=== PATIENT | female | born 1970 | race African-American/Black ===

== ENCOUNTER 2018-09-17 13:39 | Inpatient (IN) | payer OTHER, BC ==
--- NOTE | 2018-09-17 13:45 | PDOC ---
Rapid Medical Evaluation Time Seen by Provider: 09/17/18 13:42 Medical Evaluation: 09/17/18 13:42 I have performed a brief in-person evaluation of this patient. The patient presents with a chief complaint of: anemia Pertinent physical exam findings: Conjunctiva pallor. MM pallor. I have ordered the following: labs, urine The patient will proceed to the ED for further evaluation. Discharge Disposition - Diagnosis Anemia - Referrals - Patient Instructions - Post Discharge Activity
--- NOTE | 2018-09-17 14:17 | PDOC ---
History of Present Illness - General Chief Complaint: Weakness Stated Complaint: ENEMIC Time Seen by Provider: 09/17/18 13:42 - History of Present Illness Initial Comments: 09/17/18 14:14 48 yo F with h/o epilepsy, anemia, congenital 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, s/p CARPENTER ASSISTANT shunt who p/ w weakness, and concern for anemia. Patient unable to provide history. Slightly non verbal at baseline, able to follow commands. Patient mother/guardian at bedside to assist in report. States that patient is pale appearing, fatigue, loss of appetite, and shivering for unknown duration of time. Evaluated at Dr. Brit salazar ( 09/16/18) with lab abnml WBC 21.1 H/H: 4.8 /17.6, PLT 898. Denies h/o GI bleed, or blood transfusions. Patient denies FIGUEREDO, vision change, palpitations, cough, wheezing, orthopena, PND , leg swelling/pain, N/V, F,C, CP, SOB, urinary complaints, hematuria, BPR, abdominal pain, diarrhea, constipation, lightheadedness, weakness, sensory changes. PMHx: as noted above. Does not f/w GI. Denies h/o colonoscopy, ednosocopy, chronic NSAI Duse. S/p CARPENTER ASSISTANT shunt placement. ROS: as noted SHx: Denies Allergies: NKDA PMD: Not on staff Past History - Past Medical History Allergies/Adverse Reactions: Allergies Allergy/AdvReac Type Severity Reaction Status Date / Time No Known Allergies Allergy Verified 09/17/18 13:48 - Suicide/Smoking/Psychosocial Hx Smoking History: Never smoked Have you smoked in the past 12 months: No Information on smoking cessation initiated: No Hx Alcohol Use: No Drug/Substance Use Hx: No Review of Systems - Review of Systems Comments:: 09/17/18 14:14 GENERAL/CONSTITUTIONAL: No fever or chills. No weakness. HEAD, EYES, EARS, NOSE AND THROAT: No change in vision. No ear pain or discharge. No sore throat. CARDIOVASCULAR: No chest pain or shortness of breath RESPIRATORY: No cough, wheezing, or hemoptysis. GASTROINTESTINAL: No nausea, vomiting, diarrhea or constipation. GENITOURINARY: No dysuria, frequency, or change in urination. MUSCULOSKELETAL: No joint or muscle swelling or pain. No neck or back pain. SKIN: No rash NEUROLOGIC: No headache, vertigo, loss of consciousness, or change in strength/ sensation. ENDOCRINE: No increased thirst. No abnormal weight change HEMATOLOGIC/LYMPHATIC: No anemia, easy bleeding, or history of blood clots. ALLERGIC/IMMUNOLOGIC: No hives or skin allergy. *Physical Exam - Vital Signs Last Vital Signs Temp Pulse Resp BP Pulse Ox 97.4 F L 129 H 20 135/94 97 09/17/18 13:44 09/17/18 13:44 09/17/18 13:44 09/17/18 13:44 09/17/18 13:44 - Physical Exam Comments: 09/17/18 14:14 GENERAL: + Pale appearing. Awake, alert, slightly non verbal at baseline, able to follow commands., in no acute distress HEAD: No signs of trauma, normocephalic, atraumatic EYES: PERRLA, EOMI, sclera anicteric, conjunctiva clear ENT: + Conjuctival and mucosal pallor. Auricles normal inspection, hearing grossly normal, nares patent, oropharynx clear without exudates. NECK: Normal ROM, supple, no lymphadenopathy, JVD, or masses LUNGS: No distress, speaks full sentences, clear to auscultation bilaterally HEART: Regular rate and rhythm, normal S1 and S2, no murmurs, rubs or gallops, peripheral pulses normal and equal bilaterally. ABDOMEN: + Mild diffuse ttp. Soft, NDS, normoactive bowel sounds. No guarding, no rebound. No masses. Neg CVA ttp. RECTAL: Brown stool, absent BRBPR, absent lesions, fistulas, hemorrhoids. Chaperoned by Salma Gutierrez RN. EXTREMITIES : Normal inspection, Normal range of motion, no edema. No clubbing or cyanosis. NEUROLOGICAL: Cranial nerves II through XII grossly intact. Left wrist contracted. Strength grossly intact. SKIN: Warm, Dry, normal turgor, no rashes or lesions noted Moderate Sedation - Procedure Monitoring Vital Signs: Procedure Monitoring Vital Signs Temperature 97.4 F L 09/17/18 13:44 Pulse Rate 129 H 09/17/18 13:44 Respiratory Rate 20 09/17/18 13:44 Blood Pressure 135/94 09/17/18 13:44 O2 Sat by Pulse Oximetry (%) 97 09/17/18 13:44 ED Treatment Course - LABORATORY CBC & Chemistry Diagram: 09/17/18 13:55 09/17/18 13:54 Medical Decision Making - Medical Decision Making 09/17/18 14:15 48 yo F with h/o epilepsy, anemia, congenital 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 at , hypothyroidism, slightly non verbal at baseline, able to follow commands, s/p CARPENTER ASSISTANT shunt who p/w weakness, and concern for anemia. Per mother/legal guardian, pt. pale appearing, fatigue, loss of appetite, and shivering for unknown duration of time. Temp 97.4, HR 129, vitals wnl, A&Ox3. Patient pale appearing, with conjuctival and mucsoal pallor. Abdomen mildly, diffusely ttp. Will assess for acute blood loss anemia, hypoglycemia, electrolyte abnml, metabolic and toxic derangements, acid-base disturbances, infection. ED Course: 09/17/18 15:05 Patient guardian/mother consents to PRBC transfusions 09/17/18 15:08 Laboratory Tests 09/17/18 09/17/18 09/17/18 13:54 13:55 13:55 WBC 23.5 H Hgb 4.7 L* Hct 16.8 L Plt Count 832 H INR 1.26 H BUN 12 Creatinine 0.8 09/17/18 16:07 FOBT: + Protonix, Protonix gtt Contacted GI answering service. Dr. Collins line service person awaiting callback Pt. endorsed to Therese PGY1. Admit to Dr. Max medicine 09/17/18 17:01 Patient endorsed to family member/Dr. Salazar *DC/Admit/Observation/Transfer Diagnosis at time of Disposition: Anemia requiring transfusions Anemia Qualifiers: Anemia type: unspecified type Qualified Code(s): D64.9 - Anemia, unspecified GI bleed Qualifiers: GI bleed type/associated pathology: unspecified gastrointestinal hemorrhage type Qualified Code(s): K92.2 - Gastrointestinal hemorrhage, unspecified - Discharge Dispostion Condition at time of disposition: Stable Decision to Admit order: Yes - Referrals - Patient Instructions - Post Discharge Activity - Attestations Physician Attestion: 09/17/18 14:15 I attest to the information provided in this note.
[2018-09-17 14:26] LABS: INR 1.26 (0.83-1.09); PROTHROMBIN TIME (PATIENT) 14.9 SEC (9.7-13.0)
[2018-09-17 14:35] LABS: ALBUMIN 2.6 g/dl (3.4-5.0); ALK PHOS 192 U/L (45-117); ANION GAP 11 MMOL/L (8-16); BILIRUBIN,TOTAL 0.2 mg/dL (0.2-1); BLOOD UREA NITROGEN 12 mg/dL (7-18); CALCIUM 8.4 mg/dL (8.5-10.1); CHLORIDE 101 mmol/L (98-107); CO2 22 mmol/L (21-32); CREATININE 0.8 mg/dL (0.55-1.3); GLUCOSE,RANDOM 110 mg/dL (74-106); POTASSIUM 4.6 mmol/L (3.5-5.1); SGOT/AST 49 U/L (15-37); SGPT/ALT 31 U/L (13-61); SODIUM 133 mmol/L (136-145); TOT PROT 7.8 g/dl (6.4-8.2)
[2018-09-17] MEDS ORDERED: SODIUM CHLORIDE 1,000 ML IV STA (14:35)
[2018-09-17 14:48] LABS: HEMATOCRIT 16.8 % (32.4-45.2); MEAN CELL VOLUME 56.5 fl (80-96); PLATELET COUNT 832 K/MM3 (134-434); RBC 2.97 M/mm3 (3.60-5.2); RDW 20.7 % (11.6-15.6); RETICULOCYTES 2.06 % (0.5-1.5); WHITE BLOOD COUNT 23.5 K/mm3 (4.0-10.0)
[2018-09-17 14:50] LABS: MCH 15.8 pg (25.7-33.7)
[2018-09-17 14:52] LABS: HEMOGLOBIN 4.7 GM/dL (10.7-15.3)
--- NOTE | 2018-09-17 14:54 | PDOC ---
Attending Attestation - Physicial Exam PE: 09/17/18 18:29 GENERAL: (+)Pale appearing. Awake, alert, slightly nonverbal at baseline, able to follow commands. The patient is in no acute distress. HEAD: Normal with no signs of trauma. EYES: PERRLA, EOMI, sclera anicteric, conjunctiva clear. ENT: (+)Conjunctival and mucousal pallor. Ears normal, nares patent, oropharynx clear without exudates. Moist mucous membranes. NECK: Normal range of motion, supple without lymphadenopathy, JVD, or masses. LUNGS: Breath sounds equal, clear to auscultation bilaterally. No wheezes, and no crackles. HEART:Regular rate and rhythm, normal S1 and S2 without murmur, rub or gallop. ABDOMEN: (+)Mild diffuse tenderness to palpation. Soft, normoactive bowel sounds. No guarding, no rebound. No masses palpable. EXTREMITIES: Normal range of motion, no edema. No clubbing or cyanosis. No erythema, or tenderness. NEUROLOGICAL: Cranial nerves II through XII grossly intact. Normal speech. No focal neurological deficits. MUSCULOSKELETAL: Back non-tender to palpation, no CVA tenderness SKIN: Warm, Dry, normal turgor, no rashes or lesions noted. <Ina Newton - Last Filed: 09/17/18 18:29> - Resident Resident Name: Eliezer Early - ED Attending Attestation I have performed the following: I have examined & evaluated the patient, The case was reviewed & discussed with the resident, I agree w/resident's findings & plan, Exceptions are as noted - HPI HPI: 09/17/18 14:55 Ms Ta is a 48 yo F h/o epilepsy, anemia, chronic 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, s/p CT TECHNICIAN shunt who p/w weakness and concern for anemia. Pt noted by family to be pale, and shivering. Patient denies FIGUEREDO, vision change, palpitations, cough, wheezing, orthopena, PND , leg swelling/pain, N/V, F,C, CP, SOB, urinary complaints, hematuria, BPR, abdominal pain, diarrhea, constipation, lightheadedness, weakness, sensory changes. - Physicial Exam PE: - Medical Decision Making 09/17/18 15:11 Laboratory Tests 09/17/18 09/17/18 13:54 13:55 WBC 23.5 H Hgb 4.7 L* Hct 16.8 L Plt Count 832 H Retic Count 2.06 H BUN 12 Creatinine 0.8 09/17/18 17:58 EKG - ST rate of 128 bpm, axis nml, intervals nml, no st elevation or depression Will admit to hospitalist service PRBC ordered Clinical Impression: Anemia, initial presentation <Marissa Carrillo - Last Filed: 09/20/18 01:45> Attestations - Attestations 09/17/18 18:32 Documentation prepared by Ina Newton, acting as medical registrar for Marissa Carrillo MD. <Ina Newton - Last Filed: 09/17/18 18:29>
[2018-09-17 15:34] LABS: ANISOCYTOSIS 3+; MACROCYTOSIS 0; PLATELET ESTIMATE INCREASED; TARGET CELLS 2+
[2018-09-17] MEDS ORDERED: PANTOPRAZOLE SODIUM 40 MG VIAL IVPUSH ONE (15:43)
--- NOTE | 2018-09-17 16:13 | PN ---
Teaching Attending Note Name of Resident: Therese Durán ATTENDING PHYSICIAN STATEMENT I saw and evaluated the patient. I reviewed the resident's note and discussed the case with the resident. I agree with the resident's findings and plan as documented. SUBJECTIVE: Ms Ta is a 48 yo F h/o epilepsy, anemia, chronic 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, s/p BEHAVIORAL HEALTH TECH shunt who p/w weakness and concern for anemia. Pt was noted by family to be pale, and shivering. Was brought in to ED. for further care and evaluation. OBJECTIVE: Vital Signs Temperature 97.4 F L 09/17/18 13:44 Pulse Rate 129 H 09/17/18 13:44 Respiratory Rate 20 09/17/18 13:44 Blood Pressure 135/94 09/17/18 13:44 O2 Sat by Pulse Oximetry (%) 97 09/17/18 13:44 GENERAL:positivr for pallor. Awake, alert, slightly non verbal at baseline, able to follow commands., in no acute distress HEAD: No signs of trauma, normocephalic, atraumatic EYES: PERRLA, EOMI, sclera anicteric, conjunctiva clear ENT: positive for Conjuctival and mucosal pallor. oropharynx clear without exudates. NECK: Normal ROM, supple, no lymphadenopathy, JVD, or masses LUNGS: No distress, speaks full sentences, clear to auscultation bilaterally HEART: Regular rate and rhythm, normal S1 and S2, no murmurs, rubs or gallops. ABDOMEN: mild tenderness , soft , normoactive bowel sounds. No guarding, no rebound. No masses. EXTREMITIES : Normal inspection, Normal range of motion, no edema. No clubbing or cyanosis. NEUROLOGICAL: Cranial nerves II through XII grossly intact. Left wrist contracted. Strength grossly intact. SKIN: Warm, Dry, normal turgor, no rashes or lesions noted CBCD WBC 23.5 K/mm3 (4.0-10.0) H 09/17/18 13:55 RBC 2.97 M/mm3 (3.60-5.2) L 09/17/18 13:55 Hgb 4.7 GM/dL (10.7-15.3) L* 09/17/18 13:55 Hct 16.8 % (32.4-45.2) L 09/17/18 13:55 MCV 56.5 fl (80-96) L 09/17/18 13:55 MCHC 28.0 g/dl (32.0-36.0) L 09/17/18 13:55 RDW 20.7 % (11.6-15.6) H 09/17/18 13:55 Plt Count 832 K/MM3 (134-434) H 09/17/18 13:55 MPV 8.0 fl (7.5-11.1) 09/17/18 13:55 CMP Sodium 133 mmol/L (136-145) L 09/17/18 13:54 Potassium 4.6 mmol/L (3.5-5.1) 09/17/18 13:54 Chloride 101 mmol/L (98-107) 09/17/18 13:54 Carbon Dioxide 22 mmol/L (21-32) 09/17/18 13:54 Anion Gap 11 MMOL/L (8-16) 09/17/18 13:54 BUN 12 mg/dL (7-18) 09/17/18 13:54 Creatinine 0.8 mg/dL (0.55-1.3) 09/17/18 13:54 Creat Clearance w eGFR > 60 (>60) 09/17/18 13:54 Random Glucose 110 mg/dL (74-106) H 09/17/18 13:54 Calcium 8.4 mg/dL (8.5-10.1) L 09/17/18 13:54 Total Bilirubin 0.2 mg/dL (0.2-1) 09/17/18 13:54 AST 49 U/L (15-37) H 09/17/18 13:54 ALT 31 U/L (13-61) 09/17/18 13:54 Alkaline Phosphatase 192 U/L (45-117) H 09/17/18 13:54 Total Protein 7.8 g/dl (6.4-8.2) 09/17/18 13:54 Albumin 2.6 g/dl (3.4-5.0) L 09/17/18 13:54 ASSESSMENT AND PLAN: Patient is a 48 y/o female with a PMHx of epilepsy, chronic 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 with subsequent brain damage (patient is non-verbal) requiring 3 BEHAVIORAL HEALTH TECH shunts last one being in 1990), hypothyroidism she came to the ED after was found to have a low hemoglobin level of 4.6. # Acute blood loss due to GI Bleed: positive for hemoccult, GI consult, cbc q12h , transfuse 2 units for now. admit to tele. for further monitoring # Acute leukocytosis julian culture, will get ID to see her , # Acute thrombocytosis will monitor, will get her baseline, for consult # Acute hyponatremia on IVF continue DVT Px: SCds , low hemoglobin with positive hemoccult, will hold off on AC.
[2018-09-17] MEDS ORDERED: PANTOPRAZOLE SODIUM 40 MG/100 ML BAG IVPB ONE (16:14)
[2018-09-17] MEDS ORDERED: PANTOPRAZOLE SODIUM 40 MG VIAL ONE (16:14)
[2018-09-17] MEDS: PANTOPRAZOLE SODIUM 80 MG in SODIUM CHLORIDE 100 ML IVPB SCH (16:15)
[2018-09-17] MEDS: SODIUM CHLORIDE 1,000 ML IV SCH ×2 (17:42→22:58)
--- NOTE | 2018-09-17 17:52 | HP ---
CHIEF COMPLAINT: low hemoglobin level PCP: [facility] HISTORY OF PRESENT ILLNESS: 48 y/o female with a PMH of epilepsy, chronic 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 with subsequent brain damage (patient is non-verbal) requiring 3 MAT CUTTER shunts last one being in 1990), hypothyroidism she came to the ED after was found to have a low hemoglobin level when she went to her sisters (dr. butler's) office yesterday. As per patients mother and sister, she had been been feeling weak and was noticed to be looking pale and not eating for the past week so she went to her sister's office and blood tests showed that patient had a Hgb of 4.6, Hct of 17.6, WBC 21.1. of note, patient has never had this before- no history of GI bleed, no NSAID use, never had a colonoscopy, never seen a GI in the past , her mother has not noted any dark stool no hematemesis or hematochezia noted. Patient has also been having abdominal tenderness, but no diarrhea no fevers. ER course was notable for: (1)HR 129; normal BP (2)wbc 23.5, Hgb 4.7, HCt 16.8, platelets 832, BUN 12 FOBT positive (as per rectal done by ED resident) (3)started on protonix drip, transfuse 2 units (1st unit finished already) Recent Travel: denies PAST MEDICAL HISTORY: see above PAST SURGICAL HISTORY: MAT CUTTER shunt Social History: Smoking:denies Alcohol:denies Drugs: denies Family History: father from [place] Allergies No Known Allergies Allergy (Verified 09/17/18 13:48) HOME MEDICATIONS: Home Medications Medication Instructions Recorded Calcium Carbonate [Super Calcium] 600 mg PO BID 09/17/18 Carbamazepine Xr [Tegretol Xr -] 400 mg PO AM 09/17/18 Carbamazepine Xr [Tegretol Xr -] 600 mg PO HS 09/17/18 Ferrous Sulfate 325 mg PO DAILY 09/17/18 Levothyroxine [Synthroid -] 75 mcg PO DAILY 09/17/18 REVIEW OF SYSTEMS CONSTITUTIONAL: Present: generalized weakness, malaise, loss of appetite Absent: fever, chills , diaphoresis, , weight change HEENT: Absent: rhinorrhea, nasal congestion, throat pain, throat swelling, difficulty swallowing, mouth swelling, ear pain, eye pain, visual changes CARDIOVASCULAR: Absent: chest pain, syncope, palpitations, irregular heart rate, lightheadedness , peripheral edema RESPIRATORY: Absent: cough, shortness of breath, dyspnea with exertion, orthopnea, wheezing, stridor, hemoptysis GASTROINTESTINAL: Present:hematochezia Absent: abdominal pain, abdominal distension, nausea, vomiting, diarrhea, constipation, melena, GENITOURINARY: Absent: dysuria, frequency, urgency, hesitancy, hematuria, flank pain, genital pain MUSCULOSKELETAL: Absent: myalgia, arthralgia, joint swelling, back pain, neck pain SKIN: Absent: rash, itching, pallor HEMATOLOGIC/IMMUNOLOGIC: Absent: easy bleeding, easy bruising, lymphadenopathy, frequent infections ENDOCRINE: Absent: unexplained weight gain, unexplained weight loss, heat intolerance, cold intolerance NEUROLOGIC: Absent: headache, focal weakness or paresthesias, dizziness, unsteady gait, seizure, mental status changes, bladder or bowel incontinence PSYCHIATRIC: Absent: anxiety, depression, suicidal or homicidal ideation, hallucinations. PHYSICAL EXAMINATION Vital Signs - 24 hr 09/17/18 09/17/18 13:44 15:30 Temperature 97.4 F L Pulse Rate 129 H Respiratory 20 Rate Blood Pressure 135/94 O2 Sat by Pulse 97 98 Oximetry (%) GENERAL: Awake, alert, resting comfortably, looking pale EYES: PEERLA; EOMI; no scleral icterus; pallor noted LUNGS: CTA B/L; no rales, rhonchi or wheezing. HEART: Regular rate and rhythm, normal S1 and S2 without murmur, rub or gallop. ABDOMEN: soft; wincing upon palpation diffusely; +BS in all 4 quadrants MUSCULOSKELETAL: Normal range of motion at all joints. No bony deformities or tenderness. No CVA tenderness. EXTREMITIES: warm; well-perfused; no clubbing/cyanosis or edema PSYCHIATRIC: Cooperative. Good eye contact. Appropriate mood and affect. SKIN: Warm, dry, normal turgor, no rashes or lesions noted, normal capillary refill. Laboratory Results - last 24 hr 09/17/18 09/17/18 09/17/18 13:54 13:54 13:55 WBC 23.5 H RBC 2.97 L Hgb 4.7 L* Hct 16.8 L MCV 56.5 L MCH 15.8 L MCHC 28.0 L RDW 20.7 H Plt Count 832 H MPV 8.0 Neutrophils % No Result Required. Neutrophils % (Manual) 81.8 Band Neutrophils % 1.0 Lymphocytes % No Result Required. Lymphocytes % (Manual) 5.1 L Monocytes % (Manual) 11 H Eosinophils % (Manual) 0.0 Basophils % (Manual) 1.0 Myelocytes % (Man) 0 Promyelocytes % (Man) 0 Blast Cells % (Manual) 0 Nucleated RBC % 0 Metamyelocytes 0 Hypochromia 2+ Platelet Estimate Increased Polychromasia 1+ Poikilocytosis 1+ Anisocytosis 3+ Microcytosis 3+ Macrocytosis 0 Target Cells 2+ Schistocytes 1+ Retic Count 2.06 H PT with INR INR Sodium 133 L Potassium 4.6 Chloride 101 Carbon Dioxide 22 Anion Gap 11 BUN 12 Creatinine 0.8 Creat Clearance w eGFR > 60 Random Glucose 110 H Calcium 8.4 L Total Bilirubin 0.2 AST 49 H ALT 31 Alkaline Phosphatase 192 H Total Protein 7.8 Albumin 2.6 L TSH 0.76 Stool Occult Blood Blood Type A POSITIVE Antibody Screen Negative Crossmatch See Detail 09/17/18 09/17/18 13:55 14:55 WBC RBC Hgb Hct MCV MCH MCHC RDW Plt Count MPV Neutrophils % Neutrophils % (Manual) Band Neutrophils % Lymphocytes % Lymphocytes % (Manual) Monocytes % (Manual) Eosinophils % (Manual) Basophils % (Manual) Myelocytes % (Man) Promyelocytes % (Man) Blast Cells % (Manual) Nucleated RBC % Metamyelocytes Hypochromia Platelet Estimate Polychromasia Poikilocytosis Anisocytosis Microcytosis Macrocytosis Target Cells Schistocytes Retic Count PT with INR 14.90 H INR 1.26 H Sodium Potassium Chloride Carbon Dioxide Anion Gap BUN Creatinine Creat Clearance w eGFR Random Glucose Calcium Total Bilirubin AST ALT Alkaline Phosphatase Total Protein Albumin TSH Stool Occult Blood Positive Blood Type Antibody Screen Crossmatch ASSESSMENT/PLAN: 48 y/o female with a PMH of epilepsy, chronic 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 requiring 3 MAT CUTTER shunts, hypothyroidism presents to the ED with a one week history of worsening fatigue, loss of appetite, found to have a hemoglobin of 4.6 and was FOBT positive. #GI Bleed patient found to have an H/H of 4.7/16.8 on arrival -FOBT positive -started on PPI drip -receiving 2 units -CBC [id number] -Dr. Valentine consulted -transfuse if <7 -once PPI drip; switch to protonix 40 BID -NS@100 #Leukocytosis/thrombocytosis unclear source of infection right now as patient is afebrile however has been having abdominal pain -f/u ab/pelvis CT scan -f/u head CT (given patient does have MAT CUTTER shunt) -Dr. perez consulted -may consider ID consult #Chronic Hydrocephalus w/ MAT CUTTER shunt -head CT ordered to r/o infection -Dr. Quezada consulted #Seizures -c/w home medication: tegretol 200: 2 tablets in AM; 3 tablets PM #Hypothyroidism c/w synthroid 75 mcg daily F/E/N NS @100 monitor electrolytes NPO for now DVT PPX: SCD's GI: protonix drip dispo - tele Problem List - Problem (1) Seizure Code(s): R56.9 - UNSPECIFIED CONVULSIONS (2) Hydrocephalus Code(s): G91.9 - HYDROCEPHALUS, UNSPECIFIED (3) Anemia Code(s): D64.9 - ANEMIA, UNSPECIFIED Qualifiers: Anemia type: unspecified type Qualified Code(s): D64.9 - Anemia, unspecified (4) GI bleed Code(s): K92.2 - GASTROINTESTINAL HEMORRHAGE, UNSPECIFIED Qualifiers: GI bleed type/associated pathology: unspecified gastrointestinal hemorrhage type Qualified Code(s): K92.2 - Gastrointestinal hemorrhage, unspecified Visit type - Emergency Visit Emergency Visit: Yes ED Registration Date: 09/17/18 Care time: The patient presented to the Emergency Department on the above date and was hospitalized for further evaluation of their emergent condition. - New Patient This patient is new to me today: Yes Date on this admission: 09/17/18 - Critical Care Critical Care patient: No
--- NOTE | 2018-09-17 20:48 | CONS ---
DATE OF CONSULTATION: DATE OF DICTATION: 09/17/2018 GASTROENTEROLOGY CONSULTATION HISTORY OF PRESENT ILLNESS: The patient is a 48-year-old female, past medical history of epilepsy, chronic 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 with subsequent brain damage. Patient is nonverbal. She had required 3 HEAD USHER shunts in the past, also with a history of hypothyroidism, who was sent to the hospital secondary to anemia after being seen at the outpatient doctor's office. As per the family, she has been feeling weak and pale over the past week and not eating as much as she is normally eating on a daily basis. There is no history of any abdominal pain, nausea, vomiting, hematemesis, melena, or hematochezia. She has never had an endoscopic evaluation in the past. She does not use any NSAIDs, and there is no history of GI bleed. PAST MEDICAL AND SURGICAL HISTORY: As listed in the HPI. ALLERGIES: No known drug allergies. SOCIAL HISTORY: Does not smoke, drink, or use drugs. FAMILY HISTORY: Noncontributory. PHYSICAL EXAMINATION: VITAL SIGNS: Temperature 97, pulse 120, blood pressure 130/94, pulse oximetry 98% on room air. GENERAL: In no acute distress. HEENT: Anicteric sclerae. CARDIOVASCULAR: S1, S2, regular rate and rhythm. LUNGS: Bilaterally clear to auscultation. ABDOMEN: Soft, nontender. EXTREMITIES: No edema. She is FOBT positive as per the rectal exam done in the emergency room. LABORATORY: White blood cell count 23, hemoglobin and hematocrit 4.7/16, MCV 56, platelet count 834, INR 1.26, sodium 133, potassium 4.6, BUN/creatinine 12/0.8, AST 49, ALT 31, alkaline phosphatase 192, TSH 0.76. FOBT testing is positive. She had head CT which was within normal limits. She also had a CT scan of the abdomen and pelvis which revealed markedly limited study with large hepatic masses suspicious for metastatic disease. This study was done without contrast. IMPRESSION: Severe microcytic anemia underlying hematological process cannot be excluded. Imaging findings consistent with lesions in the liver; however, this is a noncontrast study and is limited. Gastrointestinal blood loss cannot be excluded. RECOMMENDATION: Transfuse to hemoglobin over 8, avoid NSAID, repeat imaging, would recommend an MRCP to further evaluate the liver and rule out metastatic disease, would also recommend a hematology/oncology consultation. Unclear why she has a leukocytosis. Would julian culture her also. Considering there is no sign of an overt GI bleed, would hold off on any endoscopic procedures and continue to evaluate her hematological process. This patient will be followed by the GI service. DO YANG LARA/[id number]
[2018-09-17] MEDS ORDERED: PT OWN MED DRAWER 7, Y5N ONE (22:52)
[2018-09-17] MEDS: carBAMazepine XR 200 MG TAB.ER.12H PO SCH (23:15)
[2018-09-18] MEDS ORDERED: ACETAMINOPHEN 325 MG TABLET (FP) PO ONE (00:07)
[2018-09-18] MEDS ORDERED: VANCOMYCIN 1 GM in D5W (PRE-DOCKED) 1,000 MG/250 ML IVPB ONE (02:00)
--- NOTE | 2018-09-18 02:11 | PN ---
Progress Note (short form) - Note Progress Note: Paged by nurse for fever to 100.7. Pt.'s Type and Screen resulted ~10:45. Blood arrived at Pt.'s bedside ~11:45pm. Pt. was given 325mg Tylenol. Pt.s repeat Temp 101.4. Pt. at this point still had not received blood. BP was at this time 90s/40s. UA(straight cath) and BCx. drawn. CXR, CMP, and CBC ordered. Zosyn and Vancomycin ordered. Pt.'s transfusion paused as Pt. was alert, oriented to name and responsive and was febrile. The duration of time needed to Type and Screen indicated that the Pt. would be a increased risk for a Transfusion related Rxn and the thought process was to address suspected infection first. IV Ofirmev ordered. No overt bleeding noted, Pt. denied SOB, CP, dizziness or lightheadedness. Pt.'s family at bedside noted that Pt. was at her baseline for mental capacity.
[2018-09-18] MEDS ORDERED: PIPERACILLIN/TAZOBACTAM 3.375 GM VIAL IVPB ONE ×3 (03:09→18:22)
[2018-09-18] MEDS ORDERED: DEXTROSE 5%-WATER - 50 ML IVPB ONE ×3 (03:10→18:22)
[2018-09-18 03:21] LABS: BASO % 0.7 % (0-2.0); EOS % 0.1 % (0-4.5); HEMATOCRIT 13.1 % (32.4-45.2); LYMPH % 4.2 % (8-40); MCHC 28.8 g/dl (32.0-36.0); MEAN CELL VOLUME 55.3 fl (80-96); MEAN PLT VOLUME 7.6 fl (7.5-11.1); MONO % 9.6 % (3.8-10.2); NEUT % 85.4 % (42.8-82.8); PLATELET COUNT 666 K/MM3 (134-434); RBC 2.37 M/mm3 (3.60-5.2); RDW 20.3 % (11.6-15.6); WHITE BLOOD COUNT 18.5 K/mm3 (4.0-10.0)
[2018-09-18 03:22] LABS: URINE APPEARANCE SLCLOUDY; URINE BILIRUBIN NEGATIVE (<2.0 mg/dL); URINE COLOR YELLOW; URINE GLUCOSE (UA) NEGATIVE (NEGATIVE); URINE KETONE 1+ (NEGATIVE); URINE LEUK ESTERASE TRACE (NEGATIVE); URINE NITRITE NEGATIVE (NEGATIVE); URINE PROTEIN NEGATIVE (NEGATIVE); URINE UROBILINOGEN NEGATIVE mg/dL (0.2-1.0)
[2018-09-18 03:23] LABS: HCG,QUALITATIVE URINE Negative
[2018-09-18] MEDS: PANTOPRAZOLE SODIUM 80 MG in SODIUM CHLORIDE 100 ML IVPB SCH (03:37)
[2018-09-18 03:52] LABS: MCH 15.9 pg (25.7-33.7)
[2018-09-18 03:53] LABS: ALBUMIN 2.1 g/dl (3.4-5.0); ALK PHOS 157 U/L (45-117); ANION GAP 7 MMOL/L (8-16); BILIRUBIN,TOTAL 0.2 mg/dL (0.2-1); BLOOD UREA NITROGEN 11 mg/dL (7-18); CALCIUM 7.7 mg/dL (8.5-10.1); CHLORIDE 106 mmol/L (98-107); CO2 24 mmol/L (21-32); CREATININE 0.5 mg/dL (0.55-1.3); GLUCOSE,RANDOM 75 mg/dL (74-106); POTASSIUM 3.8 mmol/L (3.5-5.1); SGOT/AST 35 U/L (15-37); SGPT/ALT 24 U/L (13-61); SODIUM 136 mmol/L (136-145)
[2018-09-18 03:54] LABS: HEMOGLOBIN 3.8 GM/dL (10.7-15.3)
[2018-09-18 04:13] LABS: EPI CELLS RARE /HPF (FEW); URINE BACTERIA RARE /hpf (NONE SEEN); URINE MUCUS RARE
[2018-09-18] MEDS: PIPERACILLIN/TAZOB 3.375 GM 3.375 GM in DEXTROSE 5%-WATER - 50 ML IVPB SCH ×3 (04:42→18:25)
[2018-09-18] MEDS: LEVOTHYROXINE NA 75 MCG TABLET (FP) PO SCH (06:29)
--- NOTE | 2018-09-18 09:02 | PN ---
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 History obtained from mother. Pt feeling weak and looking pale and not eating for the past week so she went to her sister's office and blood tests showed that patient had a Hgb of 4.6, Hct of 17.6, WBC 21.1. No history of GI bleed, no NSAID or recent steroid use. No recent trauma, fall, or infection. Mother has not noted any dark stool no hematemesis, hematochezia, diarrhea. Pt more lethargic previously but back to baseline this AM per mother. Denies H/A or recent seizure. Has been taking iron supplement since last year. PE: Tmax 100.2, now 99.2, VSS HEENT- R temporo-parietal shunt valve pumps and refills, no obvious underlying scalp fluid collection or track; Neck- supple; Cor-RR; Lungs- CTA B; Abd- benign , hypoactive BS, healed midline supraumbilical incision; Ext- no sign of DVT CN- non-focal; Motor- mild L hemiparesis 4/5, increased L UE and LE tone; Sensation- difficult to fully assess; DTR- hyperreflexic L UE; toes downgoing WBC 23.5 to 18.5; Hgb 8.[address]- At least catheters; R parietal chronic encephalomalacia, R frontal catheter into encephalomalacic cavity, R temporal catheter into lateral ventricle, R parietal catheter crossing midline into L lateral ventricle, no acute bleed or fx CT Abd- hepatic lesions of unknown etiology; no reported large fluid collection HCP s/p shunts/revision most recently 1990 per mom At least one shunt appears to be working as valve pumps and refills easily, though shunt setup difficult to ascertain as there are multiple and were done elsewhere Shunt infection possible but less likely as pt would likely be much sicker clinically If ASSISTANCE REPRESENTATIVE infection or meningitis suspected could consider LP though with CP shunt , lumbar cistern fluid would likely be scant and viscous Neurosurgical intervention not recommended at this time W/u for anemia, leukocytosis and hepatic lesions per medical team ID input and followup Mother understands and concurs with recommendations
--- NOTE | 2018-09-18 09:06 | PN ---
GI Progress Note Subjective: Receiving 1st unit PRBC No overt bleeding reported Patient's mother present: noted 20 pound weight loss over last 1-2 months - Objective Vital Signs: Vital Signs Temperature 99.0 F 09/18/18 06:00 Pulse Rate 95 H 09/18/18 06:00 Respiratory Rate 18 09/18/18 06:00 Blood Pressure 98/52 L 09/18/18 06:00 O2 Sat by Pulse Oximetry (%) 100 09/18/18 05:00 Constitutional: Calm Eyes: No: Sclera Icterus Cardiovascular: Yes: Regular Rate and Rhythm Respiratory: Yes: Diminished (at bases bilaterally) Gastrointestinal Inspection: Yes: Scars (upper abdominal scar). No: Distention ...Auscultate: Yes: Normoactive Bowel Sounds ...Palpate: Yes: Tenderness (TTP RUQ) ...Percussion: No: Tympanitic ...Rectal Exam: Yes: Other (No external lesions, no masses, dark brown iron stained stool (has been on iron x 1 year), tracely guaiac positive. No melena / blood.) Edema: No Neurological: Yes: Other (Awake) Labs: CBC, BMP 09/18/18 02:15 09/18/18 02:15 INR, PTT INR 1.26 (0.83-1.09) H 09/17/18 13:55 Fibrinogen 395.0 mg/dL (238-498) 09/18/18 02:15 Hepatic Panel Total Bilirubin 0.2 mg/dL (0.2-1) 09/18/18 02:15 AST 35 U/L (15-37) 09/18/18 02:15 ALT 24 U/L (13-61) 09/18/18 02:15 Alkaline Phosphatase 157 U/L (45-117) H 09/18/18 02:15 Albumin 2.1 g/dl (3.4-5.0) L 09/18/18 02:15 Problem List - Problems (1) Anemia Assessment/Plan: Profound microcytic anemia continue supportive measures: PRBC transfusions Heme/Onc eval When able, CT scan of the C/A/P with contrast. For now, hepatic US Ordered CEA/CA19-9/AFP tumor markers Protonix 40mg daily When optimally resiscitated, EGD and colonoscopy if feasible Code(s): D64.9 - ANEMIA, UNSPECIFIED Qualifiers: Anemia type: unspecified type Qualified Code(s): D64.9 - Anemia, unspecified
[2018-09-18 09:35] LABS: HEMATOCRIT 17.8 % (32.4-45.2); MCHC 30.4 g/dl (32.0-36.0); MEAN CELL VOLUME 62.4 fl (80-96); MEAN PLT VOLUME 7.6 fl (7.5-11.1); PLATELET COUNT 590 K/MM3 (134-434); RBC 2.85 M/mm3 (3.60-5.2); RDW 30.8 % (11.6-15.6); WHITE BLOOD COUNT 17.7 K/mm3 (4.0-10.0)
[2018-09-18] MEDS: carBAMazepine XR 400 MG TAB.ER.12H PO SCH (09:35)
[2018-09-18 09:46] LABS: HEMOGLOBIN 5.4 GM/dL (10.7-15.3)
[2018-09-18] MEDS: PANTOPRAZOLE SODIUM 40 MG VIAL IVPUSH SCH (10:07)
[2018-09-18 10:14] LABS: ALBUMIN 1.9 g/dl (3.4-5.0); ALK PHOS 153 U/L (45-117); ANION GAP 5 MMOL/L (8-16); BILIRUBIN,TOTAL 0.7 mg/dL (0.2-1); BLOOD UREA NITROGEN 8 mg/dL (7-18); CALCIUM 7.3 mg/dL (8.5-10.1); CHLORIDE 111 mmol/L (98-107); CO2 24 mmol/L (21-32); CREATININE 0.5 mg/dL (0.55-1.3); GLUCOSE,RANDOM 71 mg/dL (74-106); MAGNESIUM 1.9 mg/dL (1.8-2.4); PHOSPHOROUS 3.3 mg/dL (2.5-4.9); POTASSIUM 3.7 mmol/L (3.5-5.1); SGOT/AST 33 U/L (15-37); SGPT/ALT 19 U/L (13-61); SODIUM 139 mmol/L (136-145); TOT PROT 5.5 g/dl (6.4-8.2)
--- NOTE | 2018-09-18 13:29 | CONS ---
DATE OF CONSULTATION: 09/18/2018 CHIEF COMPLAINT: Lethargy, leukocytosis, and anemia. HISTORY OF PRESENT ILLNESS: The patient is a 48-year-old female with history of 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, status post at least 3 shunt placement procedures in the past. The patient had both shunt malfunctions and infections in the past. The last shunt operation was in 1990. She also has underlying seizure disorder, has been on Tegretol with good seizure control. She was found to have a low hemoglobin and high white blood cell count 2 days ago in the medical office. The patient has been noted to be slightly weak and sleepy and was not eating as much over the past week. There was no hematochezia or melena. She has no nausea or vomiting. There is no fever or chills according to the mother. There has been no recent fall, trauma or infection. The patient generally goes to adult daycare and participates in a full-day program. The patient has not complained of chest pain or shortness of breath. There has been no diarrhea either. Her mental status had returned to baseline according to mother by this morning. The patient has baseline left hemiparesis which has not changed appreciably. PAST MEDICAL HISTORY: Significant for 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, status post shunt procedures, epilepsy, hypothyroidism, anemia. CURRENT MEDICATIONS: Include Zosyn, Tegretol, Protonix, levothyroxine and the patient had received 1 dose of vancomycin previously. ALLERGIES: There is no known drug allergy. FAMILY HISTORY: Noncontributory. SOCIAL HISTORY: She does not smoke or drink. She lives at home with her mother. REVIEW OF SYSTEMS: Otherwise negative for major constitutional, head and neck, cardiovascular, pulmonary, gastrointestinal, genitourinary, endocrinological, neurological or psychological problems except for the above. PHYSICAL EXAMINATION:Vital Signs: Temperature is 99, T-max is 100.2, blood pressure is 190/52 with pulse rate 95, O2 saturation is 100% on 2 L. HEENT: Shows multiple shunt catheters in the subcutaneous space. There is also a shunt valve in the right posterior temporal region which pumps and refills easily. Neck: Supple with no nuchal rigidity. Cor: Demonstrated a regular rhythm. Lungs: Clear to auscultation bilaterally. Abdomen: Benign, but she has hypoactive bowel sounds. Extremities: Show no signs of DVT. Neurologic: She is awake and alert and her eyes open to commands. She also follows simple commands as well. She is minimally verbal. Cranial nerve examination is nonfocal. Motor examination shows 4/5 strength in the left upper and lower extremity with increased tone. Deep tendon reflexes are 1 to 2+ and symmetric. Sensory exam is intact to light touch. Toes are downgoing bilaterally. Gait is not tested for safety reasons. Cerebellar examination is difficult to perform given her degree of cooperation. LABORATORY: Shows her white blood cell count to be 23.5 initially. It subsequently is 18.5. Hemoglobin has dropped from 4.7 to 3.8. Platelet count was 666,000. Serum sodium is 136, potassium is 3.8, BUN is 11, creatinine is 0.5, calcium is 7.7, alkaline phosphatase is 157. Urinalysis shows 2 RBC and less than 1 WBC. INR is 1.26. [address] scan of the head demonstrated at least 3 ventricular catheters and possibly 4. There is a right temporal catheter which ends near the vicinity of the right lateral ventricle. There is a right parietal catheter crossing the midline into the left lateral ventricle. There is a right frontal catheter extending to the right parietal encephalomalacic cavity. There is no significant mass effect. There is no acute bleed or fracture. CT scan of the abdomen reports the presence of large hepatic lesions. IMPRESSION: 1. Leukocytosis with anemia, rule out neoplastic disease versus gastrointestinal bleed. 2. Hepatic lesions, rule out primary disease or metastasis. 3. Hydrocephalus, status post multiple shunt procedures, most recently in 1990. 4. Seizure disorder, under control. RECOMMENDATIONS: The patient presents with a 1-week history of slightly decreased mental status, satiety, and was found to be significantly anemic. She is being transfused with packed red blood cells reportedly. Her blood pressure has remained reasonably stable. She is not significantly tachycardic. Her intracranial anatomy is abnormal which is to be expected. There is right parietal encephalomalacia, with multiple shunt catheters. It is difficult to ascertain which shunt is actually functional at this time. There is 1 shunt valve in the right posterior temporal region which pumps and refills well. There are no obvious signs of ventricular dilatation at this time. It is most likely that at least 1 of the shunts is still functioning well. Her mental status has improved significantly since admission according to the mother. It is less likely that she has an overwhelming shunt infection as such degree of shunt infection would significantly compromise her mental status. Her mental status is back at baseline according to the mother. Further medical evaluation of her leukocytosis and anemia is recommended. ID consultation and input are also recommended. GI service is already involved. The patient is found to have some hepatic lesions which could be primary or metastatic. Further evaluation is left to the professional discretion of the treating medical and GI team. No neurosurgical intervention is recommended at this time given the low likelihood of shunt malfunction at this time. The above was discussed with the patient's mother at the bedside. All questions were answered. She understands the patient's current condition and concurs with the treatment plan. BONNIE MAGUIRE M.D. [id number] MTDD
--- NOTE | 2018-09-18 13:34 | PN ---
Physical Exam: SUBJECTIVE: Patient seen and examined at bedside- patient spiked fevers last night and was started on broad spectrum abx. blood cx pending ; u/a cx were negative OBJECTIVE: Vital Signs Period Temp Pulse Resp BP Sys/Martin Pulse Ox Last 24 Hr 97.4 F-101.4 F 60-129 16-20 93-135/42-94 97-100 GENERAL: The patient is awake, alert, and fully oriented, in no acute distress. EYES: PEERLA; EOMI; no scleral icterus. . NECK: no JVd; no lymphadenopathy LUNGS: CTA B/L; no raes, rhonchi or wheezing. HEART: Regular rate and rhythm, S1, S2 without murmur, rub or gallop. ABDOMEN:tender upon palpation EXTREMITIES: 2+ pulses, warm, well-perfused, no edema. . PSYCH: Normal mood, normal affect. SKIN: Warm, dry, normal turgor, no rashes or lesions noted Laboratory Results - last 24 hr 09/17/18 09/17/18 09/17/18 13:54 13:54 13:55 WBC 23.5 H RBC 2.97 L Hgb 4.7 L* Hct 16.8 L MCV 56.5 L MCH 15.8 L MCHC 28.0 L RDW 20.7 H Plt Count 832 H MPV 8.0 Absolute Neuts (auto) Neutrophils % No Result Required. Neutrophils % (Manual) 81.8 Band Neutrophils % 1.0 Lymphocytes % No Result Required. Lymphocytes % (Manual) 5.1 L Monocytes % Monocytes % (Manual) 11 H Eosinophils % Eosinophils % (Manual) 0.0 Basophils % Basophils % (Manual) 1.0 Myelocytes % (Man) 0 Promyelocytes % (Man) 0 Blast Cells % (Manual) 0 Nucleated RBC % 0 Metamyelocytes 0 Hypochromia 2+ Platelet Estimate Increased Polychromasia 1+ Poikilocytosis 1+ Anisocytosis 3+ Microcytosis 3+ Macrocytosis 0 Target Cells 2+ Schistocytes 1+ Retic Count 2.06 H PT with INR INR Fibrinogen Sodium 133 L Potassium 4.6 Chloride 101 Carbon Dioxide 22 Anion Gap 11 BUN 12 Creatinine 0.8 Creat Clearance w eGFR > 60 Random Glucose 110 H Calcium 8.4 L Phosphorus Magnesium Total Bilirubin 0.2 AST 49 H ALT 31 Alkaline Phosphatase 192 H Total Protein 7.8 Albumin 2.6 L TSH 0.76 Urine Color Urine Appearance Urine pH Ur Specific [place] Urine Protein Urine Glucose (UA) Urine Ketones Urine Blood Urine Nitrite Urine Bilirubin Urine Urobilinogen Ur Leukocyte Esterase Urine WBC (Auto) Urine RBC (Auto) Ur Epithelial Cells Urine Bacteria Urine Mucus Urine HCG, Qual Stool Occult Blood Blood Type A POSITIVE Antibody Screen Negative Crossmatch See Detail 09/17/18 09/17/18 09/17/18 13:55 14:55 16:47 WBC RBC Hgb Hct MCV MCH MCHC RDW Plt Count MPV Absolute Neuts (auto) Neutrophils % Neutrophils % (Manual) Band Neutrophils % Lymphocytes % Lymphocytes % (Manual) Monocytes % Monocytes % (Manual) Eosinophils % Eosinophils % (Manual) Basophils % Basophils % (Manual) Myelocytes % (Man) Promyelocytes % (Man) Blast Cells % (Manual) Nucleated RBC % Metamyelocytes Hypochromia Platelet Estimate Polychromasia Poikilocytosis Anisocytosis Microcytosis Macrocytosis Target Cells Schistocytes Retic Count PT with INR 14.90 H INR 1.26 H Fibrinogen Sodium Potassium Chloride Carbon Dioxide Anion Gap BUN Creatinine Creat Clearance w eGFR Random Glucose Calcium Phosphorus Magnesium Total Bilirubin AST ALT Alkaline Phosphatase Total Protein Albumin TSH Urine Color Urine Appearance Urine pH Ur Specific [place] Urine Protein Urine Glucose (UA) Urine Ketones Urine Blood Urine Nitrite Urine Bilirubin Urine Urobilinogen Ur Leukocyte Esterase Urine WBC (Auto) Urine RBC (Auto) Ur Epithelial Cells Urine Bacteria Urine Mucus Urine HCG, Qual Stool Occult Blood Positive Blood Type A POSITIVE Antibody Screen Negative Crossmatch 09/17/18 09/18/18 09/18/18 22:40 02:15 02:15 WBC RBC Hgb Hct MCV MCH MCHC RDW Plt Count MPV Absolute Neuts (auto) Neutrophils % Neutrophils % (Manual) Band Neutrophils % Lymphocytes % Lymphocytes % (Manual) Monocytes % Monocytes % (Manual) Eosinophils % Eosinophils % (Manual) Basophils % Basophils % (Manual) Myelocytes % (Man) Promyelocytes % (Man) Blast Cells % (Manual) Nucleated RBC % Metamyelocytes Hypochromia Platelet Estimate Polychromasia Poikilocytosis Anisocytosis Microcytosis Macrocytosis Target Cells Schistocytes Retic Count PT with INR INR Fibrinogen 395.0 Sodium Potassium Chloride Carbon Dioxide Anion Gap BUN Creatinine Creat Clearance w eGFR Random Glucose Calcium Phosphorus Magnesium Total Bilirubin AST ALT Alkaline Phosphatase Total Protein Albumin TSH Urine Color Yellow Urine Appearance Slcloudy Urine pH 5.0 Ur Specific [place] 1.020 Urine Protein Negative Urine Glucose (UA) Negative Urine Ketones 1+ H Urine Blood Negative Urine Nitrite Negative Urine Bilirubin Negative Urine Urobilinogen Negative Ur Leukocyte Esterase Trace Urine WBC (Auto) 2 Urine RBC (Auto) <1 Ur Epithelial Cells Rare Urine Bacteria Rare Urine Mucus Rare Urine HCG, Qual Negative Stool Occult Blood Blood Type A POSITIVE Antibody Screen Crossmatch 09/18/18 09/18/18 09/18/18 02:15 02:15 09:05 WBC 18.5 H 17.7 H RBC 2.37 L 2.85 L Hgb 3.8 L* 5.4 L* Hct 13.1 L 17.8 L D MCV 55.3 L 62.4 L D MCH 15.9 L 19.0 L D MCHC 28.8 L 30.4 L RDW 20.3 H 30.8 H Plt Count 666 H 590 H MPV 7.6 7.6 Absolute Neuts (auto) 15.8 H Neutrophils % 85.4 H Neutrophils % (Manual) Band Neutrophils % Lymphocytes % 4.2 L Lymphocytes % (Manual) Monocytes % 9.6 Monocytes % (Manual) Eosinophils % 0.1 Eosinophils % (Manual) Basophils % 0.7 Basophils % (Manual) Myelocytes % (Man) Promyelocytes % (Man) Blast Cells % (Manual) Nucleated RBC % 0 Metamyelocytes Hypochromia Platelet Estimate Polychromasia Poikilocytosis Anisocytosis Microcytosis Macrocytosis Target Cells Schistocytes Retic Count PT with INR INR Fibrinogen Sodium 136 Potassium 3.8 Chloride 106 Carbon Dioxide 24 Anion Gap 7 L BUN 11 Creatinine 0.5 L Creat Clearance w eGFR > 60 Random Glucose 75 Calcium 7.7 L Phosphorus Magnesium Total Bilirubin 0.2 AST 35 ALT 24 Alkaline Phosphatase 157 H Total Protein 6.0 L Albumin 2.1 L TSH Urine Color Urine Appearance Urine pH Ur Specific [place] Urine Protein Urine Glucose (UA) Urine Ketones Urine Blood Urine Nitrite Urine Bilirubin Urine Urobilinogen Ur Leukocyte Esterase Urine WBC (Auto) Urine RBC (Auto) Ur Epithelial Cells Urine Bacteria Urine Mucus Urine HCG, Qual Stool Occult Blood Blood Type Antibody Screen Crossmatch 09/18/18 09:05 WBC RBC Hgb Hct MCV MCH MCHC RDW Plt Count MPV Absolute Neuts (auto) Neutrophils % Neutrophils % (Manual) Band Neutrophils % Lymphocytes % Lymphocytes % (Manual) Monocytes % Monocytes % (Manual) Eosinophils % Eosinophils % (Manual) Basophils % Basophils % (Manual) Myelocytes % (Man) Promyelocytes % (Man) Blast Cells % (Manual) Nucleated RBC % Metamyelocytes Hypochromia Platelet Estimate Polychromasia Poikilocytosis Anisocytosis Microcytosis Macrocytosis Target Cells Schistocytes Retic Count PT with INR INR Fibrinogen Sodium 139 Potassium 3.7 Chloride 111 H Carbon Dioxide 24 Anion Gap 5 L BUN 8 Creatinine 0.5 L Creat Clearance w eGFR > 60 Random Glucose 71 L Calcium 7.3 L Phosphorus 3.3 Magnesium 1.9 Total Bilirubin 0.7 AST 33 ALT 19 Alkaline Phosphatase 153 H Total Protein 5.5 L Albumin 1.9 L TSH Urine Color Urine Appearance Urine pH Ur Specific [place] Urine Protein Urine Glucose (UA) Urine Ketones Urine Blood Urine Nitrite Urine Bilirubin Urine Urobilinogen Ur Leukocyte Esterase Urine WBC (Auto) Urine RBC (Auto) Ur Epithelial Cells Urine Bacteria Urine Mucus Urine HCG, Qual Stool Occult Blood Blood Type Antibody Screen Crossmatch Active Medications Generic Name Dose Route Start Last Admin Trade Name Freq PRN Reason Stop Dose Admin Carbamazepine 400 mg 09/18/18 10:00 09/18/18 09:35 Tegretol Xr - PO 400 mg DAILY FLORIN Administration Carbamazepine 600 mg 09/17/18 22:00 09/17/18 23:15 Tegretol Xr - PO 600 mg HS FLORIN Administration Sodium Chloride 1,000 mls @ 100 mls/hr 09/17/18 17:30 09/17/18 22:58 Normal Saline - IV 100 mls/hr ASDIR FLORIN Administration Piperacillin Sod/Tazobactam 50 mls @ 100 mls/hr 09/19/18 02:00 Sod 3.375 gm/ Dextrose IVPB Q8H-IV FLORIN Protocol Piperacillin Sod/Tazobactam 50 mls @ 100 mls/hr 09/18/18 02:15 09/18/18 10:08 Sod 3.375 gm/ Dextrose IVPB 09/18/18 18:29 100 mls/hr Q8H-IV FLORIN Administration Protocol Levothyroxine Sodium 75 mcg 09/18/18 07:00 09/18/18 06:29 Synthroid - PO 75 mcg AM FLORIN Administration Pantoprazole Sodium 40 mg 09/18/18 10:00 09/18/18 10:07 Protonix Iv IVPUSH 40 mg DAILY FLORIN Administration ASSESSMENT/PLAN: 48 y/o female with a PMH of epilepsy, chronic 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 requiring 3 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 #GI Bleed -protonix 40 daily -receiving 2 units -CBC [id number] -Dr. Valentine consulted -transfuse if <7 -NS@100 -will need scope once medically stable #Leukocytosis/thrombocytosis unclear source of infection right now -f/u ab/pelvis CT scan: which shows hepatic masses -ab/us pending; -Dr. eprez consulted -ID consulted -started on vanc/zosyn since spiked fevers last night #Chronic Hydrocephalus w/ CORPORATE SECURITY OFFICER shunt -head CT ordered to r/o infection -Dr. Quezada consulted #Seizures -c/w home medication: tegretol 200: 2 tablets in AM; 3 tablets PM #Hypothyroidism c/w synthroid 75 mcg daily F/E/N NS @100 monitor electrolytes NPO for now DVT PPX: SCD's Problem List - Problems (1) Seizure Code(s): R56.9 - UNSPECIFIED CONVULSIONS (2) Hydrocephalus Code(s): G91.9 - HYDROCEPHALUS, UNSPECIFIED (3) Anemia Code(s): D64.9 - ANEMIA, UNSPECIFIED Qualifiers: Anemia type: unspecified type Qualified Code(s): D64.9 - Anemia, unspecified (4) GI bleed Code(s): K92.2 - GASTROINTESTINAL HEMORRHAGE, UNSPECIFIED Qualifiers: GI bleed type/associated pathology: unspecified gastrointestinal hemorrhage type Qualified Code(s): K92.2 - Gastrointestinal hemorrhage, unspecified Visit type - Emergency Visit Emergency Visit: Yes ED Registration Date: 09/17/18 Care time: The patient presented to the Emergency Department on the above date and was hospitalized for further evaluation of their emergent condition. - New Patient This patient is new to me today: No - Critical Care Critical Care patient: No
--- NOTE | 2018-09-18 15:36 | EKG ---
Test Reason : Blood Pressure : / mmHG Vent. Rate : 128 BPM Atrial Rate : 128 BPM P-R Int : 128 ms QRS Dur : 056 ms QT Int : 280 ms P-R-T Axes : 078 082 057 degrees QTc Int : 408 ms POOR DATA QUALITY, INTERPRETATION MAY BE ADVERSELY AFFECTED SINUS TACHYCARDIA POSSIBLE LEFT ATRIAL ENLARGEMENT BORDERLINE ECG NO PREVIOUS ECGS AVAILABLE Confirmed by NAY AUGUST MD ([id number]) on 09/18/2018 3:35:38 PM Referred By: Confirmed By:NAY AUGUST MD
[2018-09-18 15:37] LABS: HEMATOCRIT 24.9 % (32.4-45.2); MCH 21.7 pg (25.7-33.7); MCHC 32.1 g/dl (32.0-36.0); MEAN CELL VOLUME 67.7 fl (80-96); MEAN PLT VOLUME 7.6 fl (7.5-11.1); PLATELET COUNT 648 K/MM3 (134-434); RBC 3.68 M/mm3 (3.60-5.2); RDW 33.1 % (11.6-15.6); WHITE BLOOD COUNT 20.3 K/mm3 (4.0-10.0)
--- NOTE | 2018-09-18 16:31 | PN ---
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 publisher development shunt times 3, epilepsy history of anemia, postmenopausal on iron noted to have pallor weakness abd pain for last one to two weeks weight loss of 15-20 pounds over last 2 months found to have HGB of 4.7, elevated wbc and platelets stool occult blood positive ct scan abd/pelvis - non contrast study with multiple liver masses cxray normal s/p 2 units PRBC she is laying in bed, able to answer questions she is alert but uncomfortable on exam abdomen is tense and distended, she has diffuse abdominal pain to palpation on exam ?urinary retention- stat bladder scan to check-103 cc urine only liver masses- ?mets, abscesses fevers/leukocytosis- ?reactive , ?tumor fever plan for repeat ct abd/pelvis with contrast when able if needed continue zosyn for now sonogram with solid liver masses, adrenal mass blood cultures are pending Problem List - Problems (1) Fever Code(s): R50.9 - FEVER, UNSPECIFIED (2) Leukocytosis Code(s): D72.829 - ELEVATED WHITE BLOOD CELL COUNT, UNSPECIFIED (3) Liver masses Code(s): R16.0 - HEPATOMEGALY, NOT ELSEWHERE CLASSIFIED (4) Anemia Code(s): D64.9 - ANEMIA, UNSPECIFIED Qualifiers: Anemia type: unspecified type Qualified Code(s): D64.9 - Anemia, unspecified
[2018-09-18] MEDS ORDERED: GLYCERIN 1 RECTAL SUPPOSITORY, ADULT PR ONE (18:13)
[2018-09-18] MEDS ORDERED: SENNOSIDES 8.6MG TABLET (FP) PO PRN (18:13)
[2018-09-18] MEDS ORDERED: GLYCERIN 1 RECTAL SUPPOSITORY, ADULT PR PRN (18:13)
[2018-09-18] MEDS: SODIUM CHLORIDE 1,000 ML IV SCH (18:25)
--- NOTE | 2018-09-18 18:34 | PN ---
Teaching Attending Note Name of Resident: Therese Durán ATTENDING PHYSICIAN STATEMENT I saw and evaluated the patient. I reviewed the resident's note and discussed the case with the resident. I agree with the resident's findings and plan as documented. SUBJECTIVE: Patient is c/o abdominal pain RUQ area. OBJECTIVE: Vital Signs Temperature 99.8 F H 09/18/18 17:09 Pulse Rate 113 H 09/18/18 17:09 Respiratory Rate 18 09/18/18 17:09 Blood Pressure 116/64 09/18/18 17:09 O2 Sat by Pulse Oximetry (%) 100 09/18/18 09:00 GENERAL:positive for pallor. Awake, alert, slightly non verbal at baseline, in no acute distress HEAD: No signs of trauma, normocephalic, atraumatic EYES: PERRLA, EOMI, sclera anicteric, conjunctiva clear ENT: positive for Conjuctival and mucosal pallor. oropharynx clear without exudates. NECK: Normal ROM, supple, no lymphadenopathy, JVD, or masses LUNGS: No distress, speaks full sentences, clear to auscultation bilaterally HEART: Regular rate and rhythm, normal S1 and S2, no murmurs, rubs or gallops. ABDOMEN: mild tenderness , positive for BS , hard to palpation on the right side, no rebound. EXTREMITIES : Normal inspection, Normal range of motion, no edema. No clubbing or cyanosis. NEUROLOGICAL: Cranial nerves II through XII grossly intact. Left wrist contracted. Strength grossly intact. SKIN: Warm, Dry, normal turgor, no rashes or lesions noted CBCD WBC 20.3 K/mm3 (4.0-10.0) H 09/18/18 14:20 RBC 3.68 M/mm3 (3.60-5.2) 09/18/18 14:20 Hgb 8.0 GM/dL (10.7-15.3) L 09/18/18 14:20 Hct 24.9 % (32.4-45.2) L D 09/18/18 14:20 MCV 67.7 fl (80-96) L 09/18/18 14:20 MCHC 32.1 g/dl (32.0-36.0) 09/18/18 14:20 RDW 33.1 % (11.6-15.6) H 09/18/18 14:20 Plt Count 648 K/MM3 (134-434) H 09/18/18 14:20 MPV 7.6 fl (7.5-11.1) 09/18/18 14:20 CMP Sodium 139 mmol/L (136-145) 09/18/18 09:05 Potassium 3.7 mmol/L (3.5-5.1) 09/18/18 09:05 Chloride 111 mmol/L (98-107) H 09/18/18 09:05 Carbon Dioxide 24 mmol/L (21-32) 09/18/18 09:05 Anion Gap 5 MMOL/L (8-16) L 09/18/18 09:05 BUN 8 mg/dL (7-18) 09/18/18 09:05 Creatinine 0.5 mg/dL (0.55-1.3) L 09/18/18 09:05 Creat Clearance w eGFR > 60 (>60) 09/18/18 09:05 Random Glucose 71 mg/dL (74-106) L 09/18/18 09:05 Calcium 7.3 mg/dL (8.5-10.1) L 09/18/18 09:05 Total Bilirubin 0.7 mg/dL (0.2-1) 09/18/18 09:05 AST 33 U/L (15-37) 09/18/18 09:05 ALT 19 U/L (13-61) 09/18/18 09:05 Alkaline Phosphatase 153 U/L (45-117) H 09/18/18 09:05 Total Protein 5.5 g/dl (6.4-8.2) L 09/18/18 09:05 Albumin 1.9 g/dl (3.4-5.0) L 09/18/18 09:05 Current Medications Generic Name Dose Route Start Last Admin Trade Name Freq PRN Reason Stop Dose Admin Carbamazepine 400 mg 09/18/18 10:00 09/18/18 09:35 Tegretol Xr - PO 400 mg DAILY FLORIN Administration Carbamazepine 600 mg 09/17/18 22:00 09/17/18 23:15 Tegretol Xr - PO 600 mg HS FLORIN Administration Docusate Sodium 100 mg 09/18/18 22:00 Colace - PO BID FLORIN Glycerin 1 each 09/18/18 18:13 Glycerin Suppository Adult - IN DAILY PRN CONSTIPATION Sodium Chloride 1,000 mls @ 100 mls/hr 09/17/18 17:30 09/18/18 18:25 Normal Saline - IV 100 mls/hr ASDIR FLORIN Administration Piperacillin Sod/Tazobactam 50 mls @ 100 mls/hr 09/19/18 02:00 Sod 3.375 gm/ Dextrose IVPB Q8H-IV FLORIN Protocol Levothyroxine Sodium 75 mcg 09/18/18 07:00 09/18/18 06:29 Synthroid - PO 75 mcg AM FLORIN Administration Pantoprazole Sodium 40 mg 09/18/18 10:00 09/18/18 10:07 Protonix Iv IVPUSH 40 mg DAILY FLORIN Administration Senna 2 tab 09/18/18 18:13 Senna - PO HS PRN CONSTIPATION Home Medications Medication Instructions Recorded Calcium Carbonate [Super Calcium] 600 mg PO BID 09/17/18 Carbamazepine Xr [Tegretol Xr -] 400 mg PO AM 09/17/18 Carbamazepine Xr [Tegretol Xr -] 600 mg PO HS 09/17/18 Ferrous Sulfate 325 mg PO TID 09/17/18 Levothyroxine [Synthroid -] 75 mcg PO DAILY 09/17/18 Cholecalciferol (Vitamin D3) 2,000 units PO DAILY 09/18/18 [Vitamin D3] Docusate Sodium [Colace -] 100 mg PO BID 09/18/18 US of pelvis : Real time examination of the abdomen demonstrates the following: The gallbladder is normal in size and does contain multiple calculi. There is no evidence of intra or extrahepatic biliary duct dilatation. The liver is normal in size and does contain multiple large solid masses. The largest mass is within the right lobe measuring 7.2 x 5.1 x 5.8 cm. These masses are strongly suspicious for metastatic disease and had been noted on a recent CT scan. Hepatopedal flow is documented within the main portal vein. There is also a solid mass superior to the right kidney measuring 2.5 x 2.5 x 2.0 cm. This most likely is adrenal in origin and is also strongly suspicious for a metastatic lesion. The pancreas is normal in size and texture with no pancreatic masses identified. There is no evidence of hydronephrosis or acute abnormalities of the right kidney. There is no evidence of AAA. The IVC is patent. IMPRESSION: 1. Multiple hepatic masses, suspicious for metastatic disease. 2. Right adrenal mass, also suspicious for a metastatic lesion. 3. Cholelithiasis. Please see above discussion. Reported By: Erik Blair MD [id number] CT of abdomen and pelvis: The study is markedly limited without the use of any contrast material and a paucity of intra-abdominal fat. The lung bases are clear. There are multiple, large hypodense masses throughout the liver are strongly suspicious for metastases. Again, the lack of intravenous contrast does limit evaluation of metastatic disease. The spleen is not enlarged. There are gallstones within the gallbladder. No large pancreatic masses are identified. There is no evidence of pneumoperitoneum, bowel obstruction or intra-abdominal abscess. Evaluation of the colon is limited. There is a moderate amount of retained fecal material within the colon. The right colon appears somewhat thickened. Clinical correlation is advised. Examination of the pelvis demonstrates no evidence of pelvic masses, fluid collections or lymphadenopathy. There is a small amount of free fluid within the lower pelvis. There is no evidence of bony metastases or acute abnormalities. IMPRESSION: Markedly limited study with large hepatic masses strongly suspicious for metastatic disease. Reported By: Erik Blair MD , 09/17/181832 ASSESSMENT AND PLAN: Patient is a 48 y/o female with a PMHx of epilepsy, chronic 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 with subsequent brain damage (patient is non-verbal) requiring 3 SEA CAPTAIN shunts last one being in 1990), hypothyroidism she came to the ED after was found to have a low hemoglobin level of 4.6. # Acute blood loss due to GI Bleed: positive for hemoccult, GI consult, s/p tansfusion of 2 units, stable . 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 # Acute thrombocytosis trending down for consult # Acute hyponatremia improved s/p IVF ue DVT Px: SCds , low hemoglobin with positive hemoccult, will hold off on AC.
[2018-09-18 22:25] LABS: ALK PHOS 173 U/L (45-117); ANION GAP 6 MMOL/L (8-16); BILIRUBIN,TOTAL 0.8 mg/dL (0.2-1); BLOOD UREA NITROGEN 9 mg/dL (7-18); CALCIUM 7.8 mg/dL (8.5-10.1); CHLORIDE 108 mmol/L (98-107); CO2 24 mmol/L (21-32); CREATININE 0.5 mg/dL (0.55-1.3); GLUCOSE,RANDOM 95 mg/dL (74-106); PHOSPHOROUS 2.8 mg/dL (2.5-4.9); POTASSIUM 4.1 mmol/L (3.5-5.1); SGOT/AST 37 U/L (15-37); SGPT/ALT 26 U/L (13-61); SODIUM 138 mmol/L (136-145)
[2018-09-18] MEDS ORDERED: PT OWN MED DRAWER 7, Y5N ONE (22:46)
[2018-09-18] MEDS: DOCUSATE SODIUM 100 MG CAPSULE (FP) PO SCH (23:02)
[2018-09-18] MEDS: carBAMazepine XR 200 MG TAB.ER.12H PO SCH (23:03)
--- NOTE | 2018-09-18 23:29 | CONSULT ---
Consult - text type - Consultation Consultation Note: Patient seen and examined 48 yo F with h/o epilepsy, anemia, congenital 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 at , hypothyroidism, non verbal at baseline, able to follow simple commands, s/p DATABASE REPORT WRITER shunt who p/w weakness, and concern for anemia. Coes in with failue to thrive/weakness. Noted to be severely anemia. Imaging concerning for liver metastaes and clinical scenaio suspicious for metastatic colon cancer AFVSS Cor: RSR, No murmurs, No gallops Lungs: CTA anteriorly Abd: Soft, Normal bowel sounds, No organomegaly Ext:No significant edema Labs/meds reviewed A/P 48 yo F with h/o epilepsy, anemia, congenital 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, s/p DATABASE REPORT WRITER shunt who p /w weaknes severe anemia. Patient unable to provide history. Imaging studies concerning for liver metastases/adrenal met clinical scenario suspicious for metastatic colon cancer Will request Liver biopsy/ PDL1 staining/Her2 staining poor performance status and hence challenge to treat pain control/ bowel regien transfusion support iv iron
--- NOTE | 2018-09-18 23:33 | CONS ---
DATE OF CONSULTATION: DATE OF DICTATION: 09/18/2018 REQUESTED BY: Hospitalist Service This is a 48-year-old who presented to the emergency room with severe anemia. She has a history of congenital 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. She is status post LLAMA FARMER shunt x3. She has a history of epilepsy. She lives at home with her mother. She also has a history of anemia and is on iron. She was noted to have pallor, weakness, and abdominal pain for the last 1-2 weeks. She has also had a weight loss of 15-20 pounds over the last 2 months. She was found to have a hemoglobin of 4.7 with an elevated white count and platelets. In the emergency room, stool occult blood was positive. CT scan of the abdomen and pelvis, noncontrast study, showed multiple liver masses. Chest x-ray is normal. I am asked to see her for further recommendations. She is currently status post 2 units of packed red cells. She is lying in bed. She is able to answer questions, yes and no. She is alert, but uncomfortable. She has not had any bright red blood per rectum or any hematemesis. In the emergency room she was noted to have a heart rate of 129, white count of 23.5, hemoglobin 4.7, and platelets of 832. The stool occult blood was positive as well. PAST MEDICAL HISTORY: Notable for epilepsy, chronic 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 requiring 3 LLAMA FARMER shunts with the last one being in 1990. There is no history of any travel. SOCIAL HISTORY: There is no history of cigarette, alcohol, or substance use. She lives with her mother. FAMILY HISTORY: Notable for diabetes in the father. ALLERGIES: No known drug allergies. MEDICATIONS: Include calcium, Tegretol, ferrous sulfate, and levothyroxine. REVIEW OF SYSTEMS: Per mom, is notable for weakness, malaise, loss of appetite, and weight loss. There is no history of any fevers at home, any chills, any diarrhea or dysuria. There has been no recent fall at home. She goes to an adult daycare and participates in a full-day program. PHYSICAL EXAMINATION: General: She is awake. She is able to answer yes and no to questions. She is a thin woman, in no acute distress. Vital Signs: Her temperature max was 101.4, current temperature is 99.6, pulse 106, blood pressure 101/49, respiratory rate 18. HEENT: She is normocephalic. Her eyes are anicteric. Neck: Supple. Lungs: Clear to auscultation. Heart: Regular rate and rhythm. Abdomen: Mildly distended. She has right upper quadrant that is very tender to palpation. She has diffuse discomfort on abdominal palpation. Extremities: Without edema. She has no rash. LABORATORY: Her white count this afternoon, after 2 units of blood, revealed a white count of 20.3 with a hemoglobin of 8, platelets are now 648. Her INR is 1.26. BUN is 9, creatinine is 0.5. Alkaline phosphatase of 173 and albumin of 2. Urinalysis has 2 white cells. Stool occult blood is positive. She had a CAT scan of the chest and abdomen without contrast that revealed multiple liver lesions. She had a head CT that showed no evidence of intracranial bleed. On CAT scan there is possible right colon thickening as well. Chest x-ray is negative for infiltrate. She subsequently had an ultrasound of her abdomen that was notable for a normal gallbladder with multiple calculi. No evidence of ductal dilatation. The liver showed multiple solid masses, the largest being 7 x 5 x 5. She had a solid mass as well to the superior aspect of the right kidney, suspicious for an adrenal mass. IN SUMMARY: This is a 48-year-old woman with low-grade fever. Temperature max was 101.4 after admission with leukocytosis, severe anemia, positive stool occult blood, liver masses strongly suspicious for malignancy, less likely because they are solid, but this would be abscess. I suspect she has metastatic colon cancer. She is to be seen by Oncology with plans for possible liver biopsy. I would continue Zosyn for now. Fevers and leukocytosis could well be reactive to the anemia as well as possible tumor fever as she has multiple liver masses. Blood cultures are pending. For now, she has been started on Zosyn, which I would continue. Given the abdominal distention, I have ordered a stat bladder scan to check for residual and she was found to only have 100 mL of urine. Further recommendations to follow. Case was discussed with GI and the Primary Service. DAYSI SANCHEZ M.D. [id number]
[2018-09-19 01:25] LABS: MEAN PLT VOLUME 8.8 fl (7.5-11.1)
[2018-09-19 01:30] LABS: HEMATOCRIT 24.1 % (32.4-45.2); HEMOGLOBIN 7.7 GM/dL (10.7-15.3); MCH 21.5 pg (25.7-33.7); MEAN CELL VOLUME 67.2 fl (80-96); PLATELET COUNT 645 K/MM3 (134-434); RBC 3.59 M/mm3 (3.60-5.2); RDW 32.9 % (11.6-15.6); WHITE BLOOD COUNT 19.8 K/mm3 (4.0-10.0)
[2018-09-19] MEDS ORDERED: PIPERACILLIN/TAZOB 3.375 GM 3.375 GM in DEXTROSE 5%-WATER - 50 ML IVPB SCH (02:00)
[2018-09-19] MEDS ORDERED: PIPERACILLIN/TAZOBACTAM 3.375 GM VIAL IVPB ONE ×3 (02:11→17:48)
[2018-09-19] MEDS ORDERED: DEXTROSE 5%-WATER - 50 ML IVPB ONE ×3 (02:11→17:48)
[2018-09-19] MEDS: PIPERACILLIN/TAZOB 3.375 GM 3.375 GM in DEXTROSE 5%-WATER - 50 ML IVPB SCH ×3 (02:19→18:40)
[2018-09-19] MEDS: LEVOTHYROXINE NA 75 MCG TABLET (FP) PO SCH (06:24)
[2018-09-19 06:31] LABS: HEMATOCRIT 23.8 % (32.4-45.2); HEMOGLOBIN 7.7 GM/dL (10.7-15.3); MCH 21.6 pg (25.7-33.7); MCHC 32.4 g/dl (32.0-36.0); MEAN CELL VOLUME 66.6 fl (80-96); MEAN PLT VOLUME 7.3 fl (7.5-11.1); PLATELET COUNT 642 K/MM3 (134-434); RBC 3.58 M/mm3 (3.60-5.2)
[2018-09-19 06:44] LABS: INR 1.31 (0.83-1.09); PROTHROMBIN TIME (PATIENT) 15.5 SEC (9.7-13.0)
[2018-09-19 07:14] LABS: ALK PHOS 175 U/L (45-117); ANION GAP 5 MMOL/L (8-16); BILIRUBIN,TOTAL 0.6 mg/dL (0.2-1); BLOOD UREA NITROGEN 8 mg/dL (7-18); CHLORIDE 109 mmol/L (98-107); CO2 24 mmol/L (21-32); CREATININE 0.5 mg/dL (0.55-1.3); GLUCOSE,RANDOM 90 mg/dL (74-106); MAGNESIUM 2.3 mg/dL (1.8-2.4); PHOSPHOROUS 3.6 mg/dL (2.5-4.9); POTASSIUM 4.1 mmol/L (3.5-5.1); SGOT/AST 31 U/L (15-37); SGPT/ALT 26 U/L (13-61); SODIUM 139 mmol/L (136-145); TOT PROT 6.1 g/dl (6.4-8.2)
[2018-09-19 08:41] LABS: ACTIVATED PTT 26.4 SECONDS (25.2-36.5)
--- NOTE | 2018-09-19 08:55 | PN ---
Physical Exam: SUBJECTIVE: Patient seen and examined at bedside; patient still having abdominal discomfort and still spiking low grade fevers overnight; no nausea/ vomiting overnight; no bleeding OBJECTIVE: Vital Signs Period Temp Pulse Resp BP Sys/Martin Pulse Ox Last 24 Hr 97.9 F-100 F 102-113 18-20 101-121/49-67 100-100 GENERAL: The patient is awake, appears uncomfortable EYES: PEERLA; EOMI; no scleral icterus NECK:no JVD; no lymphadenopathy. LUNGS: CTA B/L; no rales, rhonchi or wheezing. HEART: Regular rate and rhythm, S1, S2 without murmur, rub or gallop. ABDOMEN: Soft, minimal guarding; tenderness upon palaption; +BS in all 4 quadrants EXTREMITIES: 2+ pulses, warm, well-perfused, no edema. PSYCH: Normal mood, normal affect. SKIN: Warm, dry, normal turgor, no rashes or lesions noted Laboratory Results - last 24 hr 09/17/18 09/18/18 09/18/18 13:54 09:05 09:05 WBC 17.7 H RBC 2.85 L Hgb 5.4 L* Hct 17.8 L D MCV 62.4 L D MCH 19.0 L D MCHC 30.4 L RDW 30.8 H Plt Count 590 H MPV 7.6 PT with INR INR PTT (Actin FS) Fibrinogen Sodium 139 Potassium 3.7 Chloride 111 H Carbon Dioxide 24 Anion Gap 5 L BUN 8 Creatinine 0.5 L Creat Clearance w eGFR > 60 Random Glucose 71 L Calcium 7.3 L Phosphorus 3.3 Magnesium 1.9 Ferritin Total Bilirubin 0.7 AST 33 ALT 19 Alkaline Phosphatase 153 H Total Protein 5.5 L Albumin 1.9 L Vitamin B12 TSH Free T4 Blood Type A POSITIVE Antibody Screen Negative Crossmatch See Detail 09/18/18 09/18/18 09/19/18 14:20 20:30 00:45 WBC 20.3 H 19.8 H RBC 3.68 3.59 L Hgb 8.0 L 7.7 L Hct 24.9 L D 24.1 L MCV 67.7 L 67.2 L MCH 21.7 L D 21.5 L MCHC 32.1 32.0 RDW 33.1 H 32.9 H Plt Count 648 H 645 H MPV 7.6 8.8 D PT with INR INR PTT (Actin FS) Fibrinogen Sodium 138 Potassium 4.1 Chloride 108 H Carbon Dioxide 24 Anion Gap 6 L BUN 9 Creatinine 0.5 L Creat Clearance w eGFR 131.69 Random Glucose 95 Calcium 7.8 L Phosphorus 2.8 Magnesium 2.0 Ferritin Total Bilirubin 0.8 AST 37 ALT 26 Alkaline Phosphatase 173 H Total Protein 6.0 L Albumin 2.0 L Vitamin B12 TSH Free T4 Blood Type Antibody Screen Crossmatch 09/19/18 09/19/18 09/19/18 05:30 05:30 05:30 WBC 20.0 H RBC 3.58 L Hgb 7.7 L Hct 23.8 L MCV 66.6 L MCH 21.6 L MCHC 32.4 RDW 33.0 H Plt Count 642 H MPV 7.3 L D PT with INR INR PTT (Actin FS) Fibrinogen Sodium 139 Potassium 4.1 Chloride 109 H Carbon Dioxide 24 Anion Gap 5 L BUN 8 Creatinine 0.5 L Creat Clearance w eGFR 131.69 Random Glucose 90 Calcium 8.0 L Phosphorus 3.6 Magnesium 2.3 Ferritin 39.9 Total Bilirubin 0.6 AST 31 ALT 26 Alkaline Phosphatase 175 H Total Protein 6.1 L Albumin 2.0 L Vitamin B12 1929 H TSH 1.11 Free T4 1.00 Blood Type Antibody Screen Crossmatch 09/19/18 09/19/18 05:30 05:30 WBC RBC Hgb Hct MCV MCH MCHC RDW Plt Count MPV PT with INR 15.50 H INR 1.31 H PTT (Actin FS) 26.4 Fibrinogen 444.0 Sodium Potassium Chloride Carbon Dioxide Anion Gap BUN Creatinine Creat Clearance w eGFR Random Glucose Calcium Phosphorus Magnesium Ferritin Total Bilirubin AST ALT Alkaline Phosphatase Total Protein Albumin Vitamin B12 TSH Free T4 Blood Type Antibody Screen Crossmatch Active Medications Generic Name Dose Route Start Last Admin Trade Name Freq PRN Reason Stop Dose Admin Carbamazepine 400 mg 09/18/18 10:00 09/18/18 09:35 Tegretol Xr - PO 400 mg DAILY FLORIN Administration Carbamazepine 600 mg 09/17/18 22:00 09/18/18 23:03 Tegretol Xr - PO 600 mg HS FLORIN Administration Docusate Sodium 100 mg 09/18/18 22:00 09/18/18 23:02 Colace - PO 100 mg BID FLORIN Administration Glycerin 1 each 09/18/18 18:13 Glycerin Suppository Adult - MS DAILY PRN CONSTIPATION Sodium Chloride 1,000 mls @ 100 mls/hr 09/17/18 17:30 09/18/18 18:25 Normal Saline - IV 100 mls/hr ASDIR FLORIN Administration Piperacillin Sod/Tazobactam 50 mls @ 100 mls/hr 09/19/18 02:00 09/19/18 02:19 Sod 3.375 gm/ Dextrose IVPB 100 mls/hr Q8H-IV FLORIN Administration Protocol Levothyroxine Sodium 75 mcg 09/18/18 07:00 09/19/18 06:24 Synthroid - PO 75 mcg AM FLORIN Administration Pantoprazole Sodium 40 mg 09/18/18 10:00 09/18/18 10:07 Protonix Iv IVPUSH 40 mg DAILY FLORIN Administration Senna 2 tab 09/18/18 18:13 Senna - PO HS PRN CONSTIPATION ASSESSMENT/PLAN: 48 y/o female with a PMH of epilepsy, chronic 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 requiring 3 DIRECTOR OF RESTAURANT shunts, hypothyroidism presents to the ED with a one week history of worsening fatigue, loss of appetite, found to have a hemoglobin of 4.6 and was FOBT positive. #GI Bleed -protonix 40 daily -CBC [id number] -Dr. Valentine consulted -transfuse if <7 -NS@100 -will need scope once medically stable -iron studies pending #Leukocytosis/thrombocytosis low garde fevers overnight; WBC still elevated unclear source of infection right now ; ? tumor fever -f/u ab/pelvis CT scan: which shows hepatic masses; ab XRAY: fecal retention; U/ S: multiple hepatic masses (mets); R adrenal mass (mets); cholethiasis -Dr. perez consulted -ID consulted -c/w zosyn -tumor markers pending #Chronic Hydrocephalus w/ DIRECTOR OF RESTAURANT shunt -head CT ordered to r/o infection -Dr. Quezada consulted #Seizures -c/w home medication: tegretol 200: 2 tablets in AM; 3 tablets PM #Hypothyroidism c/w synthroid 75 mcg daily F/E/N NS @100 monitor electrolytes NPO for now DVT PPX: SCD's Problem List - Problems (1) Seizure Code(s): R56.9 - UNSPECIFIED CONVULSIONS (2) Hydrocephalus Code(s): G91.9 - HYDROCEPHALUS, UNSPECIFIED (3) Anemia Code(s): D64.9 - ANEMIA, UNSPECIFIED Qualifiers: Anemia type: unspecified type Qualified Code(s): D64.9 - Anemia, unspecified (4) GI bleed Code(s): K92.2 - GASTROINTESTINAL HEMORRHAGE, UNSPECIFIED Qualifiers: GI bleed type/associated pathology: unspecified gastrointestinal hemorrhage type Qualified Code(s): K92.2 - Gastrointestinal hemorrhage, unspecified Visit type - Emergency Visit Emergency Visit: Yes ED Registration Date: 09/17/18 Care time: The patient presented to the Emergency Department on the above date and was hospitalized for further evaluation of their emergent condition. - New Patient This patient is new to me today: No - Critical Care Critical Care patient: No
[2018-09-19] MEDS ORDERED: PT OWN MED DRAWER 7, Y5N ONE (10:00)
[2018-09-19] MEDS: DOCUSATE SODIUM 100 MG CAPSULE (FP) PO SCH ×2 (10:17→21:17)
[2018-09-19] MEDS: carBAMazepine XR 400 MG TAB.ER.12H PO SCH (10:17)
[2018-09-19] MEDS: PANTOPRAZOLE SODIUM 40 MG VIAL IVPUSH SCH (10:18)
[2018-09-19] MEDS: SODIUM CHLORIDE 1,000 ML IV SCH ×2 (10:18→21:17)
[2018-09-19 15:13] VITALS: BMI 16.7
--- NOTE | 2018-09-19 18:57 | PN ---
Teaching Attending Note Name of Resident: Therese Durán ATTENDING PHYSICIAN STATEMENT I saw and evaluated the patient. I reviewed the resident's note and discussed the case with the resident. I agree with the resident's findings and plan as documented. SUBJECTIVE: Patient's family reports 20Lbs weight loss. OBJECTIVE: Vital Signs Temperature 99.4 F 09/19/18 18:00 Pulse Rate 105 H 09/19/18 18:00 Respiratory Rate 20 09/19/18 18:00 Blood Pressure 110/54 L 09/19/18 18:00 O2 Sat by Pulse Oximetry (%) 99 09/19/18 09:00 Initial Vital Signs Temp Pulse Resp BP Pulse Ox 97.4 F L 129 H 20 135/94 97 09/17/18 13:44 09/17/18 13:44 09/17/18 13:44 09/17/18 13:44 09/17/18 13:44 GENERAL:positivr for pallor. Awake, alert, slightly non verbal at baseline, able to follow commands., in no acute distress HEAD: No signs of trauma, normocephalic, atraumatic EYES: PERRLA, EOMI, sclera anicteric, conjunctiva clear ENT: positive for Conjuctival and mucosal pallor. oropharynx clear without exudates. NECK: Normal ROM, supple, no lymphadenopathy, JVD, or masses LUNGS: No distress, speaks full sentences, clear to auscultation bilaterally HEART: Regular rate and rhythm, normal S1 and S2, no murmurs, rubs or gallops. ABDOMEN: mild tenderness , mild distention , normoactive bowel sounds. No guarding, no rebound. No masses. EXTREMITIES : Normal inspection, Normal range of motion, no edema. No clubbing or cyanosis. NEUROLOGICAL: Cranial nerves II through XII grossly intact. Left wrist contracted. Strength grossly intact. SKIN: Warm, Dry, normal turgor, no rashes or lesions noted CBCD WBC 20.0 K/mm3 (4.0-10.0) H 09/19/18 05:30 RBC 3.58 M/mm3 (3.60-5.2) L 09/19/18 05:30 Hgb 7.7 GM/dL (10.7-15.3) L 09/19/18 05:30 Hct 23.8 % (32.4-45.2) L 09/19/18 05:30 MCV 66.6 fl (80-96) L 09/19/18 05:30 MCHC 32.4 g/dl (32.0-36.0) 09/19/18 05:30 RDW 33.0 % (11.6-15.6) H 09/19/18 05:30 Plt Count 642 K/MM3 (134-434) H 09/19/18 05:30 MPV 7.3 fl (7.5-11.1) L D 09/19/18 05:30 CMP Sodium 139 mmol/L (136-145) 09/19/18 05:30 Potassium 4.1 mmol/L (3.5-5.1) 09/19/18 05:30 Chloride 109 mmol/L (98-107) H 09/19/18 05:30 Carbon Dioxide 24 mmol/L (21-32) 09/19/18 05:30 Anion Gap 5 MMOL/L (8-16) L 09/19/18 05:30 BUN 8 mg/dL (7-18) 09/19/18 05:30 Creatinine 0.5 mg/dL (0.55-1.3) L 09/19/18 05:30 Creat Clearance w eGFR 131.69 (>60) 09/19/18 05:30 Random Glucose 90 mg/dL (74-106) 09/19/18 05:30 Calcium 8.0 mg/dL (8.5-10.1) L 09/19/18 05:30 Total Bilirubin 0.6 mg/dL (0.2-1) 09/19/18 05:30 AST 31 U/L (15-37) 09/19/18 05:30 ALT 26 U/L (13-61) 09/19/18 05:30 Alkaline Phosphatase 175 U/L (45-117) H 09/19/18 05:30 Total Protein 6.1 g/dl (6.4-8.2) L 09/19/18 05:30 Albumin 2.0 g/dl (3.4-5.0) L 09/19/18 05:30 US of pelvis : Real time examination of the abdomen demonstrates the following: The gallbladder is normal in size and does contain multiple calculi. There is no evidence of intra or extrahepatic biliary duct dilatation. The liver is normal in size and does contain multiple large solid masses. The largest mass is within the right lobe measuring 7.2 x 5.1 x 5.8 cm. These masses are strongly suspicious for metastatic disease and had been noted on a recent CT scan. Hepatopedal flow is documented within the main portal vein. There is also a solid mass superior to the right kidney measuring 2.5 x 2.5 x 2.0 cm. This most likely is adrenal in origin and is also strongly suspicious for a metastatic lesion. The pancreas is normal in size and texture with no pancreatic masses identified. There is no evidence of hydronephrosis or acute abnormalities of the right kidney. There is no evidence of AAA. The IVC is patent. IMPRESSION: 1. Multiple hepatic masses, suspicious for metastatic disease. 2. Right adrenal mass, also suspicious for a metastatic lesion. 3. Cholelithiasis. Please see above discussion. Reported By: Erik Blair MD 183 CT of abdomen and pelvis: The study is markedly limited without the use of any contrast material and a paucity of intra-abdominal fat. The lung bases are clear. There are multiple, large hypodense masses throughout the liver are strongly suspicious for metastases. Again, the lack of intravenous contrast does limit evaluation of metastatic disease. The spleen is not enlarged. There are gallstones within the gallbladder. No large pancreatic masses are identified. There is no evidence of pneumoperitoneum, bowel obstruction or intra-abdominal abscess. Evaluation of the colon is limited. There is a moderate amount of retained fecal material within the colon. The right colon appears somewhat thickened. Clinical correlation is advised. Examination of the pelvis demonstrates no evidence of pelvic masses, fluid collections or lymphadenopathy. There is a small amount of free fluid within the lower pelvis. There is no evidence of bony metastases or acute abnormalities. IMPRESSION: Markedly limited study with large hepatic masses strongly suspicious for metastatic disease. Reported By: Erik Blair MD , 09/17/18 [id number] ASSESSMENT AND PLAN: Patient is a 48 y/o female with a PMHx of epilepsy, chronic 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 with subsequent brain damage (patient is non-verbal) requiring 3 STRIPER MACHINE shunts last one being in 1990), hypothyroidism she came to the ED after was found to have a low hemoglobin level of 4.6. # Acute blood loss due to GI Bleed: s/p tansfusion of 2 units . stable at this time. 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 # Acute thrombocytosis will monitor, will get her baseline, for consult # Acute hyponatremia on IVF continue DVT Px: SCds , low hemoglobin with positive hemoccult, will hold off on AC. follow CEA/CA19-9/AFP tumor markers
[2018-09-19] MEDS: carBAMazepine XR 200 MG TAB.ER.12H PO SCH (21:17)
--- NOTE | 2018-09-19 22:41 | PN ---
Progress Note (short form) - Note Progress Note: Patient seen and examined Has RUQ tenderness Minimally verbal AFVSS Cor: RSR, No murmurs, No gallops Lungs: Clear to P&A Abd: Soft, Normal bowel sounds, No organomegaly Ext:No significant edema Labs/Meds reviewed A/P 48 yo F with h/o epilepsy, anemia, congenital 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, s/p FENDER MECHANIC APPRENTICE shunt who p/ w weaknes severe anemia. Patient unable to provide history. Imaging studies concerning for liver etastasess/adrenal met clinical scenario suspicious for metastatic colon cancer Will request Liver biopsy/ PDL1 staining/Her2 staining poor performance status and hence challenge to treat pain control/ bowel regien transfusion support iv iron
[2018-09-20] MEDS ORDERED: PIPERACILLIN/TAZOBACTAM 3.375 GM VIAL IVPB ONE (00:21)
[2018-09-20] MEDS ORDERED: DEXTROSE 5%-WATER - 50 ML IVPB ONE (00:22)
[2018-09-20] MEDS: SODIUM CHLORIDE 1,000 ML IV SCH ×2 (02:14→21:08)
[2018-09-20] MEDS: PIPERACILLIN/TAZOB 3.375 GM 3.375 GM in DEXTROSE 5%-WATER - 50 ML IVPB SCH (02:14)
[2018-09-20] MEDS: LEVOTHYROXINE NA 75 MCG TABLET (FP) PO SCH (06:28)
[2018-09-20 06:53] LABS: BASO % 1.7 % (0-2.0); EOS % 0.2 % (0-4.5); HEMATOCRIT 27.8 % (32.4-45.2); HEMOGLOBIN 9.3 GM/dL (10.7-15.3); MCHC 33.3 g/dl (32.0-36.0); MEAN PLT VOLUME 7.1 fl (7.5-11.1); MONO % 4.2 % (3.8-10.2); NEUT % 66.9 % (42.8-82.8); PLATELET COUNT 675 K/MM3 (134-434); RBC 4.04 M/mm3 (3.60-5.2); RDW 33.6 % (11.6-15.6); WHITE BLOOD COUNT 18.1 K/mm3 (4.0-10.0)
[2018-09-20 07:36] LABS: ALK PHOS 195 U/L (45-117); ANION GAP 9 MMOL/L (8-16); BILIRUBIN,TOTAL 0.4 mg/dL (0.2-1); BLOOD UREA NITROGEN 6 mg/dL (7-18); CALCIUM 7.8 mg/dL (8.5-10.1); CHLORIDE 107 mmol/L (98-107); CO2 23 mmol/L (21-32); CREATININE 0.5 mg/dL (0.55-1.3); GLUCOSE,RANDOM 92 mg/dL (74-106); MAGNESIUM 1.8 mg/dL (1.8-2.4); PHOSPHOROUS 3.2 mg/dL (2.5-4.9); POTASSIUM 3.9 mmol/L (3.5-5.1); SGOT/AST 32 U/L (15-37); SGPT/ALT 23 U/L (13-61); SODIUM 138 mmol/L (136-145); TOT PROT 6.2 g/dl (6.4-8.2)
[2018-09-20 08:07] LABS: SERUM IRON SATURATION 6 % (15-55); TOTAL IRON BINDING CAPACITY 192 ug/dL (250-450); UIBC 180 ug/dL (131-425)
--- NOTE | 2018-09-20 09:04 | PN ---
Progress Note (short form) - Note Progress Note: sitting up and eating breakfast when is my mom coming? alert stilll has some abdominal discomfort Vital Signs Period Temp Pulse Resp BP Sys/Martin Pulse Ox Last 24 Hr 97.8 F-99.4 F 18-105 18-106 105-130/54-67 97-99 cor-rrr lungs decreased bs at bases abd firm RUQ, tender to palpation ext no edema CBC, BMP 09/20/18 06:15 09/20/18 06:15 Microbiology 09/18/18 02:15 Blood - Peripheral Venous Blood Culture - Preliminary NO GROWTH OBTAINED AFTER 48 HOURS, INCUBATION TO CONTINUE FOR 3 DAYS. 09/18/18 02:45 Blood - Peripheral Venous Blood Culture - Preliminary NO GROWTH OBTAINED AFTER 48 HOURS, INCUBATION TO CONTINUE FOR 3 DAYS. 09/18/18 02:45 Urine - Urine Clean Catch Urine Culture - Final NO GROWTH OBTAINED ct scan chest/abdomen/pelvis- pulmonary nodules, multiple liver masses, right adrenal mass, right colon lesion pelvic mass, ascites Current Medications Carbamazepine (Tegretol Xr -) 400 mg PO DAILY [facility] Last Admin: 09/19/18 10:17 Dose: 400 mg Carbamazepine (Tegretol Xr -) 600 mg PO HS [facility] Last Admin: 09/19/18 21:17 Dose: 600 mg Docusate Sodium (Colace -) 100 mg PO BID [facility] Last Admin: 09/19/18 21:17 Dose: 100 mg Glycerin (Glycerin Suppository Adult -) 1 each [place] DAILY PRN PRN Reason: CONSTIPATION Sodium Chloride (Normal Saline -) 1,000 mls @ 100 mls/hr IV ASDIR [facility] Last Admin: 09/20/18 02:14 Dose: 100 mls/hr Piperacillin Sod/Tazobactam (Sod 3.375 gm/ Dextrose) 50 mls @ 100 mls/hr IVPB Q8H-IV [facility]; Protocol Last Admin: 09/20/18 02:14 Dose: 100 mls/hr Levothyroxine Sodium (Synthroid -) 75 mcg PO AM [facility] Last Admin: 09/20/18 06:28 Dose: 75 mcg Pantoprazole Sodium (Protonix Iv) 40 mg IVPUSH DAILY [facility] Last Admin: 09/19/18 10:18 Dose: 40 mg Senna (Senna -) 2 tab PO HS PRN PRN Reason: CONSTIPATION a/p metastatic cancer- most likely colon leukemoid reaction to malignancy tumor fever most likely will d/c zosyn f/w oncology please call back if needed
[2018-09-20] MEDS ORDERED: PT OWN MED DRAWER 7, Y5N ONE ×2 (09:33→19:28)
[2018-09-20] MEDS: PANTOPRAZOLE SODIUM 40 MG VIAL IVPUSH SCH (10:22)
[2018-09-20] MEDS: DOCUSATE SODIUM 100 MG CAPSULE (FP) PO SCH ×2 (10:22→21:08)
[2018-09-20] MEDS: carBAMazepine XR 400 MG TAB.ER.12H PO SCH (11:17)
--- NOTE | 2018-09-20 15:32 | PN ---
Progress Note (short form) - Note Progress Note: Patient's family at bedside. patient looks comfortable, non verbal. Vital Signs Temperature 99.7 F H 09/20/18 14:14 Pulse Rate 105 H 09/20/18 14:14 Respiratory Rate 16 09/20/18 14:14 Blood Pressure 112/62 09/20/18 14:14 O2 Sat by Pulse Oximetry (%) 97 09/20/18 09:00 GENERAL:positivr for pallor. Awake, alert, slightly non verbal at baseline, able to follow commands., in no acute distress HEAD: No signs of trauma, normocephalic, atraumatic EYES: PERRLA, EOMI, sclera anicteric, conjunctiva clear ENT: positive for Conjuctival and mucosal pallor. oropharynx clear without exudates. NECK: Normal ROM, supple, no lymphadenopathy, JVD, or masses LUNGS: No distress, clear to auscultation bilaterally HEART: Regular rate and rhythm, normal S1 and S2, no murmurs, rubs or gallops. ABDOMEN: mild tenderness , hard to palpation RUQ palpable mass, normoactive bowel sounds. No guarding, no rebound. EXTREMITIES : Normal inspection, Normal range of motion, no edema. No clubbing or cyanosis. NEUROLOGICAL: Cranial nerves II through XII grossly intact. Left wrist contracted. Strength grossly intact. SKIN: Warm, Dry, normal turgor, no rashes or lesions noted CBCD WBC 18.1 K/mm3 (4.0-10.0) H 09/20/18 06:15 RBC 4.04 M/mm3 (3.60-5.2) 09/20/18 06:15 Hgb 9.3 GM/dL (10.7-15.3) L 09/20/18 06:15 Hct 27.8 % (32.4-45.2) L D 09/20/18 06:15 MCV 69.0 fl (80-96) L 09/20/18 06:15 MCHC 33.3 g/dl (32.0-36.0) 09/20/18 06:15 RDW 33.6 % (11.6-15.6) H 09/20/18 06:15 Plt Count 675 K/MM3 (134-434) H 09/20/18 06:15 MPV 7.1 fl (7.5-11.1) L 09/20/18 06:15 CMP Sodium 138 mmol/L (136-145) 09/20/18 06:15 Potassium 3.9 mmol/L (3.5-5.1) 09/20/18 06:15 Chloride 107 mmol/L (98-107) 09/20/18 06:15 Carbon Dioxide 23 mmol/L (21-32) 09/20/18 06:15 Anion Gap 9 MMOL/L (8-16) 09/20/18 06:15 BUN 6 mg/dL (7-18) L 09/20/18 06:15 Creatinine 0.5 mg/dL (0.55-1.3) L 09/20/18 06:15 Creat Clearance w eGFR 131.69 (>60) 09/20/18 06:15 Random Glucose 92 mg/dL (74-106) 09/20/18 06:15 Calcium 7.8 mg/dL (8.5-10.1) L 09/20/18 06:15 Total Bilirubin 0.4 mg/dL (0.2-1) 09/20/18 06:15 AST 32 U/L (15-37) 09/20/18 06:15 ALT 23 U/L (13-61) 09/20/18 06:15 Alkaline Phosphatase 195 U/L (45-117) H 09/20/18 06:15 Total Protein 6.2 g/dl (6.4-8.2) L 09/20/18 06:15 Albumin 2.0 g/dl (3.4-5.0) L 09/20/18 06:15 Current Medications Generic Name Dose Route Start Last Admin Trade Name Freq PRN Reason Stop Dose Admin Carbamazepine 400 mg 09/18/18 10:00 09/20/18 11:17 Tegretol Xr - PO 400 mg DAILY [facility] Administration Carbamazepine 600 mg 09/17/18 22:00 09/19/18 21:17 Tegretol Xr - PO 600 mg HS [facility] Administration Docusate Sodium 100 mg 09/18/18 22:00 09/20/18 10:22 Colace - PO 100 mg BID [facility] Administration Glycerin 1 each 09/18/18 18:13 Glycerin Suppository Adult - [place] DAILY PRN CONSTIPATION Sodium Chloride 1,000 mls @ 100 mls/hr 09/17/18 17:30 09/20/18 02:14 Normal Saline - IV 100 mls/hr ASDIR [facility] Administration Levothyroxine Sodium 75 mcg 09/18/18 07:00 09/20/18 06:28 Synthroid - PO 75 mcg AM [facility] Administration Pantoprazole Sodium 40 mg 09/18/18 10:00 09/20/18 10:22 Protonix Iv IVPUSH 40 mg DAILY [facility] Administration Phytonadione 5 mg 09/21/18 10:00 Aqua Mephyton Injection - SQ 09/23/18 10:01 DAILY [facility] Senna 2 tab 09/18/18 18:13 Senna - PO HS PRN CONSTIPATION Home Medications Medication Instructions Recorded Calcium Carbonate [Super Calcium] 600 mg PO BID 09/17/18 Carbamazepine Xr [Tegretol Xr -] 400 mg PO AM 09/17/18 Carbamazepine Xr [Tegretol Xr -] 600 mg PO HS 09/17/18 Ferrous Sulfate 325 mg PO TID 09/17/18 Levothyroxine [Synthroid -] 75 mcg PO DAILY 09/17/18 Cholecalciferol (Vitamin D3) 2,000 units PO DAILY 09/18/18 [Vitamin D3] Docusate Sodium [Colace -] 100 mg PO BID 09/18/18 US of pelvis : Real time examination of the abdomen demonstrates the following: The gallbladder is normal in size and does contain multiple calculi. There is no evidence of intra or extrahepatic biliary duct dilatation. The liver is normal in size and does contain multiple large solid masses. The largest mass is within the right lobe measuring 7.2 x 5.1 x 5.8 cm. These masses are strongly suspicious for metastatic disease and had been noted on a recent CT scan. Hepatopedal flow is documented within the main portal vein. There is also a solid mass superior to the right kidney measuring 2.5 x 2.5 x 2.0 cm. This most likely is adrenal in origin and is also strongly suspicious for a metastatic lesion. The pancreas is normal in size and texture with no pancreatic masses identified. There is no evidence of hydronephrosis or acute abnormalities of the right kidney. There is no evidence of AAA. The IVC is patent. IMPRESSION: 1. Multiple hepatic masses, suspicious for metastatic disease. 2. Right adrenal mass, also suspicious for a metastatic lesion. 3. Cholelithiasis. Please see above discussion. Reported By: Erik Blair MD 1830 CT of abdomen and pelvis: The study is markedly limited without the use of any contrast material and a paucity of intra-abdominal fat. The lung bases are clear. There are multiple, large hypodense masses throughout the liver are strongly suspicious for metastases. Again, the lack of intravenous contrast does limit evaluation of metastatic disease. The spleen is not enlarged. There are gallstones within the gallbladder. No large pancreatic masses are identified. There is no evidence of pneumoperitoneum, bowel obstruction or intra-abdominal abscess. Evaluation of the colon is limited. There is a moderate amount of retained fecal material within the colon. The right colon appears somewhat thickened. Clinical correlation is advised. Examination of the pelvis demonstrates no evidence of pelvic masses, fluid collections or lymphadenopathy. There is a small amount of free fluid within the lower pelvis. There is no evidence of bony metastases or acute abnormalities. IMPRESSION: Markedly limited study with large hepatic masses strongly suspicious for metastatic disease. 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 #Weight loss around 20 pounds with anemia cannot r/o colon cancer # Acute blood loss due to GI Bleed: positive for hemoccult, GI consult, s/p transfusion of 2 units . 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 baird DVT Px: SCds , low hemoglobin with positive hemoccult, will hold off on AC. Visit type - Emergency Visit Emergency Visit: Yes ED Registration Date: 09/17/18 Care time: The patient presented to the Emergency Department on the above date and was hospitalized for further evaluation of their emergent condition. - New Patient This patient is new to me today: No - Critical Care Critical Care patient: No - Discharge Referral Referred to [facility] No
--- NOTE | 2018-09-20 18:47 | PN ---
Progress Note, Physician History of Present Illness: No new events. Endorses abdominal pain. - Current Medication List Current Medications: Active Medications Carbamazepine (Tegretol Xr -) 400 mg PO DAILY [facility] Last Admin: 09/20/18 11:17 Dose: 400 mg Carbamazepine (Tegretol Xr -) 600 mg PO HS [facility] Last Admin: 09/19/18 21:17 Dose: 600 mg Docusate Sodium (Colace -) 100 mg PO BID [facility] Last Admin: 09/20/18 10:22 Dose: 100 mg Glycerin (Glycerin Suppository Adult -) 1 each [place] DAILY PRN PRN Reason: CONSTIPATION Sodium Chloride (Normal Saline -) 1,000 mls @ 100 mls/hr IV ASDIR [facility] Last Admin: 09/20/18 02:14 Dose: 100 mls/hr Levothyroxine Sodium (Synthroid -) 75 mcg PO AM [facility] Last Admin: 09/20/18 06:28 Dose: 75 mcg Pantoprazole Sodium (Protonix Iv) 40 mg IVPUSH DAILY [facility] Last Admin: 09/20/18 10:22 Dose: 40 mg Phytonadione (Aqua Mephyton Injection -) 5 mg SQ DAILY [facility] Stop: 09/23/18 10:01 Senna (Senna -) 2 tab PO HS PRN PRN Reason: CONSTIPATION - Objective Vital Signs: Vital Signs Temperature 8.1 F L 09/20/18 18:32 Pulse Rate 107 H 09/20/18 18:32 Respiratory Rate 18 09/20/18 18:32 Blood Pressure 119/71 09/20/18 18:32 O2 Sat by Pulse Oximetry (%) 97 09/20/18 09:00 Constitutional: Yes: No Distress, Calm Eyes: Yes: Conjunctiva Clear Cardiovascular: Yes: Regular Rate and Rhythm Respiratory: Yes: Regular, CTA Bilaterally Gastrointestinal: Yes: Normal Bowel Sounds Edema: No Labs: CBC, BMP 09/20/18 06:15 09/20/18 06:15 INR, PTT INR 1.31 (0.83-1.09) H 09/19/18 05:30 Fibrinogen 444.0 mg/dL (238-498) 09/19/18 05:30 Assessment/Plan 48F with h/o epilepsy, anemia, congenital 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, s/p 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 Imaging studies concerning for liver etastasess/adrenal met. CEA high. Clinical scenario suspicious for metastatic colon cancer. Responded appropriately to PRBC. Plan for Liver biopsy/ PDL1 staining/Her2 staining Poor performance status and hence challenge to treat
[2018-09-20] MEDS: carBAMazepine XR 200 MG TAB.ER.12H PO SCH (21:08)
[2018-09-21] MEDS: LEVOTHYROXINE NA 75 MCG TABLET (FP) PO SCH (06:09)
--- NOTE | 2018-09-21 09:04 | PN ---
Physical Exam: SUBJECTIVE: Patient seen and examined at bedside; patient did not have any fevers overnight and she is still having some abdominal discomfort; OBJECTIVE: Vital Signs Period Temp Pulse Resp BP Sys/Martin Pulse Ox Last 24 Hr 8.1 F-99.7 F 103-108 16-20 112-132/54-77 97 GENERAL: The patient is awake, alert, EYES:PEERLA; EOMI; no scleral icterus NECK: no JVD; no lymphadenopathy LUNGS: CTA B/L; no rales, rhonchi or wheezing. HEART: Regular rate and rhythm, S1, S2 without murmur, rub or gallop. ABDOMEN: Soft, wincing upon palpation; +BS in all 4 quadrants EXTREMITIES: 2+ pulses, warm, well-perfused, no edema. PSYCH: Normal mood, normal affect. SKIN: Warm, dry, normal turgor, no rashes or lesions noted Laboratory Results - last 24 hr 09/17/18 09/19/18 13:54 05:30 Hct 27.0 L Folate 1572 Folate Hemolysate 424.5 Blood Type A POSITIVE Antibody Screen Negative Crossmatch See Detail Active Medications Generic Name Dose Route Start Last Admin Trade Name Freq PRN Reason Stop Dose Admin Carbamazepine 400 mg 09/18/18 10:00 09/20/18 11:17 Tegretol Xr - PO 400 mg DAILY [facility] Administration Carbamazepine 600 mg 09/17/18 22:00 09/20/18 21:08 Tegretol Xr - PO 600 mg HS [facility] Administration Docusate Sodium 100 mg 09/18/18 22:00 09/20/18 21:08 Colace - PO 100 mg BID [facility] Administration Glycerin 1 each 09/18/18 18:13 Glycerin Suppository Adult - [place] DAILY PRN CONSTIPATION Sodium Chloride 1,000 mls @ 100 mls/hr 09/17/18 17:30 09/20/18 21:08 Normal Saline - IV 100 mls/hr ASDIR [facility] Administration Levothyroxine Sodium 75 mcg 09/18/18 07:00 09/21/18 06:09 Synthroid - PO 75 mcg AM [facility] Administration Pantoprazole Sodium 40 mg 09/18/18 10:00 09/20/18 10:22 Protonix Iv IVPUSH 40 mg DAILY [facility] Administration Phytonadione 5 mg 09/21/18 10:00 Aqua Mephyton Injection - SQ 09/23/18 10:01 DAILY [facility] Senna 2 tab 09/18/18 18:13 Senna - PO HS PRN CONSTIPATION ASSESSMENT/PLAN: 48 y/o female with a PMH of epilepsy, chronic 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 requiring 3 INSTRUCTIONAL TECHNOLOGY INSTRUCTOR shunts, hypothyroidism presents to the ED with a one week history of worsening fatigue, loss of appetite, found to have a hemoglobin of 4.6 and was FOBT positive. #GI Bleed -protonix 40 daily -will need scope once medically stable #Leukocytosis/thrombocytosis likely tumor fevers -ab/pelvis CT scan: which shows hepatic masses; ab XRAY: fecal retention; U/S: multiple hepatic masses (mets); R adrenal mass (mets); cholethiasis -Dr. perez consulted -ID consulted -CEA elevtaed -plan for liver biopsy #Chronic Hydrocephalus w/ INSTRUCTIONAL TECHNOLOGY INSTRUCTOR shunt -head CT ordered to r/o infection -Dr. Quezada consulted #Seizures -c/w home medication: tegretol 200: 2 tablets in AM; 3 tablets PM #Hypothyroidism c/w synthroid 75 mcg daily F/E/N NS @100 monitor electrolytes NPO for now DVT PPX: SCD's Problem List - Problems (1) Seizure Code(s): R56.9 - UNSPECIFIED CONVULSIONS (2) Hydrocephalus Code(s): G91.9 - HYDROCEPHALUS, UNSPECIFIED (3) Anemia Code(s): D64.9 - ANEMIA, UNSPECIFIED Qualifiers: Anemia type: unspecified type Qualified Code(s): D64.9 - Anemia, unspecified (4) GI bleed Code(s): K92.2 - GASTROINTESTINAL HEMORRHAGE, UNSPECIFIED Qualifiers: GI bleed type/associated pathology: unspecified gastrointestinal hemorrhage type Qualified Code(s): K92.2 - Gastrointestinal hemorrhage, unspecified Visit type - Emergency Visit Emergency Visit: Yes ED Registration Date: 09/17/18 Care time: The patient presented to the Emergency Department on the above date and was hospitalized for further evaluation of their emergent condition. - New Patient This patient is new to me today: No - Critical Care Critical Care patient: No
[2018-09-21] MEDS: PANTOPRAZOLE SODIUM 40 MG VIAL IVPUSH SCH (09:43)
[2018-09-21] MEDS: carBAMazepine XR 400 MG TAB.ER.12H PO SCH (09:43)
[2018-09-21] MEDS: PHYTONADIONE 10 MG/1 ML AMP SQ SCH (09:43)
[2018-09-21] MEDS: DOCUSATE SODIUM 100 MG CAPSULE (FP) PO SCH ×2 (09:43→21:16)
--- NOTE | 2018-09-21 11:27 | PN ---
Progress Note (short form) - Note Progress Note: NEUROSURGERY Denies H/A or seizure. Mom at bedside PE: Tmax 99.3, VSS Off abx Sitting up in chair More verbal HEENT- R temporo-parietal shunt valve pumps and refills, no obvious underlying scalp fluid collection or track; Neck- supple; Cor-RR; Lungs- CTA B; Abd- benign , hypoactive BS, healed midline supraumbilical incision; Ext- no sign of DVT CN- non-focal; Motor- mild L hemiparesis 4/5, increased L UE and LE tone; Sensation- difficult to fully assess; DTR- hyperreflexic L UE; toes downgoing Head CT- At least 3 catheters; R parietal chronic encephalomalacia, R frontal catheter into encephalomalacic cavity, R temporal catheter into lateral ventricle, R parietal catheter crossing midline into L lateral ventricle, no acute bleed or fx CT Abd- hepatic lesions of unknown etiology; no reported large fluid collection HCP s/p shunts/revision most recently 1990 per mom Shunt infection possible but less likely as pt would likely be much sicker clinically Neurosurgical intervention not recommended at this time Possible Colon CA with hepatic and adrenal mets For bx of hepatic lesion(s) Oncology followup and tx as appropriate No active neurosurgical issues Will sign off, please reconsult prn
[2018-09-21] MEDS: SODIUM CHLORIDE 1,000 ML IV SCH (17:47)
--- NOTE | 2018-09-21 19:38 | PN ---
Teaching Attending Note Name of Resident: Therese Durán ATTENDING PHYSICIAN STATEMENT I saw and evaluated the patient. I reviewed the resident's note and discussed the case with the resident. I agree with the resident's findings and plan as documented. SUBJECTIVE: Patient is going for Liver Bx, comfortable with no acute distress. OBJECTIVE: Vital Signs Temperature 97.7 F 09/21/18 17:00 Pulse Rate 110 H 09/21/18 17:00 Respiratory Rate 18 09/21/18 17:00 Blood Pressure 112/72 09/21/18 17:00 O2 Sat by Pulse Oximetry (%) 97 09/21/18 09:00 GENERAL:positivr for pallor. Awake, alert, slightly non verbal at baseline, able to follow commands., in no acute distress HEAD: No signs of trauma, normocephalic, atraumatic EYES: PERRLA, EOMI, sclera anicteric, conjunctiva clear ENT: positive for Conjuctival and mucosal pallor. oropharynx clear without exudates. NECK: Normal ROM, supple, no lymphadenopathy, JVD, or masses LUNGS: No distress, clear to auscultation bilaterally HEART: Regular rate and rhythm, normal S1 and S2, no murmurs, rubs or gallops. ABDOMEN: hard to palpation RUQ palpable mass, normoactive bowel sounds. No guarding, no rebound. EXTREMITIES : Normal inspection, Normal range of motion, no edema. No clubbing or cyanosis. NEUROLOGICAL: Cranial nerves II through XII grossly intact. Left wrist contracted. Strength grossly intact. SKIN: Warm, Dry, normal turgor, no rashes or lesions noted CBCD WBC 18.1 K/mm3 (4.0-10.0) H 09/20/18 06:15 RBC 4.04 M/mm3 (3.60-5.2) 09/20/18 06:15 Hgb 9.3 GM/dL (10.7-15.3) L 09/20/18 06:15 Hct 27.8 % (32.4-45.2) L D 09/20/18 06:15 MCV 69.0 fl (80-96) L 09/20/18 06:15 MCHC 33.3 g/dl (32.0-36.0) 09/20/18 06:15 RDW 33.6 % (11.6-15.6) H 09/20/18 06:15 Plt Count 675 K/MM3 (134-434) H 09/20/18 06:15 MPV 7.1 fl (7.5-11.1) L 09/20/18 06:15 CMP Sodium 138 mmol/L (136-145) 09/20/18 06:15 Potassium 3.9 mmol/L (3.5-5.1) 09/20/18 06:15 Chloride 107 mmol/L (98-107) 09/20/18 06:15 Carbon Dioxide 23 mmol/L (21-32) 09/20/18 06:15 Anion Gap 9 MMOL/L (8-16) 09/20/18 06:15 BUN 6 mg/dL (7-18) L 09/20/18 06:15 Creatinine 0.5 mg/dL (0.55-1.3) L 09/20/18 06:15 Creat Clearance w eGFR 131.69 (>60) 09/20/18 06:15 Random Glucose 92 mg/dL (74-106) 09/20/18 06:15 Calcium 7.8 mg/dL (8.5-10.1) L 09/20/18 06:15 Total Bilirubin 0.4 mg/dL (0.2-1) 09/20/18 06:15 AST 32 U/L (15-37) 09/20/18 06:15 ALT 23 U/L (13-61) 09/20/18 06:15 Alkaline Phosphatase 195 U/L (45-117) H 09/20/18 06:15 Total Protein 6.2 g/dl (6.4-8.2) L 09/20/18 06:15 Albumin 2.0 g/dl (3.4-5.0) L 09/20/18 06:15 Current Medications Generic Name Dose Route Start Last Admin Trade Name Freq PRN Reason Stop Dose Admin Carbamazepine 400 mg 09/18/18 10:00 09/21/18 09:43 Tegretol Xr - PO 400 mg DAILY FLORIN Administration Carbamazepine 600 mg 09/17/18 22:00 09/20/18 21:08 Tegretol Xr - PO 600 mg HS FLORIN Administration Docusate Sodium 100 mg 09/18/18 22:00 09/21/18 09:43 Colace - PO 100 mg BID FLORIN Administration Glycerin 1 each 09/18/18 18:13 Glycerin Suppository Adult - [place] DAILY PRN CONSTIPATION Sodium Chloride 1,000 mls @ 100 mls/hr 09/17/18 17:30 09/21/18 17:47 Normal Saline - IV 100 mls/hr ASDIR FLORIN Administration Levothyroxine Sodium 75 mcg 09/18/18 07:00 09/21/18 06:09 Synthroid - PO 75 mcg AM FLORIN Administration Pantoprazole Sodium 40 mg 09/18/18 10:00 09/21/18 09:43 Protonix Iv IVPUSH 40 mg DAILY FLORIN Administration Phytonadione 5 mg 09/21/18 10:00 09/21/18 09:43 Aqua Mephyton Injection - SQ 09/23/18 10:01 5 mg DAILY FLORIN Administration Senna 2 tab 09/18/18 18:13 Senna - PO HS PRN CONSTIPATION Home Medications Medication Instructions Recorded Calcium Carbonate [Super Calcium] 600 mg PO BID 09/17/18 Carbamazepine Xr [Tegretol Xr -] 400 mg PO AM 09/17/18 Carbamazepine Xr [Tegretol Xr -] 600 mg PO HS 09/17/18 Ferrous Sulfate 325 mg PO TID 09/17/18 Levothyroxine [Synthroid -] 75 mcg PO DAILY 09/17/18 Cholecalciferol (Vitamin D3) 2,000 units PO DAILY 09/18/18 [Vitamin D3] Docusate Sodium [Colace -] 100 mg PO BID 09/18/18 US of pelvis : Real time examination of the abdomen demonstrates the following: The gallbladder is normal in size and does contain multiple calculi. There is no evidence of intra or extrahepatic biliary duct dilatation. The liver is normal in size and does contain multiple large solid masses. The largest mass is within the right lobe measuring 7.2 x 5.1 x 5.8 cm. These masses are strongly suspicious for metastatic disease and had been noted on a recent CT scan. Hepatopedal flow is documented within the main portal vein. There is also a solid mass superior to the right kidney measuring 2.5 x 2.5 x 2.0 cm. This most likely is adrenal in origin and is also strongly suspicious for a metastatic lesion. The pancreas is normal in size and texture with no pancreatic masses identified. There is no evidence of hydronephrosis or acute abnormalities of the right kidney. There is no evidence of AAA. The IVC is patent. IMPRESSION: 1. Multiple hepatic masses, suspicious for metastatic disease. 2. Right adrenal mass, also suspicious for a metastatic lesion. 3. Cholelithiasis. Please see above discussion. Reported By: Erik Blair MD [id number] CT of abdomen and pelvis: The study is markedly limited without the use of any contrast material and a paucity of intra-abdominal fat. The lung bases are clear. There are multiple, large hypodense masses throughout the liver are strongly suspicious for metastases. Again, the lack of intravenous contrast does limit evaluation of metastatic disease. The spleen is not enlarged. There are gallstones within the gallbladder. No large pancreatic masses are identified. There is no evidence of pneumoperitoneum, bowel obstruction or intra-abdominal abscess. Evaluation of the colon is limited. There is a moderate amount of retained fecal material within the colon. The right colon appears somewhat thickened. Clinical correlation is advised. Examination of the pelvis demonstrates no evidence of pelvic masses, fluid collections or lymphadenopathy. There is a small amount of free fluid within the lower pelvis. There is no evidence of bony metastases or acute abnormalities. IMPRESSION: Markedly limited study with large hepatic masses strongly suspicious for metastatic disease. Reported By: Erik Blair MD , 09/17/181832 CT abdomen and pelvis: Rule out metastatic disease. Sequential axial images were obtained from the thoracic inlet through the symphysis pubis following the administration of both oral and intravenous contrast material. Examination of the mediastinum demonstrates no evidence of mediastinal masses, fluid collections or lymphadenopathy. The heart is not enlarged. Evaluation of the lung conway demonstrates small bilateral pleural effusions with atelectatic changes involving both lower lobes. There are several faint nodules scattered throughout both lungs. The largest nodules are within the right lung apex measuring 5 to 6 mm. These nodules are suspicious for metastatic disease. A small amount of ascites is noted within the abdomen and pelvis. Large masses are identified within the liver. The largest of these is within the right lobe measuring approximately 6.6 x 4.7 x 5.7 cm. These masses are also consistent with metastatic disease. The spleen, pancreas, left adrenal gland and kidneys demonstrate no significant abnormalities. There is a right adrenal mass measuring 2.7 x 2.2 x 2.0 cm. This mass is also suspicious for metastatic lesion. There is a large mass involving the right colon which has an apple core configuration strongly suspicious for a colon malignancy. Colonoscopic follow- up is recommended. There is no evidence of bowel obstruction related to this lesion. A moderate amount of retained fecal material is noted throughout the distal colon and rectum. Examination of the pelvis demonstrates a pelvic mass adjacent to the fundus of the uterus. This mass measures 3.7 x 3.3 x 4.5 cm. It could represent a fibroid. The possibility of additional metastatic implant cannot be excluded. No additional pelvic masses, fluid collections or lymphadenopathy are identified. There is no evidence of bony metastases or acute abnormalities. IMPRESSION: 1. Multiple pulmonary nodules suspicious for metastatic disease. 2. Bilateral pleural effusions and lower lobe atelectasis. 3. Ascites. 4. Multiple hepatic masses consistent with metastatic disease. 5. Right adrenal mass suspicious for metastatic disease. 6. Right colon lesion suspicious for a primary malignancy. Colonoscopic follow-up recommended. 7. Pelvic mass that may represent a leiomyoma of the uterus or possibly an additional metastatic implant. Clinical correlation and follow-up recommended. Please see above discussion. 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 #Right colon neoplasm suspesious for primary malignancy , with hx of weight loss around 20 pounds with anemia , waiting for liver bx result. # Acute blood loss due to GI Bleed: positive for hemoccult, GI consult, s/p transfusion of 2 units . 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 baird DVT Px: SCds , low hemoglobin with positive hemoccult, will hold off on AC.
[2018-09-21] MEDS ORDERED: PT OWN MED DRAWER 7, Y5N ONE (19:55)
[2018-09-21] MEDS: carBAMazepine XR 200 MG TAB.ER.12H PO SCH (21:16)
[2018-09-22] MEDS: LEVOTHYROXINE NA 75 MCG TABLET (FP) PO SCH (06:25)
[2018-09-22 07:03] LABS: HEMATOCRIT 27.4 % (32.4-45.2); HEMOGLOBIN 9.1 GM/dL (10.7-15.3); MCH 23.9 pg (25.7-33.7); MCHC 33.3 g/dl (32.0-36.0); MEAN CELL VOLUME 71.8 fl (80-96); MEAN PLT VOLUME 8.7 fl (7.5-11.1); PLATELET COUNT 618 K/MM3 (134-434); RBC 3.82 M/mm3 (3.60-5.2); RDW 35.6 % (11.6-15.6); WHITE BLOOD COUNT 17.3 K/mm3 (4.0-10.0)
[2018-09-22 07:30] LABS: INR 1.18 (0.83-1.09)
[2018-09-22 08:23] LABS: ALBUMIN 1.8 g/dl (3.4-5.0); ALK PHOS 162 U/L (45-117); ANION GAP 7 MMOL/L (8-16); BILIRUBIN,TOTAL 0.3 mg/dL (0.2-1); BLOOD UREA NITROGEN 4 mg/dL (7-18); CALCIUM 7.8 mg/dL (8.5-10.1); CHLORIDE 108 mmol/L (98-107); CO2 24 mmol/L (21-32); CREATININE 0.4 mg/dL (0.55-1.3); GLUCOSE,RANDOM 87 mg/dL (74-106); MAGNESIUM 2.1 mg/dL (1.8-2.4); PHOSPHOROUS 3.1 mg/dL (2.5-4.9); POTASSIUM 3.7 mmol/L (3.5-5.1); SGOT/AST 46 U/L (15-37); SGPT/ALT 29 U/L (13-61); SODIUM 139 mmol/L (136-145); TOT PROT 5.5 g/dl (6.4-8.2)
--- NOTE | 2018-09-22 09:03 | PN ---
Physical Exam: SUBJECTIVE: Patient seen and examined at bedside no acute events overnight patient did not spike any fevers and seems more alert this AM OBJECTIVE: Vital Signs Period Temp Pulse Resp BP Sys/Martin Pulse Ox Last 24 Hr 97.7 F-98.7 F 97-110 16-18 112-127/58-72 96 GENERAL: The patient is awake, alert, EYES: PEERLA: EOMI: no scleral icterus NECK: no JVD; no lymphadneopathy LUNGS: CTA B/l; no rales, rhonchi or wheezing HEART: Regular rate and rhythm, S1, S2 without murmur, rub or gallop. ABDOMEN: Soft, nontender, nondistended, normoactive bowel sounds, no guarding, no rebound, no hepatosplenomegaly, no masses. EXTREMITIES: 2+ pulses, warm, well-perfused, no edema. PSYCH: Normal mood, normal affect. SKIN: Warm, dry, normal turgor, no rashes or lesions noted Laboratory Results - last 24 hr 09/17/18 09/22/18 09/22/18 13:54 06:00 06:00 WBC 17.3 H RBC 3.82 Hgb 9.1 L Hct 27.4 L MCV 71.8 L MCH 23.9 L MCHC 33.3 RDW 35.6 H Plt Count 618 H MPV 8.7 D PT with INR INR Sodium 139 Potassium 3.7 Chloride 108 H Carbon Dioxide 24 Anion Gap 7 L BUN 4 L Creatinine 0.4 L Creat Clearance w eGFR 170.36 Random Glucose 87 Calcium 7.8 L Phosphorus 3.1 Magnesium 2.1 Total Bilirubin 0.3 AST 46 H ALT 29 Alkaline Phosphatase 162 H Total Protein 5.5 L Albumin 1.8 L Blood Type A POSITIVE Antibody Screen Negative Crossmatch See Detail 09/22/18 06:00 WBC RBC Hgb Hct MCV MCH MCHC RDW Plt Count MPV PT with INR 14.00 H INR 1.18 H Sodium Potassium Chloride Carbon Dioxide Anion Gap BUN Creatinine Creat Clearance w eGFR Random Glucose Calcium Phosphorus Magnesium Total Bilirubin AST ALT Alkaline Phosphatase Total Protein Albumin Blood Type Antibody Screen Crossmatch Active Medications Generic Name Dose Route Start Last Admin Trade Name Freq PRN Reason Stop Dose Admin Carbamazepine 400 mg 09/18/18 10:00 09/21/18 09:43 Tegretol Xr - PO 400 mg DAILY FLORIN Administration Carbamazepine 600 mg 09/17/18 22:00 09/21/18 21:16 Tegretol Xr - PO 600 mg HS FLORIN Administration Docusate Sodium 100 mg 09/18/18 22:00 09/21/18 21:16 Colace - PO 100 mg BID FLORIN Administration Glycerin 1 each 09/18/18 18:13 Glycerin Suppository Adult - [place] DAILY PRN CONSTIPATION Sodium Chloride 1,000 mls @ 100 mls/hr 09/17/18 17:30 09/21/18 17:47 Normal Saline - IV 100 mls/hr ASDIR FLORIN Administration Levothyroxine Sodium 75 mcg 09/18/18 07:00 09/22/18 06:25 Synthroid - PO Not Given AM FLORIN Pantoprazole Sodium 40 mg 09/18/18 10:00 09/21/18 09:43 Protonix Iv IVPUSH 40 mg DAILY FLORIN Administration Phytonadione 5 mg 09/21/18 10:00 09/21/18 09:43 Aqua Mephyton Injection - SQ 09/23/18 10:01 5 mg DAILY FLORIN Administration Senna 2 tab 09/18/18 18:13 Senna - PO HS PRN CONSTIPATION ASSESSMENT/PLAN: 48 y/o female with a PMH of epilepsy, chronic 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 requiring 3 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 #GI Bleed -protonix 40 daily -will need scope once medically stable #Leukocytosis/thrombocytosis likely tumor fevers -ab/pelvis CT scan: which shows hepatic masses; ab XRAY: fecal retention; U/S: multiple hepatic masses (mets); R adrenal mass (mets); cholethiasis -Dr. perez consulted -ID consulted -CEA elevtaed -plan for liver biopsy this AM #Chronic Hydrocephalus w/ GYMNASTICS COACH shunt -head CT ordered to r/o infection -Dr. Quezada consulted #Seizures -c/w home medication: tegretol 200: 2 tablets in AM; 3 tablets PM #Hypothyroidism c/w synthroid 75 mcg daily F/E/N NS @100 monitor electrolytes NPO for now DVT PPX: SCD's Problem List - Problems (1) Seizure Code(s): R56.9 - UNSPECIFIED CONVULSIONS (2) Hydrocephalus Code(s): G91.9 - HYDROCEPHALUS, UNSPECIFIED (3) Anemia Code(s): D64.9 - ANEMIA, UNSPECIFIED Qualifiers: Anemia type: unspecified type Qualified Code(s): D64.9 - Anemia, unspecified (4) GI bleed Code(s): K92.2 - GASTROINTESTINAL HEMORRHAGE, UNSPECIFIED Qualifiers: GI bleed type/associated pathology: unspecified gastrointestinal hemorrhage type Qualified Code(s): K92.2 - Gastrointestinal hemorrhage, unspecified Visit type - Emergency Visit Emergency Visit: Yes ED Registration Date: 09/17/18 Care time: The patient presented to the Emergency Department on the above date and was hospitalized for further evaluation of their emergent condition. - New Patient This patient is new to me today: No - Critical Care Critical Care patient: No
[2018-09-22] MEDS: PHYTONADIONE 10 MG/1 ML AMP SQ SCH (10:37)
[2018-09-22] MEDS: PANTOPRAZOLE SODIUM 40 MG VIAL IVPUSH SCH (10:37)
[2018-09-22] MEDS: SODIUM CHLORIDE 1,000 ML IV SCH ×2 (10:39→18:30)
[2018-09-22] MEDS: carBAMazepine XR 400 MG TAB.ER.12H PO SCH (11:17)
[2018-09-22] MEDS: DOCUSATE SODIUM 100 MG CAPSULE (FP) PO SCH ×2 (11:17→22:19)
--- NOTE | 2018-09-22 19:51 | PN ---
Progress Note (short form) - Note Progress Note: Patient seen and examined Has RUQ tenderness Minimally verbal but at baseline s/p liver bx Last Vital Signs Temp Pulse Resp BP Pulse Ox 98.5 F 107 H 17 132/60 100 09/22/18 18:00 09/22/18 18:00 09/22/18 18:00 09/22/18 18:00 09/22/18 13:27 Cor: RSR, No murmurs, No gallops Lungs: Clear to P&A Abd: Soft, Normal bowel sounds, No organomegaly Ext:No significant edema Labs/Meds reviewed A/P 48 yo F with h/o epilepsy, anemia, congenital 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, s/p SHEAR TENDER shunt who p/ w weaknes severe anemia. Patient unable to provide history. Imaging studies concerning for liver metastasess/adrenal met clinical scenario suspicious for metastatic colon cancer s/p Liver biopsy/ PDL1 staining/Her2 staining poor performance status and hence challenge to treat pain control/ bowel regimen transfusion support iv iron
--- NOTE | 2018-09-22 20:27 | PN ---
Teaching Attending Note Name of Resident: Therese Durán ATTENDING PHYSICIAN STATEMENT I saw and evaluated the patient. I reviewed the resident's note and discussed the case with the resident. I agree with the resident's findings and plan as documented. SUBJECTIVE: Patient is comfortable, lying in bed with no acute distress, OBJECTIVE: Vital Signs Temperature 98.5 F 09/22/18 18:00 Pulse Rate 107 H 09/22/18 18:00 Respiratory Rate 17 09/22/18 18:00 Blood Pressure 132/60 09/22/18 18:00 O2 Sat by Pulse Oximetry (%) 100 09/22/18 13:27 GENERAL:positivr for pallor. Awake, alert, slightly non verbal at baseline, able to follow commands., in no acute distress HEAD: No signs of trauma, normocephalic, atraumatic EYES: PERRLA, EOMI, sclera anicteric, conjunctiva clear ENT: no pallor now post transfusion. oropharynx clear without exudates. NECK: Normal ROM, supple, no lymphadenopathy, JVD, or masses LUNGS: No distress, clear to auscultation bilaterally HEART: Regular rate and rhythm, normal S1 and S2, no murmurs, rubs or gallops. ABDOMEN: hard to palpation RUQ palpable mass, normoactive bowel sounds. No guarding, no rebound. EXTREMITIES : Normal inspection, Normal range of motion, no edema. No clubbing or cyanosis. NEUROLOGICAL: Cranial nerves II through XII grossly intact. Left wrist contracted. Strength grossly intact. SKIN: Warm, Dry, normal turgor, no rashes or lesions noted CBCD WBC 17.3 K/mm3 (4.0-10.0) H 09/22/18 06:00 RBC 3.82 M/mm3 (3.60-5.2) 09/22/18 06:00 Hgb 9.1 GM/dL (10.7-15.3) L 09/22/18 06:00 Hct 27.4 % (32.4-45.2) L 09/22/18 06:00 MCV 71.8 fl (80-96) L 09/22/18 06:00 MCHC 33.3 g/dl (32.0-36.0) 09/22/18 06:00 RDW 35.6 % (11.6-15.6) H 09/22/18 06:00 Plt Count 618 K/MM3 (134-434) H 09/22/18 06:00 MPV 8.7 fl (7.5-11.1) D 09/22/18 06:00 CMP Sodium 139 mmol/L (136-145) 09/22/18 06:00 Potassium 3.7 mmol/L (3.5-5.1) 09/22/18 06:00 Chloride 108 mmol/L (98-107) H 09/22/18 06:00 Carbon Dioxide 24 mmol/L (21-32) 09/22/18 06:00 Anion Gap 7 MMOL/L (8-16) L 09/22/18 06:00 BUN 4 mg/dL (7-18) L 09/22/18 06:00 Creatinine 0.4 mg/dL (0.55-1.3) L 09/22/18 06:00 Creat Clearance w eGFR 170.36 (>60) 09/22/18 06:00 Random Glucose 87 mg/dL (74-106) 09/22/18 06:00 Calcium 7.8 mg/dL (8.5-10.1) L 09/22/18 06:00 Total Bilirubin 0.3 mg/dL (0.2-1) 09/22/18 06:00 AST 46 U/L (15-37) H 09/22/18 06:00 ALT 29 U/L (13-61) 09/22/18 06:00 Alkaline Phosphatase 162 U/L (45-117) H 09/22/18 06:00 Total Protein 5.5 g/dl (6.4-8.2) L 09/22/18 06:00 Albumin 1.8 g/dl (3.4-5.0) L 09/22/18 06:00 Current Medications Generic Name Dose Route Start Last Admin Trade Name Freq PRN Reason Stop Dose Admin Carbamazepine 400 mg 09/18/18 10:00 09/22/18 11:17 Tegretol Xr - PO Not Given DAILY FLORIN Carbamazepine 600 mg 09/17/18 22:00 09/21/18 21:16 Tegretol Xr - PO 600 mg HS FLORIN Administration Docusate Sodium 100 mg 09/18/18 22:00 09/22/18 11:17 Colace - PO Not Given BID FLORIN Glycerin 1 each 09/18/18 18:13 Glycerin Suppository Adult - FL DAILY PRN CONSTIPATION Sodium Chloride 1,000 mls @ 100 mls/hr 09/17/18 17:30 09/22/18 18:30 Normal Saline - IV 100 mls/hr ASDIR FLORIN Administration Levothyroxine Sodium 75 mcg 09/18/18 07:00 09/22/18 06:25 Synthroid - PO Not Given AM FLORIN Pantoprazole Sodium 40 mg 09/18/18 10:00 09/22/18 10:37 Protonix Iv IVPUSH 40 mg DAILY FLORIN Administration Phytonadione 5 mg 09/21/18 10:00 09/22/18 10:37 Aqua Mephyton Injection - SQ 09/23/18 10:01 5 mg DAILY FLORIN Administration Senna 2 tab 09/18/18 18:13 Senna - PO HS PRN CONSTIPATION Hepatic Panel Total Bilirubin 0.3 mg/dL (0.2-1) 09/22/18 06:00 AST 46 U/L (15-37) H 09/22/18 06:00 ALT 29 U/L (13-61) 09/22/18 06:00 Alkaline Phosphatase 162 U/L (45-117) H 09/22/18 06:00 Albumin 1.8 g/dl (3.4-5.0) L 09/22/18 06:00 Home Medications Medication Instructions Recorded Calcium Carbonate [Super Calcium] 600 mg PO BID 09/17/18 Carbamazepine Xr [Tegretol Xr -] 400 mg PO AM 09/17/18 Carbamazepine Xr [Tegretol Xr -] 600 mg PO HS 09/17/18 Ferrous Sulfate 325 mg PO TID 09/17/18 Levothyroxine [Synthroid -] 75 mcg PO DAILY 09/17/18 Cholecalciferol (Vitamin D3) 2,000 units PO DAILY 09/18/18 [Vitamin D3] Docusate Sodium [Colace -] 100 mg PO BID 09/18/18 ASSESSMENT AND PLAN: US of pelvis : Real time examination of the abdomen demonstrates the following: The gallbladder is normal in size and does contain multiple calculi. There is no evidence of intra or extrahepatic biliary duct dilatation. The liver is normal in size and does contain multiple large solid masses. The largest mass is within the right lobe measuring 7.2 x 5.1 x 5.8 cm. These masses are strongly suspicious for metastatic disease and had been noted on a recent CT scan. Hepatopedal flow is documented within the main portal vein. There is also a solid mass superior to the right kidney measuring 2.5 x 2.5 x 2.0 cm. This most likely is adrenal in origin and is also strongly suspicious for a metastatic lesion. The pancreas is normal in size and texture with no pancreatic masses identified. There is no evidence of hydronephrosis or acute abnormalities of the right kidney. There is no evidence of AAA. The IVC is patent. IMPRESSION: 1. Multiple hepatic masses, suspicious for metastatic disease. 2. Right adrenal mass, also suspicious for a metastatic lesion. 3. Cholelithiasis. Please see above discussion. Reported By: Erik Blair MD 183 CT of abdomen and pelvis: The study is markedly limited without the use of any contrast material and a paucity of intra-abdominal fat. The lung bases are clear. There are multiple, large hypodense masses throughout the liver are strongly suspicious for metastases. Again, the lack of intravenous contrast does limit evaluation of metastatic disease. The spleen is not enlarged. There are gallstones within the gallbladder. No large pancreatic masses are identified. There is no evidence of pneumoperitoneum, bowel obstruction or intra-abdominal abscess. Evaluation of the colon is limited. There is a moderate amount of retained fecal material within the colon. The right colon appears somewhat thickened. Clinical correlation is advised. Examination of the pelvis demonstrates no evidence of pelvic masses, fluid collections or lymphadenopathy. There is a small amount of free fluid within the lower pelvis. There is no evidence of bony metastases or acute abnormalities. IMPRESSION: Markedly limited study with large hepatic masses strongly suspicious for metastatic disease. Reported By: Erik Blair MD , 09/17/[address] abdomen and pelvis: Rule out metastatic disease. Sequential axial images were obtained from the thoracic inlet through the symphysis pubis following the administration of both oral and intravenous contrast material. Examination of the mediastinum demonstrates no evidence of mediastinal masses, fluid collections or lymphadenopathy. The heart is not enlarged. Evaluation of the lung conway demonstrates small bilateral pleural effusions with atelectatic changes involving both lower lobes. There are several faint nodules scattered throughout both lungs. The largest nodules are within the right lung apex measuring 5 to 6 mm. These nodules are suspicious for metastatic disease. A small amount of ascites is noted within the abdomen and pelvis. Large masses are identified within the liver. The largest of these is within the right lobe measuring approximately 6.6 x 4.7 x 5.7 cm. These masses are also consistent with metastatic disease. The spleen, pancreas, left adrenal gland and kidneys demonstrate no significant abnormalities. There is a right adrenal mass measuring 2.7 x 2.2 x 2.0 cm. This mass is also suspicious for metastatic lesion. There is a large mass involving the right colon which has an apple core configuration strongly suspicious for a colon malignancy. Colonoscopic follow- up is recommended. There is no evidence of bowel obstruction related to this lesion. A moderate amount of retained fecal material is noted throughout the distal colon and rectum. Examination of the pelvis demonstrates a pelvic mass adjacent to the fundus of the uterus. This mass measures 3.7 x 3.3 x 4.5 cm. It could represent a fibroid. The possibility of additional metastatic implant cannot be excluded. No additional pelvic masses, fluid collections or lymphadenopathy are identified. There is no evidence of bony metastases or acute abnormalities. IMPRESSION: 1. Multiple pulmonary nodules suspicious for metastatic disease. 2. Bilateral pleural effusions and lower lobe atelectasis. 3. Ascites. 4. Multiple hepatic masses consistent with metastatic disease. 5. Right adrenal mass suspicious for metastatic disease. 6. Right colon lesion suspicious for a primary malignancy. Colonoscopic follow-up recommended. 7. Pelvic mass that may represent a leiomyoma of the uterus or possibly an additional metastatic implant. Clinical correlation and follow-up recommended. Please see above discussion. Reported By: Erik Blair MD 09/19/18 [id number] ASSESSMENT AND PLAN: Patient is a 48 y/o female with a PMHx of epilepsy, chronic 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 with subsequent brain damage (patient is non-verbal) requiring 3 DESK LIEUTENANT shunts last one being in 1990), hypothyroidism she came to the ED after was found to have a low hemoglobin level of 4.6. #Right colon neoplasm suspecious for primary malignancy , with hx of weight loss around 20 pounds with anemia , waiting for liver bx result. # Acute blood loss due to GI Bleed: positive for hemoccult, GI consult, s/p transfusion of 2 units . 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 baird DVT Px: SCds ,due to low hemoglobin with positive hemoccult, will hold off on AC.
[2018-09-22] MEDS ORDERED: PT OWN MED DRAWER 7, Y5N ONE (22:13)
[2018-09-22] MEDS: carBAMazepine XR 200 MG TAB.ER.12H PO SCH (22:20)
[2018-09-23] MEDS: LEVOTHYROXINE NA 75 MCG TABLET (FP) PO SCH (06:15)
[2018-09-23 06:30] LABS: HEMATOCRIT 30.7 % (32.4-45.2); HEMOGLOBIN 9.9 GM/dL (10.7-15.3); MCHC 32.3 g/dl (32.0-36.0); MEAN CELL VOLUME 71.2 fl (80-96); MEAN PLT VOLUME 8.8 fl (7.5-11.1); PLATELET COUNT 676 K/MM3 (134-434); RBC 4.32 M/mm3 (3.60-5.2); RDW 36.2 % (11.6-15.6); WHITE BLOOD COUNT 17.5 K/mm3 (4.0-10.0)
[2018-09-23 07:02] LABS: ALBUMIN 1.8 g/dl (3.4-5.0); ALK PHOS 179 U/L (45-117); ANION GAP 6 MMOL/L (8-16); BILIRUBIN,TOTAL 0.3 mg/dL (0.2-1); BLOOD UREA NITROGEN 4 mg/dL (7-18); CHLORIDE 107 mmol/L (98-107); CO2 26 mmol/L (21-32); CREATININE 0.4 mg/dL (0.55-1.3); GLUCOSE,RANDOM 90 mg/dL (74-106); PHOSPHOROUS 3.5 mg/dL (2.5-4.9); POTASSIUM 3.8 mmol/L (3.5-5.1); SGOT/AST 50 U/L (15-37); SGPT/ALT 32 U/L (13-61); SODIUM 138 mmol/L (136-145); TOT PROT 5.9 g/dl (6.4-8.2)
--- NOTE | 2018-09-23 08:03 | PN ---
Physical Exam: SUBJECTIVE: Patient seen and examined at bedside- no acute events overnight patient had her liver biopsy yesterday; seems more alert this AM OBJECTIVE: Vital Signs Period Temp Pulse Resp BP Sys/Martin Pulse Ox Last 24 Hr 98.1 F-100.1 F 93-107 15-18 114-148/59-85 96-100 GENERAL: The patient is awake, alert EYES:PEERLA; EOMI; no scleral icterus NECK: no JVD; no lymphadenopathy LUNGS:CTA B/L; no rales, rhonchi or wheezing HEART: Regular rate and rhythm, S1, S2 without murmur, rub or gallop. ABDOMEN: Soft, slight tenderness upon palpation; dressing ruQ where liver biopsy was performed; c/d/i EXTREMITIES: 2+ pulses, warm, well-perfused, no edema. . PSYCH: Normal mood, normal affect. SKIN: Warm, dry, normal turgor, no rashes or lesions noted Laboratory Results - last 24 hr 09/17/18 09/22/18 09/22/18 16:47 06:00 06:00 WBC RBC Hgb Hct MCV MCH MCHC RDW Plt Count MPV Sodium 139 Potassium 3.7 Chloride 108 H Carbon Dioxide 24 Anion Gap 7 L BUN 4 L Creatinine 0.4 L Creat Clearance w eGFR 170.36 Random Glucose 87 Calcium 7.8 L Phosphorus 3.1 Magnesium 2.1 Total Bilirubin 0.3 AST 46 H ALT 29 Alkaline Phosphatase 162 H Total Protein 5.5 L Albumin 1.8 L Blood Type A POSITIVE A POSITIVE Antibody Screen Negative Negative Crossmatch See Detail 09/23/18 09/23/18 06:00 06:00 WBC 17.5 H RBC 4.32 Hgb 9.9 L Hct 30.7 L MCV 71.2 L MCH 23.0 L MCHC 32.3 RDW 36.2 H Plt Count 676 H MPV 8.8 Sodium 138 Potassium 3.8 Chloride 107 Carbon Dioxide 26 Anion Gap 6 L BUN 4 L Creatinine 0.4 L Creat Clearance w eGFR 170.36 Random Glucose 90 Calcium 8.0 L Phosphorus 3.5 Magnesium 2.0 Total Bilirubin 0.3 AST 50 H ALT 32 Alkaline Phosphatase 179 H Total Protein 5.9 L Albumin 1.8 L Blood Type Antibody Screen Crossmatch Active Medications Generic Name Dose Route Start Last Admin Trade Name Freq PRN Reason Stop Dose Admin Carbamazepine 400 mg 09/18/18 10:00 09/22/18 11:17 Tegretol Xr - PO Not Given DAILY FLORIN Carbamazepine 600 mg 09/17/18 22:00 09/22/18 22:20 Tegretol Xr - PO 600 mg HS FLORIN Administration Docusate Sodium 100 mg 09/18/18 22:00 09/22/18 22:19 Colace - PO 100 mg BID FLORIN Administration Sodium Chloride 1,000 mls @ 100 mls/hr 09/17/18 17:30 09/22/18 18:30 Normal Saline - IV 100 mls/hr ASDIR FLORIN Administration Levothyroxine Sodium 75 mcg 09/18/18 07:00 09/23/18 06:15 Synthroid - PO 75 mcg AM FLORIN Administration Pantoprazole Sodium 40 mg 09/23/18 10:00 Protonix - PO DAILY FLORIN Phytonadione 5 mg 09/21/18 10:00 09/22/18 10:37 Aqua Mephyton Injection - SQ 09/23/18 10:01 5 mg DAILY FLORIN Administration Senna 2 tab 09/18/18 18:13 Senna - PO HS PRN CONSTIPATION ASSESSMENT/PLAN: 48 y/o female with a PMH of epilepsy, chronic 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 requiring 3 WEAVER NEEDLE LOOM shunts, hypothyroidism presents to the ED with a one week history of worsening fatigue, loss of appetite, found to have a hemoglobin of 4.6 and was FOBT positive. #GI Bleed -protonix 40 daily -will need scope once medically stable #Leukocytosis/thrombocytosis likely tumor fevers -ab/pelvis CT scan: which shows hepatic masses; ab XRAY: fecal retention; U/S: multiple hepatic masses (mets); R adrenal mass (mets); cholethiasis -Dr. perez consulted -CEA elevtaed -patient received liver biopsy yesterday; await results #Chronic Hydrocephalus w/ WEAVER NEEDLE LOOM shunt -head CT ordered to r/o infection -Dr. Quezada consulted #Seizures -c/w home medication: tegretol 200: 2 tablets in AM; 3 tablets PM #Hypothyroidism c/w synthroid 75 mcg daily F/E/N NS @100 monitor electrolytes sodium controlled diet DVT PPX: SCD's Problem List - Problems (1) Seizure Code(s): R56.9 - UNSPECIFIED CONVULSIONS (2) Hydrocephalus Code(s): G91.9 - HYDROCEPHALUS, UNSPECIFIED (3) Anemia Code(s): D64.9 - ANEMIA, UNSPECIFIED Qualifiers: Anemia type: unspecified type Qualified Code(s): D64.9 - Anemia, unspecified (4) GI bleed Code(s): K92.2 - GASTROINTESTINAL HEMORRHAGE, UNSPECIFIED Qualifiers: GI bleed type/associated pathology: unspecified gastrointestinal hemorrhage type Qualified Code(s): K92.2 - Gastrointestinal hemorrhage, unspecified Visit type - Emergency Visit Emergency Visit: Yes ED Registration Date: 09/17/18 Care time: The patient presented to the Emergency Department on the above date and was hospitalized for further evaluation of their emergent condition. - New Patient This patient is new to me today: No - Critical Care Critical Care patient: No
[2018-09-23] MEDS ORDERED: PT OWN MED DRAWER 7, Y5N ONE ×2 (08:36→21:08)
[2018-09-23] MEDS: carBAMazepine XR 400 MG TAB.ER.12H PO SCH (09:12)
[2018-09-23] MEDS: PANTOPRAZOLE 40 MG TABLET (FP) PO SCH (09:12)
[2018-09-23] MEDS: DOCUSATE SODIUM 100 MG CAPSULE (FP) PO SCH ×2 (09:12→21:34)
[2018-09-23] MEDS: PHYTONADIONE 10 MG/1 ML AMP SQ SCH (09:13)
--- NOTE | 2018-09-23 14:40 | PN ---
GI Progress Note Subjective: No acute events Had liver biopsy yesterday Sitting up drinking ensure - Objective Vital Signs: Vital Signs Temperature 98.4 F 09/23/18 10:00 Pulse Rate 96 H 09/23/18 10:00 Respiratory Rate 18 09/23/18 10:00 Blood Pressure 134/75 09/23/18 10:00 O2 Sat by Pulse Oximetry (%) 97 09/23/18 09:00 Constitutional: Calm Eyes: No: Sclera Icterus Cardiovascular: Yes: Tachycardia Respiratory: Yes: Diminished (at bases with poor insp effort) ...Auscultate: Yes: Normoactive Bowel Sounds ...Palpate: No: Tenderness ...Percussion: Yes: Tympanitic Edema: No (No LE edema) Neurological: Yes: Alert Labs: CBC, BMP 09/23/18 06:00 09/23/18 06:00 INR, PTT INR 1.18 (0.83-1.09) H 09/22/18 06:00 Fibrinogen 444.0 mg/dL (238-498) 09/19/18 05:30 Problem List - Problems (1) Colon cancer Assessment/Plan: With suspected mets to lungs, liver, right adrenal. Right colon mass seen on CT scan Awaiting liver biopsy results Onc following Ordered FUA given physical exam finding of tympany Code(s): C18.9 - MALIGNANT NEOPLASM OF COLON, UNSPECIFIED
--- NOTE | 2018-09-23 15:18 | PN ---
Progress Note (short form) - Note Progress Note: Patient seen and examined S/P liver biopsy Last Vital Signs Temp Pulse Resp BP Pulse Ox 98.4 F 76 18 135/70 97 09/23/18 14:00 09/23/18 14:00 09/23/18 14:00 09/23/18 14:00 09/23/18 09:00 HEENT: [place], EOM Intact Oropharynx: No thrush, No mucositis Cor: RSR, No murmurs, No gallops Lungs: diminished breath sounds Abd: Soft, Normal bowel sounds, No organomegaly, distended Ext:No significant edema Skin: No rashes, Integument intact CBC, BMP 09/23/18 06:00 09/23/18 06:00 Current Medications Generic Name Dose Route Start Last Admin Trade Name Freq PRN Reason Stop Dose Admin Carbamazepine 400 mg 09/18/18 10:00 09/23/18 09:12 Tegretol Xr - PO 400 mg DAILY FLORIN Administration Carbamazepine 600 mg 09/17/18 22:00 09/22/18 22:20 Tegretol Xr - PO 600 mg HS FLORIN Administration Docusate Sodium 100 mg 09/18/18 22:00 09/23/18 09:12 Colace - PO 100 mg BID FLORIN Administration Levothyroxine Sodium 75 mcg 09/18/18 07:00 09/23/18 06:15 Synthroid - PO 75 mcg AM FLORIN Administration Pantoprazole Sodium 40 mg 09/23/18 10:00 09/23/18 09:12 Protonix - PO 40 mg DAILY FLORIN Administration Senna 2 tab 09/18/18 18:13 Senna - PO HS PRN CONSTIPATION Impression Blood loss anemia Colonic mass on CT Lung/liver masses S/P liver biopsy Await biopsy .
--- NOTE | 2018-09-23 16:04 | PN ---
Teaching Attending Note Name of Resident: Barrie Fermin ATTENDING PHYSICIAN STATEMENT I saw and evaluated the patient. I reviewed the resident's note and discussed the case with the resident. I agree with the resident's findings and plan as documented. SUBJECTIVE: Patient is comfortable with no acute distress, no shortness breath, no nausea or vomiting, feels better. OBJECTIVE: Initial Vital Signs Temp Pulse Resp BP Pulse Ox 97.4 F L 129 H 20 135/94 97 09/17/18 13:44 09/17/18 13:44 09/17/18 13:44 09/17/18 13:44 09/17/18 13:44 Vital Signs Temperature 98.4 F 09/23/18 14:00 Pulse Rate 76 09/23/18 14:00 Respiratory Rate 18 09/23/18 14:00 Blood Pressure 135/70 09/23/18 14:00 O2 Sat by Pulse Oximetry (%) 97 09/23/18 09:00 GENERAL:positivr for pallor. Awake, alert, non verbal at baseline, able to follow commands, in no acute distress, might say "yes" HEAD: No signs of trauma, normocephalic, atraumatic EYES: PERRLA, EOMI, sclera anicteric, conjunctiva clear ENT: positive for Conjuctival and mucosal pallor. oropharynx clear without exudates. NECK: Normal ROM, supple, no lymphadenopathy, JVD, or masses LUNGS: No distress, clear to auscultation bilaterally HEART: Regular rate and rhythm, normal S1 and S2, no murmurs, rubs or gallops. ABDOMEN: hard to palpation RUQ palpable mass, normoactive bowel sounds. No guarding, no rebound. EXTREMITIES : Normal inspection, Normal range of motion, no edema. No clubbing or cyanosis. NEUROLOGICAL: Cranial nerves II through XII grossly intact. Left wrist contracted. Strength grossly intact. SKIN: Warm, Dry, normal turgor, no rashes or lesions noted CBCD WBC 17.5 K/mm3 (4.0-10.0) H 09/23/18 06:00 RBC 4.32 M/mm3 (3.60-5.2) 09/23/18 06:00 Hgb 9.9 GM/dL (10.7-15.3) L 09/23/18 06:00 Hct 30.7 % (32.4-45.2) L 09/23/18 06:00 MCV 71.2 fl (80-96) L 09/23/18 06:00 MCHC 32.3 g/dl (32.0-36.0) 09/23/18 06:00 RDW 36.2 % (11.6-15.6) H 09/23/18 06:00 Plt Count 676 K/MM3 (134-434) H 09/23/18 06:00 MPV 8.8 fl (7.5-11.1) 09/23/18 06:00 CMP Sodium 138 mmol/L (136-145) 09/23/18 06:00 Potassium 3.8 mmol/L (3.5-5.1) 09/23/18 06:00 Chloride 107 mmol/L (98-107) 09/23/18 06:00 Carbon Dioxide 26 mmol/L (21-32) 09/23/18 06:00 Anion Gap 6 MMOL/L (8-16) L 09/23/18 06:00 BUN 4 mg/dL (7-18) L 09/23/18 06:00 Creatinine 0.4 mg/dL (0.55-1.3) L 09/23/18 06:00 Creat Clearance w eGFR 170.36 (>60) 09/23/18 06:00 Random Glucose 90 mg/dL (74-106) 09/23/18 06:00 Calcium 8.0 mg/dL (8.5-10.1) L 09/23/18 06:00 Total Bilirubin 0.3 mg/dL (0.2-1) 09/23/18 06:00 AST 50 U/L (15-37) H 09/23/18 06:00 ALT 32 U/L (13-61) 09/23/18 06:00 Alkaline Phosphatase 179 U/L (45-117) H 09/23/18 06:00 Total Protein 5.9 g/dl (6.4-8.2) L 09/23/18 06:00 Albumin 1.8 g/dl (3.4-5.0) L 09/23/18 06:00 Current Medications Generic Name Dose Route Start Last Admin Trade Name Freq PRN Reason Stop Dose Admin Carbamazepine 400 mg 09/18/18 10:00 09/23/18 09:12 Tegretol Xr - PO 400 mg DAILY FLORIN Administration Carbamazepine 600 mg 09/17/18 22:00 09/22/18 22:20 Tegretol Xr - PO 600 mg HS FLORIN Administration Docusate Sodium 100 mg 09/18/18 22:00 09/23/18 09:12 Colace - PO 100 mg BID FLORIN Administration Levothyroxine Sodium 75 mcg 09/18/18 07:00 09/23/18 06:15 Synthroid - PO 75 mcg AM FLORIN Administration Pantoprazole Sodium 40 mg 09/23/18 10:00 09/23/18 09:12 Protonix - PO 40 mg DAILY FLORIN Administration Senna 2 tab 09/18/18 18:13 Senna - PO HS PRN CONSTIPATION Home Medications Medication Instructions Recorded Calcium Carbonate [Super Calcium] 600 mg PO BID 09/17/18 Carbamazepine Xr [Tegretol Xr -] 400 mg PO AM 09/17/18 Carbamazepine Xr [Tegretol Xr -] 600 mg PO HS 09/17/18 Ferrous Sulfate 325 mg PO TID 09/17/18 Levothyroxine [Synthroid -] 75 mcg PO DAILY 09/17/18 Cholecalciferol (Vitamin D3) 2,000 units PO DAILY 09/18/18 [Vitamin D3] Docusate Sodium [Colace -] 100 mg PO BID 09/18/18 US of pelvis : Real time examination of the abdomen demonstrates the following: The gallbladder is normal in size and does contain multiple calculi. There is no evidence of intra or extrahepatic biliary duct dilatation. The liver is normal in size and does contain multiple large solid masses. The largest mass is within the right lobe measuring 7.2 x 5.1 x 5.8 cm. These masses are strongly suspicious for metastatic disease and had been noted on a recent CT scan. Hepatopedal flow is documented within the main portal vein. There is also a solid mass superior to the right kidney measuring 2.5 x 2.5 x 2.0 cm. This most likely is adrenal in origin and is also strongly suspicious for a metastatic lesion. The pancreas is normal in size and texture with no pancreatic masses identified. There is no evidence of hydronephrosis or acute abnormalities of the right kidney. There is no evidence of AAA. The IVC is patent. IMPRESSION: 1. Multiple hepatic masses, suspicious for metastatic disease. 2. Right adrenal mass, also suspicious for a metastatic lesion. 3. Cholelithiasis. Please see above discussion. Reported By: Erik Blair MD 1830 CT of abdomen and pelvis: The study is markedly limited without the use of any contrast material and a paucity of intra-abdominal fat. The lung bases are clear. There are multiple, large hypodense masses throughout the liver are strongly suspicious for metastases. Again, the lack of intravenous contrast does limit evaluation of metastatic disease. The spleen is not enlarged. There are gallstones within the gallbladder. No large pancreatic masses are identified. There is no evidence of pneumoperitoneum, bowel obstruction or intra-abdominal abscess. Evaluation of the colon is limited. There is a moderate amount of retained fecal material within the colon. The right colon appears somewhat thickened. Clinical correlation is advised. Examination of the pelvis demonstrates no evidence of pelvic masses, fluid collections or lymphadenopathy. There is a small amount of free fluid within the lower pelvis. There is no evidence of bony metastases or acute abnormalities. IMPRESSION: Markedly limited study with large hepatic masses strongly suspicious for metastatic disease. Reported By: Erik Blair MD , 09/17/[address] abdomen and pelvis: Rule out metastatic disease. Sequential axial images were obtained from the thoracic inlet through the symphysis pubis following the administration of both oral and intravenous contrast material. Examination of the mediastinum demonstrates no evidence of mediastinal masses, fluid collections or lymphadenopathy. The heart is not enlarged. Evaluation of the lung conway demonstrates small bilateral pleural effusions with atelectatic changes involving both lower lobes. There are several faint nodules scattered throughout both lungs. The largest nodules are within the right lung apex measuring 5 to 6 mm. These nodules are suspicious for metastatic disease. A small amount of ascites is noted within the abdomen and pelvis. Large masses are identified within the liver. The largest of these is within the right lobe measuring approximately 6.6 x 4.7 x 5.7 cm. These masses are also consistent with metastatic disease. The spleen, pancreas, left adrenal gland and kidneys demonstrate no significant abnormalities. There is a right adrenal mass measuring 2.7 x 2.2 x 2.0 cm. This mass is also suspicious for metastatic lesion. There is a large mass involving the right colon which has an apple core configuration strongly suspicious for a colon malignancy. Colonoscopic follow- up is recommended. There is no evidence of bowel obstruction related to this lesion. A moderate amount of retained fecal material is noted throughout the distal colon and rectum. Examination of the pelvis demonstrates a pelvic mass adjacent to the fundus of the uterus. This mass measures 3.7 x 3.3 x 4.5 cm. It could represent a fibroid. The possibility of additional metastatic implant cannot be excluded. No additional pelvic masses, fluid collections or lymphadenopathy are identified. There is no evidence of bony metastases or acute abnormalities. IMPRESSION: 1. Multiple pulmonary nodules suspicious for metastatic disease. 2. Bilateral pleural effusions and lower lobe atelectasis. 3. Ascites. 4. Multiple hepatic masses consistent with metastatic disease. 5. Right adrenal mass suspicious for metastatic disease. 6. Right colon lesion suspicious for a primary malignancy. Colonoscopic follow-up recommended. 7. Pelvic mass that may represent a leiomyoma of the uterus or possibly an additional metastatic implant. Clinical correlation and follow-up recommended. Please see above discussion. Reported By: Erik Blair MD 09/19/18 0022 ASSESSMENT AND PLAN: Patient is a 48 y/o female with a PMHx of epilepsy, chronic 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 with subsequent brain damage (patient is non-verbal) requiring 3 WASHER OPERATOR shunts last one being in 1990), hypothyroidism she came to the ED after was found to have a low hemoglobin level of 4.6. #Right colon neoplasm /lung/liver masses s/p liver Bx, waiting for bx result. suspesious for primary malignancy , with hx of weight loss around 20 pounds with anemia , waiting for liver bx result. GI /Onc on the , # Acute blood loss anemia due to GI Bleed: positive for hemoccult, GI on the case , s/p transfusion of 2 units . 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 baird DVT Px: SCds , low hemoglobin with positive hemoccult, will hold off on AC. await for liver bx result
--- NOTE | 2018-09-23 16:42 | PATH ---
Surgical Pathology Report Patient Name: DASIA COMER [facility]. Rec. #: [id number] /Age/Gender: 1970 (Age: 48) / F Account: [id number] Location: 4 SO PEDS/ADOL Taken: 09/22/2018 Received: 09/22/2018 Reported: 09/23/2018 Physicians: Dwayne Marcelo M.D. Specimen(s) Received LIVER BIOPSY Clinical History 48-year-old female with colon cancer and numerous liver masses likely metastases Final Diagnosis LIVER, ULTRASOUND GUIDED CORE BIOPSY: ADENOCARCINOMA, MODERATELY DIFFERENTIATED, COMPATIBLE WITH LOWER GASTROINTESTINAL TRACT /COLON ORIGIN. SEE COMMENT. Comment: Histologic sections show malignant glands with associated mucin. Immunohistochemical stains performed and interpreted at [facility] show AE1/3 and CK20 are positive, while negative for CK7. Radiologic findings of right colon and liver masses noted. Overall histomorphology and immunophenotype are compatible with lower gastrointestinal tract /colon origin. Suggest clinical correlation. Molecular test pending, findings will be reported separately. Case discussed with Dr. Xiong. Electronically Signed Rula Gaspar M.D. Addendum Reported: 09/30/2018 Addendum Diagnosis Mismatch Repair Protein [place] shows the following: RESULTS: MLH-1 EXPRESSED MSH-2 EXPRESSED MSH-6 EXPRESSED PMS2 EXPRESSED INTERPRETATION: No loss of nuclear expression of MMR proteins: low probability of microsatellite instability-high (MSI-H). See mention (Specimen #: [id number]) Report for additional details. Molecular studies pending findings will be reported separately. Rula Gaspar M.D. Addendum Reported: 10/14/2018 Addendum Diagnosis PD-L1 Gastric (KEYTRUDA) performed and interpreted at [facility] in [place], [place] shows the following: Marker Combined Positive Score Interpretation Description PD-L1 Gastric (KEYTRUDA) >1 Expression Programmed Ligand (PD-L1), Clone 22C3 pharmDx(tm) kit for KEYTRUDA in gastric and gastroesophageal adenocarcinoma Reference Range: CPS = Combined Positive Score = 100 x (PD-L1 reactive tumor cells + tumor-associated lymphocytes + macrophages) / (total number of viable tumor cells) CPS < 1 = No Expression CPS > 1 = Expression See Integrated Laboratory report for additional details (Specimen #: [id number]) Rula Gaspar M.D. Gross Description Received in formalin labeled "liver biopsy," is a 1.0 x 0.5 x 0.1 cm aggregate of multiple simon, irregular to cylindrical portions of soft tissue. The formalin is filtered and the specimen is entirely submitted in one cassette. 09/22/2018 [facility]09/22/2018
[2018-09-23] MEDS: carBAMazepine XR 200 MG TAB.ER.12H PO SCH (21:35)
[2018-09-24] MEDS ORDERED: ACETAMINOPHEN 325 MG TABLET (FP) PO ONE (03:08)
[2018-09-24 06:37] LABS: HEMATOCRIT 27.2 % (32.4-45.2); HEMOGLOBIN 8.8 GM/dL (10.7-15.3); MCHC 32.6 g/dl (32.0-36.0); MEAN CELL VOLUME 70.5 fl (80-96); MEAN PLT VOLUME 8.5 fl (7.5-11.1); PLATELET COUNT 641 K/MM3 (134-434); RBC 3.85 M/mm3 (3.60-5.2); RDW 36.3 % (11.6-15.6); WHITE BLOOD COUNT 15.2 K/mm3 (4.0-10.0)
[2018-09-24] MEDS: LEVOTHYROXINE NA 75 MCG TABLET (FP) PO SCH (06:44)
[2018-09-24 07:25] LABS: ALBUMIN 1.8 g/dl (3.4-5.0); ALK PHOS 170 U/L (45-117); ANION GAP 6 MMOL/L (8-16); BILIRUBIN,TOTAL 0.2 mg/dL (0.2-1); BLOOD UREA NITROGEN 4 mg/dL (7-18); CHLORIDE 106 mmol/L (98-107); CO2 25 mmol/L (21-32); CREATININE 0.4 mg/dL (0.55-1.3); GLUCOSE,RANDOM 86 mg/dL (74-106); PHOSPHOROUS 3.8 mg/dL (2.5-4.9); POTASSIUM 3.8 mmol/L (3.5-5.1); SGOT/AST 42 U/L (15-37); SGPT/ALT 29 U/L (13-61); SODIUM 137 mmol/L (136-145)
[2018-09-24] MEDS ORDERED: PT OWN MED DRAWER 7, Y5N ONE (11:40)
[2018-09-24] MEDS: PANTOPRAZOLE 40 MG TABLET (FP) PO SCH (11:41)
[2018-09-24] MEDS: DOCUSATE SODIUM 100 MG CAPSULE (FP) PO SCH ×2 (11:41→21:24)
[2018-09-24] MEDS: carBAMazepine XR 400 MG TAB.ER.12H PO SCH (11:42)
--- NOTE | 2018-09-24 14:50 | PN.GI ---
GI Progress Note Subjective: Pt seen/examined at bedside this am, pts sister present. Pt eating breakfast on my evaluation, moving bowels, no new complaints. Denies abdominal pain, n/v. X ray performed yesteday revealing ileus pattern. - Objective Vital Signs: Vital Signs Temperature 99.7 F H 09/24/18 13:59 Pulse Rate 108 H 09/24/18 13:59 Respiratory Rate 18 09/24/18 13:59 Blood Pressure 125/69 09/24/18 13:59 O2 Sat by Pulse Oximetry (%) 97 09/23/18 21:00 Constitutional: Well Nourished, No Distress, Calm Cardiovascular: Yes: WNL, Regular Rate and Rhythm Respiratory: Yes: WNL, Regular, CTA Bilaterally Gastrointestinal Inspection: Yes: WNL ...Auscultate: Yes: Normoactive Bowel Sounds, Other (abd soft, nt, nd, no significant tympany noted) Labs: CBC, BMP 09/24/18 06:00 09/24/18 06:00 INR, PTT INR 1.18 (0.83-1.09) H 09/22/18 06:00 Fibrinogen 444.0 mg/dL (238-498) 09/19/18 05:30 Assessment/Plan 48yo female h/o epilepsy, 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 s/p CARE SUPPORT REPRESENTATIVE shunt presenting with weakness and anemia s/p CT imaging revealing right colon mass with suspected mets to lungs, liver, right adrenal gland s/p liver biopsy revealing moderately differentiated adenoca likely colonic primary. Pts sister refused colonoscopy. Xray yesterday revealing ileus pattern. Pt tolerating diet well, moving bowels without n/v. -Diet as tolerated and monitor clinically (currently no features to suggest obstruction) -Follow up with oncology for further management -Outpatient GI follow up on discharge Discussed with pts sister, Dr. Gutierrez
--- NOTE | 2018-09-24 14:55 | PN ---
Physical Exam: SUBJECTIVE: Patient seen and examined at bedside- patient had slight fever overnight OBJECTIVE: Vital Signs Period Temp Pulse Resp BP Sys/Martin Pulse Ox Last 24 Hr 98.1 F-100.6 F 98-108 16-20 125-144/66-77 97 GENERAL: The patient is awake, alert, and fully oriented, in no acute distress EYES: PEEERLA: EOMI; no scleral icyterus. NECK: no JVD; n o lymphadenopathy LUNGS: CTA B/L; no rales, rhonchi or wheezing HEART: Regular rate and rhythm, S1, S2 without murmur, rub or gallop. ABDOMEN: Soft, wincing upon palpation; tymapnic on percussion EXTREMITIES: 2+ pulses, warm, well-perfused, no edema. PSYCH: Normal mood, normal affect. SKIN: Warm, dry, normal turgor, no rashes or lesions noted Laboratory Results - last 24 hr 09/24/18 09/24/18 06:00 06:00 WBC 15.2 H RBC 3.85 Hgb 8.8 L Hct 27.2 L MCV 70.5 L MCH 23.0 L MCHC 32.6 RDW 36.3 H Plt Count 641 H MPV 8.5 Sodium 137 Potassium 3.8 Chloride 106 Carbon Dioxide 25 Anion Gap 6 L BUN 4 L Creatinine 0.4 L Creat Clearance w eGFR 170.36 Random Glucose 86 Calcium 8.0 L Phosphorus 3.8 Magnesium 2.0 Total Bilirubin 0.2 AST 42 H ALT 29 Alkaline Phosphatase 170 H Total Protein 6.0 L Albumin 1.8 L Active Medications Generic Name Dose Route Start Last Admin Trade Name Freq PRN Reason Stop Dose Admin Carbamazepine 400 mg 09/18/18 10:00 09/24/18 11:42 Tegretol Xr - PO 400 mg DAILY FLORIN Administration Carbamazepine 600 mg 09/17/18 22:00 09/23/18 21:35 Tegretol Xr - PO 600 mg HS FLORIN Administration Docusate Sodium 100 mg 09/18/18 22:00 09/24/18 11:41 Colace - PO 100 mg BID FLORIN Administration Levothyroxine Sodium 75 mcg 09/18/18 07:00 09/24/18 06:44 Synthroid - PO 75 mcg AM FLORIN Administration Pantoprazole Sodium 40 mg 09/23/18 10:00 03/20/19 11:41 Protonix - PO 40 mg DAILY FLORIN Administration Senna 2 tab 09/18/18 18:13 Senna - PO HS PRN CONSTIPATION ASSESSMENT/PLAN: 48 y/o female with a PMH of epilepsy, chronic 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 requiring 3 TALCER shunts, hypothyroidism presents to the ED with a one week history of worsening fatigue, loss of appetite, found to have a hemoglobin of 4.6 and was FOBT positive. e #Leukocytosis/thrombocytosis likely tumor fevers -ab/pelvis CT scan: which shows hepatic masses; ab XRAY: fecal retention; U/S: multiple hepatic masses (mets); R adrenal mass (mets); cholethiasis -Dr. perez consulted -CEA elevtaed -patient received liver biopsy yesterday ; showing mets to liver and lung with primary colon ca; dr. perez discussing treatment option with dr butler ( patients sister) -goals of care discussion will take place #Chronic Hydrocephalus w/ TALCER shunt -stable #Seizures -c/w home medication: tegretol 200: 2 tablets in AM; 3 tablets PM #Hypothyroidism c/w synthroid 75 mcg daily F/E/N NS @100 monitor electrolytes sodium controlled diet DVT PPX: SCD's Problem List - Problems (1) Seizure Code(s): R56.9 - UNSPECIFIED CONVULSIONS (2) Hydrocephalus Code(s): G91.9 - HYDROCEPHALUS, UNSPECIFIED (3) Anemia Code(s): D64.9 - ANEMIA, UNSPECIFIED Qualifiers: Anemia type: unspecified type Qualified Code(s): D64.9 - Anemia, unspecified (4) GI bleed Code(s): K92.2 - GASTROINTESTINAL HEMORRHAGE, UNSPECIFIED Qualifiers: GI bleed type/associated pathology: unspecified gastrointestinal hemorrhage type Qualified Code(s): K92.2 - Gastrointestinal hemorrhage, unspecified Visit type - Emergency Visit Emergency Visit: Yes ED Registration Date: 09/17/18 Care time: The patient presented to the Emergency Department on the above date and was hospitalized for further evaluation of their emergent condition. - New Patient This patient is new to me today: No - Critical Care Critical Care patient: No
--- NOTE | 2018-09-24 17:23 | PN ---
Progress Note (short form) - Note Progress Note: Patient seen and examined Had small bowel movement today Currently eating dinner. No obvious discomfort Last Vital Signs Temp Pulse Resp BP Pulse Ox 99.7 F H 108 H 18 125/69 97 09/24/18 13:59 09/24/18 13:59 09/24/18 13:59 09/24/18 13:59 09/23/18 21:00 Lungs - diminished breath sounds Abd- soft Ext- negative CBC, BMP 09/24/18 06:00 09/24/18 06:00 Current Medications Generic Name Dose Route Start Last Admin Trade Name Freq PRN Reason Stop Dose Admin Carbamazepine 400 mg 09/18/18 10:00 09/24/18 11:42 Tegretol Xr - PO 400 mg DAILY FLORIN Administration Carbamazepine 600 mg 09/17/18 22:00 09/23/18 21:35 Tegretol Xr - PO 600 mg HS FLORIN Administration Docusate Sodium 100 mg 09/18/18 22:00 09/24/18 11:41 Colace - PO 100 mg BID FLORIN Administration Levothyroxine Sodium 75 mcg 09/18/18 07:00 09/24/18 06:44 Synthroid - PO 75 mcg AM FLORIN Administration Pantoprazole Sodium 40 mg 09/23/18 10:00 09/24/18 11:41 Protonix - PO 40 mg DAILY FLORIN Administration Senna 2 tab 09/18/18 18:13 Senna - PO HS PRN CONSTIPATION Impression: Blood loss anemia / colonic mass Liver biopsy - positive - consistent with colon primary Special studies per Path being ordered Discussion of management and treatment decisions ongoing.
--- NOTE | 2018-09-24 17:32 | PN ---
Teaching Attending Note Name of Resident: Therese Durán ATTENDING PHYSICIAN STATEMENT I saw and evaluated the patient. I reviewed the resident's note and discussed the case with the resident. I agree with the resident's findings and plan as documented. SUBJECTIVE: limited communication, but says no to pain, and SOB OBJECTIVE: NAD, awake, aphasic, answers yes and no only. contracted in bed. looks comfortable MMM CV: RRR, no MRG Lungs: CTAB, but decreased breath sounds at L base Ext: no edema Abd: soft, reducible umbilical hernia. NL BS. minimal discomfort when palpated ASSESSMENT AND PLAN: Unfortunate 48 y/o lady with h/o epilepsy, WET ROLLER shunting, aphasia, 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, and hypothyroidism, who presented with anemia. 1- Chronic blood loss anemia, due to slow loss form colon cancer. - stable HB after transfusion . - f/u with GI as out pt 2- New diagnosis of metastatic colon cancer with mets to liver, lungs, and R adrenal gland. - path report reviewed. Further staingin and testing pending - case was d/w Dr. Kumar and family by team. - family is interested in palliative chemo and home hospice. - further discussion to follow. Will involve palliative care fro more detailed explanation about hospice care 3-Fever and leukocytosis : likely due to solid tumor. all cultures are neg 4- Ileus : improved .. had BM yesterday 5- H/o Seizures, cont tegretol Dispo : pending further discussion and treatment plan. Hospice discussions in progress
[2018-09-24] MEDS: carBAMazepine XR 200 MG TAB.ER.12H PO SCH (21:24)
[2018-09-25] MEDS: LEVOTHYROXINE NA 75 MCG TABLET (FP) PO SCH (06:14)
[2018-09-25 08:16] LABS: HEMATOCRIT 28.9 % (32.4-45.2); HEMOGLOBIN 9.2 GM/dL (10.7-15.3); MCH 22.5 pg (25.7-33.7); MEAN CELL VOLUME 70.3 fl (80-96); MEAN PLT VOLUME 8.5 fl (7.5-11.1); PLATELET COUNT 712 K/MM3 (134-434); RBC 4.11 M/mm3 (3.60-5.2); WHITE BLOOD COUNT 15.8 K/mm3 (4.0-10.0)
[2018-09-25 08:37] LABS: ANION GAP 7 MMOL/L (8-16); BLOOD UREA NITROGEN 5 mg/dL (7-18); CALCIUM 8.2 mg/dL (8.5-10.1); CHLORIDE 104 mmol/L (98-107); CO2 25 mmol/L (21-32); CREATININE 0.5 mg/dL (0.55-1.3); GLUCOSE,RANDOM 77 mg/dL (74-106); POTASSIUM 4.2 mmol/L (3.5-5.1); SODIUM 137 mmol/L (136-145)
[2018-09-25] MEDS ORDERED: PT OWN MED DRAWER 7, Y5N ONE ×2 (09:36→20:59)
[2018-09-25] MEDS: PANTOPRAZOLE 40 MG TABLET (FP) PO SCH (09:44)
[2018-09-25] MEDS: DOCUSATE SODIUM 100 MG CAPSULE (FP) PO SCH ×2 (09:44→21:06)
[2018-09-25] MEDS: carBAMazepine XR 400 MG TAB.ER.12H PO SCH ×2 (09:46→09:47)
--- NOTE | 2018-09-25 11:30 | PN ---
Physical Exam: SUBJECTIVE: Patient seen and examined at bedside- no acute events overnight; patient did not spike any fevers; she did have a bowel movement yesterday- her spirit seems slightly better today OBJECTIVE: Vital Signs Period Temp Pulse Resp BP Sys/Martin Pulse Ox Last 24 Hr -98.2 F-99.7 F 105-110 16-18 122-134/60-69 97 GENERAL: The patient is awake, alert, and fully oriented, in no acute distress. EYES: PEERLA; EOMI; no scleral icterus. NECK: no JVD; no lymphadenopathy LUNGS: CTA B/L; no rales, rhonchi or wheezing. HEART: Regular rate and rhythm, S1, S2 without murmur, rub or gallop. ABDOMEN: Soft, slight wincing upon palpation; no tympany upon percussion EXTREMITIES: 2+ pulses, warm, well-perfused, no edema. PSYCH: Normal mood, normal affect. SKIN: Warm, dry, normal turgor, no rashes or lesions noted Laboratory Results - last 24 hr 09/25/18 09/25/18 07:15 07:15 WBC 15.8 H RBC 4.11 Hgb 9.2 L Hct 28.9 L MCV 70.3 L MCH 22.5 L MCHC 32.0 RDW 36.0 H Plt Count 712 H MPV 8.5 Sodium 137 Potassium 4.2 Chloride 104 Carbon Dioxide 25 Anion Gap 7 L BUN 5 L Creatinine 0.5 L Creat Clearance w eGFR 131.69 Random Glucose 77 Calcium 8.2 L Phosphorus 4.0 Magnesium 2.0 Active Medications Generic Name Dose Route Start Last Admin Trade Name Freq PRN Reason Stop Dose Admin Bisacodyl 20 mg 09/25/18 12:00 Dulcolax - PO 09/25/18 12:01 ONCE ONE Carbamazepine 400 mg 09/18/18 10:00 09/25/18 09:47 Tegretol Xr - PO 400 mg DAILY FLORIN Administration Carbamazepine 600 mg 09/17/18 22:00 09/24/18 21:24 Tegretol Xr - PO 600 mg HS FLORIN Administration Docusate Sodium 100 mg 09/18/18 22:00 09/25/18 09:44 Colace - PO 100 mg BID FLORIN Administration Dextrose/Sodium Chloride 1,000 mls @ 100 mls/hr 09/26/18 00:01 D5-1/2ns - IV ASDIR FLORIN Levothyroxine Sodium 75 mcg 09/18/18 07:00 09/25/18 06:14 Synthroid - PO 75 mcg AM FLORIN Administration Pantoprazole Sodium 40 mg 09/23/18 10:00 09/25/18 09:44 Protonix - PO 40 mg DAILY FLORIN Administration Polyethylene Glycol/Electrolytes 4,000 ml 09/25/18 13:00 Golytely Solution - PO 09/25/18 13:01 ONCE ONE Senna 2 tab 09/18/18 18:13 Senna - PO HS PRN CONSTIPATION ASSESSMENT/PLAN: 48 y/o female with a PMH of epilepsy, chronic 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 requiring 3 HAND BOOTMAKER shunts, hypothyroidism presents to the ED with a one week history of worsening fatigue, loss of appetite, found to have a hemoglobin of 4.6 and was FOBT positive found to now have metastatic colon cancefr #Newly found lower GI tract/colon ca -ab/pelvis CT scan: which shows hepatic masses; ab XRAY: fecal retention; U/S: multiple hepatic masses (mets); R adrenal mass (mets); cholethiasis -Dr. perez consulted -CEA elevtaed -patient received liver biopsy showing mets to liver and lung with primary colon ca; dr. perez discussing treatment option with dr butler (patients sister) -goals of care discussion will take place; patient family leaning towards home hospice with palliative chemo possibly -tobi du consulted -patient going for colonoscopy tomorrow #Chronic Hydrocephalus w/ HAND BOOTMAKER shunt -stable #Seizures -c/w home medication: tegretol 200: 2 tablets in AM; 3 tablets PM #Hypothyroidism c/w synthroid 75 mcg daily #Severe malnutriton ensure additivies F/E/N NS @100 monitor electrolytes NPO after midnight DVT PPX: SCD's Problem List - Problems (1) Seizure Code(s): R56.9 - UNSPECIFIED CONVULSIONS (2) Hydrocephalus Code(s): G91.9 - HYDROCEPHALUS, UNSPECIFIED (3) Anemia Code(s): D64.9 - ANEMIA, UNSPECIFIED Qualifiers: Anemia type: unspecified type Qualified Code(s): D64.9 - Anemia, unspecified (4) GI bleed Code(s): K92.2 - GASTROINTESTINAL HEMORRHAGE, UNSPECIFIED Qualifiers: GI bleed type/associated pathology: unspecified gastrointestinal hemorrhage type Qualified Code(s): K92.2 - Gastrointestinal hemorrhage, unspecified Visit type - Emergency Visit Emergency Visit: Yes ED Registration Date: 09/17/18 Care time: The patient presented to the Emergency Department on the above date and was hospitalized for further evaluation of their emergent condition. - New Patient This patient is new to me today: No - Critical Care Critical Care patient: No
[2018-09-25] MEDS ORDERED: BISACODYL 5 MG TABLET.DR (FP) PO ONE (12:00)
[2018-09-25] MEDS ORDERED: PEG 3350/NA SULF BICARB CL/KCL 4000 ML SOLN.RECON PO ONE (13:00)
--- NOTE | 2018-09-25 13:25 | PN ---
Teaching Attending Note Name of Resident: Therese Durán ATTENDING PHYSICIAN STATEMENT I saw and evaluated the patient. I reviewed the resident's note and discussed the case with the resident. I agree with the resident's findings and plan as documented. SUBJECTIVE: Unable to obtain full ROS, but she answers yes to pain and SOB. no events over night OBJECTIVE: NAD, awake, aphasic, answers yes and shakes her head no only. contracted in bed. looks comfortable MMM CV: RRR, no MRG Lungs: CTAB, but decreased breath sounds at L base Ext: no edema Abd: soft. slight distention .NL BS. 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 1- Chronic blood loss anemia, due to slow loss form colon cancer. - stable HB after transfusion . - for colonoscopy tomorrow . NPO and IVF after MN 2- New diagnosis of metastatic colon cancer with mets to liver, lungs, and R adrenal gland. - colonoscopy tomorrow. - family is interested in palliative chemo and home hospice. - further discussion to follow. Palliative care team help appreciated 3-Fever and leukocytosis : likely due to solid tumor. all cultures are neg 4- Ileus : monitor closely 5- H/o Seizures, cont tegretol Dispo : pending further discussion and treatment plan. Hospice discussions in progress
--- NOTE | 2018-09-25 15:41 | PN ---
Progress Note (short form) - Note Progress Note: Had d/w Dr. Kumar this morning. His concern was given that Ms. Ta will likely be started on oral chemotherapeutic agent, he was concerned regarding a less effective response on the primary tumor. Concern is that if there is less effective response of the primary and it is near obstructing, Ms. Ta would be at risk for obstruction in the setting of myelosuppression from her chemo regimen, making surgical intervention at that time much more complicated and risky. He spoke with Ms. Ta's sister Tara and I in turn spoke to her. She was agreeable to having Ms. ta undergo colonoscopy to assess extent of the primary tumor (suspicious right colon finding on CT scan) prior to initiating therapy. Bowel prep ordered NPO after midnight AM labs IV hydration after midnight ordered Problem List - Problems (1) Colon cancer Code(s): C18.9 - MALIGNANT NEOPLASM OF COLON, UNSPECIFIED
[2018-09-25] MEDS: carBAMazepine XR 200 MG TAB.ER.12H PO SCH (21:06)
[2018-09-26] MEDS ORDERED: DEXTROSE 5%-0.45% SALINE 1,000 ML IV SCH (00:01)
[2018-09-26] MEDS: LEVOTHYROXINE NA 75 MCG TABLET (FP) PO SCH (05:59)
[2018-09-26 07:29] LABS: INR 1.15 (0.83-1.09); PROTHROMBIN TIME (PATIENT) 13.6 SEC (9.7-13.0)
[2018-09-26 07:53] LABS: ANION GAP 9 MMOL/L (8-16); BLOOD UREA NITROGEN 5 mg/dL (7-18); CALCIUM 8.3 mg/dL (8.5-10.1); CHLORIDE 104 mmol/L (98-107); CO2 23 mmol/L (21-32); CREATININE 0.4 mg/dL (0.55-1.3); GLUCOSE,RANDOM 82 mg/dL (74-106); MAGNESIUM 2.1 mg/dL (1.8-2.4); PHOSPHOROUS 4.4 mg/dL (2.5-4.9); POTASSIUM 4.1 mmol/L (3.5-5.1); SODIUM 136 mmol/L (136-145)
[2018-09-26 08:50] LABS: HEMATOCRIT 29.1 % (32.4-45.2); HEMOGLOBIN 9.2 GM/dL (10.7-15.3); MCH 22.9 pg (25.7-33.7); MCHC 31.7 g/dl (32.0-36.0); MEAN CELL VOLUME 72.5 fl (80-96); MEAN PLT VOLUME 9.1 fl (7.5-11.1); PLATELET COUNT 706 K/MM3 (134-434); RBC 4.02 M/mm3 (3.60-5.2); WHITE BLOOD COUNT 16.3 K/mm3 (4.0-10.0)
--- NOTE | 2018-09-26 09:45 | PN ---
Physical Exam: SUBJECTIVE: Patient seen and examined at bedside- no acute events overnight; patient is going for colonoscopy this AM . family discussions are in place regarding next steps . OBJECTIVE: Vital Signs Period Temp Pulse Resp BP Sys/Martin Pulse Ox Last 24 Hr 98.0 F-99.0 F 100-108 18-20 121-145/60-85 98 GENERAL: The patient is awake, alert, resting comfortably. EYES:PEERLA; EOMI; no scleral icterus. NECK: no JVS; no lymphadenopathy LUNGS: diminished breath sounds HEART: Regular rate and rhythm, S1, S2 without murmur, rub or gallop. ABDOMEN: soft; slight wincing upon palpation; +BS in all quadrants EXTREMITIES: 2+ pulses, warm, well-perfused, no edema. PSYCH: Normal mood, normal affect. SKIN: Warm, dry, normal turgor, no rashes or lesions noted Laboratory Results - last 24 hr 09/26/18 09/26/18 09/26/18 06:17 06:17 06:17 WBC 16.3 H RBC 4.02 Hgb 9.2 L Hct 29.1 L MCV 72.5 L MCH 22.9 L MCHC 31.7 L RDW 36.0 H Plt Count 706 H MPV 9.1 Absolute Neuts (auto) 14.2 H Neutrophils % No Result Required. Lymphocytes % No Result Required. Nucleated RBC % 0 PT with INR 13.60 H INR 1.15 H Sodium 136 Potassium 4.1 Chloride 104 Carbon Dioxide 23 Anion Gap 9 BUN 5 L Creatinine 0.4 L Creat Clearance w eGFR 170.36 Random Glucose 82 Calcium 8.3 L Phosphorus 4.4 Magnesium 2.1 Active Medications Generic Name Dose Route Start Last Admin Trade Name Freq PRN Reason Stop Dose Admin Carbamazepine 400 mg 09/18/18 10:00 09/25/18 09:47 Tegretol Xr - PO 400 mg DAILY FLORIN Administration Carbamazepine 600 mg 09/17/18 22:00 09/25/18 21:06 Tegretol Xr - PO 600 mg HS FLORIN Administration Docusate Sodium 100 mg 09/18/18 22:00 09/25/18 21:06 Colace - PO 100 mg BID FLORIN Administration Dextrose/Sodium Chloride 1,000 mls @ 100 mls/hr 09/26/18 00:01 09/26/18 00:00 D5-1/2ns - IV 100 mls/hr ASDIR FLORIN Administration Levothyroxine Sodium 75 mcg 09/18/18 07:00 09/26/18 05:59 Synthroid - PO 75 mcg AM FLORIN Administration Pantoprazole Sodium 40 mg 09/23/18 10:00 09/25/18 09:44 Protonix - PO 40 mg DAILY FLORIN Administration Senna 2 tab 09/18/18 18:13 Senna - PO HS PRN CONSTIPATION ASSESSMENT/PLAN: 48 y/o female with a PMH of epilepsy, 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 kumar consulted -patient received liver biopsy showing mets to liver and lung with primary colon ca; dr. kumar discussing treatment option with dr butler (patients sister) -goals of care discussion will take place; patient family leaning towards home hospice with palliative chemo possibly -tobi du consulted -patient going for colonoscopy today to determine if cancer is obstructing or not? will determine type of chemo patient will end up getting -additional path staining studies ordered by Dr. Kumar #Chronic Hydrocephalus w/ CORPORATE HUMAN RESOURCES MANAGER shunt -stable #Seizures -c/w home medication: tegretol 200: 2 tablets in AM; 3 tablets PM #Hypothyroidism c/w synthroid 75 mcg daily #Severe malnutriton ensure additivies F/E/N NS @100 monitor electrolytes Problem List - Problems (1) Seizure Code(s): R56.9 - UNSPECIFIED CONVULSIONS (2) Hydrocephalus Code(s): G91.9 - HYDROCEPHALUS, UNSPECIFIED (3) Anemia Code(s): D64.9 - ANEMIA, UNSPECIFIED Qualifiers: Anemia type: unspecified type Qualified Code(s): D64.9 - Anemia, unspecified (4) GI bleed Code(s): K92.2 - GASTROINTESTINAL HEMORRHAGE, UNSPECIFIED Qualifiers: GI bleed type/associated pathology: unspecified gastrointestinal hemorrhage type Qualified Code(s): K92.2 - Gastrointestinal hemorrhage, unspecified Visit type - Emergency Visit Emergency Visit: Yes ED Registration Date: 09/17/18 Care time: The patient presented to the Emergency Department on the above date and was hospitalized for further evaluation of their emergent condition. - New Patient This patient is new to me today: No - Critical Care Critical Care patient: No
[2018-09-26 10:14] LABS: ANISOCYTOSIS 3+; MACROCYTOSIS 0; OVALOCYTE 1+; PLATELET ESTIMATE INCREASED; TARGET CELLS 2+; TEAR DROP CELLS 2+
[2018-09-26] MEDS ORDERED: PT OWN MED DRAWER 7, Y5N ONE ×2 (10:46→20:03)
[2018-09-26] MEDS: carBAMazepine XR 400 MG TAB.ER.12H PO SCH (11:33)
[2018-09-26] MEDS: PANTOPRAZOLE 40 MG TABLET (FP) PO SCH (11:33)
[2018-09-26] MEDS: DOCUSATE SODIUM 100 MG CAPSULE (FP) PO SCH ×2 (11:33→21:26)
--- NOTE | 2018-09-26 14:45 | PN ---
Progress Note (short form) - Note Progress Note: Procedure complete: report placed in procedural section of physical chart and to be scanned into [employer]. Problem List - Problems (1) Colon cancer Code(s): C18.9 - MALIGNANT NEOPLASM OF COLON, UNSPECIFIED
--- NOTE | 2018-09-26 17:02 | PN ---
Progress Note (short form) - Note Progress Note: Patient seen and examined S/p colonoscopy with near obstructing lesion at the hepatic flexure. Discussed with GI, surgery, and with family. Management decisions being decided upon.
--- NOTE | 2018-09-26 18:32 | PN ---
Teaching Attending Note Name of Resident: Therese Durán ATTENDING PHYSICIAN STATEMENT I saw and evaluated the patient. I reviewed the resident's note and discussed the case with the resident. I agree with the resident's findings and plan as documented. SUBJECTIVE: complains of abd pain. No SOB OBJECTIVE: NAD, awake, aphasic,minimal verbal response MMM CV: RRR, no MRG Lungs: CTAB, but decreased breath sounds at L base Ext:edema over R forearm and hand , no erythema. No edema or erythema on LE or LUE Abd: soft. slight distention .NL BS. 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 1- Chronic blood loss anemia, due chronic lower GI bleed - stable HB after transfusion . 2- New diagnosis of metastatic colon cancer with mets to liver, lungs, and R adrenal gland. - colonoscopy with near obstructing mass - case d/w Dr. Kumar. further Recs to follow 3-Fever and leukocytosis : likely due to solid tumor. all cultures are neg 4- Ileus /obstruciton: monitor 5- H/o Seizures, cont tegretol 6- RUE edema. check US Dispo : pending further discussion and treatment plan.
[2018-09-26] MEDS ORDERED: oxyCODONE HCL 5 MG TABLET PO ONE (20:05)
[2018-09-26] MEDS: carBAMazepine XR 200 MG TAB.ER.12H PO SCH (21:26)
[2018-09-27] MEDS: LEVOTHYROXINE NA 75 MCG TABLET (FP) PO SCH (06:13)
[2018-09-27 06:53] LABS: HEMOGLOBIN 9.7 GM/dL (10.7-15.3); MCH 23.1 pg (25.7-33.7); MCHC 32.2 g/dl (32.0-36.0); MEAN CELL VOLUME 71.8 fl (80-96); PLATELET COUNT 856 K/MM3 (134-434); RBC 4.18 M/mm3 (3.60-5.2); WHITE BLOOD COUNT 15.4 K/mm3 (4.0-10.0)
[2018-09-27 07:19] LABS: ANION GAP 9 MMOL/L (8-16); BLOOD UREA NITROGEN 4 mg/dL (7-18); CHLORIDE 103 mmol/L (98-107); CO2 24 mmol/L (21-32); CREATININE 0.5 mg/dL (0.55-1.3); GLUCOSE,RANDOM 67 mg/dL (74-106); MAGNESIUM 2.1 mg/dL (1.8-2.4); POTASSIUM 4.3 mmol/L (3.5-5.1); SODIUM 136 mmol/L (136-145)
[2018-09-27] MEDS ORDERED: PT OWN MED DRAWER 7, Y5N ONE ×3 (08:27→22:44)
--- NOTE | 2018-09-27 09:43 | PN ---
Physical Exam: SUBJECTIVE: Patient seen and examined at bedside. No overnight events. No new complaints. S/P colonoscopy and biopsy POD#1. No signs of bleeding. Denies CP,FIGUEREDO , palpitations, abdominal pain, nausea or vomiting. OBJECTIVE: Vital Signs Period Temp Pulse Resp BP Sys/Martin Pulse Ox Last 24 Hr 98.3 F-99.8 F 102-112 18-22 112-136/55-74 96-100 GENERAL: The patient is awake, alert, resting comfortably. EYES:PEERLA; EOMI; no scleral icterus. NECK: no JVS; no lymphadenopathy LUNGS: diminished breath sounds HEART: Regular rate and rhythm, S1, S2 without murmur, rub or gallop. ABDOMEN: soft; slight wincing upon palpation; +BS in all quadrants EXTREMITIES: 2+ pulses, warm, well-perfused, no edema. PSYCH: Normal mood, normal affect. SKIN: Warm, dry, normal turgor, no rashes or lesions noted Laboratory Results - last 24 hr 09/26/18 09/27/18 09/27/18 06:17 06:00 06:00 WBC 15.4 H RBC 4.18 Hgb 9.7 L Hct 30.0 L MCV 71.8 L MCH 23.1 L MCHC 32.2 RDW 36.0 H Plt Count 856 H D MPV 8.0 D Neutrophils % (Manual) 87.3 H Band Neutrophils % 0.0 Lymphocytes % (Manual) 7.8 L D Monocytes % (Manual) 3 L Eosinophils % (Manual) 0.0 Basophils % (Manual) 1.0 Myelocytes % (Man) 0 Promyelocytes % (Man) 0 Blast Cells % (Manual) 0 Nucleated RBC % 0 Metamyelocytes 0 Hypochromia 1+ Platelet Estimate Increased Polychromasia 1+ Poikilocytosis 2+ Anisocytosis 3+ Microcytosis 3+ Macrocytosis 0 Target Cells 2+ Tear Drop Cells 2+ Ovalocytes 1+ Schistocytes 2+ Sodium 136 Potassium 4.3 Chloride 103 Carbon Dioxide 24 Anion Gap 9 BUN 4 L Creatinine 0.5 L Creat Clearance w eGFR 131.69 Random Glucose 67 L Calcium 8.0 L Phosphorus 4.0 Magnesium 2.1 Active Medications Generic Name Dose Route Start Last Admin Trade Name Freq PRN Reason Stop Dose Admin Ascorbic Acid 500 mg 09/27/18 10:00 Vitamin C - PO BID FLORIN Carbamazepine 400 mg 03/14/19 10:00 09/26/18 11:33 Tegretol Xr - PO 400 mg DAILY FLORIN Administration Carbamazepine 600 mg 09/17/18 22:00 09/26/18 21:26 Tegretol Xr - PO 600 mg HS FLORIN Administration Docusate Sodium 100 mg 09/18/18 22:00 09/26/18 21:26 Colace - PO Not Given BID FLORIN Levothyroxine Sodium 75 mcg 09/18/18 07:00 09/27/18 06:13 Synthroid - PO 75 mcg AM FLORIN Administration Magnesium Oxide 400 mg 09/27/18 10:00 Mag-Ox - PO BID FLORIN Pantoprazole Sodium 40 mg 09/23/18 10:00 09/26/18 11:33 Protonix - PO 40 mg DAILY FLORIN Administration Senna 2 tab 09/18/18 18:13 Senna - PO HS PRN CONSTIPATION ASSESSMENT/PLAN: 48 y/o F with h/o epilepsy, 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 Problem List - Problems (1) Colon cancer Assessment/Plan: New diagnosis of metastatic colon cancer with mets to liver, lungs, and R adrenal gland * near obstructing lesion at the hepatic flexure. * HEME/ONC consult appreciated. * Management decisions being decided upon (2) Anemia requiring transfusions Assessment/Plan: Chronic blood loss anemia, due chronic lower GI bleed * Hgb has been stable s/p transfusion. * normal transfusion thresholds. * repeat CBC in AM (3) Leukocytosis Assessment/Plan: most likely 2/2 solid tumor. * cultures have been negative to date. (4) Seizure Assessment/Plan: continue Tegretol. (5) Hydrocephalus Assessment/Plan: chronic issue. no acute changes. Visit type - Emergency Visit Emergency Visit: Yes ED Registration Date: 09/17/18 Care time: The patient presented to the Emergency Department on the above date and was hospitalized for further evaluation of their emergent condition. - New Patient This patient is new to me today: Yes Date on this admission: 09/27/18 - Critical Care Critical Care patient: No
[2018-09-27] MEDS: DOCUSATE SODIUM 100 MG CAPSULE (FP) PO SCH ×2 (09:44→22:45)
[2018-09-27] MEDS: carBAMazepine XR 400 MG TAB.ER.12H PO SCH (09:44)
[2018-09-27] MEDS: PANTOPRAZOLE 40 MG TABLET (FP) PO SCH (09:44)
[2018-09-27] MEDS: ASCORBIC ACID 500 MG TABLET (FP) PO SCH ×2 (09:45→22:45)
[2018-09-27] MEDS: MAGNESIUM OXIDE 400 MG TABLET (FP) PO SCH ×2 (09:45→22:45)
--- NOTE | 2018-09-27 10:58 | PN ---
Teaching Attending Note Name of Resident: Ren Wahl ATTENDING PHYSICIAN STATEMENT I saw and evaluated the patient. I reviewed the resident's note and discussed the case with the resident. I agree with the resident's findings and plan as documented. SUBJECTIVE: no events over night. no FIGUEREDO , no pain . OBJECTIVE: NAD, awake, aphasic,minimal verbal response MMM CV: RRR, no MRG Lungs: CTAB. decreased breath sounds at bases Ext:edema over R forearm and hand is much better and woth no erythema, edema or erythema on LE or LUE Abd: soft. slight distention .NL BS. 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 1- Chronic blood loss anemia, due chronic lower GI bleed - stable HB after transfusion . 2- New diagnosis of metastatic colon cancer with mets to liver, lungs, and R adrenal gland. - colonoscopy with near obstructing mass - Ongoing discussion about treatment options 3-Fever and leukocytosis : likely due to solid tumor. all cultures are neg 4- Ileus /obstruciton: monitor 5- H/o Seizures, cont tegretol 6- RUE edema. US pending 7- thrombocytosis Dispo : pending further discussion and treatment plan.
--- NOTE | 2018-09-27 12:36 | CONS ---
DATE OF CONSULTATION: 09/27/2018 BRIEF HISTORY: This is a 48-year-old female with a multitude of medical issues who was admitted with progressive anemia. She underwent workup with a low endoscopy that demonstrated tumor at the level of the hepatic flexure. The tumor was approximately 4 cm in size and the scope could not be passed beyond the tumor. She clinically does not present with signs of a large bowel obstruction. Further workup of this lesion demonstrated the patient to have liver findings as well as pulmonary findings. Biopsy of the liver consistent with metastatic adenocarcinoma. I have been asked to evaluate this patient for a right hemicolectomy for possibility of future obstruction due to the colonoscopic findings at this time once chemotherapy is started. PAST MEDICAL HISTORY: Patient has a history of chronic 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 resulting with subsequent brain damage. Patient is not able to be verbal, but is functional to some degree. She has a history of epilepsy, hypothyroidism, as well. 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 The current one has been in place since 1990. ALLERGIES: None. SOCIAL HISTORY: Patient does not smoke, does not drink. MEDICATIONS: Synthroid, iron, carbamazepine, and calcium.. PHYSICAL EXAMINATION: General: Patient has had a weight loss of approximately 20 pounds over the past month. She has no temporal wasting. She is a very cooperative patient and follows directions to some degree. Abdomen: Soft, not tympanic, and nondistended. No peritoneal findings. IMPRESSION/PLAN: Metastatic colon cancer: This is a 48-year-old female admitted with progressive anemia. There is clearly no survival benefit to removing the primary in this scenario. There is a study out of [facility] that suggested removal of primary does help with chemotherapy for liver lesions. However, she has liver and pulmonary lesions. Also, removal of the tumor with a primary anastomosis has an increased risk of anastomotic leak given her scenario, and this would be devastating in a patient with a ventriculoperitoneal shunt. Should she develop this complication after surgery, it would clearly delay her chemotherapy and actual treatment for the metastatic tumor. Given this thought, I think it best either to hold and do no surgery at this time since she is not obstructed and follow her clinically, and if she develops an obstruction during chemotherapy, to undergo attempt at a laparoscopic ileal loop placement. The other option would be to do a laparoscopic ileal loop at this time. The family at this juncture is currently holding on doing any acute surgery and will deal with a surgical management should she develop an acute obstruction during chemotherapy. If they change their minds, I will be available to do whatever is necessary to help this patient. Thank you for allowing me to participate in the care of your patient. POORNIMA MAHONEY M.D. [id number] cc: The hospitalist service, Edwin Adames MD, Tara Rivas MD, Dr. Silva, Dr. Kumar
--- NOTE | 2018-09-27 12:46 | PN.GI ---
GI Progress Note Subjective: GI NOte ( covering Dr Silva); Eating lunch. No adverse reactions to colonoscopy - Objective Vital Signs: Vital Signs Temperature 99.1 F 09/27/18 10:00 Pulse Rate 106 H 09/27/18 10:00 Respiratory Rate 20 09/27/18 10:00 Blood Pressure 120/67 09/27/18 10:00 O2 Sat by Pulse Oximetry (%) 95 09/27/18 09:00 Constitutional: Calm ...Auscultate: Yes: Normoactive Bowel Sounds ...Palpate: Yes: Soft, Other (nontender) Labs: CBC, BMP 09/27/18 06:00 09/27/18 06:00 INR, PTT INR 1.15 (0.83-1.09) H 09/26/18 06:17 Fibrinogen 444.0 mg/dL (238-498) 09/19/18 05:30 Assessment/Plan Impression Colon cancer at hepatic flexure with risk for obstruction Liver and lung metatases Plan: Dr. Borden has consulted and will defer surgery until obstruction develops Can initiate chemotherapy with the hope that this will shrink the primary enough to avoid obstruction in this patient with a CANOE INSPECTOR FINAL shunt Dr Parker will return 09/29 Problem List - Problems (1) Colon cancer Code(s): C18.9 - MALIGNANT NEOPLASM OF COLON, UNSPECIFIED Qualifiers: Colon location: hepatic flexure Qualified Code(s): C18.3 - Malignant neoplasm of hepatic flexure (2) Ventriculo-peritoneal shunt status Code(s): Z98.2 - PRESENCE OF CEREBROSPINAL FLUID DRAINAGE DEVICE (3) GI bleed Code(s): K92.2 - GASTROINTESTINAL HEMORRHAGE, UNSPECIFIED Qualifiers: GI bleed type/associated pathology: unspecified gastrointestinal hemorrhage type Qualified Code(s): K92.2 - Gastrointestinal hemorrhage, unspecified (4) Liver masses Code(s): R16.0 - HEPATOMEGALY, NOT ELSEWHERE CLASSIFIED (5) Seizure Code(s): R56.9 - UNSPECIFIED CONVULSIONS
--- NOTE | 2018-09-27 19:33 | PN ---
Progress Note (short form) - Note Progress Note: Patient seen and examined Has RUQ tenderness Last Vital Signs Temp Pulse Resp BP Pulse Ox 98.4 F 104 H 20 124/71 95 09/27/18 18:00 09/27/18 18:00 09/27/18 18:00 09/27/18 18:00 09/27/18 09:00 Cor: RSR, No murmurs, No gallops Lungs: Clear to P&A Abd: Soft, Normal bowel sounds, No organomegaly Ext:No significant edema Abnormal Lab Results 09/27/18 09/27/18 06:00 06:00 WBC 15.4 H Hgb 9.7 L Hct 30.0 L MCV 71.8 L MCH 23.1 L RDW 36.0 H Plt Count 856 H D BUN 4 L Creatinine 0.5 L Random Glucose 67 L Calcium 8.0 L Home Medication List Medication Instructions Recorded Confirmed Type Calcium Carbonate [Super Calcium] 600 mg PO BID 09/17/18 09/17/18 History Carbamazepine Xr [Tegretol Xr -] 400 mg PO AM 09/17/18 09/17/18 History Carbamazepine Xr [Tegretol Xr -] 600 mg PO HS 09/17/18 09/17/18 History Ferrous Sulfate 325 mg PO TID 09/17/18 09/18/18 History Levothyroxine [Synthroid -] 75 mcg PO DAILY 09/17/18 09/17/18 History Cholecalciferol (Vitamin D3) 2,000 units PO DAILY 09/18/18 09/18/18 History [Vitamin D3] Docusate Sodium [Colace -] 100 mg PO BID 09/18/18 09/18/18 History Active Medications Generic Name Dose Route Start Last Admin Trade Name Jamesq PRN Reason Stop Dose Admin Ascorbic Acid 500 mg 09/27/18 10:00 09/27/18 09:45 Vitamin C - PO 500 mg BID FLORIN Administration Carbamazepine 400 mg 09/18/18 10:00 09/27/18 09:44 Tegretol Xr - PO 400 mg DAILY FLORIN Administration Carbamazepine 600 mg 09/17/18 22:00 09/26/18 21:26 Tegretol Xr - PO 600 mg HS FLORIN Administration Docusate Sodium 100 mg 09/18/18 22:00 09/27/18 09:44 Colace - PO 100 mg BID FLORIN Administration Levothyroxine Sodium 75 mcg 09/18/18 07:00 09/27/18 06:13 Synthroid - PO 75 mcg AM FLORIN Administration Magnesium Oxide 400 mg 09/27/18 10:00 09/27/18 09:45 Mag-Ox - PO 400 mg BID FLORIN Administration Pantoprazole Sodium 40 mg 09/23/18 10:00 09/27/18 09:44 Protonix - PO 40 mg DAILY FLORIN Administration Senna 2 tab 09/18/18 18:13 Senna - PO HS PRN CONSTIPATION A/P 48 yo F with h/o epilepsy, anemia, congenital 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, 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 Patient unable to provide history. Imaging studies concerning for liver metastasess/adrenal met clinical scenario suspicious for metastatic colon cancer s/p Liver biopsy/ PDL1 staining/Her2 staining/MSI pending Surgical team consulted for near obstructing colonic lesion Ongoing discussions regarding management options ? FOLFIRI
[2018-09-27] MEDS: carBAMazepine XR 200 MG TAB.ER.12H PO SCH (22:46)
[2018-09-28] MEDS: LEVOTHYROXINE NA 75 MCG TABLET (FP) PO SCH (06:13)
[2018-09-28 07:54] LABS: HEMATOCRIT 28.2 % (32.4-45.2); HEMOGLOBIN 8.9 GM/dL (10.7-15.3); MCH 22.4 pg (25.7-33.7); MCHC 31.5 g/dl (32.0-36.0); MEAN PLT VOLUME 8.7 fl (7.5-11.1); PLATELET COUNT 871 K/MM3 (134-434); RBC 3.97 M/mm3 (3.60-5.2); RDW 35.8 % (11.6-15.6)
[2018-09-28 08:23] LABS: ANION GAP 5 MMOL/L (8-16); BLOOD UREA NITROGEN 5 mg/dL (7-18); CALCIUM 8.5 mg/dL (8.5-10.1); CHLORIDE 103 mmol/L (98-107); CO2 26 mmol/L (21-32); CREATININE 0.4 mg/dL (0.55-1.3); GLUCOSE,RANDOM 88 mg/dL (74-106); POTASSIUM 4.6 mmol/L (3.5-5.1); SODIUM 134 mmol/L (136-145)
[2018-09-28] MEDS ORDERED: PT OWN MED DRAWER 7, Y5N ONE ×2 (08:45→11:38)
[2018-09-28] MEDS: PANTOPRAZOLE 40 MG TABLET (FP) PO SCH (09:02)
[2018-09-28] MEDS: MAGNESIUM OXIDE 400 MG TABLET (FP) PO SCH ×2 (09:02→22:44)
[2018-09-28] MEDS: ASCORBIC ACID 500 MG TABLET (FP) PO SCH ×2 (09:02→22:43)
[2018-09-28] MEDS: DOCUSATE SODIUM 100 MG CAPSULE (FP) PO SCH ×2 (09:02→22:43)
[2018-09-28] MEDS: carBAMazepine XR 400 MG TAB.ER.12H PO SCH (11:38)
[2018-09-28 11:51] LABS: ANISOCYTOSIS 1+; MACROCYTOSIS 1+; PLATELET ESTIMATE INCREASED
--- NOTE | 2018-09-28 14:57 | PN ---
Progress Note (short form) - Note Progress Note: Subjective: No events over night. she denies pain Objective: Vital Signs: Last Vital Signs Temp Pulse Resp BP Pulse Ox 98.9 F 107 H 16 136/77 97 09/28/18 10:00 09/28/18 10:00 09/28/18 10:00 09/28/18 10:00 09/28/18 10:00 Laboratory Results - last 24 hr 09/28/18 09/28/18 06:30 06:30 WBC 15.0 H RBC 3.97 Hgb 8.9 L Hct 28.2 L MCV 71.0 L MCH 22.4 L MCHC 31.5 L RDW 35.8 H Plt Count 871 H MPV 8.7 Absolute Neuts (auto) 10.8 H Neutrophils % Cut Out Operator Neutrophils % (Manual) 86.4 H Band Neutrophils % 0.0 Lymphocytes % Cut Out Operator Lymphocytes % (Manual) 6.8 L Monocytes % Cut Out Operator Monocytes % (Manual) 2 L Eosinophils % Cut Out Operator Eosinophils % (Manual) 2.0 D Basophils % Cut Out Operator Basophils % (Manual) 1.9 Myelocytes % (Man) 0 Promyelocytes % (Man) 0 Blast Cells % (Manual) 0 Nucleated RBC % 0 Metamyelocytes 1 D Hypochromia 1+ Platelet Estimate Increased Polychromasia 1+ Anisocytosis 1+ Microcytosis 1+ Macrocytosis 1+ Sodium 134 L Potassium 4.6 Chloride 103 Carbon Dioxide 26 Anion Gap 5 L BUN 5 L Creatinine 0.4 L Creat Clearance w eGFR 170.36 Random Glucose 88 Calcium 8.5 Physical Exam: NAD, awake, aphasic,minimal verbal response MMM CV: RRR, no MRG Lungs: CTAB. decreased breath sounds at bases Ext no edema Abd: soft. slight distention ( improved ) .NL BS. minimal discomfort when palpated ASSESSMENT AND PLAN: Unfortunate 48 y/o lady with h/o epilepsy, APPLICATION SECURITY ARCHITECT shunting, aphasia, 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, and hypothyroidism, who presented with anemia. 1- Chronic blood loss anemia, due chronic lower GI bleed - stable HB after transfusion . 2- New diagnosis of metastatic colon cancer with mets to liver, lungs, and R adrenal gland. - colonoscopy with near obstructing mass. - due to APPLICATION SECURITY ARCHITECT shunt, surgery is to be avoided as per dr. Hendricks's d/dw Dr. Stanley - Ongoing discussion about treatment options: likely chemo 3- Fever and leukocytosis: likely due to solid tumor. all cultures are neg 4- Ileus /obstruciton: monitor 5- H/o Seizures, cont tegretol 6- RUE edema. US with superficial thrombophlebitis in upper arm . elevation and warm compresses. although thre is risk for pregression in this patient with cancer, AC is contraindicated due to GI bleed . 7- thrombocytosis Dispo: pending further discussion and treatment plan. Visit type - Emergency Visit Emergency Visit: Yes ED Registration Date: 09/17/18 Care time: The patient presented to the Emergency Department on the above date and was hospitalized for further evaluation of their emergent condition. - New Patient This patient is new to me today: No - Critical Care Critical Care patient: No
[2018-09-28] MEDS: carBAMazepine XR 200 MG TAB.ER.12H PO SCH (22:44)
[2018-09-29] MEDS: LEVOTHYROXINE NA 75 MCG TABLET (FP) PO SCH (06:52)
[2018-09-29 08:26] LABS: HEMATOCRIT 28.6 % (32.4-45.2); HEMOGLOBIN 9.3 GM/dL (10.7-15.3); MCH 23.2 pg (25.7-33.7); MCHC 32.5 g/dl (32.0-36.0); MEAN CELL VOLUME 71.4 fl (80-96); MEAN PLT VOLUME 9.1 fl (7.5-11.1); PLATELET COUNT 815 K/MM3 (134-434); RDW 35.6 % (11.6-15.6); WHITE BLOOD COUNT 16.3 K/mm3 (4.0-10.0)
--- NOTE | 2018-09-29 09:17 | PN ---
Physical Exam: SUBJECTIVE: Patient seen and examined at bedside- no acute events overnight, patient has remained afebrile; patient going for surgery this AM OBJECTIVE: Vital Signs Period Temp Pulse Resp BP Sys/Martin Pulse Ox Last 24 Hr 97.8 F-100.1 F 107-125 16-18 108-136/54-81 97-97 GENERAL: The patient is awake, alert, in no acute distress. EYES: PEERLA: EOMI; no scleral icterus. . NECK: no JVD; no lymphadenopathy LUNGS: CTA B/L; no rales, rhonchi or wheezing HEART: Regular rate and rhythm, S1, S2 without murmur, rub or gallop. ABDOMEN: Soft, slight wincing upon palpation; +BS in all 4 quadrants EXTREMITIES: 2+ pulses, warm, well-perfused, no edema. right upper extremity; slightly erythematous with edema however improving. PSYCH: Normal mood, normal affect. SKIN: Warm, dry, normal turgor, no rashes or lesions noted Laboratory Results - last 24 hr 09/28/18 09/29/18 06:30 07:30 WBC 16.3 H RBC 4.00 Hgb 9.3 L Hct 28.6 L MCV 71.4 L MCH 23.2 L MCHC 32.5 RDW 35.6 H Plt Count 815 H MPV 9.1 Neutrophils % (Manual) 86.4 H Band Neutrophils % 0.0 Lymphocytes % (Manual) 6.8 L Monocytes % (Manual) 2 L Eosinophils % (Manual) 2.0 D Basophils % (Manual) 1.9 Myelocytes % (Man) 0 Promyelocytes % (Man) 0 Blast Cells % (Manual) 0 Metamyelocytes 1 D Hypochromia 1+ Platelet Estimate Increased Polychromasia 1+ Anisocytosis 1+ Microcytosis 1+ Macrocytosis 1+ Active Medications Generic Name Dose Route Start Last Admin Trade Name Freq PRN Reason Stop Dose Admin Ascorbic Acid 500 mg 09/27/18 10:00 09/28/18 22:43 Vitamin C - PO 500 mg BID FLORIN Administration Carbamazepine 400 mg 09/18/18 10:00 09/28/18 11:38 Tegretol Xr - PO 400 mg DAILY FLORIN Administration Carbamazepine 600 mg 09/17/18 22:00 09/28/18 22:44 Tegretol Xr - PO 600 mg HS FLORIN Administration Docusate Sodium 100 mg 09/18/18 22:00 09/28/18 22:43 Colace - PO 100 mg BID FLORIN Administration Levothyroxine Sodium 75 mcg 09/18/18 07:00 09/29/18 06:52 Synthroid - PO 75 mcg AM FLORIN Administration Magnesium Oxide 400 mg 09/27/18 10:00 09/28/18 22:44 Mag-Ox - PO 400 mg BID FLORIN Administration Pantoprazole Sodium 40 mg 09/23/18 10:00 09/28/18 09:02 Protonix - PO 40 mg DAILY FLORIN Administration Senna 2 tab 09/18/18 18:13 Senna - PO HS PRN CONSTIPATION ASSESSMENT/PLAN: 48 y/o female with a PMH of epilepsy, chronic 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 requiring 3 BONING ROOM WORKER shunts, hypothyroidism presents to the ED with a one week history of worsening fatigue, loss of appetite, found to have a hemoglobin of 4.6 and was FOBT positive found to now have metastatic colon cancefr #Newly found lower GI tract/colon ca patient is POD #3 from colonoscopy found to have near obstructing tumor with met to liver, lung, adrenals surgery consulted; patient going for surgery today heme onc on board; discussions in session regarding treatment plans #Chronic Hydrocephalus w/ BONING ROOM WORKER shunt -stable #Seizures -c/w home medication: tegretol 200: 2 tablets in AM; 3 tablets PM #Hypothyroidism c/w synthroid 75 mcg daily #Severe malnutriton ensure additivies F/E/N NS @100 monitor electrolytes Problem List - Problems (1) Seizure Code(s): R56.9 - UNSPECIFIED CONVULSIONS (2) Hydrocephalus Code(s): G91.9 - HYDROCEPHALUS, UNSPECIFIED Qualifiers: Hydrocephalus type: communicating Qualified Code(s): G91.0 - Communicating 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 (3) Anemia Code(s): D64.9 - ANEMIA, UNSPECIFIED Qualifiers: Anemia type: unspecified type Qualified Code(s): D64.9 - Anemia, unspecified (4) GI bleed Code(s): K92.2 - GASTROINTESTINAL HEMORRHAGE, UNSPECIFIED Qualifiers: GI bleed type/associated pathology: unspecified gastrointestinal hemorrhage type Qualified Code(s): K92.2 - Gastrointestinal hemorrhage, unspecified Visit type - Emergency Visit Emergency Visit: Yes ED Registration Date: 09/17/18 Care time: The patient presented to the Emergency Department on the above date and was hospitalized for further evaluation of their emergent condition. - New Patient This patient is new to me today: No - Critical Care Critical Care patient: No
[2018-09-29] MEDS ORDERED: PT OWN MED DRAWER 7, Y5N ONE ×2 (10:14→23:27)
[2018-09-29] MEDS: carBAMazepine XR 400 MG TAB.ER.12H PO SCH (10:16)
[2018-09-29] MEDS: MAGNESIUM OXIDE 400 MG TABLET (FP) PO SCH ×2 (11:01→23:34)
[2018-09-29] MEDS: DOCUSATE SODIUM 100 MG CAPSULE (FP) PO SCH (11:01)
[2018-09-29] MEDS: ASCORBIC ACID 500 MG TABLET (FP) PO SCH ×2 (11:01→23:34)
[2018-09-29] MEDS: PANTOPRAZOLE 40 MG TABLET (FP) PO SCH (11:01)
[2018-09-29] MEDS ORDERED: LIDOCAINE HCL/PF 2% SDV 5ML VIAL ONE (12:52)
[2018-09-29] MEDS ORDERED: SUCCINYLCHOLINE CHLORIDE 200 MG/10 ML VIAL ONE ×2 (12:53)
[2018-09-29] MEDS ORDERED: ROCURONIUM BROMIDE 50 MG/5 ML VIAL ONE (12:53)
[2018-09-29] MEDS ORDERED: KETOROLAC TROMETHAMINE 30 MG/1 ML VIAL ONE (12:54)
[2018-09-29] MEDS ORDERED: DEXAMETHASONE SOD PHOSPHATE 4 MG/1 ML VIAL ONE ×2 (12:54→15:15)
[2018-09-29] MEDS ORDERED: PROPOFOL 20 ML ONE (14:59)
[2018-09-29] MEDS ORDERED: ceFAZolin SODIUM 1 GM VIAL ONE (15:10)
[2018-09-29] MEDS ORDERED: BUPIVACAINE HCL/PF 0.25% (2.5MG/ML) 10 ML VIAL ONE (15:15)
[2018-09-29] MEDS ORDERED: ceFAZolin SODIUM 1 GM VIAL IVPB ONE (15:15)
[2018-09-29] MEDS ORDERED: HYDROmorphone HCl 2 MG/ML VIAL ONE (15:33)
[2018-09-29] MEDS ORDERED: BUPIVACAINE HCL/PF 0.25% (2.5MG/ML) 10 ML VIAL IJ ONE (15:40)
[2018-09-29] MEDS ORDERED: DEXAMETHASONE SOD PHOSPHATE 4 MG/1 ML VIAL NR ONE (15:41)
[2018-09-29] MEDS ORDERED: METOPROLOL TARTRATE 5 MG/5 ML VIAL ONE (15:44)
[2018-09-29] MEDS ORDERED: NEOSTIGMINE METHYLSULFATE 0.5 MG/ML - 10 ML MDV ONE (16:12)
[2018-09-29] MEDS ORDERED: GLYCOPYRROLATE 0.2 MG/1 ML VIAL ONE (16:13)
--- NOTE | 2018-09-29 16:37 | PN ---
Teaching Attending Note Name of Resident: Therese Durán ATTENDING PHYSICIAN STATEMENT I saw and evaluated the patient. I reviewed the resident's note and discussed the case with the resident. I agree with the resident's findings and plan as documented. SUBJECTIVE: No events overnight . OBJECTIVE: NAD, awake, aphasic, minimal verbal response MMM CV: RRR, no MRG Lungs: CTAB. Ext no edema Abd: soft. slight distention .NL BS. 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 1- Chronic blood loss anemia, due chronic lower GI bleed - stable HB. 2- New diagnosis of metastatic colon cancer with mets to liver, lungs, and R adrenal gland. - for partial colectomy and colostomy today . d/w Dr. Stanley and Dr. Medrano - chemo to be decided 3- Fever and leukocytosis: likely due to solid tumor. all cultures are neg 4- Ileus /obstruciton: monitor 5- H/o Seizures, cont tegretol 6- RUE edema. US with superficial thrombophlebitis in upper arm . 7- Thrombocytosis Dispo: HLOC
[2018-09-29] MEDS ORDERED: ONDANSETRON 4 MG/2 ML VIAL IVPUSH PRN ×2 (16:47→17:23)
[2018-09-29] MEDS ORDERED: morphine SULFATE 4 MG/ML VIAL IVPB PRN (17:10)
[2018-09-29] MEDS ORDERED: oxyCODONE HCL 5 MG TABLET PO PRN (17:10)
--- NOTE | 2018-09-29 21:05 | PN ---
Progress Note (short form) - Note Progress Note: Patient seen and examined At baseline. 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 Patient unable to provide history. Imaging studies concerning for liver metastasess/adrenal met clinical scenario suspicious for metastatic colon cancer s/p Liver biopsy/ PDL1 staining/Her2 staining/MSI pending Surgical team consulted for near obstructing colonic lesion s/p laparoscopic loop ileostomy for near obstructing primary Ongoing discussions regarding chemotherapy
[2018-09-29] MEDS: carBAMazepine XR 200 MG TAB.ER.12H PO SCH (23:34)
[2018-09-30] MEDS ORDERED: LEVOTHYROXINE NA 75 MCG TABLET (FP) PO SCH (07:00)
[2018-09-30 07:18] LABS: HEMATOCRIT 27.7 % (32.4-45.2); HEMOGLOBIN 8.6 GM/dL (10.7-15.3); MCH 22.1 pg (25.7-33.7); MCHC 30.9 g/dl (32.0-36.0); MEAN CELL VOLUME 71.6 fl (80-96); MEAN PLT VOLUME 7.9 fl (7.5-11.1); PLATELET COUNT 860 K/MM3 (134-434); RBC 3.87 M/mm3 (3.60-5.2); RDW 35.4 % (11.6-15.6)
[2018-09-30 07:38] LABS: ANION GAP 7 MMOL/L (8-16); BLOOD UREA NITROGEN 8 mg/dL (7-18); CALCIUM 8.6 mg/dL (8.5-10.1); CHLORIDE 99 mmol/L (98-107); CO2 27 mmol/L (21-32); CREATININE 0.4 mg/dL (0.55-1.3); GLUCOSE,RANDOM 74 mg/dL (74-106); MAGNESIUM 2.1 mg/dL (1.8-2.4); PHOSPHOROUS 4.3 mg/dL (2.5-4.9); SODIUM 134 mmol/L (136-145)
--- NOTE | 2018-09-30 08:20 | PN ---
Progress Note (short form) - Note Progress Note: surgery s/p diverting loop ileostomy. tolerating diet. voiding. Plan- no dietary restrictions. cont prophylactic lovenox while an inpatient. Maintain ileostomy care with appropriately fitted appliance to prevent succus from damaging skin. no surgical need for telemetry. no surgical need for abx. no surgical restrictions on activity. ok to fully anicoagulate tomorrow if indicated (not indicated as far as I am aware) will follow as outpt in 2-4 weeks.
--- NOTE | 2018-09-30 08:59 | OP ---
DATE OF OPERATION: 09/29/2018 PREOPERATIVE DIAGNOSIS: Metastatic colon cancer. POSTOPERATIVE DIAGNOSIS: Metastatic colon cancer. PROCEDURE: Laparoscopic loop ostomy. SURGEON: Renaldo Stanley MD NIGHT WAREHOUSE MANAGER: Rylan Jha MD ANESTHESIA: Jamaal Medrano DO (general) ESTIMATED BLOOD LOSS: Minimal. SPECIMENS: None. INDICATIONS FOR PROCEDURE: This is a 48-year-old female with diagnosis of metastatic colon cancer. It is thought that she is near obstructing, but not obstructed at this time. Given chemotherapy, she has a high likelihood of obstructing and therefore, she is here for diversionary procedure. DESCRIPTION OF PROCEDURE: Patient identified and appropriate positioned on the operating room table. After placement of general anesthesia, she was prepped and draped in the usual sterile fashion. An infraumbilical incision was made and deepened through the subcutaneous tissue. The fascia was divided sharply under direct vision. A Veress needle followed by structural needle was placed. Also under direct vision, the remaining 2 ports were placed. Upon placement of the laparoscope, the patient had an obvious tumor in the right antonia-abdomen. This tumor was palpable on examination after induction of general anesthesia. The tumor encompassed the majority of the right antonia-abdomen up towards the right subcostal margin. Pictures were obtained. Given the location and large tumor burden on the right side of the abdominal wall where the ostomy would be placed, I decided to place the ostomy on the patient's left lower quadrant. The terminal ileum identified entering the cecum. Going approximately 6 inches away from the terminal ileum was where the loop was placed and brought out as a loop ileostomy in the left lower quadrant. The loop of bowel was brought out by placing a Billy drain deep to the bowel, into the mesentery, and this was used to lift the bowel into the ostomy site. Hemostasis of the mesentery was accomplished with LigaSure device as needed. Once the line of where the ostomy was to be was chosen, attention now focused to making the ostomy site in the left lower quadrant of the abdomen. A button of skin was sharply excised with cautery. The fascia was opened in a cruciate manner. The Billy drain was brought up through the opening in the left lower abdomen for the ostomy. Next the ports were removed. Port sites were noted to be hemostatic. The fascia at both port sites were reapproximated with interrupted 0 Vicryl suture and all skin closed with 4-0 subcuticular Biosyn followed by Dermabond. Once the incisions were completely closed, the ostomy was subsequently matured. A transverse incision overlying the loop was made and deepened into the lumen. The ostomy was then created in the standard [place] fashion with interrupted inverted 3-0 chromic sutures. An ostomy appliance was placed. At the conclusion of this case, sponge counts were correct. Attestation: Brief operative note was handwritten in the chart on the progress note paper. Dwayne CLAYTON [id number] cc: DO Paul Dumas MD Suzanne Greenidge, MD
--- NOTE | 2018-09-30 09:30 | PN ---
Progress Note (short form) - Note Progress Note: S/p lap loop colostomy. Minimal pain, no anesthetic issues/complications- doing well
[2018-09-30] MEDS ORDERED: PT OWN MED DRAWER 7, Y5N ONE ×4 (09:50→21:32)
[2018-09-30] MEDS ORDERED: carBAMazepine XR 400 MG TAB.ER.12H PO SCH (10:00)
[2018-09-30] MEDS ORDERED: PANTOPRAZOLE 40 MG TABLET (FP) PO SCH (10:00)
[2018-09-30] MEDS ORDERED: ENOXAPARIN NA (PORCINE) 40 MG/0.4 ML DISP.SYRIN SQ SCH (10:00)
[2018-09-30] MEDS: MAGNESIUM OXIDE 400 MG TABLET (FP) PO SCH ×2 (10:32→21:36)
[2018-09-30] MEDS: ASCORBIC ACID 500 MG TABLET (FP) PO SCH ×2 (10:32→21:36)
--- NOTE | 2018-09-30 12:55 | PATH ---
Surgical Pathology Report Patient Name: DASIA COMER [facility]. Rec. #: [id number] /Age/Gender: 1970 (Age: 48) / F Account: [id number] Location: 4 SO PEDS/ADOL Taken: 09/26/2018 Received: 09/29/2018 Reported: 09/30/2018 Physicians: Dom Turner M.D. Smitha Mellacheruvu, M.D. Specimen(s) Received RIGHT COLON/HEPATIC FLEXURE MASS Clinical History Right colon tumor, anemia Postoperative diagnosis: Right colon mass Final Diagnosis COLON, RIGHT/HEPATIC FLEXURE, BIOPSY: BENIGN COLONIC MUCOSA WITH FOCAL LAMINA PROPRIA EDEMA. NO CARCINOMA OR ADENOMATOUS CHANGES IDENTIFIED. Comment: Also see [id number]. Electronically Signed Jamel Spain M.D. Gross Description Received in formalin, labeled "right colon/hepatic flexure mass biopsy" is a simon, irregular portion of soft tissue measuring 0.2 cm. in greatest dimension. The specimen is submitted in toto in one cassette. /09/29/2018 saudi09/29/2018
--- NOTE | 2018-09-30 13:38 | PN ---
Physical Exam: SUBJECTIVE: Patient seen and examined at [facility]- no acute events overnight patient had surgery yesterday; she remained afebrile OBJECTIVE: Vital Signs Period Temp Pulse Resp BP Sys/Martin Pulse Ox Last 24 Hr 97.7 F-100.2 F 78-117 12-20 100-114/55-65 98-100 GENERAL: The patient is awake, alert, and fully oriented, in no acute distress. EYES: PEERLA: EOMI; no scleral icterus NECK: no JVD: no lymphadenopathy. LUNGS: CTA B/L; no rales, rhonchi or wheezing HEART: tachycardic S1, S2 without murmur, rub or gallop. ABDOMEN: Soft, ileostomy bag in place on left side; +BS in all 4 quadrants. EXTREMITIES: 2+ pulses, warm, well-perfused, no edema. PSYCH: Normal mood, normal affect. SKIN: Warm, dry, normal turgor, no rashes or lesions noted Laboratory Results - last 24 hr 09/29/18 09/30/18 09/30/18 14:47 06:30 06:30 WBC 18.0 H RBC 3.87 Hgb 8.6 L Hct 27.7 L MCV 71.6 L MCH 22.1 L MCHC 30.9 L RDW 35.4 H Plt Count 860 H MPV 7.9 D Sodium 134 L Potassium 5.0 Chloride 99 Carbon Dioxide 27 Anion Gap 7 L BUN 8 Creatinine 0.4 L Creat Clearance w eGFR 170.36 Random Glucose 74 Calcium 8.6 Phosphorus 4.3 Magnesium 2.1 Serum , Qual Negative Active Medications Generic Name Dose Route Start Last Admin Trade Name Jamesq PRN Reason Stop Dose Admin Ascorbic Acid 500 mg 09/29/18 22:00 09/30/18 10:32 Vitamin C - PO 500 mg BID FLORIN Administration Carbamazepine 400 mg 09/30/18 10:00 09/30/18 10:32 Tegretol Xr - PO 400 mg DAILY FLORIN Administration Carbamazepine 600 mg 09/29/18 22:00 09/29/18 23:34 Tegretol Xr - PO 600 mg HS FLORIN Administration Enoxaparin Sodium 40 mg 09/30/18 10:00 09/30/18 10:32 Lovenox - SQ 40 mg DAILY FLORIN Administration Levothyroxine Sodium 75 mcg 09/30/18 07:00 09/30/18 06:46 Synthroid - PO 75 mcg AM FLORIN Administration Magnesium Oxide 400 mg 09/29/18 22:00 09/30/18 10:32 Mag-Ox - PO 400 mg BID FLORIN Administration Morphine Sulfate 4 mg 09/29/18 17:10 Morphine Sulfate IVPB Q3H PRN PAIN LEVEL 7 - 10 Oxycodone HCl 7.5 mg 09/29/18 17:10 Roxicodone - PO Q4H PRN PAIN LEVEL 4 - 6 Pantoprazole Sodium 40 mg 09/30/18 10:00 09/30/18 10:32 Protonix - PO 40 mg DAILY FLORIN Administration ASSESSMENT/PLAN: 48 y/o female with a PMH of epilepsy, chronic 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 requiring 3 BARREL BANDER shunts, hypothyroidism presents to the ED with a one week history of worsening fatigue, loss of appetite, found to have a hemoglobin of 4.6 and was FOBT positive found to now have metastatic colon cancefr #Newly found lower GI tract/colon ca patient is POD #1 for diverting loop ileostomy heme onc on board; discussions in session regarding treatment plans will see if patient will need to start inpatient chemo #Chronic Hydrocephalus w/ BARREL BANDER shunt -stable #Seizures -c/w home medication: tegretol 200: 2 tablets in AM; 3 tablets PM #Hypothyroidism c/w synthroid 75 mcg daily #Severe malnutriton ensure additivies F/E/N NS @100 monitor electrolytes Problem List - Problems (1) Seizure Code(s): R56.9 - UNSPECIFIED CONVULSIONS (2) Hydrocephalus Code(s): G91.9 - HYDROCEPHALUS, UNSPECIFIED Qualifiers: Hydrocephalus type: communicating Qualified Code(s): G91.0 - Communicating 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 (3) Anemia Code(s): D64.9 - ANEMIA, UNSPECIFIED Qualifiers: Anemia type: unspecified type Qualified Code(s): D64.9 - Anemia, unspecified (4) GI bleed Code(s): K92.2 - GASTROINTESTINAL HEMORRHAGE, UNSPECIFIED Qualifiers: GI bleed type/associated pathology: unspecified gastrointestinal hemorrhage type Qualified Code(s): K92.2 - Gastrointestinal hemorrhage, unspecified Visit type - Emergency Visit Emergency Visit: Yes ED Registration Date: 09/17/18 Care time: The patient presented to the Emergency Department on the above date and was hospitalized for further evaluation of their emergent condition. - New Patient This patient is new to me today: No - Critical Care Critical Care patient: No
[2018-09-30] MEDS: ACETAMINOPHEN 325 MG TABLET (FP) PO PRN (14:10)
--- NOTE | 2018-09-30 14:15 | PN ---
Teaching Attending Note Name of Resident: Therese Durán ATTENDING PHYSICIAN STATEMENT I saw and evaluated the patient. I reviewed the resident's note and discussed the case with the resident. I agree with the resident's findings and plan as documented. SUBJECTIVE: no events over night . no N/V . sx went well yesterday . she denies pain or SOB OBJECTIVE: NAD, awake, aphasic, minimal verbal response MMM CV: RRR, no MRG Lungs: CTAB. Ext no edema Abd: soft. slight distention still .NL BS.TTP . 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 1- Chronic blood loss anemia, due chronic lower GI bleed - stable HB. 2- New diagnosis of metastatic colon cancer with mets to liver, lungs, and R adrenal gland. - s/p diverting loop colostomy POD 1 . - cont her regular diet - chemo to be decided. will confirm with heme/onc whether chemo is to be started as in or out patient 3- Fever and leukocytosis: likely due to solid tumor. 4- H/o Seizures, cont tegretol 5- superficial thrombophlebitis in upper arm . warm compresses and elevation 6- Thrombocytosis Dispo: After d/w Heme/onc will decide: if chemo to be start as out patient , then patient can be dc tomorrow to home with VNS.
--- NOTE | 2018-09-30 15:17 | PN ---
Progress Note (short form) - Note Progress Note: Patient seen and examined \ S/P diverting loop ileostomy Last Vital Signs Temp Pulse Resp BP Pulse Ox 101.6 F H 128 H 16 115/59 L 100 09/30/18 14:04 09/30/18 14:04 09/30/18 14:04 09/30/18 14:04 09/30/18 09:00 Lungs diminished breath sounds and poor inspiratory effort Cor-RSR\ Abd- mild distension Minimal drainage via ileostomy Ext- negative edema CBC, BMP 09/30/18 06:30 09/30/18 06:30 Current Medications Generic Name Dose Route Start Last Admin Trade Name Freq PRN Reason Stop Dose Admin Acetaminophen 650 mg 09/30/18 13:57 09/30/18 14:10 Tylenol - PO 650 mg Q6H PRN Administration FEVER Ascorbic Acid 500 mg 09/29/18 22:00 09/30/18 10:32 Vitamin C - PO 500 mg BID FLORIN Administration Carbamazepine 400 mg 09/30/18 10:00 09/30/18 10:32 Tegretol Xr - PO 400 mg DAILY FLORIN Administration Carbamazepine 600 mg 09/29/18 22:00 09/29/18 23:34 Tegretol Xr - PO 600 mg HS FLORIN Administration Enoxaparin Sodium 40 mg 09/30/18 10:00 09/30/18 10:32 Lovenox - SQ 40 mg DAILY FLORIN Administration Levothyroxine Sodium 75 mcg 09/30/18 07:00 09/30/18 06:46 Synthroid - PO 75 mcg AM FLORIN Administration Magnesium Oxide 400 mg 09/29/18 22:00 09/30/18 10:32 Mag-Ox - PO 400 mg BID FLORIN Administration Morphine Sulfate 4 mg 09/29/18 17:10 Morphine Sulfate IVPB Q3H PRN PAIN LEVEL 7 - 10 Oxycodone HCl 7.5 mg 09/29/18 17:10 Roxicodone - PO Q4H PRN PAIN LEVEL 4 - 6 Pantoprazole Sodium 40 mg 09/30/18 10:00 09/30/18 10:32 Protonix - PO 40 mg DAILY FLORIN Administration Impression: Metastatic colon ca - lung, liver mets S/P diverting loop ileostomy Anemia- blood loss Thrombocytosis- reactive Plan: IV Venofer To discuss with surgery timing of port and chemotherapy.
[2018-09-30] MEDS ORDERED: IRON SUCROSE INJECTION 200 MG in SODIUM CHLORIDE 90 ML IVPB ONE (15:49)
[2018-09-30] MEDS: carBAMazepine XR 200 MG TAB.ER.12H PO SCH (21:40)
[2018-10-01] MEDS: oxyCODONE HCL 5 MG TABLET PO PRN (05:53)
[2018-10-01 06:24] LABS: HEMATOCRIT 28.1 % (32.4-45.2); MCH 22.6 pg (25.7-33.7); MEAN CELL VOLUME 70.6 fl (80-96); MEAN PLT VOLUME 7.5 fl (7.5-11.1); PLATELET COUNT 937 K/MM3 (134-434); RBC 3.99 M/mm3 (3.60-5.2); RDW 35.7 % (11.6-15.6); WHITE BLOOD COUNT 16.6 K/mm3 (4.0-10.0)
[2018-10-01] MEDS: LEVOTHYROXINE NA 75 MCG TABLET (FP) PO SCH (06:24)
[2018-10-01 06:47] LABS: ANION GAP 5 MMOL/L (8-16); BLOOD UREA NITROGEN 5 mg/dL (7-18); CALCIUM 8.7 mg/dL (8.5-10.1); CHLORIDE 102 mmol/L (98-107); CO2 28 mmol/L (21-32); CREATININE 0.3 mg/dL (0.55-1.3); GLUCOSE,RANDOM 99 mg/dL (74-106); PHOSPHOROUS 3.2 mg/dL (2.5-4.9); POTASSIUM 4.3 mmol/L (3.5-5.1); SODIUM 134 mmol/L (136-145)
--- NOTE | 2018-10-01 07:48 | PN ---
Teaching Attending Note Name of Resident: Therese Durán ATTENDING PHYSICIAN STATEMENT I saw and evaluated the patient. I reviewed the resident's note and discussed the case with the resident. I agree with the resident's findings and plan as documented. SUBJECTIVE: Patient is sitting on the chair with no acute distress. had a fever of 101.6 yesterday. OBJECTIVE: Vital Signs Temperature 97.8 F 10/01/18 05:00 Pulse Rate 110 H 10/01/18 05:00 Respiratory Rate 18 10/01/18 05:00 Blood Pressure 104/52 L 10/01/18 05:00 O2 Sat by Pulse Oximetry (%) 96 09/30/18 21:00 Initial Vital Signs Temp Pulse Resp BP Pulse Ox 97.4 F L 129 H 20 135/94 97 09/17/18 13:44 09/17/18 13:44 09/17/18 13:44 09/17/18 13:44 09/17/18 13:44 GENERAL: Awake, alert, non verbal at baseline but answers to some questions. HEAD: No signs of trauma, normocephalic, atraumatic EYES: PERRLA, EOMI, sclera anicteric, conjunctiva clear ENT: oropharynx clear without exudates. NECK: Normal ROM, supple, no lymphadenopathy,no JVD, or masses LUNGS: No distress, clear to auscultation bilaterally HEART: Regular rate and rhythm, normal S1 and S2, no murmurs, rubs or gallops. ABDOMEN: normoactive bowel sounds. No guarding, no rebound. positive for Ostomy with stool, wound is clean. EXTREMITIES : Normal inspection, Normal range of motion, no edema. No clubbing or cyanosis. NEUROLOGICAL: Cranial nerves II through XII grossly intact. Left wrist contracted. Strength grossly intact. SKIN: Warm, Dry, normal turgor, no rashes or lesions noted CBCD WBC 16.6 K/mm3 (4.0-10.0) H 10/01/18 06:00 RBC 3.99 M/mm3 (3.60-5.2) 10/01/18 06:00 Hgb 9.0 GM/dL (10.7-15.3) L 10/01/18 06:00 Hct 28.1 % (32.4-45.2) L 10/01/18 06:00 MCV 70.6 fl (80-96) L 10/01/18 06:00 MCHC 32.0 g/dl (32.0-36.0) 10/01/18 06:00 RDW 35.7 % (11.6-15.6) H 10/01/18 06:00 Plt Count 937 K/MM3 (134-434) H 10/01/18 06:00 MPV 7.5 fl (7.5-11.1) 10/01/18 06:00 CMP Sodium 134 mmol/L (136-145) L 10/01/18 06:00 Potassium 4.3 mmol/L (3.5-5.1) 10/01/18 06:00 Chloride 102 mmol/L (98-107) 10/01/18 06:00 Carbon Dioxide 28 mmol/L (21-32) 10/01/18 06:00 Anion Gap 5 MMOL/L (8-16) L 10/01/18 06:00 BUN 5 mg/dL (7-18) L 10/01/18 06:00 Creatinine 0.3 mg/dL (0.55-1.3) L 10/01/18 06:00 Creat Clearance w eGFR 237.44 (>60) 10/01/18 06:00 Random Glucose 99 mg/dL (74-106) 10/01/18 06:00 Calcium 8.7 mg/dL (8.5-10.1) 10/01/18 06:00 Total Bilirubin 0.2 mg/dL (0.2-1) 09/24/18 06:00 AST 42 U/L (15-37) H 09/24/18 06:00 ALT 29 U/L (13-61) 09/24/18 06:00 Alkaline Phosphatase 170 U/L (45-117) H 09/24/18 06:00 Total Protein 6.0 g/dl (6.4-8.2) L 09/24/18 06:00 Albumin 1.8 g/dl (3.4-5.0) L 09/24/18 06:00 Current Medications Generic Name Dose Route Start Last Admin Trade Name Freq PRN Reason Stop Dose Admin Acetaminophen 650 mg 09/30/18 13:57 09/30/18 14:10 Tylenol - PO 650 mg Q6H PRN Administration FEVER Ascorbic Acid 500 mg 10/01/18 10:00 Vitamin C - PO BID [facility] Carbamazepine 400 mg 10/01/18 10:00 Tegretol Xr - PO DAILY [facility] Carbamazepine 600 mg 10/01/18 22:00 Tegretol Xr - PO HS [facility] Enoxaparin Sodium 40 mg 10/01/18 10:00 Lovenox - SQ DAILY [facility] Levothyroxine Sodium 75 mcg 10/01/18 07:00 10/01/18 06:24 Synthroid - PO 75 mcg AM [facility] Administration Magnesium Oxide 400 mg 10/01/18 10:00 Mag-Ox - PO BID [facility] Morphine Sulfate 4 mg 10/01/18 00:29 Morphine Sulfate IVPB Q3H PRN PAIN LEVEL 7 - 10 Oxycodone HCl 7.5 mg 10/01/18 00:29 10/01/18 05:53 Roxicodone - PO 7.5 mg Q4H PRN Administration PAIN LEVEL 4 - 6 Pantoprazole Sodium 40 mg 10/01/18 10:00 Protonix - PO DAILY [facility] Home Medications Medication Instructions Recorded Calcium Carbonate [Super Calcium] 600 mg PO BID 09/17/18 Carbamazepine Xr [Tegretol XR -] 400 mg PO AM 09/17/18 Carbamazepine Xr [Tegretol XR -] 600 mg PO HS 09/17/18 Ferrous Sulfate 325 mg PO TID 09/17/18 Levothyroxine [Synthroid -] 75 mcg PO DAILY 09/17/18 Cholecalciferol (Vitamin D3) 2,000 units PO DAILY 09/18/18 [Vitamin D3] Docusate Sodium [Colace -] 100 mg PO BID 09/18/18 Pantoprazole Sodium [Protonix -] 40 mg PO DAILY #30 tablet.ec 10/01/18 ASSESSMENT AND PLAN: Patient is a 48 yo female with a PMHx of epilepsy, chronic 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 with subsequent brain damage (patient is non-verbal) requiring 3VP shunts last one being in 1990), hypothyroidism she came to the ED after was found to have a low hemoglobin level of 4.6 # POD #1 s/p diverting loop colostomy due to New diagnosis of metastatic colon cancer with mets to liver, lungs, and R adrenal gland. On regular diet , chemo as an outpatient once patient is stable. #Right colon neoplasm /lung/liver masses s/p liver Bx, waiting for bx result still marker studies are pending. Suspecious for primary malignancy. hx of weight loss around 20 pounds with anemia , waiting for liver bx result. GI /Onc on the case. right colon pathology: benign colonic mucosa with focal lamina propia edema, no carcinoma or adenomatous changes. # Right adrenal mass primary vs metastatic disease (2.5 x 2.5 x 2.0 cm): #Thrombocytosis: elevated will discuss with Oncology # Fever on and off with leukocytosis: likely due to having tumor fever. will continue to monitor, as per ID, Abx was discontinued. # H/o Seizures, cont tegretol # superficial thrombophlebitis in upper arm . warm compresses and elevation improved. # Chronic blood loss anemia, most likely due to colon Cancer. stable HB. #s/p Fecal impaction; on colace and Miralax # Hx of hypothyroidism on levoxyl continue # Acute hyponatremia improved s/p IVF DVT Px: lovenox sq
[2018-10-01] MEDS ORDERED: SODIUM CHLORIDE 250 ML IV STA (09:01)
--- NOTE | 2018-10-01 09:38 | PN ---
Progress Note (short form) - Note Progress Note: tmax 101, now 97 pt looks comfortable sitting in chair abd soft and nt ostomy w stool and func, wounds clean. stable surgically, tolerating diet, can d/c to home when medically cleared will be available prn. thank you
--- NOTE | 2018-10-01 10:39 | PN ---
Physical Exam: SUBJECTIVE: Patient seen and examined at bedside- patient spiked fever of 101.6 overnight and has been tachycardic however looking comfortable OBJECTIVE: Vital Signs Period Temp Pulse Resp BP Sys/Martin Pulse Ox Last 24 Hr 97.8 F-101.6 F 108-128 16-18 95-115/52-59 96 GENERAL: The patient is awake, alert, and fully oriented, in no acute distress. EYES: PEERLA: EOMI; no scleral icterus. NECK:no JVD; no lymphadenopathy LUNGS: CTA B/L; no rales, rhonchi or wheezing HEART: tahcycardic, S1, S2 without murmur, rub or gallop. ABDOMEN: Soft, ileostomy bag in place with yellowish fluid; no erythema surrounding EXTREMITIES: 2+ pulses, warm, well-perfused, no edema. PSYCH: Normal mood, normal affect. SKIN: Warm, dry, normal turgor, no rashes or lesions noted Laboratory Results - last 24 hr 10/01/18 10/01/18 06:00 06:00 WBC 16.6 H RBC 3.99 Hgb 9.0 L Hct 28.1 L MCV 70.6 L MCH 22.6 L MCHC 32.0 RDW 35.7 H Plt Count 937 H MPV 7.5 Sodium 134 L Potassium 4.3 Chloride 102 Carbon Dioxide 28 Anion Gap 5 L BUN 5 L Creatinine 0.3 L Creat Clearance w eGFR 237.44 Random Glucose 99 Calcium 8.7 Phosphorus 3.2 Magnesium 2.0 Active Medications Generic Name Dose Route Start Last Admin Trade Name Freq PRN Reason Stop Dose Admin Acetaminophen 650 mg 09/30/18 13:57 09/30/18 14:10 Tylenol - PO 650 mg Q6H PRN Administration FEVER Ascorbic Acid 500 mg 10/01/18 10:00 Vitamin C - PO BID [facility] Carbamazepine 400 mg 10/01/18 10:00 Tegretol Xr - PO DAILY [facility] Carbamazepine 600 mg 10/01/18 22:00 Tegretol Xr - PO HS [facility] Enoxaparin Sodium 40 mg 10/01/18 10:00 Lovenox - SQ DAILY [facility] Levothyroxine Sodium 75 mcg 10/01/18 07:00 10/01/18 06:24 Synthroid - PO 75 mcg AM [facility] Administration Magnesium Oxide 400 mg 10/01/18 10:00 Mag-Ox - PO BID [facility] Morphine Sulfate 4 mg 10/01/18 00:29 Morphine Sulfate IVPB Q3H PRN PAIN LEVEL 7 - 10 Oxycodone HCl 7.5 mg 10/01/18 00:29 10/01/18 05:53 Roxicodone - PO 7.5 mg Q4H PRN Administration PAIN LEVEL 4 - 6 Pantoprazole Sodium 40 mg 10/01/18 10:00 Protonix - PO DAILY [facility] ASSESSMENT/PLAN: 8 y/o female with a PMH of epilepsy, chronic 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 requiring 3 GAS METER INSTALLER HELPER shunts , hypothyroidism presents to the ED with a one week history of worsening fatigue , loss of appetite, found to have a hemoglobin of 4.6 and was FOBT positive found to now have metastatic colon cancefr #Newly found lower GI tract/colon ca patient is POD #2 for diverting loop ileostomy heme onc on board; discussions in session regarding treatment plans patient will start chemo as an outpatient in about 2 weeks #Chronic Hydrocephalus w/ GAS METER INSTALLER HELPER shunt -stable #Seizures -c/w home medication: tegretol 200: 2 tablets in AM; 3 tablets PM #Hypothyroidism c/w synthroid 75 mcg daily #Severe malnutriton ensure additivies F/E/N d5w@100 monitor electrolytes regular diet with ensure additives Problem List - Problems (1) Seizure Code(s): R56.9 - UNSPECIFIED CONVULSIONS (2) Hydrocephalus Code(s): G91.9 - HYDROCEPHALUS, UNSPECIFIED Qualifiers: Hydrocephalus type: communicating Qualified Code(s): G91.0 - Communicating 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 (3) Anemia Code(s): D64.9 - ANEMIA, UNSPECIFIED Qualifiers: Anemia type: unspecified type Qualified Code(s): D64.9 - Anemia, unspecified (4) GI bleed Code(s): K92.2 - GASTROINTESTINAL HEMORRHAGE, UNSPECIFIED Qualifiers: GI bleed type/associated pathology: unspecified gastrointestinal hemorrhage type Qualified Code(s): K92.2 - Gastrointestinal hemorrhage, unspecified Visit type - Emergency Visit Emergency Visit: Yes ED Registration Date: 09/17/18 Care time: The patient presented to the Emergency Department on the above date and was hospitalized for further evaluation of their emergent condition. - New Patient This patient is new to me today: No - Critical Care Critical Care patient: No
[2018-10-01] MEDS ORDERED: PT OWN MED DRAWER 7, Y5N ONE (10:44)
[2018-10-01] MEDS: ENOXAPARIN NA (PORCINE) 40 MG/0.4 ML DISP.SYRIN SQ SCH (10:52)
[2018-10-01] MEDS: PANTOPRAZOLE 40 MG TABLET (FP) PO SCH (10:53)
[2018-10-01] MEDS: MAGNESIUM OXIDE 400 MG TABLET (FP) PO SCH ×2 (10:53→21:08)
[2018-10-01] MEDS: ASCORBIC ACID 500 MG TABLET (FP) PO SCH ×2 (10:54→21:09)
[2018-10-01] MEDS: carBAMazepine XR 400 MG TAB.ER.12H PO SCH (10:54)
[2018-10-01] MEDS: DEXTROSE 5%-WATER - 1,000 ML IV SCH (15:00)
--- NOTE | 2018-10-01 15:43 | PN.GI ---
GI Progress Note Subjective: Pt seen/examined at bedside, sitting in chair, appears comfortable. Fever 101 noted yesterday, afebrile today. - Objective Vital Signs: Vital Signs Temperature 98.2 F 10/01/18 14:25 Pulse Rate 120 H 10/01/18 14:25 Respiratory Rate 16 10/01/18 14:25 Blood Pressure 120/60 10/01/18 14:25 O2 Sat by Pulse Oximetry (%) 96 09/30/18 21:00 Constitutional: Well Nourished, No Distress, Calm Cardiovascular: Yes: WNL, Regular Rate and Rhythm Respiratory: Yes: WNL, Regular, CTA Bilaterally ...Auscultate: Yes: Normoactive Bowel Sounds ...Palpate: Yes: Other (Abd soft, nt, nd +ostomy in LLQ with liquid brown stool) Labs: CBC, BMP 10/01/18 06:00 10/01/18 06:00 INR, PTT INR 1.15 (0.83-1.09) H 09/26/18 06:17 Fibrinogen 444.0 mg/dL (238-498) 09/19/18 05:30 Problem List - Problems (1) Metastatic colon cancer to liver Assessment/Plan: 48yo female h/o epilepsy, 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 s/p ASSISTANT STRENGTH COACH shunt presenting with weakness and anemia s/p CT imaging revealing right colon mass with suspected mets to lungs, liver, right adrenal gland s/p liver biopsy revealing moderately differentiated adenoca. Colonoscopy on 09/26 revealing a hepatic flexure mass with luminal narrowing, biopsies unremarkable however. Pt now s/p diverting loop ileostomy. -Spoke with pathologist, no evidence of malignancy on hepatic flexure mass biopsies which may have been limited sampling in setting of constricting/ partially obstructive lesion, though based on liver biopsy results and endoscopic appearance of the mass, this is consistent with malignancy. -Further management including chemotherapy per oncology -Ostomy management per surgery Code(s): C18.9 - MALIGNANT NEOPLASM OF COLON, UNSPECIFIED; C78.7 - SECONDARY MALIG NEOPLASM OF LIVER AND INTRAHEPATIC BILE DUCT
[2018-10-01] MEDS: morphine SULFATE 4 MG/ML VIAL IVPB PRN (20:20)
[2018-10-01] MEDS: carBAMazepine XR 200 MG TAB.ER.12H PO SCH (21:09)
[2018-10-02] MEDS: morphine SULFATE 4 MG/ML VIAL IVPB PRN (03:19)
[2018-10-02] MEDS: LEVOTHYROXINE NA 75 MCG TABLET (FP) PO SCH (06:00)
[2018-10-02] MEDS: DEXTROSE 5%-WATER - 1,000 ML IV SCH (06:01)
[2018-10-02 07:01] LABS: BASO % 0.6 % (0-2.0); EOS % 0.2 % (0-4.5); HEMATOCRIT 29.9 % (32.4-45.2); HEMOGLOBIN 9.1 GM/dL (10.7-15.3); LYMPH % 20.2 % (8-40); MCH 21.8 pg (25.7-33.7); MCHC 30.4 g/dl (32.0-36.0); MEAN CELL VOLUME 71.8 fl (80-96); MEAN PLT VOLUME 8.7 fl (7.5-11.1); MONO % 5.5 % (3.8-10.2); NEUT % 73.5 % (42.8-82.8); PLATELET COUNT 921 K/MM3 (134-434); RBC 4.16 M/mm3 (3.60-5.2); RDW 35.7 % (11.6-15.6); WHITE BLOOD COUNT 17.2 K/mm3 (4.0-10.0)
[2018-10-02 07:25] LABS: ANION GAP 7 MMOL/L (8-16); BLOOD UREA NITROGEN 6 mg/dL (7-18); CALCIUM 8.6 mg/dL (8.5-10.1); CHLORIDE 99 mmol/L (98-107); CO2 27 mmol/L (21-32); CREATININE 0.5 mg/dL (0.55-1.3); GLUCOSE,RANDOM 113 mg/dL (74-106); PHOSPHOROUS 3.8 mg/dL (2.5-4.9); POTASSIUM 4.3 mmol/L (3.5-5.1); SODIUM 134 mmol/L (136-145)
--- NOTE | 2018-10-02 09:10 | PN ---
Teaching Attending Note Name of Resident: Therese Durán ATTENDING PHYSICIAN STATEMENT I saw and evaluated the patient. I reviewed the resident's note and discussed the case with the resident. I agree with the resident's findings and plan as documented. SUBJECTIVE: patient's tachycardia continues, no fever or chills. OBJECTIVE: Vital Signs Temperature 98.2 F 10/02/18 06:00 Pulse Rate 110 H 10/02/18 06:00 Respiratory Rate 16 10/02/18 06:00 Blood Pressure 108/54 L 10/02/18 06:00 O2 Sat by Pulse Oximetry (%) 95 10/01/18 20:54 GENERAL: Awake, alert, some words at at baseline but answers to some questions. HEAD: No signs of trauma, normocephalic, atraumatic EYES: PERRLA, EOMI, sclera anicteric, conjunctiva clear ENT: oropharynx clear without exudates. NECK: Normal ROM, supple, no lymphadenopathy,no JVD, or masses LUNGS: No distress, clear to auscultation bilaterally HEART: tachycardic with rate and rhythm, normal S1 and S2, no murmurs, rubs or gallops. ABDOMEN: normoactive bowel sounds. No guarding, no rebound. positive for Ostomy with stool,functioning well, wound is clean. EXTREMITIES : Normal inspection, Normal range of motion, no edema. No clubbing or cyanosis. NEUROLOGICAL: Cranial nerves II through XII grossly intact. Left wrist contracted. Strength grossly intact. SKIN: Warm, Dry, normal turgor, no rashes or lesions noted CBCD WBC 17.2 K/mm3 (4.0-10.0) H 10/02/18 06:00 RBC 4.16 M/mm3 (3.60-5.2) 10/02/18 06:00 Hgb 9.1 GM/dL (10.7-15.3) L 10/02/18 06:00 Hct 29.9 % (32.4-45.2) L 10/02/18 06:00 MCV 71.8 fl (80-96) L 10/02/18 06:00 MCHC 30.4 g/dl (32.0-36.0) L 10/02/18 06:00 RDW 35.7 % (11.6-15.6) H 10/02/18 06:00 Plt Count 921 K/MM3 (134-434) H 10/02/18 06:00 MPV 8.7 fl (7.5-11.1) D 10/02/18 06:00 CMP Sodium 134 mmol/L (136-145) L 10/02/18 06:00 Potassium 4.3 mmol/L (3.5-5.1) 10/02/18 06:00 Chloride 99 mmol/L (98-107) 10/02/18 06:00 Carbon Dioxide 27 mmol/L (21-32) 10/02/18 06:00 Anion Gap 7 MMOL/L (8-16) L 10/02/18 06:00 BUN 6 mg/dL (7-18) L 10/02/18 06:00 Creatinine 0.5 mg/dL (0.55-1.3) L 10/02/18 06:00 Creat Clearance w eGFR 131.69 (>60) 10/02/18 06:00 Random Glucose 113 mg/dL (74-106) H 10/02/18 06:00 Calcium 8.6 mg/dL (8.5-10.1) 10/02/18 06:00 Total Bilirubin 0.2 mg/dL (0.2-1) 09/24/18 06:00 AST 42 U/L (15-37) H 09/24/18 06:00 ALT 29 U/L (13-61) 09/24/18 06:00 Alkaline Phosphatase 170 U/L (45-117) H 09/24/18 06:00 Total Protein 6.0 g/dl (6.4-8.2) L 09/24/18 06:00 Albumin 1.8 g/dl (3.4-5.0) L 09/24/18 06:00 Current Medications Generic Name Dose Route Start Last Admin Trade Name Freq PRN Reason Stop Dose Admin Acetaminophen 650 mg 09/30/18 13:57 09/30/18 14:10 Tylenol - PO 650 mg Q6H PRN Administration FEVER Ascorbic Acid 500 mg 10/01/18 10:00 10/01/18 21:09 Vitamin C - PO Not Given BID [facility] Carbamazepine 400 mg 10/01/18 10:00 10/01/18 10:54 Tegretol Xr - PO 400 mg DAILY [facility] Administration Carbamazepine 600 mg 10/01/18 22:00 10/01/18 21:09 Tegretol Xr - PO Not Given HS [facility] Enoxaparin Sodium 40 mg 10/01/18 10:00 10/01/18 10:52 Lovenox - SQ 40 mg DAILY [facility] Administration Sodium Chloride 1,000 mls @ 125 mls/hr 10/02/18 09:15 Normal Saline - IV 10/03/18 17:14 ASDIR [facility] Levothyroxine Sodium 75 mcg 10/01/18 07:00 10/02/18 06:00 Synthroid - PO Not Given AM [facility] Magnesium Oxide 400 mg 10/01/18 10:00 10/01/18 21:08 Mag-Ox - PO Not Given BID [facility] Morphine Sulfate 4 mg 10/01/18 00:29 10/02/18 03:19 Morphine Sulfate IVPB 4 mg Q3H PRN Administration PAIN LEVEL 7 - 10 Oxycodone HCl 7.5 mg 10/01/18 00:29 10/01/18 05:53 Roxicodone - PO 7.5 mg Q4H PRN Administration PAIN LEVEL 4 - 6 Pantoprazole Sodium 40 mg 10/01/18 10:00 10/01/18 10:53 Protonix - PO 40 mg DAILY [facility] Administration Home Medications Medication Instructions Recorded Calcium Carbonate [Super Calcium] 600 mg PO BID 09/17/18 Carbamazepine Xr [Tegretol XR -] 400 mg PO AM 09/17/18 Carbamazepine Xr [Tegretol XR -] 600 mg PO HS 09/17/18 Ferrous Sulfate 325 mg PO TID 09/17/18 Levothyroxine [Synthroid -] 75 mcg PO DAILY 09/17/18 Cholecalciferol (Vitamin D3) 2,000 units PO DAILY 09/18/18 [Vitamin D3] Docusate Sodium [Colace -] 100 mg PO BID 09/18/18 Pantoprazole Sodium [Protonix -] 40 mg PO DAILY #30 tablet.ec 10/01/18 ASSESSMENT AND PLAN: Patient is a 48 yo female with a PMHx of epilepsy, chronic 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 with subsequent brain damage (patient is non-verbal) requiring 3VP shunts last one being in 1990), hypothyroidism she came to the ED after was found to have a low hemoglobin level of 4.6 # POD #2 s/p diverting loop colostomy due to New diagnosis of metastatic colon cancer with mets to liver, lungs, and R adrenal gland. On regular diet , chemo as an outpatient once patient is stable. #Right colon neoplasm /lung/liver masses s/p liver Bx, waiting for bx result still marker studies are pending. Suspecious for primary malignancy. hx of weight loss around 20 pounds with anemia , s/p liver bx . GI /Onc on the case. right colon pathology: benign colonic mucosa with focal lamina propia edema, no carcinoma or adenomatous changes. # Right adrenal mass primary vs metastatic disease (2.5 x 2.5 x 2.0 cm): #Thrombocytosis: elevated , further management per Oncology service # No further Fever is noted but continues to have leukocytosis: likely due to tumor . will continue to monitor, as per ID, no Abx at this time needed. # H/o Seizures, cont tegretol # superficial thrombophlebitis in upper arm . warm compresses and elevation improved. # Acute on chronic blood loss anemia, most likely due to colon Cancer. stable HB now. #s/p Fecal impaction; on colace and Miralax # Hx of hypothyroidism on levoxyl continue # Acute hyponatremia improving continue IVF DVT Px: lovenox sq
[2018-10-02 11:13] LABS: ANISOCYTOSIS 2+; MACROCYTOSIS 0; PLATELET ESTIMATE INCREASED; TARGET CELLS 1+
[2018-10-02] MEDS: SODIUM CHLORIDE 1,000 ML IV SCH ×2 (11:44→22:45)
[2018-10-02] MEDS ORDERED: PT OWN MED DRAWER 7, Y5N ONE ×3 (12:02→22:23)
[2018-10-02] MEDS: ENOXAPARIN NA (PORCINE) 40 MG/0.4 ML DISP.SYRIN SQ SCH (12:07)
[2018-10-02] MEDS: PANTOPRAZOLE 40 MG TABLET (FP) PO SCH (12:07)
[2018-10-02] MEDS: carBAMazepine XR 400 MG TAB.ER.12H PO SCH (12:07)
[2018-10-02] MEDS: ASCORBIC ACID 500 MG TABLET (FP) PO SCH ×2 (12:07→22:31)
[2018-10-02] MEDS: MAGNESIUM OXIDE 400 MG TABLET (FP) PO SCH ×2 (12:07→22:31)
[2018-10-02] MEDS: ACETAMINOPHEN 325 MG TABLET (FP) PO PRN (13:34)
--- NOTE | 2018-10-02 14:11 | PN ---
Physical Exam: SUBJECTIVE: Patient seen and examined at bedside- patient vomited all her food last night; CXR done to r/o aspiration was negative f/u final read on KUB however no spike in fever patient looked comfortable this AM OBJECTIVE: Vital Signs Period Temp Pulse Resp BP Sys/Martin Pulse Ox Last 24 Hr 97.8 F-99.8 F 110-121 16-18 97-121/54-68 95 GENERAL: The patient is awake, alert, and fully oriented, in no acute distress. EYES: PEERLA: EOMI; no sclerla icterus. NECK: no JVD: no lymphadenopathy LUNGS: diminished breath sounds HEART:tachycardic, S1, S2 without murmur, rub or gallop. ABDOMEN: Soft, slight wincing upon palpation; ileosotomy bag in place with yellow/brown liquid; no erythema syrrounding EXTREMITIES: 2+ pulses, warm, well-perfused, no edema. PSYCH: Normal mood, normal affect. SKIN: Warm, dry, normal turgor, no rashes or lesions noted Laboratory Results - last 24 hr 10/02/18 10/02/18 06:00 06:00 WBC 17.2 H RBC 4.16 Hgb 9.1 L Hct 29.9 L MCV 71.8 L MCH 21.8 L MCHC 30.4 L RDW 35.7 H Plt Count 921 H MPV 8.7 D Absolute Neuts (auto) 12.7 H Neutrophils % 73.5 Neutrophils % (Manual) 83.0 H Band Neutrophils % 0.0 Lymphocytes % 20.2 D Lymphocytes % (Manual) 5.0 L D Monocytes % 5.5 Monocytes % (Manual) 10 D Eosinophils % 0.2 Eosinophils % (Manual) 0.0 D Basophils % 0.6 Basophils % (Manual) 0.0 Myelocytes % (Man) 0 Promyelocytes % (Man) 0 Blast Cells % (Manual) 0 Nucleated RBC % 0 Metamyelocytes 0 D Hypochromia 2+ Platelet Estimate Increased Polychromasia 1+ Poikilocytosis 1+ Anisocytosis 2+ Microcytosis 2+ Macrocytosis 0 Target Cells 1+ Schistocytes 1+ Sodium 134 L Potassium 4.3 Chloride 99 Carbon Dioxide 27 Anion Gap 7 L BUN 6 L Creatinine 0.5 L Creat Clearance w eGFR 131.69 Random Glucose 113 H Calcium 8.6 Phosphorus 3.8 Magnesium 2.0 Active Medications Generic Name Dose Route Start Last Admin Trade Name Freq PRN Reason Stop Dose Admin Acetaminophen 650 mg 09/30/18 13:57 10/02/18 13:34 Tylenol - PO 650 mg Q6H PRN Administration FEVER Ascorbic Acid 500 mg 10/01/18 10:00 10/02/18 12:07 Vitamin C - PO 500 mg BID [facility] Administration Carbamazepine 400 mg 10/01/18 10:00 10/02/18 12:07 Tegretol Xr - PO 400 mg DAILY [facility] Administration Carbamazepine 600 mg 10/01/18 22:00 10/01/18 21:09 Tegretol Xr - PO Not Given HS [facility] Enoxaparin Sodium 40 mg 10/01/18 10:00 10/02/18 12:07 Lovenox - SQ 40 mg DAILY [facility] Administration Sodium Chloride 1,000 mls @ 125 mls/hr 10/02/18 09:15 10/02/18 11:44 Normal Saline - IV 10/03/18 17:14 125 mls/hr ASDIR [facility] Administration Levothyroxine Sodium 75 mcg 10/01/18 07:00 10/02/18 06:00 Synthroid - PO Not Given AM [facility] Magnesium Oxide 400 mg 10/01/18 10:00 10/02/18 12:07 Mag-Ox - PO 400 mg BID [facility] Administration Morphine Sulfate 4 mg 10/01/18 00:29 10/02/18 03:19 Morphine Sulfate IVPB 4 mg Q3H PRN Administration PAIN LEVEL 7 - 10 Oxycodone HCl 7.5 mg 10/01/18 00:29 10/01/18 05:53 Roxicodone - PO 7.5 mg Q4H PRN Administration PAIN LEVEL 4 - 6 Pantoprazole Sodium 40 mg 10/01/18 10:00 10/02/18 12:07 Protonix - PO 40 mg DAILY [facility] Administration ASSESSMENT/PLAN: 48 y/o female with a PMH of epilepsy, chronic 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 requiring 3 IRONING PLEATER shunts, hypothyroidism presents to the ED with a one week history of worsening fatigue, loss of appetite, found to have a hemoglobin of 4.6 and was FOBT positive found to now have metastatic colon cancefr #Newly found lower GI tract/colon ca patient is POD #2 for diverting loop ileostomy heme onc on board; discussions in session regarding treatment plans patient will start chemo as an outpatient in about 2 weeks #Chronic Hydrocephalus w/ IRONING PLEATER shunt -stable #Seizures -c/w home medication: tegretol 200: 2 tablets in AM; 3 tablets PM #Hypothyroidism c/w synthroid 75 mcg daily #Severe malnutriton ensure additivies F/E/N d5w@100 monitor electrolytes NPO for now Problem List - Problems (1) Seizure Code(s): R56.9 - UNSPECIFIED CONVULSIONS (2) Hydrocephalus Code(s): G91.9 - HYDROCEPHALUS, UNSPECIFIED Qualifiers: Hydrocephalus type: communicating Qualified Code(s): G91.0 - Communicating 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 (3) Anemia Code(s): D64.9 - ANEMIA, UNSPECIFIED Qualifiers: Anemia type: unspecified type Qualified Code(s): D64.9 - Anemia, unspecified (4) GI bleed Code(s): K92.2 - GASTROINTESTINAL HEMORRHAGE, UNSPECIFIED Qualifiers: GI bleed type/associated pathology: unspecified gastrointestinal hemorrhage type Qualified Code(s): K92.2 - Gastrointestinal hemorrhage, unspecified Visit type - Emergency Visit Emergency Visit: Yes ED Registration Date: 09/17/18 Care time: The patient presented to the Emergency Department on the above date and was hospitalized for further evaluation of their emergent condition. - New Patient This patient is new to me today: No - Critical Care Critical Care patient: No
[2018-10-02] MEDS ORDERED: ONDANSETRON 4 MG/2 ML VIAL IVPB PRN (17:46)
--- NOTE | 2018-10-02 18:05 | PN ---
Progress Note (short form) - Note Progress Note: Patient seen and examined Has abdominal pain/ fever. 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 Patient unable to provide history. Imaging studies concerning for liver metastasess/adrenal met clinical scenario suspicious for metastatic colon cancer s/p Liver biopsy/ PDL1 staining/Her2 staining/MSI pending s/p laparoscopic loop ileostomy for near obstructing primary Ongoing discussions regarding chemotherapy vomiting --? due to morphine AXR pending add zofran Pain-- liver mets f/u AXR Surgical follow up
[2018-10-02] MEDS: oxyCODONE HCL 5 MG TABLET PO PRN (18:06)
[2018-10-02 19:23] LABS: EPI CELLS 1.2 /HPF (0-5); URINE APPEARANCE CLEAR; URINE BACTERIA 12.3 /hpf (NEGATIVE); URINE BILIRUBIN NEGATIVE (NEGATIVE); URINE CASTS 6 /hpf (0-8); URINE COLOR YELLOW; URINE GLUCOSE (UA) NEGATIVE (NEGATIVE); URINE KETONE NEGATIVE (NEGATIVE); URINE LEUK ESTERASE NEGATIVE (NEGATIVE); URINE NITRITE NEGATIVE (NEGATIVE); URINE PROTEIN NEGATIVE (NEGATIVE); URINE RBC 1 /hpf (0-4); URINE UROBILINOGEN 0.2 mg/dL (0.2-1.0); URINE WBC 3 /hpf (0-5)
[2018-10-02] MEDS: carBAMazepine XR 200 MG TAB.ER.12H PO SCH (22:32)
[2018-10-03] MEDS: morphine SULFATE 4 MG/ML VIAL IVPB PRN (05:43)
[2018-10-03] MEDS: LEVOTHYROXINE NA 75 MCG TABLET (FP) PO SCH (06:05)
[2018-10-03 07:02] LABS: HEMATOCRIT 26.3 % (32.4-45.2); HEMOGLOBIN 8.2 GM/dL (10.7-15.3); MCH 22.2 pg (25.7-33.7); MCHC 31.3 g/dl (32.0-36.0); MEAN CELL VOLUME 70.8 fl (80-96); MEAN PLT VOLUME 7.7 fl (7.5-11.1); PLATELET COUNT 851 K/MM3 (134-434); RBC 3.72 M/mm3 (3.60-5.2); RDW 35.7 % (11.6-15.6); WHITE BLOOD COUNT 15.5 K/mm3 (4.0-10.0)
--- NOTE | 2018-10-03 08:23 | PN ---
Teaching Attending Note Name of Resident: Therese Durán ATTENDING PHYSICIAN STATEMENT I saw and evaluated the patient. I reviewed the resident's note and discussed the case with the resident. I agree with the resident's findings and plan as documented. SUBJECTIVE: Patient is feeling better with no acute distress. No fever or chills overnight. OBJECTIVE: Vital Signs Temperature 99.7 F H 10/03/18 05:30 Pulse Rate 110 H 10/03/18 05:30 Respiratory Rate 16 10/03/18 05:30 Blood Pressure 111/50 L 10/03/18 05:30 O2 Sat by Pulse Oximetry (%) 99 10/02/18 21:00 GENERAL: Awake, alert, non verbal at baseline but answers to some questions. HEAD: No signs of trauma, normocephalic, atraumatic EYES: PERRLA, EOMI, sclera anicteric, conjunctiva clear ENT: oropharynx clear without exudates. NECK: Normal ROM, supple, no lymphadenopathy,no JVD, or masses LUNGS: No distress, clear to auscultation bilaterally HEART: Regular rate and rhythm, normal S1 and S2, no murmurs, rubs or gallops. ABDOMEN: normoactive bowel sounds. No guarding, no rebound. positive for Ostomy with stool, wound is clean. EXTREMITIES : Normal inspection, Normal range of motion, no edema. No clubbing or cyanosis. NEUROLOGICAL: Cranial nerves II through XII grossly intact. Left wrist contracted. Strength grossly intact. SKIN: Warm, Dry, normal turgor, no rashes or lesions noted CBCD WBC 15.5 K/mm3 (4.0-10.0) H 10/03/18 06:00 RBC 3.72 M/mm3 (3.60-5.2) 10/03/18 06:00 Hgb 8.2 GM/dL (10.7-15.3) L 10/03/18 06:00 Hct 26.3 % (32.4-45.2) L 10/03/18 06:00 MCV 70.8 fl (80-96) L 10/03/18 06:00 MCHC 31.3 g/dl (32.0-36.0) L 10/03/18 06:00 RDW 35.7 % (11.6-15.6) H 10/03/18 06:00 Plt Count 851 K/MM3 (134-434) H 10/03/18 06:00 MPV 7.7 fl (7.5-11.1) D 10/03/18 06:00 CMP Sodium 134 mmol/L (136-145) L 10/02/18 06:00 Potassium 4.3 mmol/L (3.5-5.1) 10/02/18 06:00 Chloride 99 mmol/L (98-107) 10/02/18 06:00 Carbon Dioxide 27 mmol/L (21-32) 10/02/18 06:00 Anion Gap 7 MMOL/L (8-16) L 10/02/18 06:00 BUN 6 mg/dL (7-18) L 10/02/18 06:00 Creatinine 0.5 mg/dL (0.55-1.3) L 10/02/18 06:00 Creat Clearance w eGFR 131.69 (>60) 10/02/18 06:00 Random Glucose 113 mg/dL (74-106) H 10/02/18 06:00 Calcium 8.6 mg/dL (8.5-10.1) 10/02/18 06:00 Total Bilirubin 0.2 mg/dL (0.2-1) 09/24/18 06:00 AST 42 U/L (15-37) H 09/24/18 06:00 ALT 29 U/L (13-61) 09/24/18 06:00 Alkaline Phosphatase 170 U/L (45-117) H 09/24/18 06:00 Total Protein 6.0 g/dl (6.4-8.2) L 09/24/18 06:00 Albumin 1.8 g/dl (3.4-5.0) L 09/24/18 06:00 Current Medications Generic Name Dose Route Start Last Admin Trade Name Freq PRN Reason Stop Dose Admin Acetaminophen 650 mg 09/30/18 13:57 10/02/18 13:34 Tylenol - PO 650 mg Q6H PRN Administration FEVER Ascorbic Acid 500 mg 10/01/18 10:00 10/02/18 22:31 Vitamin C - PO Not Given BID FLORIN Carbamazepine 400 mg 10/01/18 10:00 10/02/18 12:07 Tegretol Xr - PO 400 mg DAILY FLORIN Administration Carbamazepine 600 mg 10/01/18 22:00 10/02/18 22:32 Tegretol Xr - PO 600 mg HS FLORIN Administration Enoxaparin Sodium 40 mg 10/01/18 10:00 10/02/18 12:07 Lovenox - SQ 40 mg DAILY FLORIN Administration Sodium Chloride 1,000 mls @ 125 mls/hr 10/02/18 09:15 10/02/18 22:45 Normal Saline - IV 10/03/18 17:14 125 mls/hr ASDIR FLORIN Administration Levothyroxine Sodium 75 mcg 10/01/18 07:00 10/03/18 06:05 Synthroid - PO Not Given AM [facility] Magnesium Oxide 400 mg 10/01/18 10:00 10/02/18 22:31 Mag-Ox - PO Not Given BID [facility] Morphine Sulfate 4 mg 10/01/18 00:29 10/03/18 05:43 Morphine Sulfate IVPB 4 mg Q3H PRN Administration PAIN LEVEL 7 - 10 Ondansetron HCl 8 mg 10/02/18 17:46 10/02/18 18:09 Zofran Injection IVPB 8 mg Q12H PRN Administration NAUSEA Oxycodone HCl 7.5 mg 10/01/18 00:29 10/02/18 18:06 Roxicodone - PO 7.5 mg Q4H PRN Administration PAIN LEVEL 4 - 6 Pantoprazole Sodium 40 mg 10/01/18 10:00 10/02/18 12:07 Protonix - PO 40 mg DAILY FLORIN Administration Home Medications Medication Instructions Recorded Calcium Carbonate [Super Calcium] 600 mg PO BID 09/17/18 Carbamazepine Xr [Tegretol XR -] 400 mg PO AM 09/17/18 Carbamazepine Xr [Tegretol XR -] 600 mg PO HS 09/17/18 Ferrous Sulfate 325 mg PO TID 09/17/18 Levothyroxine [Synthroid -] 75 mcg PO DAILY 09/17/18 Cholecalciferol (Vitamin D3) 2,000 units PO DAILY 09/18/18 [Vitamin D3] Docusate Sodium [Colace -] 100 mg PO BID 09/18/18 Pantoprazole Sodium [Protonix -] 40 mg PO DAILY #30 tablet.ec 10/01/18 ASSESSMENT AND PLAN: Patient is a 48 yo female with a PMHx of epilepsy, chronic 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 with subsequent brain damage (patient is non-verbal) requiring 3VP shunts last one being in 1990), hypothyroidism she came to the ED after was found to have a low hemoglobin level of 4.6 # POD #4 s/p diverting loop colostomy due to New diagnosis of metastatic colon cancer with mets to liver, lungs, and R adrenal gland. chemo as an outpatient once patient is stable. #Right colon neoplasm /lung/liver masses s/p liver Bx.result : Adenocarcinoma, moderately differentiated , compatible with lower GI tract/ Colon origin. GI / Onc on the case. right colon pathology: benign colonic mucosa with focal lamina propia edema, no carcinoma or adenomatous changes. # Right adrenal mass primary vs metastatic disease (2.5 x 2.5 x 2.0 cm): #Thrombocytosis: elevated , but trending down , oncology is aware. # s/p Fever on and off with leukocytosis: likely due to having tumor fever.as per ID, to re-panculture her, will repeat CXR. # H/o Seizures, cont tegretol # s/p superficial thrombophlebitis in upper arm improved. # Acute Chronic blood loss anemia, most likely due to colon Cancer. stable HB. #s/p Fecal impaction; on colace and Miralax # Hx of hypothyroidism on levoxyl continue # Acute hyponatremia improved s/p IVF DVT Px: lovenox sq discharge if stable
[2018-10-03 09:05] LABS: BLOOD UREA NITROGEN 6 mg/dL (7-18); CHLORIDE 103 mmol/L (98-107); CREATININE 0.3 mg/dL (0.55-1.3); GLUCOSE,RANDOM 83 mg/dL (74-106); POTASSIUM 4.5 mmol/L (3.5-5.1); SODIUM 133 mmol/L (136-145)
[2018-10-03 09:06] LABS: ANION GAP 4 MMOL/L (8-16); CALCIUM 8.5 mg/dL (8.5-10.1); CO2 26 mmol/L (21-32); MAGNESIUM 2.2 mg/dL (1.8-2.4); PHOSPHOROUS 3.4 mg/dL (2.5-4.9)
[2018-10-03] MEDS ORDERED: MORPHINE SULFATE 2 MG/ML VIAL IVPUSH PRN (09:15)
[2018-10-03] MEDS ORDERED: oxyCODONE HCL 5 MG TABLET PO PRN (09:15)
[2018-10-03] MEDS ORDERED: morphine SULFATE 4 MG/ML VIAL IVPUSH PRN (09:18)
[2018-10-03] MEDS ORDERED: PT OWN MED DRAWER 7, Y5N ONE ×3 (10:05→22:54)
[2018-10-03] MEDS: ASCORBIC ACID 500 MG TABLET (FP) PO SCH ×2 (10:09→22:54)
[2018-10-03] MEDS: carBAMazepine XR 400 MG TAB.ER.12H PO SCH (10:09)
[2018-10-03] MEDS: PANTOPRAZOLE 40 MG TABLET (FP) PO SCH (10:09)
[2018-10-03] MEDS: MAGNESIUM OXIDE 400 MG TABLET (FP) PO SCH ×2 (10:10→22:54)
[2018-10-03] MEDS: LACTATED RINGERS SOLUTION 1,000 ML/1,000 ML INFUS.BAG IV SCH ×2 (10:20→20:18)
[2018-10-03] MEDS: ENOXAPARIN NA (PORCINE) 40 MG/0.4 ML DISP.SYRIN SQ SCH (10:21)
--- NOTE | 2018-10-03 13:45 | PN ---
Physical Exam: SUBJECTIVE: Patient seen and examined at bedside-patient was found to have possible partial SBO on XRAY yesterday; she still had a fever of 101.6 early evenins yesterday OBJECTIVE: Vital Signs Period Temp Pulse Resp BP Sys/Martin Pulse Ox Last 24 Hr 97.4 F-101.5 F 104-124 16- 108-126/50-64 99 GENERAL: The patient is awake, alert, and fully oriented, in no acute distress.. EYES: PEERLA: EOMI no scleral icterus NECK: no JVD; no lymphadenopathy LUNGS: diminished breath sounds. HEART: Regular rate and rhythm, S1, S2 without murmur, rub or gallop. ABDOMEN: slight distention; no wincing upon palpation; ileostomy bag in place with yellowish-liquid color EXTREMITIES: 2+ pulses, warm, well-perfused, no edema. . PSYCH: Normal mood, normal affect. SKIN: Warm, dry, normal turgor, no rashes or lesions noted Laboratory Results - last 24 hr 10/02/18 10/03/18 10/03/18 16:00 06:00 06:00 WBC 15.5 H RBC 3.72 Hgb 8.2 L Hct 26.3 L MCV 70.8 L MCH 22.2 L MCHC 31.3 L RDW 35.7 H Plt Count 851 H MPV 7.7 D Sodium 133 L Potassium 4.5 Chloride 103 Carbon Dioxide 26 Anion Gap 4 L BUN 6 L Creatinine 0.3 L Creat Clearance w eGFR 237.44 Random Glucose 83 Calcium 8.5 Phosphorus 3.4 Magnesium 2.2 Urine Color Yellow Urine Appearance Clear Urine pH 6.0 Ur Specific Sabinal 1.011 Urine Protein Negative Urine Glucose (UA) Negative Urine Ketones Negative Urine Blood Negative Urine Nitrite Negative Urine Bilirubin Negative Urine Urobilinogen 0.2 Ur Leukocyte Esterase Negative Urine WBC (Auto) 3 Urine RBC (Auto) 1 Urine Casts (Auto) 6 U Epithel Cells (Auto) 1.2 Urine Bacteria (Auto) 12.3 Active Medications Generic Name Dose Route Start Last Admin Trade Name Freq PRN Reason Stop Dose Admin Acetaminophen 650 mg 09/30/18 13:57 10/02/18 13:34 Tylenol - PO 650 mg Q6H PRN Administration FEVER Ascorbic Acid 500 mg 10/01/18 10:00 10/03/18 10:09 Vitamin C - PO 500 mg BID FLORIN Administration Carbamazepine 400 mg 10/01/18 10:00 10/03/18 10:09 Tegretol Xr - PO 400 mg DAILY FLORIN Administration Carbamazepine 600 mg 10/01/18 22:00 10/02/18 22:32 Tegretol Xr - PO 600 mg HS FLORIN Administration Enoxaparin Sodium 40 mg 10/01/18 10:00 10/03/18 10:21 Lovenox - SQ 40 mg DAILY FLORIN Administration Lactated Ringer's 1,000 ml in 1,000 mls @ 125 mls/hr 10/03/18 10:00 10/03/18 10:20 Lactated Ringers Solution IV 125 mls/hr ASDIR FLORIN Administration Levothyroxine Sodium 75 mcg 10/01/18 07:00 10/03/18 06:05 Synthroid - PO Not Given AM [facility] Magnesium Oxide 400 mg 10/01/18 10:00 10/03/18 10:10 Mag-Ox - PO 400 mg BID FLORIN Administration Morphine Sulfate 2 mg 10/03/18 09:18 Morphine Sulfate IVPUSH Q4H PRN PAIN LEVEL 7 - 10 Ondansetron HCl 8 mg 10/02/18 17:46 10/02/18 18:09 Zofran Injection IVPB 8 mg Q12H PRN Administration NAUSEA Oxycodone HCl 5 mg 10/03/18 09:15 Roxicodone - PO Q4H PRN PAIN LEVEL 6-10 Pantoprazole Sodium 40 mg 10/01/18 10:00 10/03/18 10:09 Protonix - PO 40 mg DAILY FLORIN Administration ASSESSMENT/PLAN: 48 y/o female with a PMH of epilepsy, chronic 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 requiring 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 WASTE MATERIAL TECHNICIAN shunts, hypothyroidism presents to the ED with a one week history of worsening fatigue, loss of appetite, found to have a hemoglobin of 4.6 and was FOBT positive found to now have metastatic colon cancer #Newly found lower GI tract/colon ca patient is POD #3 for diverting loop ileostomy; she was found to have a partial SBO on xray ; surgical f/u heme onc on board; discussions in session regarding treatment plans patient will start chemo as an outpatient in about 2 weeks #Chronic Hydrocephalus w/ HAZARDOUS WASTE MATERIAL TECHNICIAN shunt -stable #Seizures -c/w home medication: tegretol 200: 2 tablets in AM; 3 tablets PM #Hypothyroidism c/w synthroid 75 mcg daily #Severe malnutriton ensure additivies F/E/N d5w@100 monitor electrolytes NPO for now Problem List - Problems (1) Seizure Code(s): R56.9 - UNSPECIFIED CONVULSIONS (2) Hydrocephalus Code(s): G91.9 - HYDROCEPHALUS, UNSPECIFIED Qualifiers: Hydrocephalus type: communicating Qualified Code(s): G91.0 - Communicating 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 (3) Anemia Code(s): D64.9 - ANEMIA, UNSPECIFIED Qualifiers: Anemia type: unspecified type Qualified Code(s): D64.9 - Anemia, unspecified (4) GI bleed Code(s): K92.2 - GASTROINTESTINAL HEMORRHAGE, UNSPECIFIED Qualifiers: GI bleed type/associated pathology: unspecified gastrointestinal hemorrhage type Qualified Code(s): K92.2 - Gastrointestinal hemorrhage, unspecified Visit type - Emergency Visit Emergency Visit: Yes ED Registration Date: 09/17/18 Care time: The patient presented to the Emergency Department on the above date and was hospitalized for further evaluation of their emergent condition. - New Patient This patient is new to me today: No - Critical Care Critical Care patient: No
--- NOTE | 2018-10-03 15:17 | PN ---
Progress Note (short form) - Note Progress Note: surgery pt seen and examined. tolerating liquids today. large amount of gas and liquid in ilestomy. kub reviewed. tmax 99.7. mother states mental status is baseline. No abx per ID. abd- moderate distension, ileostomy producing, mild tenderness Laboratory Tests 09/30/18 10/03/18 06:30 06:00 WBC 18.0 H 15.5 H Plan- 1) Pod#4- s/p palliative loop ileostomy. functioning well. No complications from the surgery. Pt likely has some gut dysfunction from metastatic disease which can explain kub abnormalities. No need for Ct as expected free air and fluid with confuse the clinical picture. cont liquids. consider prokinetic agents (reglan/oral e-mycin) No surgical contraindications to discharge. elevated wbc was prior to surgery and fever felt to be from tumor per medical team. Can advance to regular diet if continues to tolerating liquids.
[2018-10-03] MEDS: ACETAMINOPHEN 325 MG TABLET (FP) PO PRN (17:13)
[2018-10-03 18:52] LABS: EPI CELLS 4.2 /HPF (0-5); URINE APPEARANCE CLEAR; URINE BACTERIA 20.5 /hpf (NEGATIVE); URINE BILIRUBIN NEGATIVE (NEGATIVE); URINE CASTS 2 /hpf (0-8); URINE COLOR DK YELLOW; URINE GLUCOSE (UA) NEGATIVE (NEGATIVE); URINE KETONE 1+ (NEGATIVE); URINE LEUK ESTERASE TRACE (NEGATIVE); URINE NITRITE NEGATIVE (NEGATIVE); URINE PROTEIN TRACE (NEGATIVE); URINE RBC 2 /hpf (0-4); URINE UROBILINOGEN 0.2 mg/dL (0.2-1.0); URINE WBC 6 /hpf (0-5)
--- NOTE | 2018-10-03 19:43 | PN ---
Progress Note (short form) - Note Progress Note: Patient seen and examined Has abdominal pain/ fever. 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 Patient unable to provide history. Imaging studies concerning for liver metastasess/adrenal met clinical scenario suspicious for metastatic colon cancer s/p Liver biopsy/ PDL1 staining/Her2 staining/MSI pending s/p laparoscopic loop ileostomy for near obstructing primary Ongoing discussions regarding chemotherapy fevers--? tuor ? post op cx pendng will request id consult pain control surgical f/u noted
[2018-10-03] MEDS: carBAMazepine XR 200 MG TAB.ER.12H PO SCH (22:54)
[2018-10-04] MEDS: ACETAMINOPHEN 325 MG TABLET (FP) PO PRN ×3 (01:34→20:31)
[2018-10-04] MEDS: LEVOTHYROXINE NA 75 MCG TABLET (FP) PO SCH (07:03)
[2018-10-04 08:30] LABS: ANION GAP 7 MMOL/L (8-16); BLOOD UREA NITROGEN 4 mg/dL (7-18); CHLORIDE 102 mmol/L (98-107); CO2 27 mmol/L (21-32); CREATININE 0.4 mg/dL (0.55-1.3); GLUCOSE,RANDOM 84 mg/dL (74-106); MAGNESIUM 1.8 mg/dL (1.8-2.4); PHOSPHOROUS 3.6 mg/dL (2.5-4.9); POTASSIUM 4.5 mmol/L (3.5-5.1); SODIUM 136 mmol/L (136-145)
[2018-10-04 08:33] LABS: HEMATOCRIT 27.1 % (32.4-45.2); HEMOGLOBIN 8.2 GM/dL (10.7-15.3); MCH 21.6 pg (25.7-33.7); MCHC 30.4 g/dl (32.0-36.0); MEAN PLT VOLUME 7.9 fl (7.5-11.1); PLATELET COUNT 945 K/MM3 (134-434); RBC 3.82 M/mm3 (3.60-5.2); RDW 36.1 % (11.6-15.6); WHITE BLOOD COUNT 19.6 K/mm3 (4.0-10.0)
--- NOTE | 2018-10-04 09:48 | PN ---
Progress Note (short form) - Note Progress Note: asked to re-evaluate patient for fever this am awake and alert temp of 102.9 overnight chart reviewed Vital Signs Period Temp Pulse Resp BP Sys/Martin Pulse Ox Last 24 Hr 98.5 F-102.9 F 107-122 16-20 98-120/50-67 98 thin, NAD cor-rrr lungs decreased bs at bases abd firm, diffuse tenderness to palpation +ostomy suprapubic trochar incision site- no drainage ext no edema CBC, BMP 10/04/18 06:00 10/04/18 06:00 cxray no infiltrate UA negative blood cultures and urine culture are pending Microbiology 10/02/18 16:00 Urine - Urine Clean Catch Urine Culture - Final 09/18/18 02:15 Blood - Peripheral Venous Blood Culture - Final NO GROWTH AFTER 5 DAYS INCUBATION 09/18/18 02:45 Blood - Peripheral Venous Blood Culture - Final NO GROWTH AFTER 5 DAYS INCUBATION 09/18/18 02:45 Urine - Urine Clean Catch Urine Culture - Final NO GROWTH OBTAINED meds reviewed a/p fevers-new with rising WBC count s/p laparoscopic loop ostomy 09/29 metastatic adenocarcinoma RETAIL MERCHANDISER TECHNICIAN shunt will start vancomycin and zosyn ct scan abd/pelvis- to d/w surgery d/w hospitalist d/w mother at bedside Problem List - Problems (1) Fever Code(s): R50.9 - FEVER, UNSPECIFIED (2) Leukocytosis Code(s): D72.829 - ELEVATED WHITE BLOOD CELL COUNT, UNSPECIFIED (3) Liver masses Code(s): R16.0 - HEPATOMEGALY, NOT ELSEWHERE CLASSIFIED (4) Anemia Code(s): D64.9 - ANEMIA, UNSPECIFIED Qualifiers: Anemia type: unspecified type Qualified Code(s): D64.9 - Anemia, unspecified
[2018-10-04] MEDS ORDERED: PT OWN MED DRAWER 7, Y5N ONE ×2 (09:49→21:19)
[2018-10-04] MEDS: ASCORBIC ACID 500 MG TABLET (FP) PO SCH ×2 (09:58→21:54)
[2018-10-04] MEDS: PANTOPRAZOLE 40 MG TABLET (FP) PO SCH (09:58)
[2018-10-04] MEDS: carBAMazepine XR 400 MG TAB.ER.12H PO SCH (09:58)
[2018-10-04] MEDS: MAGNESIUM OXIDE 400 MG TABLET (FP) PO SCH ×2 (09:58→21:54)
[2018-10-04] MEDS: ENOXAPARIN NA (PORCINE) 40 MG/0.4 ML DISP.SYRIN SQ SCH (09:59)
--- NOTE | 2018-10-04 10:05 | PN ---
Progress Note (short form) - Note Progress Note: Had fever overnight. and has low grade fever today. Vital Signs Temperature 100.4 F H 10/04/18 09:54 Pulse Rate 117 H 10/04/18 09:54 Respiratory Rate 16 10/04/18 09:54 Blood Pressure 106/56 L 10/04/18 09:54 O2 Sat by Pulse Oximetry (%) 98 10/03/18 21:00 GENERAL: Awake, alert, non verbal at baseline but answers to some questions. HEAD: No signs of trauma, normocephalic, atraumatic EYES: PERRLA, EOMI, sclera anicteric, conjunctiva clear ENT: oropharynx clear without exudates. NECK: Normal ROM, supple, no lymphadenopathy,no JVD, or masses LUNGS: No distress, clear to auscultation bilaterally HEART: tachycardia with rate of 117, normal S1 and S2, no murmurs, rubs or gallops. ABDOMEN: normoactive bowel sounds. No guarding, no rebound. positive for Ostomy with stool, wound is clean. EXTREMITIES : Normal inspection, Normal range of motion, no edema. No clubbing or cyanosis. NEUROLOGICAL: Cranial nerves II through XII grossly intact. Left wrist contracted. SKIN: Warm, Dry, normal turgor, no rashes or lesions noted CBCD WBC 19.6 K/mm3 (4.0-10.0) H 10/04/18 06:00 RBC 3.82 M/mm3 (3.60-5.2) 10/04/18 06:00 Hgb 8.2 GM/dL (10.7-15.3) L 10/04/18 06:00 Hct 27.1 % (32.4-45.2) L 10/04/18 06:00 MCV 71.0 fl (80-96) L 10/04/18 06:00 MCHC 30.4 g/dl (32.0-36.0) L 10/04/18 06:00 RDW 36.1 % (11.6-15.6) H 10/04/18 06:00 Plt Count 945 K/MM3 (134-434) H 10/04/18 06:00 MPV 7.9 fl (7.5-11.1) 10/04/18 06:00 CMP Sodium 136 mmol/L (136-145) 10/04/18 06:00 Potassium 4.5 mmol/L (3.5-5.1) 10/04/18 06:00 Chloride 102 mmol/L (98-107) 10/04/18 06:00 Carbon Dioxide 27 mmol/L (21-32) 10/04/18 06:00 Anion Gap 7 MMOL/L (8-16) L 10/04/18 06:00 BUN 4 mg/dL (7-18) L 10/04/18 06:00 Creatinine 0.4 mg/dL (0.55-1.3) L 10/04/18 06:00 Creat Clearance w eGFR 170.36 (>60) 10/04/18 06:00 Random Glucose 84 mg/dL (74-106) 10/04/18 06:00 Calcium 8.0 mg/dL (8.5-10.1) L 10/04/18 06:00 Total Bilirubin 0.2 mg/dL (0.2-1) 09/24/18 06:00 AST 42 U/L (15-37) H 09/24/18 06:00 ALT 29 U/L (13-61) 09/24/18 06:00 Alkaline Phosphatase 170 U/L (45-117) H 09/24/18 06:00 Total Protein 6.0 g/dl (6.4-8.2) L 09/24/18 06:00 Albumin 1.8 g/dl (3.4-5.0) L 09/24/18 06:00 Current Medications Generic Name Dose Route Start Last Admin Trade Name Freq PRN Reason Stop Dose Admin Acetaminophen 650 mg 09/30/18 13:57 10/04/18 10:00 Tylenol - PO 650 mg Q6H PRN Administration FEVER Ascorbic Acid 500 mg 10/01/18 10:00 10/04/18 09:58 Vitamin C - PO 500 mg BID FLORIN Administration Carbamazepine 400 mg 10/01/18 10:00 10/04/18 09:58 Tegretol Xr - PO 400 mg DAILY FLORIN Administration Carbamazepine 600 mg 10/01/18 22:00 10/03/18 22:54 Tegretol Xr - PO 600 mg HS FLORIN Administration Enoxaparin Sodium 40 mg 10/01/18 10:00 10/04/18 09:59 Lovenox - SQ 40 mg DAILY FLORIN Administration Lactated Ringer's 1,000 ml in 1,000 mls @ 125 mls/hr 10/03/18 10:00 10/03/18 20:18 Lactated Ringers Solution IV 125 mls/hr ASDIR FLORIN Administration Piperacillin Sod/Tazobactam 50 mls @ 100 mls/hr 10/04/18 10:00 Sod 3.375 gm/ Dextrose IVPB Q8H-IV FLORIN Protocol Vancomycin HCl 750 mg/ 250 mls @ 250 mls/hr 10/04/18 11:00 Dextrose IVPB BID@1100,2300 [facility] Protocol Levothyroxine Sodium 75 mcg 10/01/18 07:00 10/04/18 07:03 Synthroid - PO 75 mcg AM FLORIN Administration Magnesium Oxide 400 mg 10/01/18 10:00 10/04/18 09:58 Mag-Ox - PO 400 mg BID FLORIN Administration Morphine Sulfate 2 mg 10/03/18 09:18 10/04/18 10:00 Morphine Sulfate IVPUSH 2 mg Q4H PRN Administration PAIN LEVEL 7 - 10 Ondansetron HCl 8 mg 10/02/18 17:46 10/02/18 18:09 Zofran Injection IVPB 8 mg Q12H PRN Administration NAUSEA Oxycodone HCl 5 mg 10/03/18 09:15 Roxicodone - PO Q4H PRN PAIN LEVEL 6-10 Pantoprazole Sodium 40 mg 10/01/18 10:00 10/04/18 09:58 Protonix - PO 40 mg DAILY FLORIN Administration Home Medications Medication Instructions Recorded Calcium Carbonate [Super Calcium] 600 mg PO BID 09/17/18 Carbamazepine Xr [Tegretol XR -] 400 mg PO AM 09/17/18 Carbamazepine Xr [Tegretol XR -] 600 mg PO HS 09/17/18 Ferrous Sulfate 325 mg PO TID 09/17/18 Levothyroxine [Synthroid -] 75 mcg PO DAILY 09/17/18 Cholecalciferol (Vitamin D3) 2,000 units PO DAILY 09/18/18 [Vitamin D3] Docusate Sodium [Colace -] 100 mg PO BID 09/18/18 Pantoprazole Sodium [Protonix -] 40 mg PO DAILY #30 tablet.ec 10/01/18 Assessment and plan: Patient is a 48 yo female with a PMHx of epilepsy, chronic 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 with subsequent brain damage (patient is non-verbal) requiring 3VP shunts last one being in 1990), hypothyroidism she came to the ED after was found to have a low hemoglobin level of 4.6. # Acute leukocytosis with fever; sepsis, leukocytosis, empiric antibiotic for now , discussed with the surgeon dr Napoles and Id dr. Frederick , will wait to scan her abdomen for now, discussed with ID, will start her on IV antibiotics ; vanco and zosyn, duplex of lower extremities to r/o DVT. will continue with incentive spirometer. Ocampo-culture is pending. # POD #5 s/p diverting loop colostomy due to New diagnosis of metastatic colon cancer with mets to liver, lungs, and R adrenal gland. chemo as an outpatient once patient is stable. #Right colon neoplasm /lung/liver masses s/p liver Bx.result : Adenocarcinoma, moderately differentiated , compatible with lower GI tract/ Colon origin. GI / Onc on the case. right colon pathology: benign colonic mucosa with focal lamina propia edema, no carcinoma or adenomatous changes. # Right adrenal mass primary vs metastatic disease (2.5 x 2.5 x 2.0 cm): #Thrombocytosis: elevated , but trending down , oncology is aware. # H/o Seizures, cont tegretol # s/p superficial thrombophlebitis in upper arm improved. # Acute Chronic blood loss anemia, most likely due to colon Cancer. stable HB. #s/p Fecal impaction; on colace and Miralax # Hx of hypothyroidism on levoxyl continue # Acute hyponatremia improved s/p IVF DVT Px: lovenox sq duplex of lower exteremities Visit type - Emergency Visit Emergency Visit: Yes ED Registration Date: 09/17/18 Care time: The patient presented to the Emergency Department on the above date and was hospitalized for further evaluation of their emergent condition. - New Patient This patient is new to me today: No - Critical Care Critical Care patient: No - Discharge Referral Referred to [facility] No
[2018-10-04] MEDS ORDERED: DEXTROSE 5%-WATER - 50 ML IVPB ONE ×2 (10:08→16:58)
[2018-10-04] MEDS ORDERED: PIPERACILLIN/TAZOBACTAM 3.375 GM VIAL IVPB ONE ×2 (10:08→16:58)
[2018-10-04] MEDS: PIPERACILLIN/TAZOB 3.375 GM 3.375 GM in DEXTROSE 5%-WATER - 50 ML IVPB SCH ×2 (10:14→17:17)
[2018-10-04] MEDS: VANCOMYCIN 750 MG in DEXTROSE 5%-WATER - 250 ML IVPB SCH ×2 (12:29→23:30)
[2018-10-04] MEDS: LACTATED RINGERS SOLUTION 1,000 ML/1,000 ML INFUS.BAG IV SCH (12:29)
--- NOTE | 2018-10-04 16:41 | PN ---
Progress Note (short form) - Note Progress Note: Patient seen in follow up. No new issues as per mother. No significant events overnight. Inpatient Meds reviewed. Current Medications Generic Name Dose Route Start Last Admin Trade Name Freq PRN Reason Stop Dose Admin Acetaminophen 650 mg 09/30/18 13:57 10/04/18 10:00 Tylenol - PO 650 mg Q6H PRN Administration FEVER Ascorbic Acid 500 mg 10/01/18 10:00 10/04/18 09:58 Vitamin C - PO 500 mg BID FLORIN Administration Carbamazepine 400 mg 10/01/18 10:00 10/04/18 09:58 Tegretol Xr - PO 400 mg DAILY FLORIN Administration Carbamazepine 600 mg 10/01/18 22:00 10/03/18 22:54 Tegretol Xr - PO 600 mg HS FLORIN Administration Enoxaparin Sodium 40 mg 10/01/18 10:00 10/04/18 09:59 Lovenox - SQ 40 mg DAILY FLORIN Administration Lactated Ringer's 1,000 ml in 1,000 mls @ 125 mls/hr 10/03/18 10:00 10/04/18 12:29 Lactated Ringers Solution IV 125 mls/hr ASDIR FLORIN Administration Piperacillin Sod/Tazobactam 50 mls @ 100 mls/hr 10/04/18 10:00 10/04/18 10:14 Sod 3.375 gm/ Dextrose IVPB 100 mls/hr Q8H-IV FLORIN Administration Protocol Vancomycin HCl 750 mg/ 250 mls @ 250 mls/hr 10/04/18 11:00 10/04/18 12:29 Dextrose IVPB 250 mls/hr BID@1100,2300 FLORIN Administration Protocol Levothyroxine Sodium 75 mcg 10/01/18 07:00 10/04/18 07:03 Synthroid - PO 75 mcg AM FLORIN Administration Magnesium Oxide 400 mg 10/01/18 10:00 10/04/18 09:58 Mag-Ox - PO 400 mg BID FLORIN Administration Morphine Sulfate 2 mg 10/03/18 09:18 10/04/18 10:00 Morphine Sulfate IVPUSH 2 mg Q4H PRN Administration PAIN LEVEL 7 - 10 Ondansetron HCl 8 mg 10/02/18 17:46 10/02/18 18:09 Zofran Injection IVPB 8 mg Q12H PRN Administration NAUSEA Oxycodone HCl 5 mg 10/03/18 09:15 Roxicodone - PO Q4H PRN PAIN LEVEL 6-10 Pantoprazole Sodium 40 mg 10/01/18 10:00 10/04/18 09:58 Protonix - PO 40 mg DAILY FLORIN Administration On Examination: Last Vital Signs Temp Pulse Resp BP Pulse Ox 99.3 F 105 H 16 101/61 98 10/04/18 14:10/04/18 14:10/04/18 14:10/04/18 14:10/04/18 09:00 General: In no acute distress, lying comfortably in bed. Extremities: No pallor or icterus. No pedal edema. No palpable lymphadenopathy. CVS: S1, S2, regular, no gallop or murmur. Chest: good air entry bilaterally, clear Abdomen: Non-distended, non-tender, no palpable organomegaly. Neuro: Alert, oriented, non-focal. Labs: CBC, BMP 10/04/18 06:00 10/04/18 06:00 Assessment. 48 yo F with h/o epilepsy, congenital 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, s/p AREA COORDINATOR shunt, presented with weakness severe anemia, attributable to metastatic (liver, adrenals) disease, likely colon - s/p diverting colostomy - POD5 - workup ongoing Fever last night - empiric Abics - ID following. Will continue to follow alongside. Microcytic anemia - likely iron deficiency - would consider IV iron when question of sepsis settled.
[2018-10-04] MEDS: carBAMazepine XR 200 MG TAB.ER.12H PO SCH (21:54)
[2018-10-04] MEDS ORDERED: ACETAMINOPHEN 1000 MG/100 ML VIAL (NON FORMULARY) IVPB ONE (22:05)
[2018-10-05] MEDS ORDERED: PIPERACILLIN/TAZOBACTAM 3.375 GM VIAL IVPB ONE ×3 (02:13→17:20)
[2018-10-05] MEDS ORDERED: DEXTROSE 5%-WATER - 50 ML IVPB ONE ×3 (02:13→17:20)
[2018-10-05] MEDS: PIPERACILLIN/TAZOB 3.375 GM 3.375 GM in DEXTROSE 5%-WATER - 50 ML IVPB SCH ×3 (02:30→17:30)
[2018-10-05] MEDS: LEVOTHYROXINE NA 75 MCG TABLET (FP) PO SCH (06:44)
[2018-10-05] MEDS: LACTATED RINGERS SOLUTION 1,000 ML/1,000 ML INFUS.BAG IV SCH ×3 (06:45→17:31)
--- NOTE | 2018-10-05 09:17 | PN ---
Teaching Attending Note Name of Resident: Ren Wahl ATTENDING PHYSICIAN STATEMENT I saw and evaluated the patient. I reviewed the resident's note and discussed the case with the resident. I agree with the resident's findings and plan as documented. SUBJECTIVE: fever overnight noted. OBJECTIVE: Vital Signs Temperature 98.7 F 10/05/18 06:00 Pulse Rate 105 H 10/05/18 06:00 Respiratory Rate 18 10/05/18 06:00 Blood Pressure 99/68 10/05/18 06:00 O2 Sat by Pulse Oximetry (%) 99 10/04/18 21:00 GENERAL: Awake, alert, non verbal at baseline but answers to some questions. HEAD: No signs of trauma, normocephalic, atraumatic EYES: PERRLA, EOMI, sclera anicteric, conjunctiva clear ENT: oropharynx clear without exudates. NECK: Normal ROM, supple, no lymphadenopathy,no JVD, or masses LUNGS: No distress, clear to auscultation bilaterally HEART: tachycardia with rate of 105, normal S1 and S2, no murmurs, rubs or gallops. ABDOMEN: normoactive bowel sounds. No guarding, no rebound. positive for Ostomy with stool, wound is clean. EXTREMITIES : Normal inspection, Normal range of motion, no edema. No clubbing or cyanosis. NEUROLOGICAL: Cranial nerves II through XII grossly intact. Left wrist contracted. SKIN: Warm, Dry, normal turgor, no rashes or lesions noted CBCD WBC 19.6 K/mm3 (4.0-10.0) H 10/04/18 06:00 RBC 3.82 M/mm3 (3.60-5.2) 10/04/18 06:00 Hgb 8.2 GM/dL (10.7-15.3) L 10/04/18 06:00 Hct 27.1 % (32.4-45.2) L 10/04/18 06:00 MCV 71.0 fl (80-96) L 10/04/18 06:00 MCHC 30.4 g/dl (32.0-36.0) L 10/04/18 06:00 RDW 36.1 % (11.6-15.6) H 10/04/18 06:00 Plt Count 945 K/MM3 (134-434) H 10/04/18 06:00 MPV 7.9 fl (7.5-11.1) 10/04/18 06:00 CMP Sodium 136 mmol/L (136-145) 10/04/18 06:00 Potassium 4.5 mmol/L (3.5-5.1) 10/04/18 06:00 Chloride 102 mmol/L (98-107) 10/04/18 06:00 Carbon Dioxide 27 mmol/L (21-32) 10/04/18 06:00 Anion Gap 7 MMOL/L (8-16) L 10/04/18 06:00 BUN 4 mg/dL (7-18) L 10/04/18 06:00 Creatinine 0.4 mg/dL (0.55-1.3) L 10/04/18 06:00 Creat Clearance w eGFR 170.36 (>60) 10/04/18 06:00 Random Glucose 84 mg/dL (74-106) 10/04/18 06:00 Calcium 8.0 mg/dL (8.5-10.1) L 10/04/18 06:00 Total Bilirubin 0.2 mg/dL (0.2-1) 09/24/18 06:00 AST 42 U/L (15-37) H 09/24/18 06:00 ALT 29 U/L (13-61) 09/24/18 06:00 Alkaline Phosphatase 170 U/L (45-117) H 09/24/18 06:00 Total Protein 6.0 g/dl (6.4-8.2) L 09/24/18 06:00 Albumin 1.8 g/dl (3.4-5.0) L 09/24/18 06:00 Current Medications Generic Name Dose Route Start Last Admin Trade Name Freq PRN Reason Stop Dose Admin Acetaminophen 650 mg 09/30/18 13:57 10/04/18 20:31 Tylenol - PO 650 mg Q6H PRN Administration FEVER Ascorbic Acid 500 mg 10/01/18 10:00 10/04/18 21:54 Vitamin C - PO 500 mg BID FLORIN Administration Carbamazepine 400 mg 10/01/18 10:00 10/04/18 09:58 Tegretol Xr - PO 400 mg DAILY [facility]OR[facility] Administration Carbamazepine 600 mg 10/01/18 22:00 10/04/18 21:54 Tegretol Xr - PO 600 mg HS [facility]ORIN Administration Enoxaparin Sodium 40 mg 10/01/18 10:00 10/04/18 09:59 Lovenox - SQ 40 mg DAILY [facility] Administration Lactated Ringer's 1,000 ml in 1,000 mls @ 125 mls/hr 10/03/18 10:00 10/05/18 06:45 Lactated Ringers Solution IV 125 mls/hr ASDIR [facility] Administration Piperacillin Sod/Tazobactam 50 mls @ 100 mls/hr 10/04/18 10:00 10/05/18 02:30 Sod 3.375 gm/ Dextrose IVPB 100 mls/hr Q8H-IV [facility] Administration Protocol Vancomycin HCl 750 mg/ 250 mls @ 250 mls/hr 10/04/18 11:00 10/04/18 23:30 Dextrose IVPB 250 mls/hr BID@1100,2300 [facility] Administration Protocol Levothyroxine Sodium 75 mcg 10/01/18 07:00 10/05/18 06:44 Synthroid - PO 75 mcg AM [facility] Administration Magnesium Oxide 400 mg 10/01/18 10:00 10/04/18 21:54 Mag-Ox - PO 400 mg BID [facility] Administration Morphine Sulfate 2 mg 10/03/18 09:18 10/04/18 10:00 Morphine Sulfate IVPUSH 2 mg Q4H PRN Administration PAIN LEVEL 7 - 10 Ondansetron HCl 8 mg 10/02/18 17:46 10/02/18 18:09 Zofran Injection IVPB 8 mg Q12H PRN Administration NAUSEA Oxycodone HCl 5 mg 10/03/18 09:15 Roxicodone - PO Q4H PRN PAIN LEVEL 6-10 Pantoprazole Sodium 40 mg 10/01/18 10:00 10/04/18 09:58 Protonix - PO 40 mg DAILY [facility]OR[facility] Administration Home Medications Medication Instructions Recorded Calcium Carbonate [Super Calcium] 600 mg PO BID 09/17/18 Carbamazepine Xr [Tegretol XR -] 400 mg PO AM 09/17/18 Carbamazepine Xr [Tegretol XR -] 600 mg PO HS 09/17/18 Ferrous Sulfate 325 mg PO TID 09/17/18 Levothyroxine [Synthroid -] 75 mcg PO DAILY 09/17/18 Cholecalciferol (Vitamin D3) 2,000 units PO DAILY 09/18/18 [Vitamin D3] Docusate Sodium [Colace -] 100 mg PO BID 09/18/18 Pantoprazole Sodium [Protonix -] 40 mg PO DAILY #30 tablet.ec 10/01/18 Microbiology 10/03/18 18:00 Urine - Urine Clean Catch Urine Culture - Final 10/03/18 18:30 Blood - Peripheral Venous Blood Culture - Preliminary NO GROWTH OBTAINED AFTER 24 HOURS, INCUBATION TO CONTINUE FOR 4 DAYS. 10/03/18 16:30 Blood - Peripheral Venous Blood Culture - Preliminary NO GROWTH OBTAINED AFTER 24 HOURS, INCUBATION TO CONTINUE FOR 4 DAYS. 10/02/18 16:00 Urine - Urine Clean Catch Urine Culture - Final 09/18/18 02:15 Blood - Peripheral Venous Blood Culture - Final NO GROWTH AFTER 5 DAYS INCUBATION 09/18/18 02:45 Blood - Peripheral Venous Blood Culture - Final NO GROWTH AFTER 5 DAYS INCUBATION 09/18/18 02:45 Urine - Urine Clean Catch Urine Culture - Final NO GROWTH OBTAINED ASSESSMENT AND PLAN: Patient is a 48 yo female with a PMHx of epilepsy, chronic 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 with subsequent brain damage (patient is non-verbal) requiring 3VP shunts last one being in 1990), hypothyroidism she came to the ED after was found to have a low hemoglobin level of 4.6. # Acute leukocytosis with fever; empiric antibiotic for now as per ID, discussed with the surgeon dr Napoles and Id dr. Frederick , discussed for scanning her abdomen for possible the source of infection with the surgeon and ID, if patient's fever does not improve will scan her chest and abdomen on Saturday as per surgeon continue vanco and zosyn, duplex of left upper extremity to r/o DVT. will continue with incentive spirometer. Ocampo-culture so far no growth. # POD #6 s/p diverting loop colostomy due to New diagnosis of metastatic colon cancer with mets to liver, lungs, and R adrenal gland. chemo as an outpatient once patient is stable. #Right colon neoplasm /lung/liver masses s/p liver Bx result : Adenocarcinoma, moderately differentiated , compatible with lower GI tract/ Colon origin. GI / Onc on the case. right colon pathology: benign colonic mucosa with focal lamina propia edema, no carcinoma or adenomatous changes. # Right adrenal mass primary vs metastatic disease (2.5 x 2.5 x 2.0 cm): #Thrombocytosis: elevated , oncology is aware . # H/o Seizures, cont tegretol # s/p left superficial thrombophlebitis in upper arm improved will repeat the duplex . # Acute Chronic blood loss anemia, most likely due to colon Cancer. stable HB. #s/p Fecal impaction; on colace and Miralax # Hx of hypothyroidism on levoxyl continue # Acute hyponatremia improved s/p IVF DVT Px: lovenox sq duplex of lower exteremities
--- NOTE | 2018-10-05 10:26 | PN ---
Physical Exam: SUBJECTIVE: Patient seen and examined at bedside. Remained febrile overnight. Tele events noted. No new complaints. Denies CP, Bol[place]ar, SOB, abdominal pain, nausea or vomiting. OBJECTIVE: Vital Signs Period Temp Pulse Resp BP Sys/Martin Pulse Ox Last 24 Hr 98.4 F-1013 F 105-120 16-20 99-116/54-68 99 GENERAL: The patient is awake, alert, resting comfortably. EYES:PEERLA; EOMI; no scleral icterus. NECK: no JVD; no lymphadenopathy LUNGS: diminished breath sounds, poor effort. HEART: RRR, S1, S2 without murmur, rub or gallop. ABDOMEN: soft; slight distention; no wincing upon palpation; ileostomy bag in place with yellowish-liquid color EXTREMITIES: 2+ pulses, warm, well-perfused, no edema. PSYCH: Normal mood, normal affect. SKIN: Warm, dry, normal turgor, no rashes or lesions noted Active Medications Generic Name Dose Route Start Last Admin Trade Name Freq PRN Reason Stop Dose Admin Acetaminophen 650 mg 09/30/18 13:57 10/04/18 20:31 Tylenol - PO 650 mg Q6H PRN Administration FEVER Ascorbic Acid 500 mg 10/01/18 10:00 10/04/18 21:54 Vitamin C - PO 500 mg BID FLORIN Administration Carbamazepine 400 mg 10/01/18 10:00 10/04/18 09:58 Tegretol Xr - PO 400 mg DAILY [facility] Administration Carbamazepine 600 mg 10/01/18 22:00 10/04/18 21:54 Tegretol Xr - PO 600 mg HS FLORIN Administration Enoxaparin Sodium 40 mg 10/01/18 10:00 10/04/18 09:59 Lovenox - SQ 40 mg DAILY [facility] Administration Lactated Ringer's 1,000 ml in 1,000 mls @ 125 mls/hr 10/03/18 10:00 10/05/18 06:45 Lactated Ringers Solution IV 125 mls/hr ASDIR FLORIN Administration Piperacillin Sod/Tazobactam 50 mls @ 100 mls/hr 10/04/18 10:00 10/05/18 02:30 Sod 3.375 gm/ Dextrose IVPB 100 mls/hr Q8H-IV [facility]IN Administration Protocol Vancomycin HCl 750 mg/ 250 mls @ 250 mls/hr 10/04/18 11:00 10/04/18 23:30 Dextrose IVPB 250 mls/hr BID@1100,2300 FL[facility] Administration Protocol Levothyroxine Sodium 75 mcg 10/01/18 07:00 10/05/18 06:44 Synthroid - PO 75 mcg AM [facility] Administration Magnesium Oxide 400 mg 10/01/18 10:00 10/04/18 21:54 Mag-Ox - PO 400 mg BID [facility]OR[facility] Administration Morphine Sulfate 2 mg 10/03/18 09:18 10/04/18 10:00 Morphine Sulfate IVPUSH 2 mg Q4H PRN Administration PAIN LEVEL 7 - 10 Ondansetron HCl 8 mg 10/02/18 17:46 10/02/18 18:09 Zofran Injection IVPB 8 mg Q12H PRN Administration NAUSEA Oxycodone HCl 5 mg 10/03/18 09:15 Roxicodone - PO Q4H PRN PAIN LEVEL 6-10 Pantoprazole Sodium 40 mg 10/01/18 10:00 10/04/18 09:58 Protonix - PO 40 mg DAILY FLORIN Administration ASSESSMENT/PLAN: 48 y/o F with h/o epilepsy, ENERGY TRADER shunting, aphasia, 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, and hypothyroidism, who presented with anemia found to have metastatic colon Ca. POD #6 s/p Diverting colostomy. Problem List - Problems (1) Leukocytosis Assessment/Plan: spiked new fever yesterday and remained febrile overnight. * julian-cultured- results pending. * Started on Vanco Zosyn * ID consult appreciated. * will wait to scan abdomen as per surgery. * No evidence of DVT on Duplex US yesterday. (2) Colon cancer Assessment/Plan: POD #6 s/p diverting loop colostomy * near obstructing lesion at the hepatic flexure. * HEME/ONC consult appreciated. * New diagnosis of metastatic colon cancer with mets to liver, lungs, and R adrenal gland * Adenocarcinoma, moderately differentiated , compatible with lower GI tract/ Colon origin. GI /Onc on the case. right colon pathology: benign colonic mucosa with focal lamina propia edema, no carcinoma or adenomatous changes. (3) Anemia requiring transfusions Assessment/Plan: Chronic blood loss anemia, due chronic lower GI bleed * Hgb has been stable s/p transfusion. * normal transfusion thresholds. * repeat CBC in AM (4) Seizure Assessment/Plan: continue Tegretol. (5) Hydrocephalus Assessment/Plan: chronic issue. no acute changes. (6) DVT prophylaxis Assessment/Plan: SCD's bilaterally. Visit type - Emergency Visit Emergency Visit: Yes ED Registration Date: 09/17/18 Care time: The patient presented to the Emergency Department on the above date and was hospitalized for further evaluation of their emergent condition. - New Patient This patient is new to me today: No - Critical Care Critical Care patient: No
[2018-10-05] MEDS: ENOXAPARIN NA (PORCINE) 40 MG/0.4 ML DISP.SYRIN SQ SCH (11:06)
[2018-10-05] MEDS: MAGNESIUM OXIDE 400 MG TABLET (FP) PO SCH ×2 (11:07→21:52)
[2018-10-05] MEDS: PANTOPRAZOLE 40 MG TABLET (FP) PO SCH (11:07)
[2018-10-05] MEDS: VANCOMYCIN 750 MG in DEXTROSE 5%-WATER - 250 ML IVPB SCH ×2 (11:07→22:00)
[2018-10-05] MEDS: ASCORBIC ACID 500 MG TABLET (FP) PO SCH ×2 (11:07→21:52)
[2018-10-05] MEDS: carBAMazepine XR 400 MG TAB.ER.12H PO SCH (11:08)
--- NOTE | 2018-10-05 11:23 | PN ---
Progress Note (short form) - Note Progress Note: Patient seen in follow up. No new issues as per mother. Fever 102 last night. Inpatient Meds reviewed. Current Medications Acetaminophen (Tylenol -) 650 mg PO Q6H PRN PRN Reason: FEVER Last Admin: 10/04/18 20:31 Dose: 650 mg Ascorbic Acid (Vitamin C -) 500 mg PO BID [facility] Last Admin: 10/05/18 11:07 Dose: 500 mg Carbamazepine (Tegretol Xr -) 400 mg PO DAILY [facility] Last Admin: 10/05/18 11:08 Dose: 400 mg Carbamazepine (Tegretol Xr -) 600 mg PO HS [facility] Last Admin: 10/04/18 21:54 Dose: 600 mg Enoxaparin Sodium (Lovenox -) 40 mg SQ DAILY [facility] Last Admin: 10/05/18 11:06 Dose: 40 mg Lactated Ringer's (Lactated Ringers Solution) 1,000 ml in 1,000 mls @ 125 mls/ hr IV ASDIR [facility] Last Admin: 10/05/18 11:08 Dose: Not Given Piperacillin Sod/Tazobactam (Sod 3.375 gm/ Dextrose) 50 mls @ 100 mls/hr IVPB Q8H-IV FLORIN; Protocol Last Admin: 10/05/18 11:06 Dose: 100 mls/hr Vancomycin HCl 750 mg/ (Dextrose) 250 mls @ 250 mls/hr IVPB BID@1100,2300 FLOR[facility]; Protocol Last Admin: 10/05/18 11:07 Dose: 250 mls/hr Levothyroxine Sodium (Synthroid -) 75 mcg PO AM [facility] Last Admin: 10/05/18 06:44 Dose: 75 mcg Magnesium Oxide (Mag-Ox -) 400 mg PO BID [facility] Last Admin: 10/05/18 11:07 Dose: 400 mg Morphine Sulfate (Morphine Sulfate) 2 mg IVPUSH Q4H PRN PRN Reason: PAIN LEVEL 7 - 10 Last Admin: 10/04/18 10:00 Dose: 2 mg Ondansetron HCl (Zofran Injection) 8 mg IVPB Q12H PRN PRN Reason: NAUSEA Last Admin: 10/02/18 18:09 Dose: 8 mg Oxycodone HCl (Roxicodone -) 5 mg PO Q4H PRN PRN Reason: PAIN LEVEL 6-10 Pantoprazole Sodium (Protonix -) 40 mg PO DAILY [facility] Last Admin: 10/05/18 11:07 Dose: 40 mg On Examination: Last Vital Signs Temp Pulse Resp BP Pulse Ox 98.7 F 105 H 18 99/68 99 10/05/18 06:00 10/05/18 06:00 10/05/18 06:00 10/05/18 06:00 10/04/18 21:00 General: In no acute distress, lying comfortably in bed. Extremities: No pallor or icterus. No pedal edema. No palpable lymphadenopathy. CVS: S1, S2, regular, no gallop or murmur. Chest: good air entry bilaterally, clear Abdomen: Non-distended, non-tender, no palpable organomegaly. Neuro: Alert, responsive Labs: CBC, BMP 10/04/18 06:00 10/04/18 06:00 Assessment. 48 yo F with h/o epilepsy, congenital 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, s/p MANAGER FLOAT shunt, presented with weakness severe anemia, attributable to metastatic (liver, adrenals) disease, likely colon - s/p diverting colostomy - POD6 - workup ongoing Fever again last night - empiric Abics - ID following. Cultures negative. LE doppler negative yesterday. Will continue to follow alongside. Microcytic anemia - likely iron deficiency - would consider IV iron when question of sepsis settled.
--- NOTE | 2018-10-05 12:54 | PN ---
Progress Note (short form) - Note Progress Note: does not appear toxic ate a bit today per mother continued fevers Vital Signs Period Temp Pulse Resp BP Sys/Martin Pulse Ox Last 24 Hr 98.4 F-1013 F 105-120 16-20 99-116/54-68 99 cor-rrr lungs decreased bs at bases abd firm, distended, tender RUQ, +ostomy ext no edema CBC, BMP 10/04/18 06:00 10/04/18 06:00 Microbiology 10/03/18 18:00 Urine - Urine Clean Catch Urine Culture - Final 10/03/18 18:30 Blood - Peripheral Venous Blood Culture - Preliminary NO GROWTH OBTAINED AFTER 24 HOURS, INCUBATION TO CONTINUE FOR 4 DAYS. 10/03/18 16:30 Blood - Peripheral Venous Blood Culture - Preliminary NO GROWTH OBTAINED AFTER 24 HOURS, INCUBATION TO CONTINUE FOR 4 DAYS. 10/02/18 16:00 Urine - Urine Clean Catch Urine Culture - Final 09/18/18 02:15 Blood - Peripheral Venous Blood Culture - Final NO GROWTH AFTER 5 DAYS INCUBATION 09/18/18 02:45 Blood - Peripheral Venous Blood Culture - Final NO GROWTH AFTER 5 DAYS INCUBATION 09/18/18 02:45 Urine - Urine Clean Catch Urine Culture - Final NO GROWTH OBTAINED Current Medications Acetaminophen (Tylenol -) 650 mg PO Q6H PRN PRN Reason: FEVER Last Admin: 10/04/18 20:31 Dose: 650 mg Ascorbic Acid (Vitamin C -) 500 mg PO BID [facility] Last Admin: 10/05/18 11:07 Dose: 500 mg Carbamazepine (Tegretol Xr -) 400 mg PO DAILY [facility] Last Admin: 10/05/18 11:08 Dose: 400 mg Carbamazepine (Tegretol Xr -) 600 mg PO HS [facility] Last Admin: 10/04/18 21:54 Dose: 600 mg Enoxaparin Sodium (Lovenox -) 40 mg SQ DAILY [facility] Last Admin: 10/05/18 11:06 Dose: 40 mg Lactated Ringer's (Lactated Ringers Solution) 1,000 ml in 1,000 mls @ 125 mls/ hr IV ASDIR [facility]OR[facility] Last Admin: 10/05/18 11:08 Dose: Not Given Piperacillin Sod/Tazobactam (Sod 3.375 gm/ Dextrose) 50 mls @ 100 mls/hr IVPB Q8H-IV [facility]ORIN; Protocol Last Admin: 10/05/18 11:06 Dose: 100 mls/hr Vancomycin HCl 750 mg/ (Dextrose) 250 mls @ 250 mls/hr IVPB BID@1100,2300 [facility]; Protocol Last Admin: 10/05/18 11:07 Dose: 250 mls/hr Levothyroxine Sodium (Synthroid -) 75 mcg PO AM [facility] Last Admin: 10/05/18 06:44 Dose: 75 mcg Magnesium Oxide (Mag-Ox -) 400 mg PO BID [facility] Last Admin: 10/05/18 11:07 Dose: 400 mg Morphine Sulfate (Morphine Sulfate) 2 mg IVPUSH Q4H PRN PRN Reason: PAIN LEVEL 7 - 10 Last Admin: 10/04/18 10:00 Dose: 2 mg Ondansetron HCl (Zofran Injection) 8 mg IVPB Q12H PRN PRN Reason: NAUSEA Last Admin: 10/02/18 18:09 Dose: 8 mg Oxycodone HCl (Roxicodone -) 5 mg PO Q4H PRN PRN Reason: PAIN LEVEL 6-10 Pantoprazole Sodium (Protonix -) 40 mg PO DAILY [facility] Last Admin: 10/05/18 11:07 Dose: 40 mg a/p fevers-new with rising WBC count s/p laparoscopic loop ostomy 09/[address] [address] [employer] shunt day #2 antiibotics- vanco/zosyn would suggest ct scan abd/pelvis as cultures are negative repeat labs d/w mother at bedside Problem List - Problems (1) Fever Code(s): R50.9 - FEVER, UNSPECIFIED (2) Leukocytosis Code(s): D72.829 - ELEVATED WHITE BLOOD CELL COUNT, UNSPECIFIED (3) Liver masses Code(s): R16.0 - HEPATOMEGALY, NOT ELSEWHERE CLASSIFIED (4) Anemia Code(s): D64.9 - ANEMIA, UNSPECIFIED Qualifiers: Anemia type: unspecified type Qualified Code(s): D64.9 - Anemia, unspecified
[2018-10-05] MEDS: ACETAMINOPHEN 325 MG TABLET (FP) PO PRN (14:48)
[2018-10-05] MEDS ORDERED: ACETAMINOPHEN 1000 MG/100 ML VIAL (NON FORMULARY) IVPB ONE (15:42)
[2018-10-05] MEDS ORDERED: PT OWN MED DRAWER 7, Y5N ONE ×2 (21:21→21:46)
[2018-10-05] MEDS: carBAMazepine XR 200 MG TAB.ER.12H PO SCH (21:53)
[2018-10-06] MEDS ORDERED: PIPERACILLIN/TAZOBACTAM 3.375 GM VIAL IVPB ONE ×3 (01:05→17:37)
[2018-10-06] MEDS ORDERED: DEXTROSE 5%-WATER - 50 ML IVPB ONE ×3 (01:06→17:38)
[2018-10-06] MEDS: PIPERACILLIN/TAZOB 3.375 GM 3.375 GM in DEXTROSE 5%-WATER - 50 ML IVPB SCH ×3 (01:07→18:06)
[2018-10-06] MEDS: ACETAMINOPHEN 325 MG TABLET (FP) PO PRN ×2 (01:17→20:29)
[2018-10-06 06:32] LABS: HEMATOCRIT 24.9 % (32.4-45.2); HEMOGLOBIN 8.1 GM/dL (10.7-15.3); MCH 22.9 pg (25.7-33.7); MCHC 32.3 g/dl (32.0-36.0); MEAN CELL VOLUME 70.8 fl (80-96); MEAN PLT VOLUME 7.3 fl (7.5-11.1); PLATELET COUNT 919 K/MM3 (134-434); RBC 3.52 M/mm3 (3.60-5.2); RDW 36.3 % (11.6-15.6); WHITE BLOOD COUNT 16.6 K/mm3 (4.0-10.0)
[2018-10-06] MEDS: LEVOTHYROXINE NA 75 MCG TABLET (FP) PO SCH (06:45)
[2018-10-06 07:27] LABS: ALBUMIN 1.7 g/dl (3.4-5.0); ALK PHOS 227 U/L (45-117); ANION GAP 7 MMOL/L (8-16); BILIRUBIN,TOTAL 0.2 mg/dL (0.2-1); BLOOD UREA NITROGEN 4 mg/dL (7-18); CALCIUM 7.9 mg/dL (8.5-10.1); CHLORIDE 102 mmol/L (98-107); CO2 27 mmol/L (21-32); CREATININE 0.4 mg/dL (0.55-1.3); GLUCOSE,RANDOM 87 mg/dL (74-106); SGOT/AST 41 U/L (15-37); SGPT/ALT 17 U/L (13-61); SODIUM 137 mmol/L (136-145); TOT PROT 6.3 g/dl (6.4-8.2)
[2018-10-06] MEDS ORDERED: PT OWN MED DRAWER 7, Y5N ONE ×2 (09:14→21:02)
[2018-10-06] MEDS: PANTOPRAZOLE 40 MG TABLET (FP) PO SCH (09:15)
[2018-10-06] MEDS: carBAMazepine XR 400 MG TAB.ER.12H PO SCH (09:16)
[2018-10-06] MEDS: MAGNESIUM OXIDE 400 MG TABLET (FP) PO SCH ×2 (09:16→21:03)
[2018-10-06] MEDS: ENOXAPARIN NA (PORCINE) 40 MG/0.4 ML DISP.SYRIN SQ SCH (09:16)
[2018-10-06] MEDS: ASCORBIC ACID 500 MG TABLET (FP) PO SCH ×2 (09:16→21:03)
[2018-10-06 11:42] LABS: ANISOCYTOSIS 3+; MACROCYTOSIS 0; PLATELET ESTIMATE INCREASED
[2018-10-06 11:55] LABS: TARGET CELLS 1+
--- NOTE | 2018-10-06 12:28 | PN ---
Physical Exam: SUBJECTIVE: Patient seen and examined at bedside- patient is still having fevers and abdominal pain, however WBC is trending down; CT scans pending OBJECTIVE: Vital Signs Period Temp Pulse Resp BP Sys/Martin Pulse Ox Last 24 Hr 97.9 F-102.2 F 99-119 - 103-123/56-70 98 GENERAL: The patient is awake, alert, and fully oriented, in no acute distress. EYES: PEERLA: EOMI; no scleral icterus NECK: no JVD; no lymphadenopathy. LUNGS: diminished breath sounds HEART: Regular rate and rhythm, S1, S2 without murmur, rub or gallop. ABDOMEN: Soft, tenderness upon palptaion; +BS ; ileostomy bag in place EXTREMITIES: 2+ pulses, warm, well-perfused, no edema. PSYCH: Normal mood, normal affect. SKIN: Warm, dry, normal turgor, no rashes or lesions noted Laboratory Results - last 24 hr 10/06/18 10/06/18 06:00 06:00 WBC 16.6 H RBC 3.52 L Hgb 8.1 L Hct 24.9 L MCV 70.8 L MCH 22.9 L MCHC 32.3 RDW 36.3 H Plt Count 919 H MPV 7.3 L Neutrophils % No Result Required. Neutrophils % (Manual) 73.1 Band Neutrophils % 2.9 Lymphocytes % No Result Required. Lymphocytes % (Manual) 10.6 D Monocytes % (Manual) 13 H Eosinophils % (Manual) 0.9 D Basophils % (Manual) 0.0 Myelocytes % (Man) 0 Promyelocytes % (Man) 0 Blast Cells % (Manual) 0 Nucleated RBC % 0 Metamyelocytes 0 Hypochromia 1+ Platelet Estimate Increased Polychromasia 1+ Poikilocytosis 0 Anisocytosis 3+ Microcytosis 2+ Macrocytosis 0 Target Cells 1+ Sodium 137 Potassium 4.0 Chloride 102 Carbon Dioxide 27 Anion Gap 7 L BUN 4 L Creatinine 0.4 L Creat Clearance w eGFR 170.36 Random Glucose 87 Calcium 7.9 L Total Bilirubin 0.2 AST 41 H ALT 17 Alkaline Phosphatase 227 H Total Protein 6.3 L Albumin 1.7 L Active Medications Generic Name Dose Route Start Last Admin Trade Name Freq PRN Reason Stop Dose Admin Acetaminophen 650 mg 09/30/18 13:57 10/06/18 01:17 Tylenol - PO 650 mg Q6H PRN Administration FEVER Ascorbic Acid 500 mg 10/01/18 10:00 10/06/18 09:16 Vitamin C - PO 500 mg BID [facility]OR[facility] Administration Carbamazepine 400 mg 10/01/18 10:00 10/06/18 09:16 Tegretol Xr - PO 400 mg DAILY [facility] Administration Carbamazepine 600 mg 10/01/18 22:00 10/05/18 21:53 Tegretol Xr - PO 600 mg HS [facility] Administration Enoxaparin Sodium 40 mg 10/01/18 10:00 10/06/18 09:16 Lovenox - SQ 40 mg DAILY [facility] Administration Lactated Ringer's 1,000 ml in 1,000 mls @ 125 mls/hr 10/03/18 10:00 10/05/18 17:31 Lactated Ringers Solution IV 125 mls/hr ASDIR [facility] Administration Piperacillin Sod/Tazobactam 50 mls @ 100 mls/hr 10/04/18 10:00 10/06/18 09:16 Sod 3.375 gm/ Dextrose IVPB 100 mls/hr Q8H-IV [facility] Administration Protocol Vancomycin HCl 750 mg/ 250 mls @ 250 mls/hr 10/04/18 11:00 10/05/18 22:00 Dextrose IVPB 250 mls/hr BID@1100,2300 [facility] Administration Protocol Levothyroxine Sodium 75 mcg 10/01/18 07:00 10/06/18 06:45 Synthroid - PO 75 mcg AM [facility] Administration Magnesium Oxide 400 mg 10/01/18 10:00 10/06/18 09:16 Mag-Ox - PO 400 mg BID [facility] Administration Morphine Sulfate 2 mg 10/03/18 09:18 10/04/18 10:00 Morphine Sulfate IVPUSH 2 mg Q4H PRN Administration PAIN LEVEL 7 - 10 Ondansetron HCl 8 mg 10/02/18 17:46 10/02/18 18:09 Zofran Injection IVPB 8 mg Q12H PRN Administration NAUSEA Oxycodone HCl 5 mg 10/03/18 09:15 Roxicodone - PO Q4H PRN PAIN LEVEL 6-10 Pantoprazole Sodium 40 mg 10/01/18 10:00 10/06/18 09:15 Protonix - PO 40 mg DAILY [facility] Administration ASSESSMENT/PLAN: 48 y/o female with a PMH of epilepsy, chronic 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 requiring 3 THERMODYNAMICIST shunts, hypothyroidism presents to the ED with a one week history of worsening fatigue, loss of appetite, found to have a hemoglobin of 4.6 and was FOBT positive found to now have metastatic colon cancer #Newly found lower GI tract/colon ca patient is POD #7 for diverting loop ileostomy; she was found to have a partial SBO on xray ; surgical f/u patient is still having fevers; CTA chest, CT ab/pelvis pending to rule out abscess vanc/zosyn day 3 heme onc on board; discussions in session regarding treatment plans patient will start chemo as an outpatient in about 2 weeks #Chronic Hydrocephalus w/ THERMODYNAMICIST shunt -stable #Seizures -c/w home medication: tegretol 200: 2 tablets in AM; 3 tablets PM #Hypothyroidism c/w synthroid 75 mcg daily #Severe malnutriton ensure additivies F/E/N d5w@100 monitor electrolytes Problem List - Problems (1) Seizure Code(s): R56.9 - UNSPECIFIED CONVULSIONS (2) Hydrocephalus Code(s): G91.9 - HYDROCEPHALUS, UNSPECIFIED Qualifiers: Hydrocephalus type: communicating Qualified Code(s): G91.0 - Communicating 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 (3) Anemia Code(s): D64.9 - ANEMIA, UNSPECIFIED Qualifiers: Anemia type: unspecified type Qualified Code(s): D64.9 - Anemia, unspecified (4) GI bleed Code(s): K92.2 - GASTROINTESTINAL HEMORRHAGE, UNSPECIFIED Qualifiers: GI bleed type/associated pathology: unspecified gastrointestinal hemorrhage type Qualified Code(s): K92.2 - Gastrointestinal hemorrhage, unspecified Visit type - Emergency Visit Emergency Visit: Yes ED Registration Date: 09/17/18 Care time: The patient presented to the Emergency Department on the above date and was hospitalized for further evaluation of their emergent condition. - New Patient This patient is new to me today: No - Critical Care Critical Care patient: No
[2018-10-06] MEDS: LACTATED RINGERS SOLUTION 1,000 ML/1,000 ML INFUS.BAG IV SCH (12:29)
[2018-10-06] MEDS: VANCOMYCIN 750 MG in DEXTROSE 5%-WATER - 250 ML IVPB SCH (12:30)
--- NOTE | 2018-10-06 13:50 | PN ---
Progress Note (short form) - Note Progress Note: continued fevers to 101/102 intermittent Vital Signs Period Temp Pulse Resp BP Sys/Martin Pulse Ox Last 24 Hr 97.9 F-102.2 F 99-119 16-19 103-123/56-70 98 cor-rrr lungs decreased bs at bases abd soft, slighlt distended, +air in ostomy ext no edema CBC, BMP 10/06/18 06:00 10/06/18 06:00 Microbiology 10/03/18 18:30 Blood - Peripheral Venous Blood Culture - Preliminary NO GROWTH OBTAINED AFTER 48 HOURS, INCUBATION TO CONTINUE FOR 3 DAYS. 10/03/18 16:30 Blood - Peripheral Venous Blood Culture - Preliminary NO GROWTH OBTAINED AFTER 48 HOURS, INCUBATION TO CONTINUE FOR 3 DAYS. 10/03/18 18:00 Urine - Urine Clean Catch Urine Culture - Final 10/02/18 16:00 Urine - Urine Clean Catch Urine Culture - Final 09/18/18 02:15 Blood - Peripheral Venous Blood Culture - Final NO GROWTH AFTER 5 DAYS INCUBATION 09/18/18 02:45 Blood - Peripheral Venous Blood Culture - Final NO GROWTH AFTER 5 DAYS INCUBATION 09/18/18 02:45 Urine - Urine Clean Catch Urine Culture - Final NO GROWTH OBTAINED Active Medications Acetaminophen (Tylenol -) 650 mg PO Q6H PRN PRN Reason: FEVER Last Admin: 10/06/18 01:17 Dose: 650 mg Ascorbic Acid (Vitamin C -) 500 mg PO BID [facility] Last Admin: 10/06/18 09:16 Dose: 500 mg Carbamazepine (Tegretol Xr -) 400 mg PO DAILY [facility] Last Admin: 10/06/18 09:16 Dose: 400 mg Carbamazepine (Tegretol Xr -) 600 mg PO HS [facility] Last Admin: 10/05/18 21:53 Dose: 600 mg Enoxaparin Sodium (Lovenox -) 40 mg SQ DAILY [facility] Last Admin: 10/06/18 09:16 Dose: 40 mg Lactated Ringer's (Lactated Ringers Solution) 1,000 ml in 1,000 mls @ 125 mls/ hr IV ASDIR [facility] Last Admin: 10/06/18 12:29 Dose: 125 mls/hr Piperacillin Sod/Tazobactam (Sod 3.375 gm/ Dextrose) 50 mls @ 100 mls/hr IVPB Q8H-IV [facility]; Protocol Last Admin: 10/06/18 09:16 Dose: 100 mls/hr Vancomycin HCl 750 mg/ (Dextrose) 250 mls @ 250 mls/hr IVPB BID@1100,2300 [facility]; Protocol Last Admin: 10/06/18 12:30 Dose: 250 mls/hr Levothyroxine Sodium (Synthroid -) 75 mcg PO AM [facility] Last Admin: 10/06/18 06:45 Dose: 75 mcg Magnesium Oxide (Mag-Ox -) 400 mg PO BID [facility] Last Admin: 10/06/18 09:16 Dose: 400 mg Morphine Sulfate (Morphine Sulfate) 2 mg IVPUSH Q4H PRN PRN Reason: PAIN LEVEL 7 - 10 Last Admin: 10/04/18 10:00 Dose: 2 mg Ondansetron HCl (Zofran Injection) 8 mg IVPB Q12H PRN PRN Reason: NAUSEA Last Admin: 10/02/18 18:09 Dose: 8 mg Oxycodone HCl (Roxicodone -) 5 mg PO Q4H PRN PRN Reason: PAIN LEVEL 6-10 Pantoprazole Sodium (Protonix -) 40 mg PO DAILY [facility] Last Admin: 10/06/18 09:15 Dose: 40 mg a/p fevers-intermittent s/p laparoscopic loop ostomy 09/29 metastatic adenocarcinoma FUR GLOSSER shunt day #3 antiibotics- continue zosyn, d/c vancomycin would suggest ct scan abd/pelvis as cultures are negative-fevers are persistent and higher over lst 72 hours-it would be improtant to know if she has an abdominal abscess before attributing this to tumor fever repeat labs d/w mother at bedside d/w resident Problem List - Problems (1) Fever Code(s): R50.9 - FEVER, UNSPECIFIED (2) Leukocytosis Code(s): D72.829 - ELEVATED WHITE BLOOD CELL COUNT, UNSPECIFIED (3) Liver masses Code(s): R16.0 - HEPATOMEGALY, NOT ELSEWHERE CLASSIFIED (4) Anemia Code(s): D64.9 - ANEMIA, UNSPECIFIED Qualifiers: Anemia type: unspecified type Qualified Code(s): D64.9 - Anemia, unspecified
--- NOTE | 2018-10-06 18:01 | PN ---
Teaching Attending Note Name of Resident: Therese Durán ATTENDING PHYSICIAN STATEMENT I saw and evaluated the patient. I reviewed the resident's note and discussed the case with the resident. I agree with the resident's findings and plan as documented. SUBJECTIVE: Patient continues to have fever other landeros comfortable with no acute distress. OBJECTIVE: Vital Signs Temperature 99.0 F 10/06/18 09:06 Pulse Rate 109 H 10/06/18 09:06 Respiratory Rate 18 10/06/18 09:06 Blood Pressure 112/61 10/06/18 09:06 O2 Sat by Pulse Oximetry (%) 100 10/06/18 09:00 GENERAL: Awake, alert, non verbal at baseline but answers to some questions. HEAD: No signs of trauma, normocephalic, atraumatic EYES: PERRLA, EOMI, sclera anicteric, conjunctiva clear ENT: oropharynx clear without exudates. NECK: Normal ROM, supple, no lymphadenopathy,no JVD, or masses LUNGS: No distress, clear to auscultation bilaterally HEART: tachycardia with rate of 109, normal S1 and S2, no murmurs, rubs or gallops. ABDOMEN: normoactive bowel sounds. No guarding, no rebound. positive for Ostomy with stool, wound is clean. EXTREMITIES : Normal inspection, Normal range of motion, no edema. No clubbing or cyanosis. NEUROLOGICAL: Cranial nerves II through XII grossly intact. Left wrist contracted. SKIN: Warm, Dry, normal turgor, no rashes or lesions noted CBCD WBC 16.6 K/mm3 (4.0-10.0) H 10/06/18 06:00 RBC 3.52 M/mm3 (3.60-5.2) L 10/06/18 06:00 Hgb 8.1 GM/dL (10.7-15.3) L 10/06/18 06:00 Hct 24.9 % (32.4-45.2) L 10/06/18 06:00 MCV 70.8 fl (80-96) L 10/06/18 06:00 MCHC 32.3 g/dl (32.0-36.0) 10/06/18 06:00 RDW 36.3 % (11.6-15.6) H 10/06/18 06:00 Plt Count 919 K/MM3 (134-434) H 10/06/18 06:00 MPV 7.3 fl (7.5-11.1) L 10/06/18 06:00 CMP Sodium 137 mmol/L (136-145) 10/06/18 06:00 Potassium 4.0 mmol/L (3.5-5.1) 10/06/18 06:00 Chloride 102 mmol/L (98-107) 10/06/18 06:00 Carbon Dioxide 27 mmol/L (21-32) 10/06/18 06:00 Anion Gap 7 MMOL/L (8-16) L 10/06/18 06:00 BUN 4 mg/dL (7-18) L 10/06/18 06:00 Creatinine 0.4 mg/dL (0.55-1.3) L 10/06/18 06:00 Creat Clearance w eGFR 170.36 (>60) 10/06/18 06:00 Random Glucose 87 mg/dL (74-106) 10/06/18 06:00 Calcium 7.9 mg/dL (8.5-10.1) L 10/06/18 06:00 Total Bilirubin 0.2 mg/dL (0.2-1) 10/06/18 06:00 AST 41 U/L (15-37) H 10/06/18 06:00 ALT 17 U/L (13-61) 10/06/18 06:00 Alkaline Phosphatase 227 U/L (45-117) H 10/06/18 06:00 Total Protein 6.3 g/dl (6.4-8.2) L 10/06/18 06:00 Albumin 1.7 g/dl (3.4-5.0) L 10/06/18 06:00 Current Medications Generic Name Dose Route Start Last Admin Trade Name Freq PRN Reason Stop Dose Admin Acetaminophen 650 mg 09/30/18 13:57 10/06/18 01:17 Tylenol - PO 650 mg Q6H PRN Administration FEVER Ascorbic Acid 500 mg 10/01/18 10:00 10/06/18 09:16 Vitamin C - PO 500 mg BID [facility] Administration Carbamazepine 400 mg 10/01/18 10:00 10/06/18 09:16 Tegretol Xr - PO 400 mg DAILY [facility] Administration Carbamazepine 600 mg 10/01/18 22:00 10/05/18 21:53 Tegretol Xr - PO 600 mg HS [facility] Administration Enoxaparin Sodium 40 mg 10/01/18 10:00 10/06/18 09:16 Lovenox - SQ 40 mg DAILY [facility] Administration Lactated Ringer's 1,000 ml in 1,000 mls @ 125 mls/hr 10/03/18 10:00 10/06/18 12:29 Lactated Ringers Solution IV 125 mls/hr ASDIR [facility] Administration Piperacillin Sod/Tazobactam 50 mls @ 100 mls/hr 10/04/18 10:00 10/06/18 09:16 Sod 3.375 gm/ Dextrose IVPB 100 mls/hr Q8H-IV [facility] Administration Protocol Levothyroxine Sodium 75 mcg 10/01/18 07:00 10/06/18 06:45 Synthroid - PO 75 mcg AM [facility] Administration Magnesium Oxide 400 mg 10/01/18 10:00 10/06/18 09:16 Mag-Ox - PO 400 mg BID [facility] Administration Morphine Sulfate 2 mg 10/03/18 09:18 10/04/18 10:00 Morphine Sulfate IVPUSH 2 mg Q4H PRN Administration PAIN LEVEL 7 - 10 Ondansetron HCl 8 mg 10/02/18 17:46 10/02/18 18:09 Zofran Injection IVPB 8 mg Q12H PRN Administration NAUSEA Oxycodone HCl 5 mg 10/03/18 09:15 Roxicodone - PO Q4H PRN PAIN LEVEL 6-10 Pantoprazole Sodium 40 mg 10/01/18 10:00 10/06/18 09:15 Protonix - PO 40 mg DAILY [facility] Administration Home Medications Medication Instructions Recorded Calcium Carbonate [Super Calcium] 600 mg PO BID 09/17/18 Carbamazepine Xr [Tegretol XR -] 400 mg PO AM 09/17/18 Carbamazepine Xr [Tegretol XR -] 600 mg PO HS 09/17/18 Ferrous Sulfate 325 mg PO TID 09/17/18 Levothyroxine [Synthroid -] 75 mcg PO DAILY 09/17/18 Cholecalciferol (Vitamin D3) 2,000 units PO DAILY 09/18/18 [Vitamin D3] Docusate Sodium [Colace -] 100 mg PO BID 09/18/18 Pantoprazole Sodium [Protonix -] 40 mg PO DAILY #30 tablet.ec 10/01/18 Microbiology 10/03/18 18:30 Blood - Peripheral Venous Blood Culture - Preliminary NO GROWTH OBTAINED AFTER 96 HOURS, INCUBATION TO CONTINUE FOR 1 DAYS. 10/03/18 16:30 Blood - Peripheral Venous Blood Culture - Preliminary NO GROWTH OBTAINED AFTER 96 HOURS, INCUBATION TO CONTINUE FOR 1 DAYS. 10/03/18 18:00 Urine - Urine Clean Catch Urine Culture - Final 10/02/18 16:00 Urine - Urine Clean Catch Urine Culture - Final 09/18/18 02:15 Blood - Peripheral Venous Blood Culture - Final NO GROWTH AFTER 5 DAYS INCUBATION 09/18/18 02:45 Blood - Peripheral Venous Blood Culture - Final NO GROWTH AFTER 5 DAYS INCUBATION 09/18/18 02:45 Urine - Urine Clean Catch Urine Culture - Final NO GROWTH OBTAINED ASSESSMENT AND PLAN: Patient is a 48 yo female with a PMHx of epilepsy, chronic 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 with subsequent brain damage (patient is non-verbal) requiring 3VP shunts last one being in 1990), hypothyroidism she came to the ED after was found to have a low hemoglobin level of 4.6. # Acute leukocytosis with fever; empiric antibiotic continue as per ID, will get CT abdomen and pelvis to r/o an abscess and Chest CTA to r/o PE. discussed for scanning her abdomen for possible the source of infection with the surgeon and ID, if patient's fever does not improve will scan her chest and abdomen on Saturday . Continue vanco and zosyn for now, will continue with incentive spirometer. Ocampo-culture so far no growth. # POD #6 s/p diverting loop colostomy due to New diagnosis of metastatic colon cancer with mets to liver, lungs, and R adrenal gland. chemo as an outpatient once patient is stable. #Right colon neoplasm /lung/liver masses s/p liver Bx result : Adenocarcinoma, moderately differentiated , compatible with lower GI tract/ Colon origin. GI / Onc on the case. right colon pathology: benign colonic mucosa with focal lamina propia edema, no carcinoma or adenomatous changes. # Right adrenal mass primary vs metastatic disease (2.5 x 2.5 x 2.0 cm): #Thrombocytosis: elevated , oncology is aware . # H/o Seizures, cont tegretol # s/p left superficial thrombophlebitis in upper arm improved will repeat the duplex . # Acute Chronic blood loss anemia, most likely due to colon Cancer. stable HB. #s/p Fecal impaction; on colace and Miralax # Hx of hypothyroidism on levoxyl continue # Acute hyponatremia improved s/p IVF DVT Px: lovenox sq
[2018-10-06] MEDS: carBAMazepine XR 200 MG TAB.ER.12H PO SCH (21:04)
--- NOTE | 2018-10-06 23:03 | PN ---
Progress Note (short form) - Note Progress Note: Patient seen and examined Has abdominal pain/ fever. Last Vital Signs Temp Pulse Resp BP Pulse Ox 98.4 F 100 H 18 129/65 96 10/06/18 22:00 10/06/18 22:00 10/06/18 22:00 10/06/18 22:00 10/06/18 21:00 Cor: RSR, No murmurs, No gallops Lungs: Clear to P&A Abd: Soft,BS+,ileostomy+ Ext:No significant edema Labs/meds reviewed A/P 48 yo F with h/o epilepsy, anemia, congenital 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, s/p HOUSING RELOCATION shunt who p/ w weaknes severe anemia. Patient unable to provide history. Imaging studies concerning for liver metastasess/adrenal met clinical scenario suspicious for metastatic colon cancer s/p Liver biopsy/ PDL1 staining/Her2 staining/MSI pending s/p laparoscopic loop ileostomy for near obstructing primary fevers--? tuor ? post op ct a/p --?? abscess on zosyn pain control discussed with mother at bed side
[2018-10-07] MEDS ORDERED: DEXTROSE 5%-WATER - 50 ML IVPB ONE ×3 (01:29→17:14)
[2018-10-07] MEDS ORDERED: PIPERACILLIN/TAZOBACTAM 3.375 GM VIAL IVPB ONE ×3 (01:29→17:14)
[2018-10-07] MEDS: PIPERACILLIN/TAZOB 3.375 GM 3.375 GM in DEXTROSE 5%-WATER - 50 ML IVPB SCH ×3 (01:58→17:28)
[2018-10-07] MEDS: LEVOTHYROXINE NA 75 MCG TABLET (FP) PO SCH (06:05)
[2018-10-07 07:45] LABS: HEMATOCRIT 25.1 % (32.4-45.2); HEMOGLOBIN 7.8 GM/dL (10.7-15.3); MCH 22.3 pg (25.7-33.7); MCHC 31.1 g/dl (32.0-36.0); MEAN CELL VOLUME 71.7 fl (80-96); MEAN PLT VOLUME 7.6 fl (7.5-11.1); PLATELET COUNT 849 K/MM3 (134-434); RDW 35.8 % (11.6-15.6)
[2018-10-07] MEDS ORDERED: PT OWN MED DRAWER 7, Y5N ONE ×2 (07:49→21:05)
[2018-10-07 08:16] LABS: ALBUMIN 1.7 g/dl (3.4-5.0); ALK PHOS 229 U/L (45-117); ANION GAP 9 MMOL/L (8-16); BILIRUBIN,TOTAL 0.2 mg/dL (0.2-1); BLOOD UREA NITROGEN 3 mg/dL (7-18); CALCIUM 8.6 mg/dL (8.5-10.1); CHLORIDE 103 mmol/L (98-107); CO2 25 mmol/L (21-32); CREATININE 0.3 mg/dL (0.55-1.3); GLUCOSE,RANDOM 92 mg/dL (74-106); PHOSPHOROUS 3.7 mg/dL (2.5-4.9); SGOT/AST 37 U/L (15-37); SGPT/ALT 15 U/L (13-61); SODIUM 136 mmol/L (136-145); TOT PROT 6.5 g/dl (6.4-8.2)
--- NOTE | 2018-10-07 08:28 | PN ---
Teaching Attending Note Name of Resident: Therese Durán ATTENDING PHYSICIAN STATEMENT I saw and evaluated the patient. I reviewed the resident's note and discussed the case with the resident. I agree with the resident's findings and plan as documented. SUBJECTIVE: Low grade fever today , and patint is feelig better. OBJECTIVE: Vital Signs Temperature 98.7 F 10/07/18 06:08 Pulse Rate 103 H 10/07/18 06:08 Respiratory Rate 18 10/07/18 06:08 Blood Pressure 122/52 L 10/07/18 06:08 O2 Sat by Pulse Oximetry (%) 96 10/06/18 21:00 GENERAL: Awake, alert, non verbal at baseline but answers to some questions. HEAD: No signs of trauma, normocephalic, atraumatic EYES: PERRLA, EOMI, sclera anicteric, conjunctiva clear ENT: oropharynx clear without exudates. NECK: Normal ROM, supple, no lymphadenopathy,no JVD, or masses LUNGS: No distress, clear to auscultation bilaterally HEART: tachycardia with rate of 103, normal S1 and S2, no murmurs, rubs or gallops. ABDOMEN: normoactive bowel sounds. No guarding, no rebound. positive for Ostomy with stool, wound is clean. EXTREMITIES : Normal inspection, Normal range of motion, no edema. No clubbing or cyanosis. NEUROLOGICAL: Cranial nerves II through XII grossly intact. Left wrist contracted. SKIN: Warm, Dry, normal turgor, no rashes or lesions noted CBCD WBC 16.6 K/mm3 (4.0-10.0) H 10/06/18 06:00 RBC 3.52 M/mm3 (3.60-5.2) L 10/06/18 06:00 Hgb 8.1 GM/dL (10.7-15.3) L 10/06/18 06:00 Hct 24.9 % (32.4-45.2) L 10/06/18 06:00 MCV 70.8 fl (80-96) L 10/06/18 06:00 MCHC 32.3 g/dl (32.0-36.0) 10/06/18 06:00 RDW 36.3 % (11.6-15.6) H 10/06/18 06:00 Plt Count 919 K/MM3 (134-434) H 10/06/18 06:00 MPV 7.3 fl (7.5-11.1) L 10/06/18 06:00 CMP Sodium 136 mmol/L (136-145) 10/07/18 06:00 Potassium 4.0 mmol/L (3.5-5.1) 10/07/18 06:00 Chloride 103 mmol/L (98-107) 10/07/18 06:00 Carbon Dioxide 25 mmol/L (21-32) 10/07/18 06:00 Anion Gap 9 MMOL/L (8-16) 10/07/18 06:00 BUN 3 mg/dL (7-18) L 10/07/18 06:00 Creatinine 0.3 mg/dL (0.55-1.3) L 10/07/18 06:00 Creat Clearance w eGFR 237.44 (>60) 10/07/18 06:00 Random Glucose 92 mg/dL (74-106) 10/07/18 06:00 Calcium 8.6 mg/dL (8.5-10.1) 10/07/18 06:00 Total Bilirubin 0.2 mg/dL (0.2-1) 10/07/18 06:00 AST 37 U/L (15-37) 10/07/18 06:00 ALT 15 U/L (13-61) 10/07/18 06:00 Alkaline Phosphatase 229 U/L (45-117) H 10/07/18 06:00 Total Protein 6.5 g/dl (6.4-8.2) 10/07/18 06:00 Albumin 1.7 g/dl (3.4-5.0) L 10/07/18 06:00 Current Medications Generic Name Dose Route Start Last Admin Trade Name Freq PRN Reason Stop Dose Admin Acetaminophen 650 mg 09/30/18 13:57 10/06/18 20:29 Tylenol - PO 650 mg Q6H PRN Administration FEVER Ascorbic Acid 500 mg 10/01/18 10:00 10/06/18 21:03 Vitamin C - PO 500 mg BID [facility] Administration Carbamazepine 400 mg 10/01/18 10:00 10/06/18 09:16 Tegretol Xr - PO 400 mg DAILY [facility] Administration Carbamazepine 600 mg 10/01/18 22:00 10/06/18 21:04 Tegretol Xr - PO 600 mg HS [facility] Administration Enoxaparin Sodium 40 mg 10/01/18 10:00 10/06/18 09:16 Lovenox - SQ 40 mg DAILY [facility] Administration Lactated Ringer's 1,000 ml in 1,000 mls @ 125 mls/hr 10/03/18 10:00 10/06/18 12:29 Lactated Ringers Solution IV 125 mls/hr ASDIR [facility] Administration Piperacillin Sod/Tazobactam 50 mls @ 100 mls/hr 10/04/18 10:00 10/07/18 01:58 Sod 3.375 gm/ Dextrose IVPB 100 mls/hr Q8H-IV [facility] Administration Protocol Levothyroxine Sodium 75 mcg 10/01/18 07:00 10/07/18 06:05 Synthroid - PO 75 mcg AM [facility] Administration Magnesium Oxide 400 mg 10/01/18 10:00 10/06/18 21:03 Mag-Ox - PO 400 mg BID [facility] Administration Morphine Sulfate 2 mg 10/03/18 09:18 10/04/18 10:00 Morphine Sulfate IVPUSH 2 mg Q4H PRN Administration PAIN LEVEL 7 - 10 Ondansetron HCl 8 mg 10/02/18 17:46 10/02/18 18:09 Zofran Injection IVPB 8 mg Q12H PRN Administration NAUSEA Oxycodone HCl 5 mg 10/03/18 09:15 Roxicodone - PO Q4H PRN PAIN LEVEL 6-10 Pantoprazole Sodium 40 mg 10/01/18 10:00 10/06/18 09:15 Protonix - PO 40 mg DAILY [facility] Administration Home Medications Medication Instructions Recorded Calcium Carbonate [Super Calcium] 600 mg PO BID 09/17/18 Carbamazepine Xr [Tegretol XR -] 400 mg PO AM 09/17/18 Carbamazepine Xr [Tegretol XR -] 600 mg PO HS 09/17/18 Ferrous Sulfate 325 mg PO TID 09/17/18 Levothyroxine [Synthroid -] 75 mcg PO DAILY 09/17/18 Cholecalciferol (Vitamin D3) 2,000 units PO DAILY 09/18/18 [Vitamin D3] Docusate Sodium [Colace -] 100 mg PO BID 09/18/18 Pantoprazole Sodium [Protonix -] 40 mg PO DAILY #30 tablet.ec 10/01/18 ASSESSMENT AND PLAN: Patient is a 48 yo female with a PMHx of epilepsy, chronic 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 with subsequent brain damage (patient is non-verbal) requiring 3VP shunts last one being in 1990), hypothyroidism she came to the ED after was found to have a low hemoglobin level of 4.6. # Acute leukocytosis with fever; empiric antibiotic for now as per ID, discussed with the surgeon dr Napoles and Id dr. Frederick , discussed for scanning her abdomen for possible the source of infection with the surgeon and ID, CTA and CT of the abdomen: No pe, reported for possble early abscess, repeat the CT with contrast on Saturday if the patient does not improve. discussed with the surgeon Dr. Napoles. continue IV antibiotic for now. # POD #7 s/p diverting loop colostomy due to New diagnosis of metastatic colon cancer with mets to liver, lungs, and R adrenal gland. chemo as an outpatient once patient is stable. #Right colon neoplasm /lung/liver masses s/p liver Bx result : Adenocarcinoma, moderately differentiated , compatible with lower GI tract/ Colon origin. GI / Onc on the case. right colon pathology: benign colonic mucosa with focal lamina propia edema, no carcinoma or adenomatous changes. # Right adrenal mass primary vs metastatic disease (2.5 x 2.5 x 2.0 cm): #Thrombocytosis: elevated , oncology is aware . # H/o Seizures, cont tegretol # s/p left superficial thrombophlebitis in upper arm improved will repeat the duplex . # Acute Chronic blood loss anemia, most likely due to colon Cancer. stable HB. #s/p Fecal impaction; on colace and Miralax # Hx of hypothyroidism on levoxyl continue # Acute hyponatremia improved s/p IVF DVT Px: lovenox sq duplex of lower exteremities
--- NOTE | 2018-10-07 08:38 | PN ---
Physical Exam: SUBJECTIVE: Patient seen and examined at bedside- patient did not spike fevers overnight; she is still having some abdominal pain however improving. OBJECTIVE: Vital Signs Period Temp Pulse Resp BP Sys/Martin Pulse Ox Last 24 Hr 98.4 F-100.7 F 100-117 18-18 112-129/52-74 96-100 GENERAL: The patient is awake, alert, oriented in slight acute distress EYES: PERRL, EOMI; no scleral icterus. NECK: no JVD; no lymphadenopathy LUNGS: diminshed breath sounds. HEART: Regular rate and rhythm, S1, S2 without murmur, rub or gallop. ABDOMEN: soft; slight tenderness upon palpation; ileostomy bad in place with liquid/yellowish stool EXTREMITIES: 2+ pulses, warm, well-perfused, no edema. PSYCH: Normal mood, normal affect. SKIN: Warm, dry, normal turgor, no rashes or lesions noted Laboratory Results - last 24 hr 10/06/18 10/07/18 06:00 06:00 Neutrophils % (Manual) 73.1 Band Neutrophils % 2.9 Lymphocytes % (Manual) 10.6 D Monocytes % (Manual) 13 H Eosinophils % (Manual) 0.9 D Basophils % (Manual) 0.0 Myelocytes % (Man) 0 Promyelocytes % (Man) 0 Blast Cells % (Manual) 0 Metamyelocytes 0 Hypochromia 1+ Platelet Estimate Increased Polychromasia 1+ Poikilocytosis 0 Anisocytosis 3+ Microcytosis 2+ Macrocytosis 0 Target Cells 1+ Sodium 136 Potassium 4.0 Chloride 103 Carbon Dioxide 25 Anion Gap 9 BUN 3 L Creatinine 0.3 L Creat Clearance w eGFR 237.44 Random Glucose 92 Calcium 8.6 Phosphorus 3.7 Magnesium 2.0 Total Bilirubin 0.2 AST 37 ALT 15 Alkaline Phosphatase 229 H Total Protein 6.5 Albumin 1.7 L Active Medications Generic Name Dose Route Start Last Admin Trade Name Freq PRN Reason Stop Dose Admin Acetaminophen 650 mg 09/30/18 13:57 10/06/18 20:29 Tylenol - PO 650 mg Q6H PRN Administration FEVER Ascorbic Acid 500 mg 10/01/18 10:00 10/06/18 21:03 Vitamin C - PO 500 mg BID [facility] Administration Carbamazepine 400 mg 10/01/18 10:00 10/06/18 09:16 Tegretol Xr - PO 400 mg DAILY [facility] Administration Carbamazepine 600 mg 10/01/18 22:00 10/06/18 21:04 Tegretol Xr - PO 600 mg HS [facility] Administration Enoxaparin Sodium 40 mg 10/01/18 10:00 10/06/18 09:16 Lovenox - SQ 40 mg DAILY [facility] Administration Lactated Ringer's 1,000 ml in 1,000 mls @ 125 mls/hr 10/03/18 10:00 10/06/18 12:29 Lactated Ringers Solution IV 125 mls/hr ASDIR [facility] Administration Piperacillin Sod/Tazobactam 50 mls @ 100 mls/hr 10/04/18 10:00 10/07/18 01:58 Sod 3.375 gm/ Dextrose IVPB 100 mls/hr Q8H-IV [facility] Administration Protocol Levothyroxine Sodium 75 mcg 10/01/18 07:00 10/07/18 06:05 Synthroid - PO 75 mcg AM [facility] Administration Magnesium Oxide 400 mg 10/01/18 10:00 10/06/18 21:03 Mag-Ox - PO 400 mg BID [facility] Administration Morphine Sulfate 2 mg 10/03/18 09:18 10/04/18 10:00 Morphine Sulfate IVPUSH 2 mg Q4H PRN Administration PAIN LEVEL 7 - 10 Ondansetron HCl 8 mg 10/02/18 17:46 10/02/18 18:09 Zofran Injection IVPB 8 mg Q12H PRN Administration NAUSEA Oxycodone HCl 5 mg 10/03/18 09:15 Roxicodone - PO Q4H PRN PAIN LEVEL 6-10 Pantoprazole Sodium 40 mg 10/01/18 10:00 10/06/18 09:15 Protonix - PO 40 mg DAILY [facility] Administration ASSESSMENT/PLAN: 48 y/o female with a PMH of epilepsy, chronic 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 requiring 3 SHIFT COMMANDER shunts, hypothyroidism presents to the ED with a one week history of worsening fatigue, loss of appetite, found to have a hemoglobin of 4.6 and was FOBT positive found to now have metastatic colon cancer #Newly found lower GI tract/colon ca patient is POD #8 for diverting loop ileostomy; she was found to have a partial SBO on xray ; surgical f/u patient has not had fevers since 3pm yesterday CTA did not show PE; CT ab/pelvis reviewed by surgeon and radiologist zosyn day 4 heme onc on board; patient supposed to be starting chemo this coming week #Chronic Hydrocephalus w/ SHIFT COMMANDER shunt -stable #Seizures -c/w home medication: tegretol 200: 2 tablets in AM; 3 tablets PM #Hypothyroidism c/w synthroid 75 mcg daily #Severe malnutriton ensure additivies F/E/N d5w@100 monitor electrolytes Problem List - Problems (1) Seizure Code(s): R56.9 - UNSPECIFIED CONVULSIONS (2) Hydrocephalus Code(s): G91.9 - HYDROCEPHALUS, UNSPECIFIED Qualifiers: Hydrocephalus type: communicating Qualified Code(s): G91.0 - Communicating 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 (3) Anemia Code(s): D64.9 - ANEMIA, UNSPECIFIED Qualifiers: Anemia type: unspecified type Qualified Code(s): D64.9 - Anemia, unspecified (4) GI bleed Code(s): K92.2 - GASTROINTESTINAL HEMORRHAGE, UNSPECIFIED Qualifiers: GI bleed type/associated pathology: unspecified gastrointestinal hemorrhage type Qualified Code(s): K92.2 - Gastrointestinal hemorrhage, unspecified Visit type - Emergency Visit Emergency Visit: Yes ED Registration Date: 09/17/18 Care time: The patient presented to the Emergency Department on the above date and was hospitalized for further evaluation of their emergent condition. - New Patient This patient is new to me today: No - Critical Care Critical Care patient: No
[2018-10-07] MEDS: ASCORBIC ACID 500 MG TABLET (FP) PO SCH ×2 (09:04→21:15)
[2018-10-07] MEDS: PANTOPRAZOLE 40 MG TABLET (FP) PO SCH (09:04)
[2018-10-07] MEDS: MAGNESIUM OXIDE 400 MG TABLET (FP) PO SCH ×2 (09:04→21:15)
[2018-10-07] MEDS: carBAMazepine XR 400 MG TAB.ER.12H PO SCH (09:05)
[2018-10-07] MEDS: ENOXAPARIN NA (PORCINE) 40 MG/0.4 ML DISP.SYRIN SQ SCH (09:05)
[2018-10-07] MEDS: LACTATED RINGERS SOLUTION 1,000 ML/1,000 ML INFUS.BAG IV SCH (10:55)
--- NOTE | 2018-10-07 14:03 | PN ---
Progress Note (short form) - Note Progress Note: surgery Ct reviewed. as predicted it has presented diagnostic confusion with a possible abscess in the rlq noted. cancer has shown progression. I reviewed the film with Dr. Cabrera and this most likely represents stool within a diverted cecum with abnormalities from the cancer involved in the adjacent ascending colon. This is unlikely an abscess and the mechanism of surgery would not make a rlq abscess likely. Pt has had fever and leukocytosis since before the surgery. This finding most likely is cancer involved colon or progression of the disease. No indication for surgical exploration. This finding is unrelated to recent surgery. unclear benefit of abx for this finding.
--- NOTE | 2018-10-07 15:32 | PN ---
Progress Note (short form) - Note Progress Note: Patient seen and examined Prior surgical note reviewed Will need to review with I.R. Discuss with ID Last Vital Signs Temp Pulse Resp BP Pulse Ox 100.0 F H 114 H 18 114/62 98 10/07/18 14:00 10/07/18 14:00 10/07/18 14:00 10/07/18 14:00 10/07/18 09:00 HEENT: [place], EOM Intact Oropharynx: No thrush, No mucositis Cor: RSR, No murmurs, No gallops Lungs: diminished breath sounds Abd: Soft,decreased sounds ; functioning ileostomy, grimacing with palpation some Ext:No significant edema Skin: No rashes, Integument intact CBC, BMP 10/07/18 06:00 10/07/18 06:00 Current Medications Generic Name Dose Route Start Last Admin Trade Name Freq PRN Reason Stop Dose Admin Acetaminophen 650 mg 09/30/18 13:57 10/06/18 20:29 Tylenol - PO 650 mg Q6H PRN Administration FEVER Ascorbic Acid 500 mg 10/01/18 10:00 10/07/18 09:04 Vitamin C - PO 500 mg BID FLORIN Administration Carbamazepine 400 mg 10/01/18 10:00 10/07/18 09:05 Tegretol Xr - PO 400 mg DAILY FLORIN Administration Carbamazepine 600 mg 10/01/18 22:00 10/06/18 21:04 Tegretol Xr - PO 600 mg HS FLORIN Administration Enoxaparin Sodium 40 mg 10/01/18 10:00 10/07/18 09:05 Lovenox - SQ 40 mg DAILY FLORIN Administration Lactated Ringer's 1,000 ml in 1,000 mls @ 125 mls/hr 10/03/18 10:00 10/07/18 10:55 Lactated Ringers Solution IV 125 mls/hr ASDIR FLORIN Administration Piperacillin Sod/Tazobactam 50 mls @ 100 mls/hr 10/04/18 10:00 10/07/18 09:05 Sod 3.375 gm/ Dextrose IVPB 100 mls/hr Q8H-IV FLORIN Administration Protocol Levothyroxine Sodium 75 mcg 10/01/18 07:00 10/07/18 06:05 Synthroid - PO 75 mcg AM FLORIN Administration Magnesium Oxide 400 mg 10/01/18 10:00 10/07/18 09:04 Mag-Ox - PO 400 mg BID FLORIN Administration Morphine Sulfate 2 mg 10/03/18 09:18 10/04/18 10:00 Morphine Sulfate IVPUSH 2 mg Q4H PRN Administration PAIN LEVEL 7 - 10 Ondansetron HCl 8 mg 10/02/18 17:46 10/02/18 18:09 Zofran Injection IVPB 8 mg Q12H PRN Administration NAUSEA Oxycodone HCl 5 mg 10/03/18 09:15 Roxicodone - PO Q4H PRN PAIN LEVEL 6-10 Pantoprazole Sodium 40 mg 10/01/18 10:00 10/07/18 09:04 Protonix - PO 40 mg DAILY FLORIN Administration Impression: Metastatic colon ca- lung /liver mets S/P diverting ileostomy Fevers Anemia REactive thrombocytosis To review CT Continue antibiotics for now Monitor labs
--- NOTE | 2018-10-07 17:52 | PN ---
Progress Note (short form) - Note Progress Note: fevers trending down on zosyn day #4 Vital Signs Period Temp Pulse Resp BP Sys/Martin Pulse Ox Last 24 Hr 98.4 F-100.0 F 100-117 18-18 114-129/52-74 96-98 cor-rrr lungs clear abd firm +ostomy ext no edema CBC, BMP 10/07/18 06:00 10/07/18 06:00 Microbiology 10/03/18 16:30 Blood - Peripheral Venous Blood Culture - Preliminary NO GROWTH OBTAINED AFTER 96 HOURS, INCUBATION TO CONTINUE FOR 1 DAYS. 10/03/18 18:30 Blood - Peripheral Venous Blood Culture - Preliminary NO GROWTH OBTAINED AFTER 72 HOURS, INCUBATION TO CONTINUE FOR 2 DAYS. 10/03/18 18:00 Urine - Urine Clean Catch Urine Culture - Final 10/02/18 16:00 Urine - Urine Clean Catch Urine Culture - Final 09/18/18 02:15 Blood - Peripheral Venous Blood Culture - Final NO GROWTH AFTER 5 DAYS INCUBATION 09/18/18 02:45 Blood - Peripheral Venous Blood Culture - Final NO GROWTH AFTER 5 DAYS INCUBATION 09/18/18 02:45 Urine - Urine Clean Catch Urine Culture - Final NO GROWTH OBTAINED a/p fevers-intermittent s/p laparoscopic loop ostomy 09/29 metastatic adenocarcinoma SHACTOR shunt day #4antiibotics- continue zosyn, ct scan difficult study as there is no contrast in lower GI tract-reviewed with Dr Cabrrea- cannot r/o infection in the area of the cecum plan continue zosyn, repeat ct scan on Saturday clinically fevers trending down d/w mother at bedside d/w oncology d/w hospitalist Problem List - Problems (1) Fever Code(s): R50.9 - FEVER, UNSPECIFIED (2) Leukocytosis Code(s): D72.829 - ELEVATED WHITE BLOOD CELL COUNT, UNSPECIFIED (3) Liver masses Code(s): R16.0 - HEPATOMEGALY, NOT ELSEWHERE CLASSIFIED (4) Anemia Code(s): D64.9 - ANEMIA, UNSPECIFIED Qualifiers: Anemia type: unspecified type Qualified Code(s): D64.9 - Anemia, unspecified
[2018-10-07] MEDS: ACETAMINOPHEN 325 MG TABLET (FP) PO PRN (21:15)
[2018-10-07] MEDS: carBAMazepine XR 200 MG TAB.ER.12H PO SCH (21:16)
[2018-10-08] MEDS ORDERED: PIPERACILLIN/TAZOBACTAM 3.375 GM VIAL IVPB ONE ×4 (01:00→16:54)
[2018-10-08] MEDS ORDERED: DEXTROSE 5%-WATER - 50 ML IVPB ONE ×3 (01:01→16:54)
[2018-10-08] MEDS: PIPERACILLIN/TAZOB 3.375 GM 3.375 GM in DEXTROSE 5%-WATER - 50 ML IVPB SCH ×3 (02:27→17:40)
[2018-10-08] MEDS: LEVOTHYROXINE NA 75 MCG TABLET (FP) PO SCH (06:08)
[2018-10-08 07:33] LABS: HEMOGLOBIN 8.4 GM/dL (10.7-15.3); MCH 22.2 pg (25.7-33.7); MCHC 31.1 g/dl (32.0-36.0); MEAN CELL VOLUME 71.5 fl (80-96); MEAN PLT VOLUME 7.3 fl (7.5-11.1); PLATELET COUNT 994 K/MM3 (134-434); RBC 3.78 M/mm3 (3.60-5.2); RDW 35.8 % (11.6-15.6); WHITE BLOOD COUNT 16.9 K/mm3 (4.0-10.0)
[2018-10-08 08:12] LABS: ANION GAP 8 MMOL/L (8-16); BLOOD UREA NITROGEN 3 mg/dL (7-18); CALCIUM 8.4 mg/dL (8.5-10.1); CHLORIDE 104 mmol/L (98-107); CO2 26 mmol/L (21-32); CREATININE 0.4 mg/dL (0.55-1.3); GLUCOSE,RANDOM 81 mg/dL (74-106); POTASSIUM 4.6 mmol/L (3.5-5.1); SODIUM 138 mmol/L (136-145)
--- NOTE | 2018-10-08 08:38 | PN ---
Physical Exam: SUBJECTIVE: Patient seen and examined at bedside- patient had low grade fever around 3pm yesterday; she is still having some abdominal pain- she had a solid bowel movement yesterday OBJECTIVE: Vital Signs Period Temp Pulse Resp BP Sys/Martin Pulse Ox Last 24 Hr 98.2 F-100.5 F 106-114 18-18 114-115/61-70 98-98 GENERAL: The patient is awake, alert, and fully oriented, in no acute distress. EYES: PEERLA: EOMI; no scleral icterus. NECK: no JVD; no lymphadenopathy LUNGS:CTA B/L; no rales, rhonchi or wheezing HEART: Regular rate and rhythm, S1, S2 without murmur, rub or gallop. ABDOMEN: Soft, tenderness upon palpation; l ileostomy bag in place with yellow liquid inside; no erythema surrounding bag EXTREMITIES: 2+ pulses, warm, well-perfused, no edema. PSYCH: Normal mood, normal affect. SKIN: Warm, dry, normal turgor, no rashes or lesions noted Laboratory Results - last 24 hr 10/07/18 10/08/18 10/08/18 06:00 06:30 06:30 WBC 16.0 H 16.9 H RBC 3.50 L 3.78 Hgb 7.8 L 8.4 L Hct 25.1 L 27.0 L MCV 71.7 L 71.5 L MCH 22.3 L 22.2 L MCHC 31.1 L 31.1 L RDW 35.8 H 35.8 H Plt Count 849 H 994 H MPV 7.6 7.3 L Sodium 138 Potassium 4.6 Chloride 104 Carbon Dioxide 26 Anion Gap 8 BUN 3 L Creatinine 0.4 L Creat Clearance w eGFR 170.36 Random Glucose 81 Calcium 8.4 L Phosphorus 4.0 Magnesium 2.0 Active Medications Generic Name Dose Route Start Last Admin Trade Name Freq PRN Reason Stop Dose Admin Acetaminophen 650 mg 09/30/18 13:57 10/07/18 21:15 Tylenol - PO 650 mg Q6H PRN Administration FEVER Ascorbic Acid 500 mg 10/01/18 10:00 10/07/18 21:15 Vitamin C - PO 500 mg BID FLORIN Administration Carbamazepine 400 mg 10/01/18 10:00 10/07/18 09:05 Tegretol Xr - PO 400 mg DAILY FLORIN Administration Carbamazepine 600 mg 10/01/18 22:00 10/07/18 21:16 Tegretol Xr - PO 600 mg HS FLORIN Administration Enoxaparin Sodium 40 mg 10/01/18 10:00 10/07/18 09:05 Lovenox - SQ 40 mg DAILY FLORIN Administration Lactated Ringer's 1,000 ml in 1,000 mls @ 125 mls/hr 10/03/18 10:00 10/07/18 10:55 Lactated Ringers Solution IV 125 mls/hr ASDIR FLORIN Administration Piperacillin Sod/Tazobactam 50 mls @ 100 mls/hr 10/04/18 10:00 10/08/18 02:27 Sod 3.375 gm/ Dextrose IVPB 100 mls/hr Q8H-IV FLORIN Administration Protocol Levothyroxine Sodium 75 mcg 10/01/18 07:00 10/08/18 06:08 Synthroid - PO 75 mcg AM FLORIN Administration Magnesium Oxide 400 mg 10/01/18 10:00 10/07/18 21:15 Mag-Ox - PO 400 mg BID FLORIN Administration Morphine Sulfate 2 mg 10/03/18 09:18 10/04/18 10:00 Morphine Sulfate IVPUSH 2 mg Q4H PRN Administration PAIN LEVEL 7 - 10 Ondansetron HCl 8 mg 10/02/18 17:46 10/02/18 18:09 Zofran Injection IVPB 8 mg Q12H PRN Administration NAUSEA Oxycodone HCl 5 mg 10/03/18 09:15 Roxicodone - PO Q4H PRN PAIN LEVEL 6-10 Pantoprazole Sodium 40 mg 10/01/18 10:00 10/07/18 09:04 Protonix - PO 40 mg DAILY FLORIN Administration ASSESSMENT/PLAN: 48 y/o female with a PMH of epilepsy, chronic 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 requiring 3 LIFE TRAINER shunts, hypothyroidism presents to the ED with a one week history of worsening fatigue, loss of appetite, found to have a hemoglobin of 4.6 and was FOBT positive found to now have metastatic colon cancer #Newly found lower GI tract/colon ca patient is POD #9 for diverting loop ileostomy; she was found to have a partial SBO on xray ; surgical f/u patient has not had fevers since 3pm yesterday CTA did not show PE; CT ab/pelvis reviewed by surgeon and radiologist; repeat scan on saturday zosyn day 5 heme onc on board; patient supposed to be starting chemo this coming week #Chronic Hydrocephalus w/ LIFE TRAINER shunt -stable #Seizures -c/w home medication: tegretol 200: 2 tablets in AM; 3 tablets PM #Hypothyroidism c/w synthroid 75 mcg daily #Severe malnutriton ensure additivies F/E/N d5w@100 monitor electrolytes Problem List - Problems (1) Seizure Code(s): R56.9 - UNSPECIFIED CONVULSIONS (2) Hydrocephalus Code(s): G91.9 - HYDROCEPHALUS, UNSPECIFIED Qualifiers: Hydrocephalus type: communicating Qualified Code(s): G91.0 - Communicating 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 (3) Anemia Code(s): D64.9 - ANEMIA, UNSPECIFIED Qualifiers: Anemia type: unspecified type Qualified Code(s): D64.9 - Anemia, unspecified (4) GI bleed Code(s): K92.2 - GASTROINTESTINAL HEMORRHAGE, UNSPECIFIED Qualifiers: GI bleed type/associated pathology: unspecified gastrointestinal hemorrhage type Qualified Code(s): K92.2 - Gastrointestinal hemorrhage, unspecified Visit type - Emergency Visit Emergency Visit: Yes ED Registration Date: 09/17/18 Care time: The patient presented to the Emergency Department on the above date and was hospitalized for further evaluation of their emergent condition. - New Patient This patient is new to me today: No - Critical Care Critical Care patient: No
[2018-10-08] MEDS ORDERED: PT OWN MED DRAWER 7, Y5N ONE ×2 (10:07→21:08)
[2018-10-08] MEDS: ASCORBIC ACID 500 MG TABLET (FP) PO SCH ×2 (10:34→21:38)
[2018-10-08] MEDS: ENOXAPARIN NA (PORCINE) 40 MG/0.4 ML DISP.SYRIN SQ SCH (10:34)
[2018-10-08] MEDS: carBAMazepine XR 400 MG TAB.ER.12H PO SCH (10:34)
[2018-10-08] MEDS: PANTOPRAZOLE 40 MG TABLET (FP) PO SCH (10:34)
[2018-10-08] MEDS: MAGNESIUM OXIDE 400 MG TABLET (FP) PO SCH ×2 (10:34→21:38)
--- NOTE | 2018-10-08 11:19 | PN ---
Progress Note (short form) - Note Progress Note: low grade temps zosyn day #5 Vital Signs Period Temp Pulse Resp BP Sys/Martin Pulse Ox Last 24 Hr 97.5 F-100.5 F 102-114 18-18 106-114/59-62 98 cor-rrr lungs decreased bs at bses abd softer, +ostomy function ext no edema CBC, BMP 10/08/18 06:30 10/08/18 06:30 Microbiology 10/03/18 18:30 Blood - Peripheral Venous Blood Culture - Preliminary NO GROWTH OBTAINED AFTER 96 HOURS, INCUBATION TO CONTINUE FOR 1 DAYS. 10/03/18 16:30 Blood - Peripheral Venous Blood Culture - Preliminary NO GROWTH OBTAINED AFTER 96 HOURS, INCUBATION TO CONTINUE FOR 1 DAYS. 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 day #5 antiibotics- continue zosyn, ct scan difficult study as there is no contrast in lower GI tract-reviewed with Dr Cabrera- cannot r/o infection in the area of the cecum plan continue zosyn, repeat ct scan on Saturday clinically fevers trending down d/w mother at bedside Problem List - Problems (1) Fever Code(s): R50.9 - FEVER, UNSPECIFIED (2) Leukocytosis Code(s): D72.829 - ELEVATED WHITE BLOOD CELL COUNT, UNSPECIFIED (3) Liver masses Code(s): R16.0 - HEPATOMEGALY, NOT ELSEWHERE CLASSIFIED (4) Anemia Code(s): D64.9 - ANEMIA, UNSPECIFIED Qualifiers: Anemia type: unspecified type Qualified Code(s): D64.9 - Anemia, unspecified
--- NOTE | 2018-10-08 12:50 | PN ---
Progress Note (short form) - Note Progress Note: Patient seen and examined Eating somewhat improved Last Vital Signs Temp Pulse Resp BP Pulse Ox 97.5 F L 102 H 18 106/59 L 98 10/08/18 06:20 10/08/18 06:20 10/08/18 06:20 10/08/18 06:20 10/07/18 20:09 HEENT: [place], EOM Intact Cor: RSR, No murmurs, No gallops Lungs: poor inspiratory effort Abd:mild distension ileostomy function , mild tenderness Ext:No significant edema Skin: No rashes, Integument intact CBC, BMP 10/08/18 06:30 10/08/18 06:30 Current Medications Generic Name Dose Route Start Last Admin Trade Name Freq PRN Reason Stop Dose Admin Acetaminophen 650 mg 09/30/18 13:57 10/07/18 21:15 Tylenol - PO 650 mg Q6H PRN Administration FEVER Ascorbic Acid 500 mg 10/01/18 10:00 10/08/18 10:34 Vitamin C - PO 500 mg BID FLORIN Administration Carbamazepine 400 mg 10/01/18 10:00 10/08/18 10:34 Tegretol Xr - PO 400 mg DAILY FLORIN Administration Carbamazepine 600 mg 10/01/18 22:00 10/07/18 21:16 Tegretol Xr - PO 600 mg HS FLORIN Administration Enoxaparin Sodium 40 mg 10/01/18 10:00 10/08/18 10:34 Lovenox - SQ 40 mg DAILY FLORIN Administration Lactated Ringer's 1,000 ml in 1,000 mls @ 125 mls/hr 10/03/18 10:00 10/07/18 10:55 Lactated Ringers Solution IV 125 mls/hr ASDIR FLORIN Administration Piperacillin Sod/Tazobactam 50 mls @ 100 mls/hr 10/04/18 10:00 10/08/18 10:34 Sod 3.375 gm/ Dextrose IVPB 100 mls/hr Q8H-IV FLORIN Administration Protocol Levothyroxine Sodium 75 mcg 10/01/18 07:00 10/08/18 06:08 Synthroid - PO 75 mcg AM FLORIN Administration Magnesium Oxide 400 mg 10/01/18 10:00 10/08/18 10:34 Mag-Ox - PO 400 mg BID FLORIN Administration Morphine Sulfate 2 mg 10/03/18 09:18 10/04/18 10:00 Morphine Sulfate IVPUSH 2 mg Q4H PRN Administration PAIN LEVEL 7 - 10 Ondansetron HCl 8 mg 10/02/18 17:46 10/02/18 18:09 Zofran Injection IVPB 8 mg Q12H PRN Administration NAUSEA Oxycodone HCl 5 mg 10/03/18 09:15 Roxicodone - PO Q4H PRN PAIN LEVEL 6-10 Pantoprazole Sodium 40 mg 10/01/18 10:00 10/08/18 10:34 Protonix - PO 40 mg DAILY FLORIN Administration Impresseion : Metastatic colon ca Lung/liver mets s/p diverting ileostomy Fevers Anemia Thrombocytosis- reactive Plans: per ID recommendztion
--- NOTE | 2018-10-08 17:06 | PN ---
Teaching Attending Note Name of Resident: Therese Durán ATTENDING PHYSICIAN STATEMENT I saw and evaluated the patient. I reviewed the resident's note and discussed the case with the resident. I agree with the resident's findings and plan as documented. SUBJECTIVE: No pain. No FIGUEREDO . no N/V . OBJECTIVE: NAD, awake, aphasic, minimal verbal response ( yes, no ) MMM CV: RRR, no MRG Lungs: CTAB. Ext no edema Abd: soft. slight distention.NL BS.TTP . tympany . L colostomy with clear liquid in it ASSESSMENT AND PLAN: Unfortunate 48 y/o lady with h/o epilepsy, BANQUET LINE COOK shunting, aphasia, 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, and hypothyroidism, who presented with anemia. 1- Fevers and chills and leukocytosis. likely tumor fever. CT scan form 10/06 reviewed. - cont zosyn - all cx have been neg - CT abd/pelvis on Saturday to follow up on possible collection in RLQ 2- New diagnosis of metastatic colon cancer with mets to liver, lungs, and R adrenal gland. - s/p diverting loop colostomy - cont regular diet - chemo as out pt 3- Chronic blood loss anemia: stable after transfusion. ferrous sulfate as out pt 4- H/o Seizures, cont tegretol. 5- superficial thrombophlebitis in upper arm . warm compresses and elevation 6- Thrombocytosis Dispo: HLOC
[2018-10-08] MEDS: LACTATED RINGERS SOLUTION 1,000 ML/1,000 ML INFUS.BAG IV SCH (17:41)
[2018-10-08] MEDS: carBAMazepine XR 200 MG TAB.ER.12H PO SCH (21:38)
[2018-10-09] MEDS ORDERED: PIPERACILLIN/TAZOBACTAM 3.375 GM VIAL IVPB ONE ×3 (01:12→16:38)
[2018-10-09] MEDS ORDERED: DEXTROSE 5%-WATER - 50 ML IVPB ONE ×3 (01:13→16:39)
[2018-10-09] MEDS: PIPERACILLIN/TAZOB 3.375 GM 3.375 GM in DEXTROSE 5%-WATER - 50 ML IVPB SCH ×3 (01:42→17:03)
[2018-10-09] MEDS: LEVOTHYROXINE NA 75 MCG TABLET (FP) PO SCH (06:54)
[2018-10-09 07:51] LABS: HEMATOCRIT 28.1 % (32.4-45.2); HEMOGLOBIN 8.7 GM/dL (10.7-15.3); MCHC 30.9 g/dl (32.0-36.0); MEAN CELL VOLUME 71.3 fl (80-96); PLATELET COUNT 1001 K/MM3 (134-434); RBC 3.95 M/mm3 (3.60-5.2); RDW 35.8 % (11.6-15.6)
--- NOTE | 2018-10-09 08:11 | PN ---
Physical Exam: SUBJECTIVE: Patient seen and examined at bedside- no acute events overnight; patient had a low fever of 99.9 at 2 am; otherwise she slept through the night OBJECTIVE: Vital Signs Period Temp Pulse Resp BP Sys/Martin Pulse Ox Last 24 Hr 98.3 F-99.9 F 100-112 18-18 102-126/53-74 97-97 GENERAL: The patient is awake, alert, and fully oriented, in no acute distress. EYES: PEERLA: EOMI; no scleral icterus NECK: no JVD; no lymphadenoapthy LUNGS: diminished breath sounds HEART: Regular rate and rhythm, S1, S2 without murmur, rub or gallop. ABDOMEN: Soft, wincing upon palpation; l ileostomy bag in place will yellowish liquid EXTREMITIES: 2+ pulses, warm, well-perfused, no edema. PSYCH: Normal mood, normal affect. SKIN: Warm, dry, normal turgor, no rashes or lesions noted Laboratory Results - last 24 hr 10/08/18 10/09/18 06:30 07:19 WBC 18.0 H RBC 3.95 Hgb 8.7 L Hct 28.1 L MCV 71.3 L MCH 22.0 L MCHC 30.9 L RDW 35.8 H Plt Count 1001 H MPV 7.0 L Sodium 138 Potassium 4.6 Chloride 104 Carbon Dioxide 26 Anion Gap 8 BUN 3 L Creatinine 0.4 L Creat Clearance w eGFR 170.36 Random Glucose 81 Calcium 8.4 L Phosphorus 4.0 Magnesium 2.0 Active Medications Generic Name Dose Route Start Last Admin Trade Name Freq PRN Reason Stop Dose Admin Acetaminophen 650 mg 09/30/18 13:57 10/07/18 21:15 Tylenol - PO 650 mg Q6H PRN Administration FEVER Ascorbic Acid 500 mg 10/01/18 10:00 10/08/18 21:38 Vitamin C - PO 500 mg BID FLORIN Administration Carbamazepine 400 mg 10/01/18 10:00 10/08/18 10:34 Tegretol Xr - PO 400 mg DAILY FLORIN Administration Carbamazepine 600 mg 10/01/18 22:00 10/08/18 21:38 Tegretol Xr - PO 600 mg HS FLORIN Administration Enoxaparin Sodium 40 mg 10/01/18 10:00 10/08/18 10:34 Lovenox - SQ 40 mg DAILY FLORIN Administration Lactated Ringer's 1,000 ml in 1,000 mls @ 125 mls/hr 10/03/18 10:00 10/08/18 17:41 Lactated Ringers Solution IV 125 mls/hr ASDIR FLORIN Administration Piperacillin Sod/Tazobactam 50 mls @ 100 mls/hr 10/04/18 10:00 10/09/18 01:42 Sod 3.375 gm/ Dextrose IVPB 100 mls/hr Q8H-IV FLORIN Administration Protocol Levothyroxine Sodium 75 mcg 10/01/18 07:00 10/09/18 06:54 Synthroid - PO 75 mcg AM FLORIN Administration Magnesium Oxide 400 mg 10/01/18 10:00 10/08/18 21:38 Mag-Ox - PO 400 mg BID FLORIN Administration Ondansetron HCl 8 mg 10/02/18 17:46 10/02/18 18:09 Zofran Injection IVPB 8 mg Q12H PRN Administration NAUSEA Pantoprazole Sodium 40 mg 10/01/18 10:00 10/08/18 10:34 Protonix - PO 40 mg DAILY FLORIN Administration ASSESSMENT/PLAN: 48 y/o female with a PMH of epilepsy, chronic 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 requiring 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 DRIVER ASSISTANT 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, hypothyroidism presents to the ED with a one week history of worsening fatigue, loss of appetite, found to have a hemoglobin of 4.6 and was FOBT positive found to now have metastatic colon cancer #Newly found lower GI tract/colon ca patient is POD #10 for diverting loop ileostomy; she was found to have a partial SBO on xray ; surgical f/u patient has not had fevers since 3pm yesterday CTA did not show PE; CT ab/pelvis reviewed by surgeon and radiologist; repeat scan tomorrow zosyn day 6 heme onc on board; patient supposed to be starting chemo this coming week #Chronic Hydrocephalus w/ DELIVERY DRIVER ASSISTANT shunt -stable #Seizures -c/w home medication: tegretol 200: 2 tablets in AM; 3 tablets PM #Hypothyroidism c/w synthroid 75 mcg daily #Severe malnutriton ensure additivies F/E/N d5w@100 monitor electrolytes Problem List - Problems (1) Seizure Code(s): R56.9 - UNSPECIFIED CONVULSIONS (2) Hydrocephalus Code(s): G91.9 - HYDROCEPHALUS, UNSPECIFIED Qualifiers: Hydrocephalus type: communicating Qualified Code(s): G91.0 - Communicating 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 (3) Anemia Code(s): D64.9 - ANEMIA, UNSPECIFIED Qualifiers: Anemia type: unspecified type Qualified Code(s): D64.9 - Anemia, unspecified (4) GI bleed Code(s): K92.2 - GASTROINTESTINAL HEMORRHAGE, UNSPECIFIED Qualifiers: GI bleed type/associated pathology: unspecified gastrointestinal hemorrhage type Qualified Code(s): K92.2 - Gastrointestinal hemorrhage, unspecified Visit type - Emergency Visit Emergency Visit: Yes ED Registration Date: 09/17/18 Care time: The patient presented to the Emergency Department on the above date and was hospitalized for further evaluation of their emergent condition. - New Patient This patient is new to me today: No - Critical Care Critical Care patient: No
[2018-10-09 08:47] LABS: ALBUMIN 1.9 g/dl (3.4-5.0); ALK PHOS 272 U/L (45-117); ANION GAP 8 MMOL/L (8-16); BILIRUBIN,TOTAL 0.2 mg/dL (0.2-1); CALCIUM 8.5 mg/dL (8.5-10.1); CHLORIDE 102 mmol/L (98-107); CO2 27 mmol/L (21-32); CREATININE 0.5 mg/dL (0.55-1.3); GLUCOSE,RANDOM 82 mg/dL (74-106); MAGNESIUM 2.1 mg/dL (1.8-2.4); POTASSIUM 4.6 mmol/L (3.5-5.1); SGOT/AST 36 U/L (15-37); SGPT/ALT 17 U/L (13-61); SODIUM 136 mmol/L (136-145); TOT PROT 6.9 g/dl (6.4-8.2)
[2018-10-09 08:59] LABS: BLOOD UREA NITROGEN 2 mg/dL (7-18)
[2018-10-09] MEDS ORDERED: PT OWN MED DRAWER 7, Y5N ONE ×2 (09:19→21:59)
[2018-10-09] MEDS: ENOXAPARIN NA (PORCINE) 40 MG/0.4 ML DISP.SYRIN SQ SCH (09:59)
[2018-10-09] MEDS: ASCORBIC ACID 500 MG TABLET (FP) PO SCH ×2 (09:59→22:04)
[2018-10-09] MEDS: PANTOPRAZOLE 40 MG TABLET (FP) PO SCH (09:59)
[2018-10-09] MEDS: MAGNESIUM OXIDE 400 MG TABLET (FP) PO SCH ×2 (09:59→22:04)
[2018-10-09] MEDS: carBAMazepine XR 400 MG TAB.ER.12H PO SCH (10:00)
--- NOTE | 2018-10-09 10:53 | PN ---
Teaching Attending Note Name of Resident: Therese Durán ATTENDING PHYSICIAN STATEMENT I saw and evaluated the patient. I reviewed the resident's note and discussed the case with the resident. I agree with the resident's findings and plan as documented. SUBJECTIVE: No complaints. Interview limited by expressive dysphasia OBJECTIVE: Afberile overnight, Tmax 99.9, Hemodynamically Stable Last Vital Signs Temp Pulse Resp BP Pulse Ox 98.7 F 100 H 18 117/70 97 10/09/18 05:22 10/09/18 05:22 10/09/18 05:22 10/09/18 05:22 10/08/18 21:00 HEENT - [place]. No lymphadenopahy Heart - S1, S2, RRR Lungs - decreased air entry at bases Abdomen - Colostomy LLQ with soft stool. Abdomen soft, some RLQ tenderness. Bowel Sounds normal. Extremities - No edema, no calf tenderness Laboratory Results - last 24 hr 10/09/18 10/09/18 07:19 07:19 WBC 18.0 H RBC 3.95 Hgb 8.7 L Hct 28.1 L MCV 71.3 L MCH 22.0 L MCHC 30.9 L RDW 35.8 H Plt Count 1001 H MPV 7.0 L Sodium 136 Potassium 4.6 Chloride 102 Carbon Dioxide 27 Anion Gap 8 BUN 2 L* Creatinine 0.5 L Creat Clearance w eGFR 131.69 Random Glucose 82 Calcium 8.5 Phosphorus 4.0 Magnesium 2.1 Total Bilirubin 0.2 AST 36 ALT 17 Alkaline Phosphatase 272 H Total Protein 6.9 Albumin 1.9 L Current Medications Generic Name Dose Route Start Last Admin Trade Name Freq PRN Reason Stop Dose Admin Acetaminophen 650 mg 09/30/18 13:57 10/07/18 21:15 Tylenol - PO 650 mg Q6H PRN Administration FEVER Ascorbic Acid 500 mg 10/01/18 10:00 10/09/18 09:59 Vitamin C - PO 500 mg BID FLORIN Administration Carbamazepine 400 mg 10/01/18 10:00 10/09/18 10:00 Tegretol Xr - PO 400 mg DAILY FLORIN Administration Carbamazepine 600 mg 10/01/18 22:00 10/08/18 21:38 Tegretol Xr - PO 600 mg HS FLORIN Administration Enoxaparin Sodium 40 mg 10/01/18 10:00 10/09/18 09:59 Lovenox - SQ 40 mg DAILY FLORIN Administration Piperacillin Sod/Tazobactam 50 mls @ 100 mls/hr 10/04/18 10:00 10/09/18 10:00 Sod 3.375 gm/ Dextrose IVPB 100 mls/hr Q8H-IV FLORIN Administration Protocol Levothyroxine Sodium 75 mcg 10/01/18 07:00 10/09/18 06:54 Synthroid - PO 75 mcg AM FLORIN Administration Magnesium Oxide 400 mg 10/01/18 10:00 10/09/18 09:59 Mag-Ox - PO 400 mg BID FLORIN Administration Ondansetron HCl 8 mg 10/02/18 17:46 10/02/18 18:09 Zofran Injection IVPB 8 mg Q12H PRN Administration NAUSEA Pantoprazole Sodium 40 mg 10/01/18 10:00 10/09/18 09:59 Protonix - PO 40 mg DAILY FOLRIN Administration ASSESSMENT AND PLAN: 48 year old female with developmental delay, bed-bound, history of 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 s/p multiple LEGAL PRACTICE MANAGER shunt procedures, Seizure Disorder, Dysphasia, Hypothyroidism, presented with Anemia and found to have Colon AdenoCa. 1. Sepsis post-op due to possible RLQ abscess based on CT findings 10/06 Fever improving. Leukocytosis persistent, now WBC 18 Continue Zosyn as per ID (Day 6) Tmax overnight 99.[address]odynam[address] For repeat CT A/P 10/10 for confirmation or exclusion of RLQ abscess. Blood Cx/Urine Cx pending. 2. Metastatic colon cancer to Liver, Lungs, and R adrenal gland POD 10 s/p diverting loop colostomy - functioning. Continue regular diet Chemotherapeutic regimen to be started as outpatient as per Oncology. 3. Chronic blood loss anemia sec to Colon Ca - H/H stable s/p transfusion. Will start FeSo4. 4. Seizure Disorder - Continue Tegretol. 5. Superficial Thrombophlebitis in upper arm - improving with warm compresses and elevation. 6. Thrombocytosis, likely reactive secondary to Metastatic Disease versus primary lympoproliferative disorder - will defer to Hematology/Oncology regarding further work-up and management recommendations. 7. Hypothyroidism - continue Levothyroxine DVT Px - Lovenox SQ
[2018-10-09] MEDS: FERROUS SO4 325 MG TABLET (FP) PO SCH (17:03)
--- NOTE | 2018-10-09 20:36 | PN ---
Progress Note (short form) - Note Progress Note: Patient seen and examined Has abdominal pain/ fever. AFVSS Cor: RSR, No murmurs, No gallops Lungs: Clear to P&A Abd: Soft,BS+,ileostomy+ Ext:No significant edema Labs/meds reviewed A/P 48 yo F with h/o epilepsy, anemia, congenital 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, s/p SEAM TAPER MACHINE shunt who p/ w weaknes severe anemia. Patient unable to provide history. Imaging studies concerning for liver metastasess/adrenal met clinical scenario suspicious for metastatic colon cancer s/p Liver biopsy/ PDL1 staining/Her2 staining/MSI pending s/p laparoscopic loop ileostomy for near obstructing primary fevers--? tuor ? post op ct a/p --?? abscess on zosyn repeat imaging? pain control discussed with mother at bed side
[2018-10-09] MEDS: carBAMazepine XR 200 MG TAB.ER.12H PO SCH (22:04)
[2018-10-10] MEDS ORDERED: PIPERACILLIN/TAZOBACTAM 3.375 GM VIAL IVPB ONE ×2 (01:13→09:07)
[2018-10-10] MEDS ORDERED: DEXTROSE 5%-WATER - 50 ML IVPB ONE ×2 (01:14→09:07)
[2018-10-10] MEDS: PIPERACILLIN/TAZOB 3.375 GM 3.375 GM in DEXTROSE 5%-WATER - 50 ML IVPB SCH ×2 (01:19→09:05)
[2018-10-10] MEDS: LEVOTHYROXINE NA 75 MCG TABLET (FP) PO SCH (06:09)
--- NOTE | 2018-10-10 08:10 | PN ---
Progress Note (short form) - Note Progress Note: Patient seen and examined Remains afebrile on antibiotic therapy Last Vital Signs Temp Pulse Resp BP Pulse Ox 97.9 F 101 H 18 111/58 L 98 10/10/18 06:00 10/10/18 06:00 10/10/18 06:00 10/10/18 06:00 10/09/18 21:00 HEENT: [place], EOM Intact Oropharynx: No thrush, No mucositis Cor: RSR, No murmurs, No gallops Lungs:poor inspiratory effort Abd: grimaces on abdominal palpation -nonspecifically; functioning colostomy Ext:No significant edema;SCD Skin: No rashes, Integument intact Current Medications Generic Name Dose Route Start Last Admin Trade Name Freq PRN Reason Stop Dose Admin Acetaminophen 650 mg 09/30/18 13:57 10/07/18 21:15 Tylenol - PO 650 mg Q6H PRN Administration FEVER Ascorbic Acid 500 mg 10/01/18 10:00 10/09/18 22:04 Vitamin C - PO 500 mg BID FLORIN Administration Carbamazepine 400 mg 10/01/18 10:00 10/09/18 10:00 Tegretol Xr - PO 400 mg DAILY FL[facility] Administration Carbamazepine 600 mg 10/01/18 22:00 10/09/18 22:04 Tegretol Xr - PO 600 mg HS FLORIN Administration Enoxaparin Sodium 40 mg 10/01/18 10:00 10/09/18 09:59 Lovenox - SQ 40 mg DAILY FL[facility] Administration Ferrous Sulfate 325 mg 10/09/18 17:30 10/09/18 17:03 Feosol - PO 325 mg BIDWM [facility] Administration Piperacillin Sod/Tazobactam 50 mls @ 100 mls/hr 10/04/18 10:00 10/10/18 01:19 Sod 3.375 gm/ Dextrose IVPB 100 mls/hr Q8H-IV [facility] Administration Protocol Levothyroxine Sodium 75 mcg 10/01/18 07:00 10/10/18 06:09 Synthroid - PO 75 mcg AM [facility] Administration Magnesium Oxide 400 mg 10/01/18 10:00 10/09/18 22:04 Mag-Ox - PO 400 mg BID [facility] Administration Ondansetron HCl 8 mg 10/02/18 17:46 10/02/18 18:09 Zofran Injection IVPB 8 mg Q12H PRN Administration NAUSEA Pantoprazole Sodium 40 mg 10/01/18 10:00 10/09/18 09:59 Protonix - PO 40 mg DAILY [facility] Administration Microbiology 10/03/18 18:30 Blood - Peripheral Venous Blood Culture - Final NO GROWTH AFTER 5 DAYS INCUBATION 10/03/18 16:30 Blood - Peripheral Venous Blood Culture - Final NO GROWTH AFTER 5 DAYS INCUBATION 10/03/18 18:00 Urine - Urine Clean Catch Urine Culture - Final 10/02/18 16:00 Urine - Urine Clean Catch Urine Culture - Final 09/18/18 02:15 Blood - Peripheral Venous Blood Culture - Final NO GROWTH AFTER 5 DAYS INCUBATION 09/18/18 02:45 Blood - Peripheral Venous Blood Culture - Final NO GROWTH AFTER 5 DAYS INCUBATION 09/18/18 02:45 Urine - Urine Clean Catch Urine Culture - Final NO GROWTH OBTAINED Lab pending Impression: Metastatic colon ca - lung , liver mets Anemia- stable Hct Thrombocytosis - platelet count - 1 million - likely reactive Abnormal CT scan - for follow up Fevers --afebrile on antibiotics per ID S/P diverting ileostomy Plan: Follow up CT [id number] Monitor CBC
[2018-10-10 08:15] LABS: HEMATOCRIT 26.2 % (32.4-45.2); HEMOGLOBIN 8.2 GM/dL (10.7-15.3); MCH 22.2 pg (25.7-33.7); MCHC 31.5 g/dl (32.0-36.0); MEAN CELL VOLUME 70.4 fl (80-96); PLATELET COUNT 1036 K/MM3 (134-434); RBC 3.72 M/mm3 (3.60-5.2); WHITE BLOOD COUNT 18.6 K/mm3 (4.0-10.0)
[2018-10-10 08:26] LABS: ANION GAP 7 MMOL/L (8-16); CHLORIDE 102 mmol/L (98-107); CO2 28 mmol/L (21-32); CREATININE 0.4 mg/dL (0.55-1.3); GLUCOSE,RANDOM 86 mg/dL (74-106); MAGNESIUM 1.9 mg/dL (1.8-2.4); PHOSPHOROUS 4.2 mg/dL (2.5-4.9); POTASSIUM 4.6 mmol/L (3.5-5.1); SODIUM 137 mmol/L (136-145)
[2018-10-10 08:44] LABS: BLOOD UREA NITROGEN 2 mg/dL (7-18)
--- NOTE | 2018-10-10 09:03 | PN ---
Physical Exam: SUBJECTIVE: Patient seen and examined at bedside- no acute events overnight; patient slept well through the night, had a fever at 6pm of 99.9 otherwise remains comfortable; patient going for repeat CT scan today OBJECTIVE: Vital Signs Period Temp Pulse Resp BP Sys/Martin Pulse Ox Last 24 Hr 97.9 F-99.7 F 96-109 18-20 111-126/58-71 98-98 GENERAL: The patient is awake, alert, and fully oriented, in no acute distress. EYES:PEERLA: EOMI; no scleral icterus NECK: no JVD: no lymphadenopathy LUNGS:diminished breath sounds B/L HEART: Regular rate and rhythm, S1, S2 without murmur, rub or gallop. ABDOMEN: Soft, slight tenderness upon palpation; ileostomy bag in place with liquid stool. EXTREMITIES: 2+ pulses, warm, well-perfused, no edema. PSYCH: Normal mood, normal affect. SKIN: Warm, dry, normal turgor, no rashes or lesions noted Laboratory Results - last 24 hr 10/09/18 10/10/18 10/10/18 07:19 07:00 07:00 WBC 18.6 H RBC 3.72 Hgb 8.2 L Hct 26.2 L MCV 70.4 L MCH 22.2 L MCHC 31.5 L RDW 36.0 H Plt Count 1036 H MPV 7.0 L Sodium 137 Potassium 4.6 Chloride 102 Carbon Dioxide 28 Anion Gap 7 L BUN 2 L* 2 L* Creatinine 0.4 L Creat Clearance w eGFR 170.36 Random Glucose 86 Calcium 8.0 L Phosphorus 4.2 Magnesium 1.9 Active Medications Generic Name Dose Route Start Last Admin Trade Name Freq PRN Reason Stop Dose Admin Acetaminophen 650 mg 09/30/18 13:57 10/07/18 21:15 Tylenol - PO 650 mg Q6H PRN Administration FEVER Ascorbic Acid 500 mg 10/01/18 10:00 10/09/18 22:04 Vitamin C - PO 500 mg BID FLORIN Administration Carbamazepine 400 mg 10/01/18 10:00 10/09/18 10:00 Tegretol Xr - PO 400 mg DAILY FLORIN Administration Carbamazepine 600 mg 10/01/18 22:00 10/09/18 22:04 Tegretol Xr - PO 600 mg HS FLORIN Administration Enoxaparin Sodium 40 mg 10/01/18 10:00 10/09/18 09:59 Lovenox - SQ 40 mg DAILY FLORIN Administration Ferrous Sulfate 325 mg 10/09/18 17:30 10/09/18 17:03 Feosol - PO 325 mg BIDWM FL[facility] Administration Piperacillin Sod/Tazobactam 50 mls @ 100 mls/hr 10/04/18 10:00 10/10/18 01:19 Sod 3.375 gm/ Dextrose IVPB 100 mls/hr Q8H-IV FLORIN Administration Protocol Levothyroxine Sodium 75 mcg 10/01/18 07:00 10/10/18 06:09 Synthroid - PO 75 mcg AM FLORIN Administration Magnesium Oxide 400 mg 10/01/18 10:00 10/09/18 22:04 Mag-Ox - PO 400 mg BID FL[facility] Administration Ondansetron HCl 8 mg 10/02/18 17:46 10/02/18 18:09 Zofran Injection IVPB 8 mg Q12H PRN Administration NAUSEA Pantoprazole Sodium 40 mg 10/01/18 10:00 10/09/18 09:59 Protonix - PO 40 mg DAILY FLORIN Administration ASSESSMENT/PLAN: 48 y/o female with a PMH of epilepsy, chronic 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 requiring 3 MANAGEMENT MANAGER shunts, hypothyroidism presents to the ED with a one week history of worsening fatigue, loss of appetite, found to have a hemoglobin of 4.6 and was FOBT positive found to now have metastatic colon cancer #Newly found lower GI tract/colon ca patient is POD #11 for diverting loop ileostomy; she was found to have a partial SBO on xray ; surgical f/u CT ab/pelvis reviewed by surgeon and radiologist; repeat scan today shows no change will mnitor off abx for the weekend heme onc on board; patient supposed to be starting chemo this coming week #Chronic Hydrocephalus w/ MANAGEMENT MANAGER shunt -stable #Seizures -c/w home medication: tegretol 200: 2 tablets in AM; 3 tablets PM #Hypothyroidism c/w synthroid 75 mcg daily #Severe malnutriton ensure additivies F/E/N d5w@100 monitor electrolytes Problem List - Problems (1) Seizure Code(s): R56.9 - UNSPECIFIED CONVULSIONS (2) Hydrocephalus Code(s): G91.9 - HYDROCEPHALUS, UNSPECIFIED Qualifiers: Hydrocephalus type: communicating Qualified Code(s): G91.0 - Communicating 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 (3) Anemia Code(s): D64.9 - ANEMIA, UNSPECIFIED Qualifiers: Anemia type: unspecified type Qualified Code(s): D64.9 - Anemia, unspecified (4) GI bleed Code(s): K92.2 - GASTROINTESTINAL HEMORRHAGE, UNSPECIFIED Qualifiers: GI bleed type/associated pathology: unspecified gastrointestinal hemorrhage type Qualified Code(s): K92.2 - Gastrointestinal hemorrhage, unspecified Visit type - Emergency Visit Emergency Visit: Yes ED Registration Date: 09/17/18 Care time: The patient presented to the Emergency Department on the above date and was hospitalized for further evaluation of their emergent condition. - New Patient This patient is new to me today: No - Critical Care Critical Care patient: No
[2018-10-10] MEDS: ENOXAPARIN NA (PORCINE) 40 MG/0.4 ML DISP.SYRIN SQ SCH (09:05)
[2018-10-10] MEDS ORDERED: PT OWN MED DRAWER 7, Y5N ONE ×2 (09:07→21:55)
[2018-10-10] MEDS: MAGNESIUM OXIDE 400 MG TABLET (FP) PO SCH ×2 (12:28→22:02)
[2018-10-10] MEDS: ASCORBIC ACID 500 MG TABLET (FP) PO SCH ×2 (12:29→22:01)
[2018-10-10] MEDS: FERROUS SO4 325 MG TABLET (FP) PO SCH ×2 (12:29→17:21)
[2018-10-10] MEDS: PANTOPRAZOLE 40 MG TABLET (FP) PO SCH (12:29)
[2018-10-10] MEDS: carBAMazepine XR 400 MG TAB.ER.12H PO SCH (12:32)
--- NOTE | 2018-10-10 15:03 | PN ---
Progress Note (short form) - Note Progress Note: lhas completed 7 days zosyn no high grade fevers ct scan reviewed with dr carvajal- no changes, feels LLQ changes most likely cecum tolerating full liquid diet Vital Signs Period Temp Pulse Resp BP Sys/Martin Pulse Ox Last 24 Hr 97.9 F-99.7 F 98-109 18-20 111-126/58-71 98-98 cor-rrr lungs clear abd soft,nt +ostomy ext no edema CBC, BMP 10/10/18 07:00 10/10/18 07:00 Microbiology 10/03/18 18:30 Blood - Peripheral Venous Blood Culture - Final NO GROWTH AFTER 5 DAYS INCUBATION 10/03/18 16:30 Blood - Peripheral Venous Blood Culture - Final NO GROWTH AFTER 5 DAYS INCUBATION 10/03/18 18:00 Urine - Urine Clean Catch Urine Culture - Final 10/02/18 16:00 Urine - Urine Clean Catch Urine Culture - Final 09/18/18 02:15 Blood - Peripheral Venous Blood Culture - Final NO GROWTH AFTER 5 DAYS INCUBATION 09/18/18 02:45 Blood - Peripheral Venous Blood Culture - Final NO GROWTH AFTER 5 DAYS INCUBATION 09/18/18 02:45 Urine - Urine Clean Catch Urine Culture - Final NO GROWTH OBTAINED a/p louqzu-[id number]-bcba grade fevers have resolved-not sure if we treated an infection or not, leukocytosis has persisted s/p laparoscopic loop ostomy 09/29 metastatic adenocarcinoma 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
--- NOTE | 2018-10-10 18:54 | PN ---
Teaching Attending Note Name of Resident: Barrie Fermin ATTENDING PHYSICIAN STATEMENT I saw and evaluated the patient. I reviewed the resident's note and discussed the case with the resident. I agree with the resident's findings and plan as documented. SUBJECTIVE: No fever or chills. no pain OBJECTIVE: NAD, awake, aphasic, minimal verbal response ( yes, no ) MMM CV: RRR, no MRG Lungs: CTAB. Ext no edema Abd: soft. slight distention.NL BS.TTP . tympany . 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 1- Fevers and chills and leukocytosis. likely tumor fever. repeat CT scan reviewed. - Monitor off Abx 2- New diagnosis of metastatic colon cancer with mets to liver, lungs, and R adrenal gland. - s/p diverting loop colostomy - change to low fiber diet - chemo as out pt 3- Chronic blood loss anemia: stable. ferrous sulfate as out pt 4- H/o Seizures, cont tegretol. 5- superficial thrombophlebitis in upper arm . warm compresses and elevation 6- Thrombocytosis Dispo: monitor off Abx for next 48 hours
[2018-10-10] MEDS: carBAMazepine XR 200 MG TAB.ER.12H PO SCH (22:02)
[2018-10-11] MEDS: LEVOTHYROXINE NA 75 MCG TABLET (FP) PO SCH (06:32)
[2018-10-11 07:30] LABS: HEMOGLOBIN 8.2 GM/dL (10.7-15.3); MCH 22.4 pg (25.7-33.7); MCHC 31.6 g/dl (32.0-36.0); MEAN CELL VOLUME 70.9 fl (80-96); MEAN PLT VOLUME 7.1 fl (7.5-11.1); PLATELET COUNT 1042 K/MM3 (134-434); RBC 3.67 M/mm3 (3.60-5.2); RDW 35.9 % (11.6-15.6); WHITE BLOOD COUNT 16.3 K/mm3 (4.0-10.0)
[2018-10-11 07:35] LABS: ANION GAP 8 MMOL/L (8-16); BLOOD UREA NITROGEN 3 mg/dL (7-18); CALCIUM 8.4 mg/dL (8.5-10.1); CHLORIDE 101 mmol/L (98-107); CO2 27 mmol/L (21-32); CREATININE 0.4 mg/dL (0.55-1.3); GLUCOSE,RANDOM 88 mg/dL (74-106); MAGNESIUM 2.3 mg/dL (1.8-2.4); PHOSPHOROUS 3.8 mg/dL (2.5-4.9); POTASSIUM 4.6 mmol/L (3.5-5.1); SODIUM 136 mmol/L (136-145)
--- NOTE | 2018-10-11 09:23 | PN ---
Physical Exam: SUBJECTIVE: Patient seen and examined at bedside- no acute events overnight; patient slept well and did not spike any fevers she tolerated her diet yesterday ; looks much stronger this morning sais shes having a little bit of abdominal pain OBJECTIVE: Vital Signs Period Temp Pulse Resp BP Sys/Martin Pulse Ox Last 24 Hr 98.2 F-99.3 F 98-113 18-20 94-129/53-71 98 GENERAL: The patient is awake, alert, and fully oriented, in no acute distress. EYES: PEERLA: EOMI; no scleral icterus. . NECK: no JVD: no lymphadenopathy LUNGS: diminished breath sounds HEART: Regular rate and rhythm, S1, S2 without murmur, rub or gallop. ABDOMEN: Soft, slight tenderness upon palpation; left ileosotmy bag in place with yellowish-liquid stool . EXTREMITIES: 2+ pulses, warm, well-perfused, no edema. PSYCH: Normal mood, normal affect. SKIN: Warm, dry, normal turgor, no rashes or lesions noted Laboratory Results - last 24 hr 10/11/18 10/11/18 06:00 06:00 WBC 16.3 H RBC 3.67 Hgb 8.2 L Hct 26.0 L MCV 70.9 L MCH 22.4 L MCHC 31.6 L RDW 35.9 H Plt Count 1042 H MPV 7.1 L Sodium 136 Potassium 4.6 Chloride 101 Carbon Dioxide 27 Anion Gap 8 BUN 3 L Creatinine 0.4 L Creat Clearance w eGFR 170.36 Random Glucose 88 Calcium 8.4 L Phosphorus 3.8 Magnesium 2.3 Active Medications Generic Name Dose Route Start Last Admin Trade Name Freq PRN Reason Stop Dose Admin Acetaminophen 650 mg 09/30/18 13:57 10/07/18 21:15 Tylenol - PO 650 mg Q6H PRN Administration FEVER Ascorbic Acid 500 mg 10/01/18 10:00 10/10/18 22:01 Vitamin C - PO 500 mg BID FLORIN Administration Carbamazepine 400 mg 10/01/18 10:00 10/10/18 12:32 Tegretol Xr - PO 400 mg DAILY FLORIN Administration Carbamazepine 600 mg 10/01/18 22:00 10/10/18 22:02 Tegretol Xr - PO 600 mg HS FLORIN Administration Enoxaparin Sodium 40 mg 10/01/18 10:00 10/10/18 09:05 Lovenox - SQ 40 mg DAILY FLORIN Administration Ferrous Sulfate 325 mg 10/09/18 17:30 10/10/18 17:21 Feosol - PO 325 mg BIDWM FLORIN Administration Levothyroxine Sodium 75 mcg 10/01/18 07:00 10/11/18 06:32 Synthroid - PO 75 mcg AM FLORIN Administration Magnesium Oxide 400 mg 10/01/18 10:00 10/10/18 22:02 Mag-Ox - PO 400 mg BID FLORIN Administration Ondansetron HCl 8 mg 10/02/18 17:46 10/02/18 18:09 Zofran Injection IVPB 8 mg Q12H PRN Administration NAUSEA Pantoprazole Sodium 40 mg 10/01/18 10:00 10/10/18 12:29 Protonix - PO 40 mg DAILY FLORIN Administration ASSESSMENT/PLAN: 48 y/o female with a PMH of epilepsy, 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, hypothyroidism presents to the ED with a one week history of worsening fatigue, loss of appetite, found to have a hemoglobin of 4.6 and was FOBT positive found to now have metastatic colon cancer #Newly found lower GI tract/colon ca patient is POD #12 for diverting loop ileostomy; she was found to have a partial SBO on xray ; surgical f/u CT ab/pelvis reviewed by surgeon and radiologist; repeat scan today shows no change will mnitor off abx for the weekend heme onc on board; patient supposed to be starting chemo this coming week #Chronic Hydrocephalus w/ CIVIL CADD TECHNICIAN shunt -stable #Seizures -c/w home medication: tegretol 200: 2 tablets in AM; 3 tablets PM #Hypothyroidism c/w synthroid 75 mcg daily #Severe malnutriton ensure additivies F/E/N d5w@100 monitor electrolytes Problem List - Problems (1) Seizure Code(s): R56.9 - UNSPECIFIED CONVULSIONS (2) Hydrocephalus Code(s): G91.9 - HYDROCEPHALUS, UNSPECIFIED Qualifiers: Hydrocephalus type: communicating Qualified Code(s): G91.0 - Communicating 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 (3) Anemia Code(s): D64.9 - ANEMIA, UNSPECIFIED Qualifiers: Anemia type: unspecified type Qualified Code(s): D64.9 - Anemia, unspecified (4) GI bleed Code(s): K92.2 - GASTROINTESTINAL HEMORRHAGE, UNSPECIFIED Qualifiers: GI bleed type/associated pathology: unspecified gastrointestinal hemorrhage type Qualified Code(s): K92.2 - Gastrointestinal hemorrhage, unspecified Visit type - Emergency Visit Emergency Visit: Yes ED Registration Date: 09/17/18 Care time: The patient presented to the Emergency Department on the above date and was hospitalized for further evaluation of their emergent condition. - New Patient This patient is new to me today: No - Critical Care Critical Care patient: No
[2018-10-11] MEDS ORDERED: PT OWN MED DRAWER 7, Y5N ONE ×3 (09:24→21:40)
[2018-10-11] MEDS: FERROUS SO4 325 MG TABLET (FP) PO SCH ×2 (09:26→16:55)
[2018-10-11] MEDS: ASCORBIC ACID 500 MG TABLET (FP) PO SCH ×2 (09:26→21:43)
[2018-10-11] MEDS: MAGNESIUM OXIDE 400 MG TABLET (FP) PO SCH ×2 (09:26→21:43)
[2018-10-11] MEDS: PANTOPRAZOLE 40 MG TABLET (FP) PO SCH (09:26)
[2018-10-11] MEDS: ENOXAPARIN NA (PORCINE) 40 MG/0.4 ML DISP.SYRIN SQ SCH (09:26)
[2018-10-11] MEDS: carBAMazepine XR 400 MG TAB.ER.12H PO SCH (09:27)
--- NOTE | 2018-10-11 09:37 | PN ---
Teaching Attending Note Name of Resident: Therese Durán ATTENDING PHYSICIAN STATEMENT I saw and evaluated the patient. I reviewed the resident's note and discussed the case with the resident. I agree with the resident's findings and plan as documented. SUBJECTIVE: no pain , no events over night. aid at bedside. OBJECTIVE: NAD, awake, aphasic, minimal verbal response MMM CV: RRR, no MRG Lungs: CTAB. Ext :no edema Abd: soft. slight distention.NL BS.TTP. 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 1- Fevers and chills and leukocytosis. likely tumor fever.stable findings on CT scan - Monitor off Abx . WBC is down 2- New diagnosis of metastatic colon cancer with mets to liver, lungs, and R adrenal gland. - s/p diverting loop colostomy - low fiber diet - chemo as out pt in about 2 weeks 3- Chronic blood loss anemia: stable. cont iron supplements 4- H/o Seizures, cont tegretol. 5- superficial thrombophlebitis in upper arm. warm compresses and elevation 6- Thrombocytosis Dispo: monitor off Abx for next 24 hr
--- NOTE | 2018-10-11 19:07 | PN ---
Progress Note, Physician History of Present Illness: No new events. Denies pain. - Current Medication List Current Medications: Active Medications Acetaminophen (Tylenol -) 650 mg PO Q6H PRN PRN Reason: FEVER Last Admin: 10/07/18 21:15 Dose: 650 mg Ascorbic Acid (Vitamin C -) 500 mg PO BID [facility] Last Admin: 10/11/18 09:26 Dose: 500 mg Carbamazepine (Tegretol Xr -) 400 mg PO DAILY [facility] Last Admin: 10/11/18 09:27 Dose: 400 mg Carbamazepine (Tegretol Xr -) 600 mg PO HS [facility] Last Admin: 10/10/18 22:02 Dose: 600 mg Enoxaparin Sodium (Lovenox -) 40 mg SQ DAILY [facility] Last Admin: 10/11/18 09:26 Dose: 40 mg Ferrous Sulfate (Feosol -) 325 mg PO BIDWM [facility] Last Admin: 10/11/18 16:55 Dose: 325 mg Levothyroxine Sodium (Synthroid -) 75 mcg PO AM [facility] Last Admin: 10/11/18 06:32 Dose: 75 mcg Magnesium Oxide (Mag-Ox -) 400 mg PO BID [facility] Last Admin: 10/11/18 09:26 Dose: 400 mg Ondansetron HCl (Zofran Injection) 8 mg IVPB Q12H PRN PRN Reason: NAUSEA Last Admin: 10/02/18 18:09 Dose: 8 mg Pantoprazole Sodium (Protonix -) 40 mg PO DAILY [facility] Last Admin: 10/11/18 09:26 Dose: 40 mg - Objective Vital Signs: Vital Signs Temperature 99.3 F 10/11/18 15:10 Pulse Rate 111 H 10/11/18 15:10 Respiratory Rate 20 10/11/18 15:10 Blood Pressure 119/72 10/11/18 15:10 O2 Sat by Pulse Oximetry (%) 100 10/11/18 09:00 Constitutional: Yes: No Distress, Calm Cardiovascular: Yes: Regular Rate and Rhythm Respiratory: Yes: Regular, CTA Bilaterally Gastrointestinal: Yes: Normal Bowel Sounds, Soft Edema: No Labs: CBC, BMP 10/11/18 06:00 10/11/18 06:00 INR, PTT INR 1.15 (0.83-1.09) H 09/26/18 06:17 Fibrinogen 444.0 mg/dL (238-498) 09/19/18 05:30 Assessment/Plan 48F with h/o epilepsy, anemia, congenital 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, s/p PREFITTER shunt and recently diagnosed met colon cancer (involving lungs and liver) s/p diverting ileostomy for near obstructing primary. Theres a concern for developing RLQ abscess again on CT yesterday, without significant change from prior. Currently being observed off Abx. Afebrile. Also with iron deficiency anemia and thrombocytosis, thought to be reactive but JAK2 pending.
[2018-10-11] MEDS: carBAMazepine XR 200 MG TAB.ER.12H PO SCH (21:44)
[2018-10-12 06:56] LABS: HEMATOCRIT 27.4 % (32.4-45.2); HEMOGLOBIN 8.4 GM/dL (10.7-15.3); MCHC 30.7 g/dl (32.0-36.0); MEAN CELL VOLUME 71.5 fl (80-96); MEAN PLT VOLUME 6.7 fl (7.5-11.1); PLATELET COUNT 922 K/MM3 (134-434); RBC 3.83 M/mm3 (3.60-5.2); WHITE BLOOD COUNT 16.8 K/mm3 (4.0-10.0)
[2018-10-12 07:12] LABS: ANION GAP 7 MMOL/L (8-16); BLOOD UREA NITROGEN 3 mg/dL (7-18); CALCIUM 8.6 mg/dL (8.5-10.1); CHLORIDE 100 mmol/L (98-107); CO2 27 mmol/L (21-32); CREATININE 0.4 mg/dL (0.55-1.3); GLUCOSE,RANDOM 92 mg/dL (74-106); MAGNESIUM 2.1 mg/dL (1.8-2.4); PHOSPHOROUS 3.4 mg/dL (2.5-4.9); POTASSIUM 4.4 mmol/L (3.5-5.1); SODIUM 134 mmol/L (136-145)
[2018-10-12] MEDS: LEVOTHYROXINE NA 75 MCG TABLET (FP) PO SCH (07:37)
[2018-10-12] MEDS ORDERED: PT OWN MED DRAWER 7, Y5N ONE (09:39)
[2018-10-12] MEDS: FERROUS SO4 325 MG TABLET (FP) PO SCH ×2 (09:52→17:35)
[2018-10-12] MEDS: MAGNESIUM OXIDE 400 MG TABLET (FP) PO SCH ×2 (09:53→21:01)
[2018-10-12] MEDS: ENOXAPARIN NA (PORCINE) 40 MG/0.4 ML DISP.SYRIN SQ SCH (09:53)
[2018-10-12] MEDS: ASCORBIC ACID 500 MG TABLET (FP) PO SCH ×2 (09:53→21:01)
[2018-10-12] MEDS: PANTOPRAZOLE 40 MG TABLET (FP) PO SCH (09:53)
[2018-10-12] MEDS: carBAMazepine XR 400 MG TAB.ER.12H PO SCH (09:53)
--- NOTE | 2018-10-12 15:58 | PN ---
Progress Note, Physician History of Present Illness: AWAKE, SUPINE IN BED OFFERS N COMLAINTS DENIES PAIN REMAINS AFEBRILE - Current Medication List Current Medications: Active Medications Acetaminophen (Tylenol -) 650 mg PO Q6H PRN PRN Reason: FEVER Last Admin: 10/07/18 21:15 Dose: 650 mg Ascorbic Acid (Vitamin C -) 500 mg PO BID [facility] Last Admin: 10/12/18 09:53 Dose: 500 mg Carbamazepine (Tegretol Xr -) 400 mg PO DAILY [facility] Last Admin: 10/12/18 09:53 Dose: 400 mg Carbamazepine (Tegretol Xr -) 600 mg PO HS [facility] Last Admin: 10/11/18 21:44 Dose: 600 mg Enoxaparin Sodium (Lovenox -) 40 mg SQ DAILY [facility] Last Admin: 10/12/18 09:53 Dose: 40 mg Ferrous Sulfate (Feosol -) 325 mg PO BIDWM [facility] Last Admin: 10/12/18 09:52 Dose: 325 mg Levothyroxine Sodium (Synthroid -) 75 mcg PO AM [facility] Last Admin: 10/12/18 07:37 Dose: 75 mcg Magnesium Oxide (Mag-Ox -) 400 mg PO BID [facility] Last Admin: 10/12/18 09:53 Dose: 400 mg Ondansetron HCl (Zofran Injection) 8 mg IVPB Q12H PRN PRN Reason: NAUSEA Last Admin: 10/02/18 18:09 Dose: 8 mg Pantoprazole Sodium (Protonix -) 40 mg PO DAILY [facility] Last Admin: 10/12/18 09:53 Dose: 40 mg - Objective Vital Signs: Vital Signs Temperature 99.5 F 10/12/18 14:00 Pulse Rate 119 H 10/12/18 14:00 Respiratory Rate 18 10/12/18 14:00 Blood Pressure 124/61 10/12/18 14:00 O2 Sat by Pulse Oximetry (%) 99 10/12/18 09:00 Constitutional: Yes: Cachectic Cardiovascular: Yes: Regular Rate and Rhythm, S1, S2 Respiratory: Yes: Diminished Gastrointestinal: Yes: Soft Edema: No Labs: CBC, BMP 10/12/18 06:00 10/12/18 06:00 INR, PTT INR 1.15 (0.83-1.09) H 09/26/18 06:17 Fibrinogen 444.0 mg/dL (238-498) 09/19/18 05:30 Assessment/Plan OBSERVE OFF ANTIBIOTICS
--- NOTE | 2018-10-12 16:34 | PN ---
Progress Note (short form) - Note Progress Note: Subjective: no fever or chills. no pain. no events per mom Objective: Vital Signs: Last Vital Signs Temp Pulse Resp BP Pulse Ox 99.5 F 119 H 18 124/61 99 10/12/18 14:00 10/12/18 14:00 10/12/18 14:00 10/12/18 14:00 10/12/18 09:00 Laboratory Results - last 24 hr 10/12/18 10/12/18 06:00 06:00 WBC 16.8 H RBC 3.83 Hgb 8.4 L Hct 27.4 L MCV 71.5 L MCH 22.0 L MCHC 30.7 L RDW 36.0 H Plt Count 922 H MPV 6.7 L Sodium 134 L Potassium 4.4 Chloride 100 Carbon Dioxide 27 Anion Gap 7 L BUN 3 L Creatinine 0.4 L Creat Clearance w eGFR 170.36 Random Glucose 92 Calcium 8.6 Phosphorus 3.4 Magnesium 2.1 Physical Exam: NAD, awake, aphasic, minimal verbal response MMM CV: RRR, no MRG Lungs: CTAB. Ext :no edema Abd: soft. slight distention.NL BS.TTP. 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 1- Fevers and chills and leukocytosis. likely tumor fever.stable findings on CT scan - Monitor off Abx. stable white count 2- New diagnosis of metastatic colon cancer with mets to liver, lungs, and R adrenal gland. - s/p diverting loop colostomy - low fiber diet - chemo as out pt in about 2 weeks 3- Chronic blood loss anemia: stable. cont iron supplements 4- H/o Seizures, cont tegretol. 5- superficial thrombophlebitis in upper arm. warm compresses and elevation 6- Thrombocytosis Dispo: dc tomorrow with home care if no recurrent fevers Visit type - Emergency Visit Emergency Visit: Yes ED Registration Date: 09/17/18 Care time: The patient presented to the Emergency Department on the above date and was hospitalized for further evaluation of their emergent condition. - New Patient This patient is new to me today: No - Critical Care Critical Care patient: No
--- NOTE | 2018-10-12 19:30 | PN ---
Progress Note, Physician History of Present Illness: No new events. Denies pain. - Current Medication List Current Medications: Active Medications Acetaminophen (Tylenol -) 650 mg PO Q6H PRN PRN Reason: FEVER Last Admin: 10/07/18 21:15 Dose: 650 mg Ascorbic Acid (Vitamin C -) 500 mg PO BID [facility] Last Admin: 10/12/18 09:53 Dose: 500 mg Carbamazepine (Tegretol Xr -) 400 mg PO DAILY [facility] Last Admin: 10/12/18 09:53 Dose: 400 mg Carbamazepine (Tegretol Xr -) 600 mg PO HS [facility] Last Admin: 10/11/18 21:44 Dose: 600 mg Enoxaparin Sodium (Lovenox -) 40 mg SQ DAILY [facility] Last Admin: 10/12/18 09:53 Dose: 40 mg Ferrous Sulfate (Feosol -) 325 mg PO BIDWM [facility] Last Admin: 10/12/18 17:35 Dose: 325 mg Levothyroxine Sodium (Synthroid -) 75 mcg PO AM [facility] Last Admin: 10/12/18 07:37 Dose: 75 mcg Magnesium Oxide (Mag-Ox -) 400 mg PO BID [facility] Last Admin: 10/12/18 09:53 Dose: 400 mg Ondansetron HCl (Zofran Injection) 8 mg IVPB Q12H PRN PRN Reason: NAUSEA Last Admin: 10/02/18 18:09 Dose: 8 mg Pantoprazole Sodium (Protonix -) 40 mg PO DAILY [facility] Last Admin: 10/12/18 09:53 Dose: 40 mg - Objective Vital Signs: Vital Signs Temperature 98.2 F 10/12/18 18:00 Pulse Rate 120 H 10/12/18 18:00 Respiratory Rate 18 10/12/18 18:00 Blood Pressure 121/66 10/12/18 18:00 O2 Sat by Pulse Oximetry (%) 99 10/12/18 09:00 Constitutional: Yes: No Distress, Calm Eyes: Yes: Conjunctiva Clear Cardiovascular: Yes: Regular Rate and Rhythm Respiratory: Yes: Regular, CTA Bilaterally Gastrointestinal: Yes: Normal Bowel Sounds, Soft, Tenderness (mild to palpation) Edema: No Labs: CBC, BMP 10/12/18 06:00 10/12/18 06:00 INR, PTT INR 1.15 (0.83-1.09) H 09/26/18 06:17 Fibrinogen 444.0 mg/dL (238-498) 09/19/18 05:30 Assessment/Plan 48F with h/o epilepsy, anemia, congenital 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, s/p MEDICAL CASH POSTER shunt and recently diagnosed met colon cancer (involving lungs and liver) s/p diverting ileostomy for near obstructing primary. Theres a concern for developing RLQ abscess again on CT yesterday, without significant change from prior. Currently being observed off Abx. Afebrile. Also with iron deficiency anemia and thrombocytosis, thought to be reactive but JAK2 pending.
[2018-10-12] MEDS: carBAMazepine XR 200 MG TAB.ER.12H PO SCH (21:01)
[2018-10-13] MEDS: LEVOTHYROXINE NA 75 MCG TABLET (FP) PO SCH (06:35)
[2018-10-13 08:07] LABS: HEMATOCRIT 25.2 % (32.4-45.2); HEMOGLOBIN 7.9 GM/dL (10.7-15.3); MCH 22.5 pg (25.7-33.7); MCHC 31.3 g/dl (32.0-36.0); MEAN PLT VOLUME 6.7 fl (7.5-11.1); PLATELET COUNT 931 K/MM3 (134-434); RDW 35.9 % (11.6-15.6); WHITE BLOOD COUNT 15.8 K/mm3 (4.0-10.0)
[2018-10-13] MEDS ORDERED: PT OWN MED DRAWER 7, Y5N ONE (09:48)
[2018-10-13] MEDS: PANTOPRAZOLE 40 MG TABLET (FP) PO SCH (09:51)
[2018-10-13] MEDS: carBAMazepine XR 400 MG TAB.ER.12H PO SCH (09:51)
[2018-10-13] MEDS: ASCORBIC ACID 500 MG TABLET (FP) PO SCH (09:51)
[2018-10-13] MEDS: MAGNESIUM OXIDE 400 MG TABLET (FP) PO SCH (09:51)
[2018-10-13] MEDS: FERROUS SO4 325 MG TABLET (FP) PO SCH (09:51)
[2018-10-13] MEDS: ENOXAPARIN NA (PORCINE) 40 MG/0.4 ML DISP.SYRIN SQ SCH (09:51)
--- NOTE | 2018-10-13 10:28 | DS ---
Physical Exam: SUBJECTIVE: Patient seen and examined at bedside this morning. No acute events overnight. No fevers overnight, patient was able to tolerate diet. Patient slept well. Patient has no new complaints. OBJECTIVE: Vital Signs Period Temp Pulse Resp BP Sys/Martin Pulse Ox Last 24 Hr 98.1 F-99.5 F 108-120 18-18 107-124/59-67 99 PHYSICAL EXAM GENERAL: The patient is awake, alert, and oriented. Responds to yes or no questions. In no acute distress. HEAD: Normal with no signs of trauma. EYES: PERRLA, EOMI, sclera anicteric, conjunctiva clear. NECK: Neck supple, no JVD or lymphadenopathy LUNGS: Decreased breath sounds bilaterally. HEART: Regular rate and rhythm, S1, S2 without murmur, rub or gallop. ABDOMEN: Soft, slightly tender around area of wound. Left ileostomy bag in place with dark-colored liquid stools. EXTREMITIES: 2+ pulses, warm, well-perfused, no edema. PSYCH: Normal mood, normal affect. SKIN: Warm, dry, normal turgor, no rashes or lesions noted. LABS Laboratory Results - last 24 hr 10/13/18 06:20 WBC 15.8 H RBC 3.50 L Hgb 7.9 L Hct 25.2 L MCV 72.0 L MCH 22.5 L MCHC 31.3 L RDW 35.9 H Plt Count 931 H MPV 6.7 L Absolute Neuts (auto) 11.6 H Neutrophils % No Result Required. Lymphocytes % No Result Required. 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 She was noted be anemic and received transfusion. FOBT was positive and on CT scan, patient was noted to have large hepatic masses and multiple pulmonary nodules susupicious for metastatic disease. GI and surgery consulted. Patient had biopsies done which showed metastases to liver and lung with primary colon adenocarcinoma. Patient underwent diverting loop ileostomy. Patient was also seen by oncology, and was agreed upon with the family that patient will receive chemotherapy as outpatient. Patient was discharge with instructions to follow up with PCP, GI, Surgery and Oncology. Minutes to complete discharge: 45 Discharge Summary Reason For Visit: TRANSFUSION DEPENDENT ANEMIA,GASTROINTESTINAL HEM Current Active Problems DVT prophylaxis (Acute) Metastatic colon cancer to liver (Acute) Colon cancer (Chronic) Hydrocephalus (Chronic) Liver masses (Chronic) Seizure (Chronic) Ventriculo-peritoneal shunt status (Chronic) Condition: Stable - Instructions Diet, Activity, Other Instructions: Your visit You were admitted to the hospital because you were noted to have bleeding on your stools. CAT scan of your belly showed you have masses. Biopsy was done which showed that you have colon cancer. You underwent surgical procedure and an ileostomy bag was left in place. You were also seen and evaluated by the cancer doctor and after discussion with your family, it is recommended for you to start chemotherapy treatment. Medications Please take Protonix 40mg daily. Tylenol 650mg every 6 hours as needed for pain. Resume your other home medications as prescribed. iron is added to your medications Care Eat a low fiber diet. Drain the ileostomy bag when necessary. Use warm water to gently clean around the stoma, and pat dry thoroughly with a dry wipe. Follow up Please follow-up with your primary care physician within 1 week. Follow-up with the oncologist, Dr Kumar within 1 week. Follow-up with the call center assistant, Dr. Silva in a week. Follow-up with the surgeon, Dr. Stanley within 2-4 weeks. Additional info Call 911 or go to the ED if with any worsening fever, chills, headache, nausea, vomiting, shortness of breath, chest pain, belly pain, bloody stools. Referrals: Jeffry Silva DO [Staff Physician] - 1 Week Renaldo Stanley MD [Staff Physician] - 2 Weeks Paul Kumar MD [Staff Physician] - 1 Week Disposition: VNS/HOME HEALTH CARE - Home Medications Comprehensive Discharge Medication List: Ambulatory Orders Calcium Carbonate [Super Calcium] 600 mg PO BID 09/17/18 Carbamazepine Xr [Tegretol XR -] 400 mg PO AM 09/17/18 Carbamazepine Xr [Tegretol XR -] 600 mg PO HS 09/17/18 Ferrous Sulfate 325 mg PO TID 09/17/18 Levothyroxine [Synthroid -] 75 mcg PO DAILY 09/17/18 Cholecalciferol (Vitamin D3) [Vitamin D3] 2,000 units PO DAILY 09/18/18 Docusate Sodium [Colace -] 100 mg PO BID 09/18/18 Pantoprazole Sodium [Protonix -] 40 mg PO DAILY #30 tablet.ec 10/01/18 Ferrous Sulfate [Feosol] 325 mg PO BIDWM ud 10/13/18 This patient is new to me today: Yes Date on this admission: 10/13/18 Emergency Visit: Yes ED Registration Date: 09/17/18 Care time: The patient presented to the Emergency Department on the above date and was hospitalized for further evaluation of their emergent condition. Critical Care patient: No - Discharge Referral Referred to [facility] Med P.C.: No
[2018-10-13 10:55] LABS: ANISOCYTOSIS 1+; PLATELET ESTIMATE INCREASED; TARGET CELLS 2+
[2018-10-13 13:29] VITALS: BP 105/68; PULSE 120; TEMP 98.5
--- NOTE | 2018-10-13 13:58 | PN ---
Teaching Attending Note Name of Resident: Genny Phillip ATTENDING PHYSICIAN STATEMENT I saw and evaluated the patient. I reviewed the resident's note and discussed the case with the resident. I agree with the resident's findings and plan as documented. SUBJECTIVE: No fever or chills. No abd pain. no FIGUEREDO , no N/V OBJECTIVE: NAD, awake, aphasic, minimal verbal response MMM CV: RRR, no MRG Lungs: CTAB. Ext: no edema Abd: soft. slight distention.NL BS.TTP. 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 1- Fevers and chills and leukocytosis. likely tumor fever.stable findings on CT scan 2- New diagnosis of metastatic colon cancer with mets to liver, lungs, and R adrenal gland. - s/p diverting loop colostomy - low fiber diet - chemo as out pt in about 2 weeks 3- Chronic blood loss anemia: stable. cont iron supplements 4- H/o Seizures, cont tegretol. 5- superficial thrombophlebitis in upper arm. warm compresses and elevation 6- Thrombocytosis dispo : dc home with VNS. mom was taught to change the colostomy. case d/w dr. lowery, No specific instructions for colostomy
--- NOTE | 2018-10-14 16:53 | PATH ---
Surgical Pathology Report Patient Name: DASIA COMER Med. Rec. #: [id number] /Age/Gender: 1970 (Age: 48) / F Account: [id number] Location: [address] [place] [address]/AD Taken: 10/10/2018 Received: 10/10/2018 Reported: 10/14/2018 Physicians: Paul Kumar M.D. Specimen(s) Received PERIPHERAL BLOOD Clinical History History of metastatic cancer, thrombocytosis Final Diagnosis JAK2 (V617F) MUTATION ANALYSIS BY [facility] [place] [place] shows the following: RESULTS: JAK2 V617F MUTATION STATUS: NOT DETECTED. INTERPRETATION: NEGATIVE FOR JAK2 (V617F) MUTATION. See [facility] report ([id number]) for additional details. Electronically Signed Rula Gaspar M.D. Gross Description Received are 2 purple top tubes of peripheral blood which are sent to [facility]. /10/10/2018 saudi/10/10/2018
== END 2018-10-13 16:35 | disposition home health service (06) | DRG 329 ==
LOC: JER 13:39 → JERBED 15:20 → J4S 20:49
PROVIDERS: ADMIT Internal Medicine; ATTEND Internal Medicine
PROC: 30233N1 Transfusion of Nonautologous Red Blood Cells into Peripheral Vein, Percutaneous Approach (ICD-10-PCS; 2018-09-18)
PROC: 0FB13ZX Excision of Right Lobe Liver, Percutaneous Approach, Diagnostic (ICD-10-PCS; 2018-09-22)
PROC: 0DBL8ZX Excision of Transverse Colon, Via Natural or Artificial Opening Endoscopic, Diagnostic (ICD-10-PCS; principal; 2018-09-26 13:30)
PROC: 0D1B4Z4 Bypass Ileum to Cutaneous, Percutaneous Endoscopic Approach (ICD-10-PCS; 2018-09-29)
DX: C18.9 Malignant neoplasm of colon, unspecified (principal); E43 Unspecified severe protein-calorie malnutrition; G40.802 Other epilepsy, not intractable, without status epilepticus; D62 Acute posthemorrhagic anemia; E87.1 Hypo-osmolality and hyponatremia; C78.7 Secondary malignant neoplasm of liver and intrahepatic bile duct; C78.00 Secondary malignant neoplasm of unspecified lung; C79.71 Secondary malignant neoplasm of right adrenal gland; K56.7 Ileus, unspecified; Z68.1 Body mass index [BMI] 19.9 or less, adult; Q03.9 Congenital 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, unspecified; D72.829 Elevated white blood cell count, unspecified; D47.3 Essential (hemorrhagic) thrombocythemia; E03.9 Hypothyroidism, unspecified; K56.41 Fecal impaction; K80.80 Other cholelithiasis without obstruction; E27.9 Disorder of adrenal gland, unspecified; D72.823 Leukemoid reaction; R50.9 Fever, unspecified; F32.9 Major depressive disorder, single episode, unspecified; R00.0 Tachycardia, unspecified; I80.8 Phlebitis and thrombophlebitis of other sites; Z98.2 Presence of cerebrospinal fluid drainage device
CPT/HCPCS: 36415; 36430; 36511; 70450-TC; 71045-TC-FY; 71260-TC; 71275-TC; 74018-TC-FY; 74019-TC-FY; 74176-TC; 74177-TC; 76705-TC; 76942-TC; 80048; 80053; 81003; 81015; 82105; 82272; 82378; 82607; 82728; 82747; 83540; 83550; 83735; 84100; 84439; 84443; 84703; 85014; 85025; 85027; 85044; 85384; 85610; 85730; 86301; 86850; 86900; 86901; 86922; 87040; 87086; 87899; 88300-TC; 88305-TC; 88341-TC; 93005; 93010; 93970-TC; 93971; 94760; 99283-25; J0131; J1756; J7030; P9038; P9058; Q9967

== ENCOUNTER 2018-11-05 09:02 | Day surgery (SDC) | payer OTHER, BC ==
[2018-11-04 11:45] VITALS: BMI 16.4
[2018-11-05 09:52] LABS: EOS % 0.3 % (0-4.5); HEMATOCRIT 27.1 % (32.4-45.2); HEMOGLOBIN 8.6 GM/dL (10.7-15.3); LYMPH % 10.4 % (8-40); MCH 23.8 pg (25.7-33.7); MCHC 31.6 g/dl (32.0-36.0); MEAN CELL VOLUME 75.5 fl (80-96); MEAN PLT VOLUME 7.2 fl (7.5-11.1); MONO % 5.9 % (3.8-10.2); NEUT % 82.4 % (42.8-82.8); PLATELET COUNT 796 K/MM3 (134-434); RBC 3.59 M/mm3 (3.60-5.2); RDW 29.1 % (11.6-15.6); WHITE BLOOD COUNT 15.3 K/mm3 (4.0-10.0)
[2018-11-05 10:02] LABS: INR 1.21 (0.83-1.09); PROTHROMBIN TIME (PATIENT) 14.3 SEC (9.7-13.0)
[2018-11-05] MEDS ORDERED: MIDAZOLAM HCL 2 MG/2 ML SINGLE DOSE VIAL ONE (10:16)
[2018-11-05 11:20] LABS: ANISOCYTOSIS 2+; MACROCYTOSIS 0; PLATELET ESTIMATE INCREASED; TARGET CELLS 1+
[2018-11-05 13:05] VITALS: TEMP 98
[2018-11-05 14:34] VITALS: BP 113/72; PULSE 120
== END 2018-11-05 14:36 | disposition home or self-care (01) ==
LOC: JRADIR 09:02
PROVIDERS: ATTEND Internal Medicine Hematology & Oncology
PROC: 05HN33Z Insertion of Infusion Device into Left Internal Jugular Vein, Percutaneous Approach (ICD-10-PCS; principal; 2018-11-05)
PROC: B514ZZA Fluoroscopy of Left Jugular Veins, Guidance (ICD-10-PCS; 2018-11-05)
DX: C18.9 Malignant neoplasm of colon, unspecified (principal)
CPT/HCPCS: 36561; C1788; 36415; 84703; 85025; 85610

== ENCOUNTER 2018-11-06 07:07 | Day surgery (SDC) | payer OTHER, BC ==
[2018-11-06] MEDS ORDERED: PALONOSETRON HCL 0.25 MG/5 ML VIAL IVPUSH ONE (08:00)
[2018-11-06] MEDS ORDERED: DEXAMETHASONE SODIUM PHOSPHATE 20 MG in SODIUM CHLORIDE 50 ML IVPB ONE (08:00)
[2018-11-06] MEDS ORDERED: OXALIPLATIN 100 MG, OXALIPLATIN 10 MG in DEXTROSE 5%-WATER - 500 ML IV ONE (08:30)
[2018-11-06] MEDS ORDERED: SODIUM CHLORIDE 250 ML IV ONE (10:30)
[2018-11-06 10:42] LABS: HEMATOCRIT 27.6 % (32.4-45.2); HEMOGLOBIN 8.6 GM/dL (10.7-15.3); MCH 23.6 pg (25.7-33.7); MCHC 31.2 g/dl (32.0-36.0); MEAN CELL VOLUME 75.7 fl (80-96); MEAN PLT VOLUME 7.1 fl (7.5-11.1); PLATELET COUNT 747 K/MM3 (134-434); RBC 3.65 M/mm3 (3.60-5.2); RDW 28.2 % (11.6-15.6); WHITE BLOOD COUNT 13.8 K/mm3 (4.0-10.0)
[2018-11-06 12:48] LABS: CREATININE 0.4 mg/dL (0.55-1.3)
[2018-11-06 12:49] LABS: ALBUMIN 2.4 g/dl (3.4-5.0); CO2 26 mmol/L (21-32)
[2018-11-06 13:05] LABS: ALK PHOS 422 U/L (45-117); ANION GAP 8 MMOL/L (8-16); BILIRUBIN,DIRECT 0.1 mg/dL (0.0-0.2); BILIRUBIN,TOTAL 0.3 mg/dL (0.2-1); BLOOD UREA NITROGEN 10 mg/dL (7-18); CALCIUM 9.5 mg/dL (8.5-10.1); CHLORIDE 97 mmol/L (98-107); GLUCOSE,RANDOM 78 mg/dL (74-106); MAGNESIUM 2.1 mg/dL (1.8-2.4); POTASSIUM 4.4 mmol/L (3.5-5.1); SGOT/AST 82 U/L (15-37); SGPT/ALT 26 U/L (13-61); SODIUM 131 mmol/L (136-145); TOT PROT 8.2 g/dl (6.4-8.2)
[2018-11-06 14:11] LABS: ANISOCYTOSIS 1+; MACROCYTOSIS 0; PLATELET ESTIMATE INCREASED; TARGET CELLS 1+
[2018-11-06 18:58] VITALS: BP 102/59; PULSE 127; TEMP 98.3
== END 2018-11-06 16:00 | disposition home or self-care (01) ==
LOC: JONCCHEMO 07:07 → J7W 11:37 → JONCCHEMO 16:00
PROVIDERS: ATTEND Internal Medicine Hematology & Oncology
DX: Z51.11 Encounter for antineoplastic chemotherapy (principal); C18.9 Malignant neoplasm of colon, unspecified
CPT/HCPCS: 36415; 80048; 80076; 83735; 85027; 96361; 96367; 96375; 96413; 96415; J2469; J9263

== ENCOUNTER 2018-11-20 07:07 | Day surgery (SDC) | payer OTHER, BC ==
[2018-11-20] MEDS ORDERED: SODIUM CHLORIDE 250 ML IV ONE (11:00)
[2018-11-20] MEDS ORDERED: PALONOSETRON HCL 0.25 MG/5 ML VIAL IVPUSH ONE (11:30)
[2018-11-20 11:46] LABS: BASO % 1.1 % (0-2.0); EOS % 0.2 % (0-4.5); HEMATOCRIT 28.2 % (32.4-45.2); HEMOGLOBIN 8.6 GM/dL (10.7-15.3); LYMPH % 10.7 % (8-40); MCH 23.9 pg (25.7-33.7); MCHC 30.4 g/dl (32.0-36.0); MEAN CELL VOLUME 78.6 fl (80-96); MEAN PLT VOLUME 7.7 fl (7.5-11.1); MONO % 8.8 % (3.8-10.2); NEUT % 79.2 % (42.8-82.8); PLATELET COUNT 796 K/MM3 (134-434); RBC 3.59 M/mm3 (3.60-5.2); RDW 25.4 % (11.6-15.6); WHITE BLOOD COUNT 14.7 K/mm3 (4.0-10.0)
[2018-11-20] MEDS ORDERED: DEXAMETHASONE INJECTION 20 MG in SODIUM CHLORIDE 50 ML IVPB ONE (12:00)
[2018-11-20 12:15] LABS: ALBUMIN 2.5 g/dl (3.4-5.0); BILIRUBIN,TOTAL 0.3 mg/dL (0.2-1); CALCIUM 9.5 mg/dL (8.5-10.1); CREATININE 0.4 mg/dL (0.55-1.3); MAGNESIUM 2.2 mg/dL (1.8-2.4); POTASSIUM 4.4 mmol/L (3.5-5.1); TOT PROT 8.2 g/dl (6.4-8.2)
[2018-11-20] MEDS ORDERED: OXALIPLATIN 100 MG, OXALIPLATIN 10 MG in DEXTROSE 5%-WATER - 500 ML IV ONE (12:30)
[2018-11-20 13:10] VITALS: TEMP 97.9
[2018-11-20] MEDS ORDERED: PORTA CATH FLUSH 10 ML IVPUSH ONE (13:14)
[2018-11-20 14:40] LABS: ANISOCYTOSIS 2+; MACROCYTOSIS 0; PLATELET ESTIMATE INCREASED; TARGET CELLS 1+; TEAR DROP CELLS 1+
[2018-11-20 15:46] VITALS: BP 102/64; PULSE 111
== END 2018-11-20 15:15 | disposition home or self-care (01) ==
LOC: JONCCHEMO 07:07 → J7W 10:47 → JONCCHEMO 15:15
PROVIDERS: ATTEND Internal Medicine Hematology & Oncology
DX: Z51.11 Encounter for antineoplastic chemotherapy (principal); C18.9 Malignant neoplasm of colon, unspecified
CPT/HCPCS: 36415; 80053; 83735; 85025; 96375; 96413; 96415; J2469; J9263

== ENCOUNTER 2018-12-04 06:10 | Day surgery (SDC) | payer OTHER, BC ==
[2018-12-04 09:46] LABS: BASO % 1.1 % (0-2.0); EOS % 0.4 % (0-4.5); HEMATOCRIT 31.3 % (32.4-45.2); HEMOGLOBIN 9.8 GM/dL (10.7-15.3); LYMPH % 7.7 % (8-40); MCH 25.3 pg (25.7-33.7); MCHC 31.2 g/dl (32.0-36.0); MEAN PLT VOLUME 7.5 fl (7.5-11.1); MONO % 7.8 % (3.8-10.2); PLATELET COUNT 503 K/MM3 (134-434); RBC 3.86 M/mm3 (3.60-5.2); RDW 22.2 % (11.6-15.6); WHITE BLOOD COUNT 14.7 K/mm3 (4.0-10.0)
[2018-12-04] MEDS ORDERED: PALONOSETRON HCL 0.25 MG/5 ML VIAL IVPUSH ONE (10:00)
[2018-12-04] MEDS ORDERED: DEXAMETHASONE SODIUM PHOSPHATE 20 MG in SODIUM CHLORIDE 50 ML IVPB ONE (10:00)
[2018-12-04 10:18] LABS: ALBUMIN 2.6 g/dl (3.4-5.0); BILIRUBIN,DIRECT 0.2 mg/dL (0.0-0.2); BILIRUBIN,TOTAL 0.3 mg/dL (0.2-1); CALCIUM 9.4 mg/dL (8.5-10.1); CREATININE 0.5 mg/dL (0.55-1.3); POTASSIUM 4.8 mmol/L (3.5-5.1); TOT PROT 8.5 g/dl (6.4-8.2)
[2018-12-04] MEDS ORDERED: OXALIPLATIN 100 MG, OXALIPLATIN 10 MG in DEXTROSE 5%-WATER - 500 ML IV ONE (10:30)
[2018-12-04] MEDS: SODIUM CHLORIDE 250 ML IV ONE ×2 (11:11→14:56)
[2018-12-04 12:12] LABS: ANISOCYTOSIS 1+; MACROCYTOSIS 1+; OVALOCYTE 1+; PLATELET ESTIMATE INCREASED; TARGET CELLS 1+
[2018-12-04 16:28] VITALS: TEMP 97.6
[2018-12-04] MEDS ORDERED: PORTA CATH FLUSH 10 ML IVPUSH ONE (17:07)
[2018-12-04 17:08] VITALS: BP 98/64; PULSE 92
== END 2018-12-04 15:15 | disposition home or self-care (01) ==
LOC: JONCCHEMO 06:10 → J7W 10:02 → JONCCHEMO 15:00
PROVIDERS: ATTEND Internal Medicine Hematology & Oncology
DX: Z51.11 Encounter for antineoplastic chemotherapy (principal); C18.9 Malignant neoplasm of colon, unspecified
CPT/HCPCS: 36415; 80048; 80076; 83735; 85025; 96361; 96375; 96413; 96415; J2469; J9263

== ENCOUNTER 2018-12-18 05:40 | Day surgery (SDC) | payer OTHER, BC | END 2018-12-18 14:30 | disposition home or self-care (01) | LOC: JONCCHEMO 05:40 → J7W 10:33 → JONCCHEMO 14:30 ==

== ENCOUNTER 2019-01-01 07:04 | Day surgery (SDC) | payer OTHER, BC ==
[2019-01-01] MEDS ORDERED: DEXAMETHASONE SODIUM PHOSPHATE 20 MG in SODIUM CHLORIDE 50 ML IVPB ONE (09:00)
[2019-01-01] MEDS ORDERED: PALONOSETRON HCL 0.25 MG/5 ML VIAL IVPUSH ONE (09:00)
[2019-01-01] MEDS ORDERED: OXALIPLATIN 100 MG, OXALIPLATIN 10 MG in DEXTROSE 5%-WATER - 500 ML IV ONE (09:30)
[2019-01-01 10:20] LABS: BASO % 1.1 % (0-2.0); EOS % 0.4 % (0-4.5); HEMATOCRIT 29.5 % (32.4-45.2); HEMOGLOBIN 9.4 GM/dL (10.7-15.3); LYMPH % 13.5 % (8-40); MCHC 31.8 g/dl (32.0-36.0); MEAN CELL VOLUME 84.9 fl (80-96); MEAN PLT VOLUME 7.7 fl (7.5-11.1); MONO % 13.2 % (3.8-10.2); NEUT % 71.8 % (42.8-82.8); PLATELET COUNT 359 K/MM3 (134-434); RBC 3.47 M/mm3 (3.60-5.2); RDW 25.5 % (11.6-15.6); WHITE BLOOD COUNT 9.8 K/mm3 (4.0-10.0)
[2019-01-01 10:40] LABS: ALBUMIN 2.7 g/dl (3.4-5.0); BILIRUBIN,DIRECT 0.1 mg/dL (0.0-0.2); BILIRUBIN,TOTAL 0.4 mg/dL (0.2-1); BLOOD UREA NITROGEN 11.9 mg/dL (7-18); CALCIUM 9.5 mg/dL (8.5-10.1); CREATININE 0.6 mg/dL (0.55-1.3); MAGNESIUM 2.2 mg/dL (1.8-2.4); POTASSIUM 4.5 mmol/L (3.5-5.1); TOT PROT 8.7 g/dl (6.4-8.2)
[2019-01-01] MEDS ORDERED: SODIUM CHLORIDE 250 ML IV ONE (11:30)
[2019-01-01 13:33] LABS: ANISOCYTOSIS 2+; MACROCYTOSIS 0; PLATELET ESTIMATE NORMAL
[2019-01-01 15:09] VITALS: BP 90/60; PULSE 88; TEMP 97.7
[2019-01-01] MEDS ORDERED: PORTA CATH FLUSH 10 ML IVPUSH ONE (16:21)
== END 2019-01-01 14:30 | disposition home or self-care (01) ==
LOC: JONCCHEMO 07:04 → J7W 10:55 → JONCCHEMO 14:30
PROVIDERS: ATTEND Internal Medicine Hematology & Oncology
DX: Z51.11 Encounter for antineoplastic chemotherapy (principal); C18.9 Malignant neoplasm of colon, unspecified
CPT/HCPCS: 36415; 80048; 80076; 82378; 83735; 85025; 96375; 96413; 96415; G0463-25; J2469; J9263

== ENCOUNTER 2019-01-15 05:35 | Day surgery (SDC) | payer OTHER, BC ==
[2019-01-15 09:55] LABS: HEMATOCRIT 31.1 % (32.4-45.2); HEMOGLOBIN 9.8 GM/dL (10.7-15.3); MCH 27.2 pg (25.7-33.7); MCHC 31.5 g/dl (32.0-36.0); MEAN CELL VOLUME 86.3 fl (80-96); MEAN PLT VOLUME 7.9 fl (7.5-11.1); RDW 26.6 % (11.6-15.6); WHITE BLOOD COUNT 12.9 K/mm3 (4.0-10.0)
[2019-01-15] MEDS ORDERED: DEXAMETHASONE SODIUM PHOSPHATE 20 MG in SODIUM CHLORIDE 50 ML IVPB ONE (10:00)
[2019-01-15] MEDS ORDERED: PALONOSETRON HCL 0.25 MG/5 ML VIAL IVPUSH ONE (10:00)
[2019-01-15 10:26] LABS: PLATELET COUNT 314 K/MM3 (134-434)
[2019-01-15] MEDS ORDERED: DEXTROSE 5% IV ONE (10:30)
[2019-01-15] MEDS ORDERED: OXALIPLATIN IV ONE (10:30)
[2019-01-15] MEDS ORDERED: WATER IV ONE (10:30)
[2019-01-15 10:40] LABS: ALBUMIN 2.8 g/dl (3.4-5.0); BILIRUBIN,DIRECT 0.1 mg/dL (0.0-0.2); BILIRUBIN,TOTAL 0.3 mg/dL (0.2-1); BLOOD UREA NITROGEN 13.7 mg/dL (7-18); CALCIUM 9.6 mg/dL (8.5-10.1); CREATININE 0.6 mg/dL (0.55-1.3); MAGNESIUM 2.3 mg/dL (1.8-2.4); POTASSIUM 4.2 mmol/L (3.5-5.1); TOT PROT 9.1 g/dl (6.4-8.2)
[2019-01-15] MEDS ORDERED: SODIUM CHLORIDE 250 ML IV ONE (12:30)
[2019-01-15 16:22] VITALS: TEMP 97.6
[2019-01-15] MEDS ORDERED: PORTA CATH FLUSH 10 ML IVPUSH ONE (16:22)
[2019-01-15 16:23] VITALS: BP 108/75; PULSE 89
== END 2019-01-15 15:20 | disposition home or self-care (01) ==
LOC: JONCCHEMO 05:35 → J7W 10:58 → JONCCHEMO 15:20
PROVIDERS: ATTEND Internal Medicine Hematology & Oncology
DX: Z51.11 Encounter for antineoplastic chemotherapy (principal); C18.9 Malignant neoplasm of colon, unspecified
CPT/HCPCS: 36415; 80048; 80076; 80156; 82378; 83735; 84443; 85027; 96375; 96413; 96415; J2469; J9263

== ENCOUNTER 2019-02-12 06:35 | Day surgery (SDC) | payer OTHER, BC | END 2019-02-12 15:45 | disposition home or self-care (01) | LOC: JONCCHEMO 06:35 → J7W 11:48 → JONCCHEMO 15:45 ==

== ENCOUNTER 2019-02-19 07:20 | Day surgery (SDC) | payer OTHER, BC ==
[2019-02-19] MEDS ORDERED: ONDANSETRON INJECTION 8 MG in SODIUM CHLORIDE 50 ML IVPB ONE (09:30)
[2019-02-19] MEDS ORDERED: SODIUM CHLORIDE IV ONE (10:00)
[2019-02-19] MEDS ORDERED: BEVACIZUMAB IV ONE (10:00)
[2019-02-19] MEDS ORDERED: LEUCOVORIN INJECTION - 600 MG in DEXTROSE 5%-WATER - 250 ML IVPB ONE (10:30)
[2019-02-19 10:52] LABS: BASO % 0.6 % (0-2.0); EOS % 0.5 % (0-4.5); HEMATOCRIT 25.6 % (32.4-45.2); HEMOGLOBIN 8.3 GM/dL (10.7-15.3); LYMPH % 11.1 % (8-40); MCH 28.7 pg (25.7-33.7); MCHC 32.5 g/dl (32.0-36.0); MEAN CELL VOLUME 88.2 fl (80-96); MEAN PLT VOLUME 7.2 fl (7.5-11.1); MONO % 5.2 % (3.8-10.2); NEUT % 82.6 % (42.8-82.8); PLATELET COUNT 531 K/MM3 (134-434); RDW 22.1 % (11.6-15.6); WHITE BLOOD COUNT 9.9 K/mm3 (4.0-10.0)
[2019-02-19 11:24] LABS: ALBUMIN 2.7 g/dl (3.4-5.0); BILIRUBIN,DIRECT 0.1 mg/dL (0.0-0.2); BILIRUBIN,TOTAL 0.2 mg/dL (0.2-1); BLOOD UREA NITROGEN 11.6 mg/dL (7-18); CALCIUM 9.7 mg/dL (8.5-10.1); CREATININE 0.6 mg/dL (0.55-1.3); POTASSIUM 4.5 mmol/L (3.5-5.1)
[2019-02-19] MEDS ORDERED: FLUOROURACIL 500 MG/10 ML VIAL IVPUSH ONE (11:30)
[2019-02-19 11:48] LABS: ANISOCYTOSIS 1+; MACROCYTOSIS 1+; OVALOCYTE 1+; TEAR DROP CELLS 1+
[2019-02-19] MEDS ORDERED: IRON SUCROSE INJECTION 200 MG in SODIUM CHLORIDE 90 ML IVPB ONE (11:55)
[2019-02-19 17:41] VITALS: BP 101/63; PULSE 92; TEMP 97.8
[2019-02-19] MEDS ORDERED: PORTA CATH FLUSH 10 ML IVPUSH ONE (17:41)
== END 2019-02-19 16:00 | disposition home or self-care (01) ==
LOC: JONCCHEMO 07:20 → J7W 12:03 → JONCCHEMO 16:00
PROVIDERS: ATTEND Internal Medicine Hematology & Oncology
DX: Z51.11 Encounter for antineoplastic chemotherapy (principal); C18.9 Malignant neoplasm of colon, unspecified
CPT/HCPCS: 36415; 80048; 80076; 83735; 85025; 96365; 96366; 96367; 96375; 96409; 96411; 96413; 96415; 96417; J1756; J2405; J9035; J9190

== ENCOUNTER 2019-03-05 06:58 | Day surgery (SDC) | payer OTHER, BC ==
[2019-03-05] MEDS ORDERED: ONDANSETRON INJECTION 8 MG in SODIUM CHLORIDE 50 ML IVPB ONE (09:30)
[2019-03-05] MEDS ORDERED: SODIUM CHLORIDE IVPB ONE (10:00)
[2019-03-05] MEDS ORDERED: BEVACIZUMAB IVPB ONE (10:00)
[2019-03-05] MEDS ORDERED: LEUCOVORIN INJECTION - 600 MG in DEXTROSE 5%-WATER - 250 ML IVPB ONE (10:30)
[2019-03-05 10:59] LABS: BASO % 0.5 % (0-2.0); HEMATOCRIT 25.8 % (32.4-45.2); HEMOGLOBIN 8.2 GM/dL (10.7-15.3); LYMPH % 5.4 % (8-40); MCH 28.3 pg (25.7-33.7); MCHC 31.8 g/dl (32.0-36.0); MEAN CELL VOLUME 89.1 fl (80-96); MEAN PLT VOLUME 7.1 fl (7.5-11.1); MONO % 13.6 % (3.8-10.2); NEUT % 80.5 % (42.8-82.8); PLATELET COUNT 510 K/MM3 (134-434); RDW 23.8 % (11.6-15.6)
[2019-03-05 11:24] LABS: ALBUMIN 2.2 g/dl (3.4-5.0); BILIRUBIN,DIRECT 0.2 mg/dL (0.0-0.2); BILIRUBIN,TOTAL 0.5 mg/dL (0.2-1); BLOOD UREA NITROGEN 9.5 mg/dL (7-18); CALCIUM 9.2 mg/dL (8.5-10.1); CREATININE 0.6 mg/dL (0.55-1.3); MAGNESIUM 2.1 mg/dL (1.8-2.4); POTASSIUM 3.8 mmol/L (3.5-5.1); TOT PROT 8.8 g/dl (6.4-8.2)
[2019-03-05] MEDS ORDERED: FLUOROURACIL 500 MG/10 ML VIAL IVPUSH ONE (11:30)
[2019-03-05 11:57] LABS: ANISOCYTOSIS 1+; MACROCYTOSIS 1+; PLATELET ESTIMATE INCREASED; TARGET CELLS 1+
[2019-03-05] MEDS ORDERED: IRON SUCROSE INJECTION 100 MG in SODIUM CHLORIDE 100 ML IVPB ONE (12:00)
[2019-03-05] MEDS ORDERED: DEXAMETHASONE SOD PHOSPHATE 4 MG/1 ML VIAL IVPB ONE (13:28)
[2019-03-05] MEDS ORDERED: DEXAMETHASONE SOD PHOSPHATE 10 MG/1 ML VIAL ONE (13:50)
[2019-03-05] MEDS ORDERED: PORTA CATH FLUSH 10 ML IVPUSH ONE (14:53)
[2019-03-05 14:54] VITALS: TEMP 97.8
[2019-03-05 17:14] VITALS: BP 97/67; PULSE 97
== END 2019-03-05 17:00 | disposition home or self-care (01) ==
LOC: JONCCHEMO 06:58 → J7W 11:24 → JONCCHEMO 17:00
PROVIDERS: ATTEND Internal Medicine Hematology & Oncology
PROC: 3E04305 Introduction of Other Antineoplastic into Central Vein, Percutaneous Approach (ICD-10-PCS; principal; 2019-03-05)
PROC: 3E043GC Introduction of Other Therapeutic Substance into Central Vein, Percutaneous Approach (ICD-10-PCS; 2019-03-05)
DX: Z51.11 Encounter for antineoplastic chemotherapy (principal); C18.9 Malignant neoplasm of colon, unspecified; C78.7 Secondary malignant neoplasm of liver and intrahepatic bile duct
CPT/HCPCS: 36415; 80048; 80076; 83735; 85025; 96375; 96409; 96413; 96417; J1100; J1756; J2405; J9035; J9190

== ENCOUNTER 2019-03-12 05:35 | Day surgery (SDC) | payer OTHER, BC ==
[2019-03-12] MEDS ORDERED: ONDANSETRON INJECTION 8 MG in SODIUM CHLORIDE 50 ML IVPB ONE (10:00)
[2019-03-12] MEDS ORDERED: LEUCOVORIN INJECTION - 600 MG in DEXTROSE 5%-WATER - 250 ML IVPB ONE (10:30)
[2019-03-12 10:50] LABS: BASO % 0.3 % (0-2.0); EOS % 0.1 % (0-4.5); HEMATOCRIT 24.7 % (32.4-45.2); HEMOGLOBIN 7.9 GM/dL (10.7-15.3); LYMPH % 4.7 % (8-40); MCH 28.3 pg (25.7-33.7); MEAN CELL VOLUME 88.3 fl (80-96); MEAN PLT VOLUME 7.3 fl (7.5-11.1); MONO % 6.6 % (3.8-10.2); NEUT % 88.3 % (42.8-82.8); PLATELET COUNT 719 K/MM3 (134-434); RDW 24.9 % (11.6-15.6)
[2019-03-12 11:09] LABS: ALBUMIN 2.1 g/dl (3.4-5.0); BILIRUBIN,DIRECT 0.2 mg/dL (0.0-0.2); BILIRUBIN,TOTAL 0.4 mg/dL (0.2-1); BLOOD UREA NITROGEN 8.3 mg/dL (7-18); CALCIUM 9.1 mg/dL (8.5-10.1); CREATININE 0.5 mg/dL (0.55-1.3); MAGNESIUM 2.3 mg/dL (1.8-2.4); POTASSIUM 4.2 mmol/L (3.5-5.1); TOT PROT 8.6 g/dl (6.4-8.2)
[2019-03-12 11:11] LABS: WHITE BLOOD COUNT 31.1 K/mm3 (4.0-10.0)
[2019-03-12] MEDS ORDERED: FLUOROURACIL 2,500 MG/50 ML VIAL IVPUSH ONE (11:30)
[2019-03-12] MEDS ORDERED: DEXAMETHASONE SOD PHOSPHATE 10 MG/1 ML VIAL ONE (13:34)
[2019-03-12] MEDS ORDERED: DEXAMETHASONE SOD PHOSPHATE 10 MG/1 ML VIAL IVPB ONE (13:37)
[2019-03-12 14:48] LABS: ANISOCYTOSIS 2+; MACROCYTOSIS 1+; PLATELET ESTIMATE INCREASED
[2019-03-12] MEDS ORDERED: PORTA CATH FLUSH 10 ML IVPUSH ONE (17:14)
[2019-03-12 17:15] VITALS: BP 104/58; PULSE 111; TEMP 98
== END 2019-03-12 16:30 | disposition home or self-care (01) ==
LOC: JONCCHEMO 05:35 → J7W 11:20 → JONCCHEMO 16:30
PROVIDERS: ATTEND Internal Medicine Hematology & Oncology
PROC: 3E033GC Introduction of Other Therapeutic Substance into Peripheral Vein, Percutaneous Approach (ICD-10-PCS; principal; 2019-03-12)
DX: Z76.89 Persons encountering health services in other specified circumstances (principal); C18.9 Malignant neoplasm of colon, unspecified; C78.7 Secondary malignant neoplasm of liver and intrahepatic bile duct
CPT/HCPCS: 36415; 72170-TC-FY; 73552-TC-RT-FY; 73560-TC-RT-FY; 73590-TC-RT-FY; 80048; 80076; 82378; 83735; 85025; 93970-TC; 96367; 96375; 96409; 96415; 96417; J1100

== ENCOUNTER 2019-03-16 10:28 | Emergency (ER) | payer OTHER, BC ==
[2019-03-16 10:44] VITALS: BP 100/60; PULSE 118; TEMP 97.5; BMI 16.2
--- NOTE | 2019-03-16 11:55 | PDOC ---
History of Present Illness - General Chief Complaint: Chronic pain Stated Complaint: PAIN Time Seen by Provider: 03/16/19 11:41 - History of Present Illness Initial Comments: 03/16/19 11:50 48 y/o F w metastatic colon CA presents for evaluation of B knee pain x 4 weeks without any precipitating traumatic event. Past History - Past Medical History Allergies/Adverse Reactions: Allergies Allergy/AdvReac Type Severity Reaction Status Date / Time No Known Allergies Allergy Verified 03/16/19 10:44 Home Medications: Ambulatory Orders Calcium Carbonate [Super Calcium] 600 mg PO BID 09/17/18 Carbamazepine Xr [Tegretol XR -] 400 mg PO AM 09/17/18 Carbamazepine Xr [Tegretol XR -] 600 mg PO HS 09/17/18 Levothyroxine [Synthroid -] 75 mcg PO DAILY 09/17/18 Cholecalciferol (Vitamin D3) [Vitamin D3] 2,000 units PO DAILY 09/18/18 Docusate Sodium [Colace -] 100 mg PO BID 09/18/18 Pantoprazole Sodium [Protonix -] 40 mg PO DAILY #30 tablet.ec 10/01/18 Ferrous Sulfate [Feosol] 325 mg PO BID 01/01/19 Anemia: Yes Asthma: No Cancer: Yes (COLON CANCER) CVA: No COPD: No CHF: No Dementia: No Diabetes: No GI Disorders: No Disorders: No HTN: No Hypercholesterolemia: No Seizures: Yes Thyroid Disease: Yes (hypothyroidism) - Surgical History Abdominal Surgery: Yes (COLON SX, COLOSTOMY) Neurologic Surgery: Yes (vp of digital marketing shuntx3) - Suicide/Smoking/Psychosocial Hx Smoking History: Never smoked Have you smoked in the past 12 months: No Hx Alcohol Use: No Drug/Substance Use Hx: No Review of Systems - Review of Systems Musculoskeletal: Yes: Joint Pain *Physical Exam - Vital Signs Last Vital Signs Temp Pulse Resp BP Pulse Ox 97.5 F L 118 H 16 100/60 100 03/16/19 10:41 03/16/19 10:41 03/16/19 10:41 03/16/19 10:41 03/16/19 10:41 - Physical Exam Comments: 03/16/19 11:52 Pt is frail and examined in wheel chair Bilateral knee exams Knee skin color and temperature are normal. There is no palpable effusion. Range of motion is 0-90 grossly and painful. No medial or lateral joint line tenderness. No patellofemoral crepitation. No evidence of instability. Thigh and calf are soft and nontender. There are no gross sensory motor deficits. Extensor mechanism is intact. Medical Decision Making - Medical Decision Making 03/16/19 11:52 Pt had negative doppler and x-rays 1 week ago no indication of DVT clinically, questionable metastatic disease. Pt requires bone scan as out patient. I will refer back to oncology she is also being treated and on narcotic pain medication *DC/Admit/Observation/Transfer Diagnosis at time of Disposition: Knee pain, bilateral - Discharge Dispostion Disposition: HOME Condition at time of disposition: Stable Decision to Admit order: No - Referrals Referrals: Sophia Szymanski MD [Primary Care Provider] - - Patient Instructions Additional Instructions: Return to the Emergency Room for worsening symptoms and without fail, follow up with your primary care physician and oncologist in 1-2 days without fail for further evaluation and treatment options. - Post Discharge Activity
== END 2019-03-16 12:05 | disposition home or self-care (01) ==
LOC: JERFT 10:28
DX: M25.561 Pain in right knee (principal); M25.562 Pain in left knee; C18.9 Malignant neoplasm of colon, unspecified; D64.9 Anemia, unspecified; E03.9 Hypothyroidism, unspecified; G40.909 Epilepsy, unspecified, not intractable, without status epilepticus
CPT/HCPCS: 99281-25

== ENCOUNTER 2019-03-19 05:30 | Inpatient (IN) | payer OTHER, BC ==
[2019-03-19] MEDS ORDERED: ONDANSETRON INJECTION 8 MG in SODIUM CHLORIDE 50 ML IVPB ONE (10:00)
[2019-03-19] MEDS ORDERED: SODIUM CHLORIDE IVPB ONE (10:30)
[2019-03-19] MEDS ORDERED: BEVACIZUMAB IVPB ONE (10:30)
[2019-03-19 10:47] LABS: BASO % 0.1 % (0-2.0); HEMOGLOBIN 7.3 GM/dL (10.7-15.3); MCHC 31.8 g/dl (32.0-36.0); MEAN CELL VOLUME 88.1 fl (80-96); MEAN PLT VOLUME 6.9 fl (7.5-11.1); MONO % 7.2 % (3.8-10.2); NEUT % 85.7 % (42.8-82.8); PLATELET COUNT 817 K/MM3 (134-434); RBC 2.61 M/mm3 (3.60-5.2); RDW 26.3 % (11.6-15.6); WHITE BLOOD COUNT 28.4 K/mm3 (4.0-10.0)
[2019-03-19] MEDS ORDERED: LEUCOVORIN INJECTION - 600 MG in DEXTROSE 5%-WATER - 250 ML IVPB ONE (11:00)
[2019-03-19 11:05] LABS: ALBUMIN 1.7 g/dl (3.4-5.0); BILIRUBIN,DIRECT 0.2 mg/dL (0.0-0.2); BILIRUBIN,TOTAL 0.5 mg/dL (0.2-1); BLOOD UREA NITROGEN 13.9 mg/dL (7-18); CALCIUM 9.1 mg/dL (8.5-10.1); CREATININE 0.6 mg/dL (0.55-1.3); MAGNESIUM 2.3 mg/dL (1.8-2.4); POTASSIUM 4.2 mmol/L (3.5-5.1); TOT PROT 8.2 g/dl (6.4-8.2)
[2019-03-19] MEDS ORDERED: FLUOROURACIL 2,500 MG/50 ML VIAL IVPUSH ONE (12:00)
[2019-03-19] MEDS ORDERED: LIDOCAINE 5% TOPICAL PATCH TP ONE (12:15)
[2019-03-19 12:16] LABS: TOXIC GRANULATION 1+
[2019-03-19 12:19] LABS: ANISOCYTOSIS 1+; MACROCYTOSIS 1+; OVALOCYTE 1+; ROULEAU 1+; TEAR DROP CELLS 1+
[2019-03-19] MEDS: ACETAMINOPHEN 1000 MG/100 ML VIAL (NON FORMULARY) IVPB PRN ×2 (12:58→23:28)
--- NOTE | 2019-03-19 15:25 | EKG ---
Test Reason : Blood Pressure : / mmHG Vent. Rate : 132 BPM Atrial Rate : 132 BPM P-R Int : 122 ms QRS Dur : 058 ms QT Int : 286 ms P-R-T Axes : 065 078 054 degrees QTc Int : 423 ms SINUS TACHYCARDIA OTHERWISE NORMAL ECG WHEN COMPARED WITH ECG OF 17-SEP-2018 13:55, NO SIGNIFICANT CHANGE WAS FOUND Confirmed by NAY AUGUST MD ([id number]) on 03/19/2019 3:25:24 PM Referred By: BERNARD SMITH Confirmed By:NAY AUGUST MD
[2019-03-19] MEDS ORDERED: ACETAMINOPHEN 650 MG/20.3 ML ORAL SOLUTION (CUPS) PO ONE (18:00)
[2019-03-19] MEDS ORDERED: LIDOCAINE PATCH REMOVAL MC ONE (22:00)
[2019-03-20 08:23] LABS: BASO % 0.2 % (0-2.0); HEMATOCRIT 28.3 % (32.4-45.2); HEMOGLOBIN 9.3 GM/dL (10.7-15.3); LYMPH % 1.8 % (8-40); MCH 28.5 pg (25.7-33.7); MCHC 32.8 g/dl (32.0-36.0); MEAN PLT VOLUME 7.1 fl (7.5-11.1); MONO % 2.9 % (3.8-10.2); NEUT % 95.1 % (42.8-82.8); PLATELET COUNT 582 K/MM3 (134-434); RBC 3.26 M/mm3 (3.60-5.2); RDW 20.8 % (11.6-15.6); WHITE BLOOD COUNT 28.2 K/mm3 (4.0-10.0)
[2019-03-20 08:59] LABS: ALBUMIN 1.4 g/dl (3.4-5.0); BILIRUBIN,TOTAL 1.5 mg/dL (0.2-1); BLOOD UREA NITROGEN 18.8 mg/dL (7-18); CALCIUM 8.4 mg/dL (8.5-10.1); CREATININE 0.5 mg/dL (0.55-1.3); POTASSIUM 4.2 mmol/L (3.5-5.1); TOT PROT 6.7 g/dl (6.4-8.2)
--- NOTE | 2019-03-20 14:12 | HP ---
Admitting History and Physical - Smoking History Smoking history: Never smoked Have you smoked in the past 12 months: No - Alcohol/Substance Use Hx Alcohol Use: No Home Medications - Allergies Allergies/Adverse Reactions: Allergies Allergy/AdvReac Type Severity Reaction Status Date / Time No Known Allergies Allergy Verified 03/16/19 10:44 - Home Medications Home Medications: Ambulatory Orders Calcium Carbonate [Super Calcium] 600 mg PO BID 09/17/18 Carbamazepine Xr [Tegretol XR -] 400 mg PO AM 09/17/18 Carbamazepine Xr [Tegretol XR -] 600 mg PO HS 09/17/18 Levothyroxine [Synthroid -] 75 mcg PO DAILY 09/17/18 Cholecalciferol (Vitamin D3) [Vitamin D3] 2,000 units PO DAILY 09/18/18 Docusate Sodium [Colace -] 100 mg PO BID 09/18/18 Pantoprazole Sodium [Protonix -] 40 mg PO DAILY #30 tablet.ec 10/01/18 Ferrous Sulfate [Feosol] 325 mg PO BID 01/01/19 Physical Examination Vital Signs: Vital Signs Temperature 98.2 F 03/20/19 09:21 Pulse Rate 114 H 03/20/19 09:21 Respiratory Rate 18 03/20/19 09:21 Blood Pressure 104/60 03/20/19 09:21 O2 Sat by Pulse Oximetry (%) Labs: [facility], [facility] 03/20/19 06:59 03/20/19 06:59 Assessment/Plan Patient seen and examined Admitted via satellite after chemotherapy for metastatic colon ca with liver mets. Receiveing 5FU/Leucovorum/avastin . Has V-P shunt Has had right leg ( thigh pains) Has had inability to walk X-rays- negative Has been lethargic with elevated NH3 noted Last Vital Signs Temp Pulse Resp BP Pulse Ox 98.2 F 114 H 18 104/60 03/20/19 09:21 03/20/19 09:21 03/20/19 09:21 03/20/19 09:21 HEENT: [place], EOM Intact Oropharynx: No thrush, No mucositis Cor: sinus tachycardia Lungs: Clear to P&A Abd: significant hepatomegaly ; hard Ext:No significant edema Skin: No rashes, Integument intact CBC, [facility] 03/20/19 06:59 03/20/19 06:59 Current Medications Generic Name Dose Route Start Last Admin Trade Name Freq PRN Reason Stop Dose Admin Acetaminophen 1,000 mg 03/19/19 12:12 03/19/19 23:28 Ofirmev Injection - IVPB 1,000 mg Q6H PRN Administration -PAIN Impression: Metastatic colon ca Liver mets V-P shunt Leg pains Leucocytosis- ?leukemoid secondary to ca Anemia Elevated NH3. Plan: Lactulose CT of right thigh Bone scan
[2019-03-20] MEDS: PANTOPRAZOLE 40 MG TABLET (FP) PO SCH (15:28)
[2019-03-20] MEDS: LACTULOSE 20 GM/30 ML UDC (FOR ORAL USE ONLY) PO SCH ×2 (15:30→23:09)
[2019-03-20 15:43] LABS: ANISOCYTOSIS 3+; MACROCYTOSIS 1+; PLATELET ESTIMATE INCREASED; TARGET CELLS 1+; TEAR DROP CELLS 1+; TOXIC GRANULATION 2+
[2019-03-20] MEDS: ACETAMINOPHEN 1000 MG/100 ML VIAL (NON FORMULARY) IVPB PRN (19:10)
[2019-03-20] MEDS ORDERED: D5-1/2NS+10 MEQ KCL - 10 MEQ/1,000 ML INFUS.BAG IV SCH (19:15)
[2019-03-20] MEDS ORDERED: PIPERACILLIN/TAZOBACTAM 3.375 GM VIAL IVPB ONE (22:56)
[2019-03-20] MEDS ORDERED: DEXTROSE 5%-WATER - 50 ML IVPB ONE (22:56)
[2019-03-20] MEDS ORDERED: PT OWN MED DRAWER 7, Y5N ONE (22:56)
[2019-03-20] MEDS: PIPERACILLIN/TAZOB 3.375 GM 3.375 GM in DEXTROSE 5%-WATER - 50 ML IVPB SCH (23:08)
[2019-03-21] MEDS: carBAMazepine 200 MG TABLET PO SCH ×3 (00:02→22:06)
[2019-03-21] MEDS ORDERED: PIPERACILLIN/TAZOBACTAM 3.375 GM VIAL IVPB ONE ×3 (04:01→17:18)
[2019-03-21] MEDS ORDERED: DEXTROSE 5%-WATER - 50 ML IVPB ONE ×3 (04:02→17:19)
[2019-03-21] MEDS: PIPERACILLIN/TAZOB 3.375 GM 3.375 GM in DEXTROSE 5%-WATER - 50 ML IVPB SCH ×3 (04:06→17:41)
[2019-03-21] MEDS: LEVOTHYROXINE NA 75 MCG TABLET (FP) PO SCH (06:30)
[2019-03-21] MEDS: LACTULOSE 20 GM/30 ML UDC (FOR ORAL USE ONLY) PO SCH ×3 (06:30→22:06)
[2019-03-21] MEDS: PANTOPRAZOLE 40 MG TABLET (FP) PO SCH (10:23)
--- NOTE | 2019-03-21 11:05 | PN ---
Progress Note (short form) - Note Progress Note: surgery unfortunate 48f with metastatic colon ca, cp, had palliative diverting ileostomy in september, on active chemotherapy, with right leg pain and ct showing larging iliopsoas abscess tracking into thigh. recommend IR drainage and extended imaging into abdomen.
--- NOTE | 2019-03-21 11:30 | PN ---
Progress Note (short form) - Note Progress Note: Seen in follow up. Denies pain on questioning today - appears to be content Results of CT scan noted. Meds reviewed. Current Medications Acetaminophen (Ofirmev Injection -) 1,000 mg IVPB Q6H PRN PRN Reason: -PAIN Last Admin: 03/20/19 19:10 Dose: 1,000 mg Carbamazepine (Tegretol -) 400 mg PO AM [facility] Last Admin: 03/21/19 06:31 Dose: 400 mg Carbamazepine (Tegretol -) 600 mg PO HS [facility] Last Admin: 03/21/19 00:02 Dose: 600 mg Piperacillin Sod/Tazobactam (Sod 3.375 gm/ Dextrose) 50 mls @ 100 mls/hr IVPB Q8H-IV [facility]; Protocol Last Admin: 03/21/19 10:23 Dose: 100 mls/hr Lactulose (Cephulac (Oral Use)) 20 gm PO TID [facility] Last Admin: 03/21/19 06:30 Dose: 20 gm Levothyroxine Sodium (Synthroid -) 75 mcg PO DAILY@0700 [facility] Last Admin: 03/21/19 06:30 Dose: 75 mcg Pantoprazole Sodium (Protonix -) 40 mg PO DAILY [facility] Last Admin: 03/21/19 10:23 Dose: 40 mg On exam: General: Cachexic, lying in bed Extremities: no swelling Chest: soft breath sounds bilaterally, no wheeze or crackles Abdomen: Soft, no organomegaly, no masses. Neuro: Alert, non-focal, responds to commands - as at baseline CVS: Normal sinus rhythm, S1, S2, no gallop or murmur. ?tenderness R paraspinal area on deep palpation Labs reviewed: CBC, BMP 03/20/19 06:59 03/20/19 06:59 Assessment. Metastatic colon cancer diagnosed circa September 2018, initially treated with Xelox , with progression January, [facility] mon 5FU/LV and Avastin, most recently 03/19, admitted yesterday with leg pain, and found to have psoas abcess R thigh. Surgery consulted - will obtain input from IR. CT scan abdomen and pelvis to delineate superior extent of abscess. Antibiotics as per ID.
--- NOTE | 2019-03-21 12:16 | PN ---
Progress Note (short form) - Note Progress Note: ID CONSULT DICTATED PRIMARY ( HEMATOGENOUSLY SEEDED ) VS. SECONDARY ( ADJACENT STRUCTURE ) R ILEOPSOAS ABSCESS FEVER/ LEUKOCYTOSIS R/O SEPSIS METASTATIC COLON CA AWAIT C/S IR EVALUATION EMPIRIC ZOSYN/ VANCOMYCIN
--- NOTE | 2019-03-21 12:57 | CONS ---
INFECTIOUS DISEASE CONSULTATION DATE OF CONSULTATION: DATE OF DICTATION: 03/21/2019 HISTORY OF PRESENT ILLNESS: The patient is a 48-year-old female with a history of metastatic colorectal cancer, evaluated for fever and leukocytosis. She was admitted to the hospital with complaint of right lower extremity pain and difficulty ambulating. She was found on CAT scan to have a right iliopsoas abscess extending into the thigh. Her course has been complicated by high-grade fever and elevated white blood cell count. The patient is presently confused. She was found to have an elevated ammonia level and is being treated with lactulose. Cultures were obtained. She was empirically treated with Zosyn. PAST MEDICAL HISTORY: Positive for metastatic colon cancer with liver involvement, status post 5-FU and Leucovorin. ALLERGIES: No known allergies. MEDICATIONS: At home include Tegretol, Synthroid, Colace, Protonix, Feosol. 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 SOCIAL HISTORY: Lives in the community. She is a nonsmoker. SYSTEMS REVIEW: Neurologic: Positive for hepatic encephalopathy. Cardiac: Negative chest pain or palpitations. Respiratory: Negative cough or sputum production. Gastrointestinal: As per HPI. Genitourinary: Negative for urinary tract symptoms. LABORATORY DATA: White count 28.2, neutrophils 95, bands 58, 2, hematocrit 28.3, platelets 582, creatinine 0.5, total bilirubin 1.5, alkaline phosphatase 227, AST 47. Chest x-ray negative. Cultures pending. PHYSICAL EXAMINATION: General: On exam, she is cachectic, confused, and lethargic. Vital Signs: Temperature 100.2, T-maximum 102.8, blood pressure 107/60, pulse 126, respirations 16 per minute. HEENT: Patient is cachectic. Temporal wasting. Dry mucous membranes. Heart: Heart sounds tachycardic, S1, S2. Lungs: Diminished breath sounds bilaterally. Chest: Port is present in the left chest. No erythema or tenderness. Abdomen: Soft. Distended. Tender. Positive ileostomy. Extremities: Negative for edema. IMPRESSION: 1. Primary versus secondary right iliopsoas abscess. 2. Fever and leukocytosis. Rule out sepsis. 3. Metastatic colon cancer. 4. Hepatic encephalopathy. Etiology of iliopsoas abscess either primary secondary to hematogenous seeding from bacteremia versus secondary from an adjacent structure. Await cultures. IR evaluation. Empiric antibiotic coverage with vancomycin and Zosyn. Discuss with patient's mother present at the time of the examination. Thank you for the kind referral. JOSE ANGEL RIGGINS M.D. [id number]
[2019-03-21] MEDS: VANCOMYCIN 500 MG in DEXTROSE 5%-WATER - 100 ML IVPB SCH ×2 (13:38→22:06)
[2019-03-21] MEDS: ACETAMINOPHEN 1000 MG/100 ML VIAL (NON FORMULARY) IVPB PRN (17:40)
[2019-03-21] MEDS ORDERED: PT OWN MED DRAWER 7, Y5N ONE (20:58)
[2019-03-21 23:52] VITALS: BMI 16.0
[2019-03-22] MEDS ORDERED: DEXTROSE 5%-WATER - 50 ML IVPB ONE ×3 (01:26→17:55)
[2019-03-22] MEDS ORDERED: PIPERACILLIN/TAZOBACTAM 3.375 GM VIAL IVPB ONE ×3 (01:26→17:54)
[2019-03-22] MEDS: PIPERACILLIN/TAZOB 3.375 GM 3.375 GM in DEXTROSE 5%-WATER - 50 ML IVPB SCH ×4 (01:49→18:44)
[2019-03-22] MEDS ORDERED: guaiFENesin 600 MG TABLET.ER (FP) PO ONE (03:45)
[2019-03-22] MEDS ORDERED: PT OWN MED DRAWER 7, Y5N ONE (05:01)
[2019-03-22] MEDS: LACTULOSE 20 GM/30 ML UDC (FOR ORAL USE ONLY) PO SCH ×3 (05:59→22:03)
[2019-03-22] MEDS: carBAMazepine 200 MG TABLET PO SCH ×2 (05:59→22:07)
[2019-03-22] MEDS: LEVOTHYROXINE NA 75 MCG TABLET (FP) PO SCH (05:59)
[2019-03-22 08:17] LABS: BASO % 0.2 % (0-2.0); EOS % 0.1 % (0-4.5); HEMATOCRIT 28.7 % (32.4-45.2); HEMOGLOBIN 9.6 GM/dL (10.7-15.3); LYMPH % 15.6 % (8-40); MCH 28.9 pg (25.7-33.7); MCHC 33.5 g/dl (32.0-36.0); MEAN CELL VOLUME 86.3 fl (80-96); MEAN PLT VOLUME 7.3 fl (7.5-11.1); MONO % 4.8 % (3.8-10.2); NEUT % 79.3 % (42.8-82.8); PLATELET COUNT 479 K/MM3 (134-434); RBC 3.33 M/mm3 (3.60-5.2); RDW 22.4 % (11.6-15.6); WHITE BLOOD COUNT 21.3 K/mm3 (4.0-10.0)
[2019-03-22 08:25] LABS: BLOOD UREA NITROGEN 26.9 mg/dL (7-18); CALCIUM 8.2 mg/dL (8.5-10.1); CREATININE 0.7 mg/dL (0.55-1.3); POTASSIUM 4.4 mmol/L (3.5-5.1)
[2019-03-22] MEDS ORDERED: SODIUM CHLORIDE 500 ML IV STA (10:41)
[2019-03-22] MEDS ORDERED: ACETAMINOPHEN 1000 MG/100 ML VIAL (NON FORMULARY) IVPB ONE (11:00)
[2019-03-22] MEDS ORDERED: INSULIN (NOVOLOG) ASPART 100 UNITS/ML 10ML VIAL ONE (11:37)
[2019-03-22] MEDS ORDERED: DEXTROSE 5%-NORMAL SALINE 1,000 ML IV SCH (12:30)
--- NOTE | 2019-03-22 12:32 | PN ---
Progress Note (short form) - Note Progress Note: Seen in follow up. Less responsive than yesterday this morning - rapid responded called - now returned from CT. Eyes open and appears awake, but not following commands as before. Meds reviewed. Current Medications Acetaminophen (Ofirmev Injection -) 1,000 mg IVPB Q6H PRN PRN Reason: -PAIN Last Admin: 03/21/19 17:40 Dose: 1,000 mg Carbamazepine (Tegretol -) 400 mg PO AM [facility] Last Admin: 03/22/19 05:59 Dose: 400 mg Carbamazepine (Tegretol -) 600 mg PO HS [facility] Last Admin: 03/21/19 22:06 Dose: 600 mg Piperacillin Sod/Tazobactam (Sod 3.375 gm/ Dextrose) 50 mls @ 100 mls/hr IVPB Q8H-IV [facility]; Protocol Last Admin: 03/22/19 01:49 Dose: 100 mls/hr Vancomycin HCl 500 mg/ (Dextrose) 100 mls @ 100 mls/hr IVPB BID [facility]; Protocol Last Admin: 03/21/19 22:06 Dose: 100 mls/hr Dextrose/Sodium Chloride (D5-Ns -) 1,000 mls @ 100 mls/hr IV ASDIR [facility] Lactulose (Cephulac (Oral Use)) 20 gm PO TID [facility] Last Admin: 03/22/19 05:59 Dose: 20 gm Levothyroxine Sodium (Synthroid -) 75 mcg PO DAILY@0700 [facility] Last Admin: 03/22/19 05:59 Dose: 75 mcg Pantoprazole Sodium (Protonix -) 40 mg PO DAILY [facility] Last Admin: 03/21/19 10:23 Dose: 40 mg On exam: Last Vital Signs Temp Pulse Resp BP Pulse Ox 98.3 F 128 H 18 99/59 L 98 03/21/19 22:00 03/21/19 22:00 03/21/19 22:00 03/21/19 22:00 03/21/19 21:00 General: Cachexic, lying in bed Extremities: R thigh swollen (compared to L) Chest: soft breath sounds bilaterally, no wheeze or crackles Abdomen: Soft, no organomegaly, no masses. Neuro: Eyes open. Non verbal, today not responding to commands - moving upper extremities. CVS: Normal sinus rhythm, S1, S2, no gallop or murmur. Labs reviewed: Last Vital Signs Temp Pulse Resp BP Pulse Ox 98.3 F 128 H 18 99/59 L 98 03/21/19 22:00 03/21/19 22:00 03/21/19 22:00 03/21/19 22:00 03/21/19 21:00 Assessment. Metastatic colon cancer diagnosed circa September 2018, initially treated with Xelox , with progression January, since then on 5FU/LV and Avastin, most recently 03/19, admitted yesterday with leg pain, and found to have extensive psoas abscess R thigh. Surgery consulted - awaiting input from IR. CT scan abdomen and pelvis to delineate superior extent of abscess performed - read pending. Antibiotics as per ID. Unclear what's accounting for today's change in mental status - no acute changes noted on this morning's non-contrast CT. Metabolically - labs - unremarkable. Neurology consult pending Will start maintenance IV fluid. Close observation.
[2019-03-22 12:56] LABS: ANISOCYTOSIS 2+; MACROCYTOSIS 1+; PLATELET ESTIMATE NORMAL; TOXIC GRANULATION 1+
[2019-03-22] MEDS: PANTOPRAZOLE 40 MG TABLET (FP) PO SCH (13:47)
[2019-03-22] MEDS: VANCOMYCIN 500 MG in DEXTROSE 5%-WATER - 100 ML IVPB SCH (14:34)
--- NOTE | 2019-03-22 16:30 | EKG ---
Test Reason : Blood Pressure : / mmHG Vent. Rate : 132 BPM Atrial Rate : 132 BPM P-R Int : 120 ms QRS Dur : 060 ms QT Int : 270 ms P-R-T Axes : 060 086 040 degrees QTc Int : 400 ms SINUS TACHYCARDIA OTHERWISE NORMAL ECG WHEN COMPARED WITH ECG OF 19-MAR-2019 13:26, NO SIGNIFICANT CHANGE WAS FOUND Confirmed by MD THAD, GILBERT ([id number]) on 03/22/2019 4:30:11 PM Referred By: Joselyn SMITH Confirmed By:GILBERT ONEIL MD
--- NOTE | 2019-03-22 16:43 | CONSULT ---
Consult - text type - Consultation Consultation Note: NEUROLOGY CONSULTATION is greatly appreciated: Events and CT scan reviewed. Discussed with Dr. Tato Augustin. Pt examined with her mother and brother at the bedside. This 48 yo woman with congenital 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/CVA is s/p multiple BROODMARE BARN GROOM shunts since age 5 mos. Has always walked with a limp on the left and mother notes her "left side is smaller than her right." No seizures since childhood on Tegretol XR 400 q AM and 600 mg q PM. Also, hypothyroid on synthroid. Now on ChemoRx (5FU, Leukovaran and Avastin) for colonic CA with liver mets and know elevation in serum ammonia levels. According to her mother she last walked without assist about 1 week ago and has been "talking, sort of" for the last few days. Admitted after chemo Rx in the infusion center but now seen for continued deterioration of responsiveness. CT of head (reviewed): Pt has 2 shunts. 1 in left ventricle and the second in a large area of Right parieto occipetal encephalomalacia. WBC=28 K Now on Vanco and Piperacillin. Ammonia level is 61.6 mg% EXAM: Thin. Neck supple. -Kernig's. BROODMARE BARN GROOM shunt (s). NEURO: Lethargic but arousable to name and touch. Opens eyes on command. Full conway to threat and full EOM's. No obvious facial. gag reduced. Spastic left hemiplegia with mild left hemiatrophy, Brisk reflexes and left Babinski. Knee and ankle contractures on the left. Withdraws right >> left to pinch. IMP: 1. 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 Toxic- metabolic encephalopathy due to Hyperammonemia and infection. SUGGEST: Continue antibiotics and hydration Follow Ammonia levels and consider lactulose Rx. If progression in spite of Rx would consider LP for cytology Check TSH, T4, B12. Prognosis guarded. Thank you very much, Juanjose Dent MD
--- NOTE | 2019-03-22 17:54 | RAPID ---
Physical Examination Vital Signs: Vital Signs Temperature 97.4 F L 03/22/19 14:00 Pulse Rate 122 H 03/22/19 14:00 Respiratory Rate 18 03/22/19 14:00 Blood Pressure 91/56 L 03/22/19 14:00 O2 Sat by Pulse Oximetry (%) 98 03/22/19 10:00 Labs: CBC, BMP 03/22/19 06:00 03/22/19 06:00 Rapid Response - Rapid Response Assessment: A rapid response was called at 10:41 am. The rapid response team responded immediately. On arrival the patient was staring blankly around the room and not responding to her name. Per the patient's mother this was a departure from her baseline mental status. Her last known normal was yesterday evening. The patient is usually able to speak a few words and will drink tea and feed herself. Per the nurse, the patient awoke this morning and was not speaking or responding to commands. On physical exam her BP was 111/76, HR was 1302-140s and she was satting 100% on RA. Repeat CBC was drawn and the patient was sent for a head CT to R/O stroke. Dr. Dent was consulted to help evaluate patient for neurologic causes of her AMS. Blood and urine cultures were resent and the patient was continued on her antibiotics incase sepsis was the cause of her AMS. The patient was transferred to telemetry for further cardiac monitoring.
[2019-03-22] MEDS: DEXTROSE 5%-NORMAL SALINE 1,000 ML IV SCH (18:44)
[2019-03-22] MEDS: VANCOMYCIN 500 MG in DEXTROSE 5%-WATER 100 ML IVPB SCH (21:48)
[2019-03-22] MEDS: ACETAMINOPHEN 1000 MG/100 ML VIAL (NON FORMULARY) IVPB PRN (21:58)
[2019-03-23] MEDS ORDERED: PIPERACILLIN/TAZOBACTAM 3.375 GM VIAL IVPB ONE ×3 (01:34→18:27)
[2019-03-23] MEDS ORDERED: DEXTROSE 5%-WATER - 50 ML IVPB ONE ×3 (01:35→18:27)
[2019-03-23] MEDS: PIPERACILLIN/TAZOB 3.375 GM 3.375 GM in DEXTROSE 5%-WATER - 50 ML IVPB SCH ×3 (01:55→19:00)
[2019-03-23] MEDS: LACTULOSE 20 GM/30 ML UDC (FOR ORAL USE ONLY) PO SCH ×3 (06:54→21:28)
[2019-03-23] MEDS: LEVOTHYROXINE NA 75 MCG TABLET (FP) PO SCH (06:54)
[2019-03-23] MEDS: carBAMazepine 200 MG TABLET PO SCH ×2 (06:55→21:28)
[2019-03-23 07:03] LABS: BASO % 0.2 % (0-2.0); EOS % 0.1 % (0-4.5); HEMATOCRIT 27.8 % (32.4-45.2); HEMOGLOBIN 9.1 GM/dL (10.7-15.3); INR 1.7 (0.83-1.09); LYMPH % 6.8 % (8-40); MCH 28.8 pg (25.7-33.7); MCHC 32.7 g/dl (32.0-36.0); MEAN CELL VOLUME 88.1 fl (80-96); MEAN PLT VOLUME 7.2 fl (7.5-11.1); NEUT % 91.9 % (42.8-82.8); PLATELET COUNT 399 K/MM3 (134-434); PROTHROMBIN TIME (PATIENT) 20.2 SEC (9.7-13.0); RBC 3.16 M/mm3 (3.60-5.2); RDW 23.6 % (11.6-15.6); WHITE BLOOD COUNT 15.6 K/mm3 (4.0-10.0)
[2019-03-23 07:06] LABS: ACTIVATED PTT 33.3 SECONDS (25.2-36.5)
[2019-03-23 07:16] LABS: ALBUMIN 1.2 g/dl (3.4-5.0); BILIRUBIN,TOTAL 0.7 mg/dL (0.2-1); BLOOD UREA NITROGEN 29.1 mg/dL (7-18); CALCIUM 7.9 mg/dL (8.5-10.1); CREATININE 0.6 mg/dL (0.55-1.3); TOT PROT 6.2 g/dl (6.4-8.2)
[2019-03-23 09:52] LABS: ANISOCYTOSIS 1+; MACROCYTOSIS 0; PLATELET ESTIMATE NORMAL; TARGET CELLS 1+; TOXIC GRANULATION 1+
[2019-03-23] MEDS: ACETAMINOPHEN 1000 MG/100 ML VIAL (NON FORMULARY) IVPB PRN (10:52)
[2019-03-23] MEDS ORDERED: VANCOMYCIN 500 MG VIAL (RESTRICTED TO ID ONLY) ONE ×2 (13:47→21:25)
[2019-03-23] MEDS ORDERED: DEXTROSE 5%-WATER 100 ML IVPB ONE ×2 (13:48→21:25)
[2019-03-23] MEDS: VANCOMYCIN 500 MG in DEXTROSE 5%-WATER 100 ML IVPB SCH ×2 (13:56→21:28)
[2019-03-23] MEDS: PANTOPRAZOLE 40 MG TABLET (FP) PO SCH (13:57)
--- NOTE | 2019-03-23 14:58 | PN ---
Progress Note, Physician History of Present Illness: AWAKE, LETHARGIC S/P IR DRAIN PSOAS ABSCESS FEBRILE 101.3 WBC IMPROVED 15 BC (-) - Current Medication List Current Medications: Active Medications Acetaminophen (Ofirmev Injection -) 1,000 mg IVPB Q6H PRN PRN Reason: -PAIN Last Admin: 03/23/19 10:52 Dose: 1,000 mg Carbamazepine (Tegretol -) 400 mg PO AM [facility] Last Admin: 03/23/19 06:55 Dose: Not Given Carbamazepine (Tegretol -) 600 mg PO HS [facility] Last Admin: 03/22/19 22:07 Dose: 600 mg Dextrose/Sodium Chloride (D5-Ns -) 1,000 mls @ 100 mls/hr IV ASDIR [facility] Last Admin: 03/22/19 18:44 Dose: 100 mls/hr Vancomycin HCl 500 mg/ (Dextrose) 100 mls @ 100 mls/hr IVPB BID [facility]; Protocol Last Admin: 03/23/19 13:56 Dose: 100 mls/hr Piperacillin Sod/Tazobactam (Sod 3.375 gm/ Dextrose) 50 mls @ 100 mls/hr IVPB Q8H-IV [facility]; Protocol Last Admin: 03/23/19 13:56 Dose: 100 mls/hr Lactulose (Cephulac (Oral Use)) 20 gm PO TID [facility] Last Admin: 03/23/19 13:58 Dose: 20 gm Levothyroxine Sodium (Synthroid -) 75 mcg PO DAILY@0700 [facility] Last Admin: 03/23/19 06:54 Dose: Not Given Pantoprazole Sodium (Protonix -) 40 mg PO DAILY [facility] Last Admin: 03/23/19 13:57 Dose: 40 mg - Objective Vital Signs: Vital Signs Temperature 101.3 F H 03/23/19 12:44 Pulse Rate 135 H 03/23/19 13:09 Respiratory Rate 26 H 03/23/19 13:09 Blood Pressure 109/57 L 03/23/19 13:09 O2 Sat by Pulse Oximetry (%) 100 03/23/19 13:09 Constitutional: Yes: Cachectic Eyes: Yes: Conjunctiva Clear Cardiovascular: Yes: Regular Rate and Rhythm, S1, S2 Respiratory: Yes: Diminished Gastrointestinal: Yes: Normal Bowel Sounds, Soft Edema: No Integumentary: Yes: Other (DRAIN IN PLACE, KRYSTIAN MCKEON PUS) Labs: CBC, BMP 03/23/19 06:00 03/23/19 06:00 INR, PTT INR 1.70 (0.83-1.09) H 03/23/19 06:00 Assessment/Plan S/P IR DRAINAGE PSOAS ABSCESS FEVER/ LEUKOCYTOSIS METASTATIC CA AWAIT C/S CONTINUE EMPIRIC ZOSYN/ VANCOMYCIN
--- NOTE | 2019-03-23 15:36 | PN ---
Physical Exam: SUBJECTIVE: Patient seen and examined at bedside. Per nurse, patient is tachycardic to a rate of 120-130. Reported low grade temp of 99. OBJECTIVE: Vital Signs Period Temp Pulse Resp BP Sys/Martin Pulse Ox Last 24 Hr 97.6 F-101.3 F 118-140 18-26 92-134/51-75 95-100 GENERAL: The patient is awake but difficult to converse with, unclear if entirely oriented at present, cachectic appearing EYES: PERRL ENT: Dry mucus membranes membranes LUNGS: CTA HEART: Tachycardic, no murmurs appreciated ABDOMEN: thin, colostomy in place PSYCH: Normal mood, normal affect. SKIN: Warm, dry, normal turgor, no rashes or lesions noted Laboratory Results - last 24 hr 03/19/19 03/23/19 03/23/19 12:15 06:00 06:00 WBC 15.6 H RBC 3.16 L Hgb 9.1 L Hct 27.8 L MCV 88.1 MCH 28.8 MCHC 32.7 RDW 23.6 H Plt Count 399 MPV 7.2 L Absolute Neuts (auto) 14.3 H Neutrophils % 91.9 H Neutrophils % (Manual) 84.5 H Band Neutrophils % 4.1 Lymphocytes % 6.8 L D Lymphocytes % (Manual) 8.3 D Monocytes % 1.0 L Monocytes % (Manual) 3 L Eosinophils % 0.1 Eosinophils % (Manual) 0.0 Basophils % 0.2 Basophils % (Manual) 0.0 Myelocytes % (Man) 0 Promyelocytes % (Man) 0 Blast Cells % (Manual) 0 Nucleated RBC % 0 Metamyelocytes 0 D Hypochromia 1+ Toxic Granulation 1+ Platelet Estimate Normal Polychromasia 1+ Poikilocytosis 1+ Anisocytosis 1+ Microcytosis 1+ Macrocytosis 0 Target Cells 1+ PT with INR 20.20 H INR 1.70 H PTT (Actin FS) 33.3 Sodium Potassium Chloride Carbon Dioxide Anion Gap BUN Creatinine Est GFR (CKD-EPI)AfAm Est GFR (CKD-EPI)NonAf Random Glucose Calcium Total Bilirubin AST ALT Alkaline Phosphatase Total Protein Albumin Blood Type A POSITIVE Antibody Screen Negative Crossmatch See Detail 03/23/19 06:00 WBC RBC Hgb Hct MCV MCH MCHC RDW Plt Count MPV Absolute Neuts (auto) Neutrophils % Neutrophils % (Manual) Band Neutrophils % Lymphocytes % Lymphocytes % (Manual) Monocytes % Monocytes % (Manual) Eosinophils % Eosinophils % (Manual) Basophils % Basophils % (Manual) Myelocytes % (Man) Promyelocytes % (Man) Blast Cells % (Manual) Nucleated RBC % Metamyelocytes Hypochromia Toxic Granulation Platelet Estimate Polychromasia Poikilocytosis Anisocytosis Microcytosis Macrocytosis Target Cells PT with INR INR PTT (Actin FS) Sodium 141 Potassium 4.0 Chloride 110 H Carbon Dioxide 25 Anion Gap 7 L BUN 29.1 H Creatinine 0.6 Est GFR (CKD-EPI)AfAm 124.92 Est GFR (CKD-EPI)NonAf 107.78 Random Glucose 110 H Calcium 7.9 L Total Bilirubin 0.7 AST 58 H ALT 39 Alkaline Phosphatase 181 H Total Protein 6.2 L Albumin 1.2 L Blood Type Antibody Screen Crossmatch Active Medications Generic Name Dose Route Start Last Admin Trade Name Freq PRN Reason Stop Dose Admin Acetaminophen 1,000 mg 03/22/19 16:37 03/23/19 10:52 Ofirmev Injection - IVPB 1,000 mg Q6H PRN Administration -PAIN Carbamazepine 400 mg 03/23/19 07:00 03/23/19 06:55 Tegretol - PO Not Given AM FLORIN Carbamazepine 600 mg 03/22/19 22:00 03/22/19 22:07 Tegretol - PO 600 mg HS FL[facility]IN Administration Dextrose/Sodium Chloride 1,000 mls @ 100 mls/hr 03/22/19 16:37 03/22/19 18:44 D5-Ns - IV 100 mls/hr ASDIR [facility] Administration Vancomycin HCl 500 mg/ 100 mls @ 100 mls/hr 03/22/19 22:00 03/23/19 13:56 Dextrose IVPB 100 mls/hr BID [facility] Administration Protocol Piperacillin Sod/Tazobactam 50 mls @ 100 mls/hr 03/22/19 18:00 03/23/19 13:56 Sod 3.375 gm/ Dextrose IVPB 100 mls/hr Q8H-IV [facility] Administration Protocol Lactulose 20 gm 03/22/19 22:00 03/23/19 13:58 Cephulac (Oral Use) PO 20 gm TID [facility] Administration Levothyroxine Sodium 75 mcg 03/23/19 07:00 03/23/19 06:54 Synthroid - PO Not Given DAILY@0700 [facility] Pantoprazole Sodium 40 mg 03/23/19 10:00 03/23/19 13:57 Protonix - PO 40 mg DAILY [facility] Administration ASSESSMENT/PLAN: 48 year old female with metastatic colon CA (dx 09/2018) most recently on Avastin 03/19, admitted for sepsis 2/ R psoas abscess #R Psoas Abscess -s/p IR drainage today -cultures pending, gram stain significant for gram + cocci -ID recommendations appreciated -monitor BP for signs of hypotension -tylenol for pain/fever Shade Garcia, PGY3 Visit type - Emergency Visit Emergency Visit: No - New Patient This patient is new to me today: No - Critical Care Critical Care patient: No ATTENDING PHYSICIAN STATEMENT I saw and evaluated the patient. I reviewed the resident's note and discussed the case with the resident. I agree with the resident's findings and plan as documented. SUBJECTIVE: OBJECTIVE: ASSESSMENT AND PLAN:
[2019-03-23] MEDS: DEXTROSE 5%-NORMAL SALINE 1,000 ML IV SCH ×2 (17:25→19:00)
[2019-03-24] MEDS ORDERED: PIPERACILLIN/TAZOBACTAM 3.375 GM VIAL IVPB ONE ×3 (01:05→18:03)
[2019-03-24] MEDS ORDERED: DEXTROSE 5%-WATER - 50 ML IVPB ONE ×3 (01:06→18:04)
[2019-03-24] MEDS: ACETAMINOPHEN 325 MG TABLET (FP) PO PRN ×2 (01:49→16:58)
[2019-03-24] MEDS: PIPERACILLIN/TAZOB 3.375 GM 3.375 GM in DEXTROSE 5%-WATER - 50 ML IVPB SCH ×3 (01:50→18:12)
[2019-03-24] MEDS: LACTULOSE 20 GM/30 ML UDC (FOR ORAL USE ONLY) PO SCH ×3 (06:38→22:28)
[2019-03-24] MEDS: carBAMazepine 200 MG TABLET PO SCH ×2 (06:38→22:29)
[2019-03-24] MEDS: LEVOTHYROXINE NA 75 MCG TABLET (FP) PO SCH (06:38)
[2019-03-24] MEDS: DEXTROSE 5%-NORMAL SALINE 1,000 ML IV SCH ×3 (06:39→18:11)
[2019-03-24] MEDS ORDERED: VANCOMYCIN 500 MG VIAL (RESTRICTED TO ID ONLY) ONE ×2 (09:32→22:21)
[2019-03-24] MEDS ORDERED: DEXTROSE 5%-WATER 100 ML IVPB ONE ×2 (09:33→22:21)
[2019-03-24] MEDS: PANTOPRAZOLE 40 MG TABLET (FP) PO SCH (09:41)
[2019-03-24] MEDS: VANCOMYCIN 500 MG in DEXTROSE 5%-WATER 100 ML IVPB SCH ×2 (09:41→22:28)
--- NOTE | 2019-03-24 11:17 | PN ---
Physical Exam: SUBJECTIVE: Patient seen and examined at bedside. More alert than yesterday. states "yes" when asked if she is feeling better. Nurse reports patient has been febrile, but with an improved HR compared to yesterday. OBJECTIVE: Vital Signs Period Temp Pulse Resp BP Sys/Martin Pulse Ox Last 24 Hr 97.6 F-101.3 F 115-140 18-26 109-134/51-75 92-100 GENERAL: The patient is awake but difficult to converse with, unclear if entirely oriented at present, cachectic appearing EYES: PERRL ENT: Dry mucus membranes membranes LUNGS: CTA HEART: Tachycardic, no murmurs appreciated ABDOMEN: thin, colostomy in place, R sided drain in place draining 5-10cc purulent yellow drainage SKIN: Warm, dry, normal turgor, no rashes or lesions noted Active Medications Generic Name Dose Route Start Last Admin Trade Name Freq PRN Reason Stop Dose Admin Acetaminophen 650 mg 03/23/19 16:54 03/24/19 01:49 Tylenol - PO 650 mg Q6H PRN Administration PAIN LEVEL 1-5 OR FEVER Carbamazepine 400 mg 03/23/19 07:00 03/24/19 06:38 Tegretol - PO 400 mg AM FLORIN Administration Carbamazepine 600 mg 03/22/19 22:00 03/23/19 21:28 Tegretol - PO 600 mg HS FLORIN Administration Dextrose/Sodium Chloride 1,000 mls @ 100 mls/hr 03/22/19 16:37 03/24/19 06:39 D5-Ns - IV 100 mls/hr ASDIR FLOR[facility] Administration Vancomycin HCl 500 mg/ 100 mls @ 100 mls/hr 03/22/19 22:00 03/24/19 09:41 Dextrose IVPB 100 mls/hr BID [facility] Administration Protocol Piperacillin Sod/Tazobactam 50 mls @ 100 mls/hr 03/22/19 18:00 03/24/19 09:41 Sod 3.375 gm/ Dextrose IVPB 100 mls/hr Q8H-IV [facility] Administration Protocol Lactulose 20 gm 03/22/19 22:00 03/24/19 06:38 Cephulac (Oral Use) PO 20 gm TID FLORIN Administration Levothyroxine Sodium 75 mcg 03/23/19 07:00 03/24/19 06:38 Synthroid - PO 75 mcg DAILY@0700 [facility] Administration Pantoprazole Sodium 40 mg 03/23/19 10:00 03/24/19 09:41 Protonix - PO 40 mg DAILY [facility] Administration ASSESSMENT/PLAN: 48 year old female with metastatic colon CA (dx 09/2018) most recently on Avastin 03/19, admitted for sepsis 2/2 R psoas abscess #Metastatic Colon CA #R Psoas Abscess -s/p IR drainage, continue to monitor output -cultures pending, gram stain significant for gram + cocci -ID recommendations appreciated -monitor BP for signs of hypotension -tylenol for pain/fever -on vancomycin/zosyn day 3 Shade Garcia, PGY3 Will Discuss with Dr. Kumar Visit type - Emergency Visit Emergency Visit: No - New Patient This patient is new to me today: No - Critical Care Critical Care patient: No ATTENDING PHYSICIAN STATEMENT I saw and evaluated the patient. I reviewed the resident's note and discussed the case with the resident. I agree with the resident's findings and plan as documented. SUBJECTIVE: OBJECTIVE: ASSESSMENT AND PLAN:
--- NOTE | 2019-03-24 20:47 | PN ---
Teaching Attending Note Name of Resident: Shade Garcia ATTENDING PHYSICIAN STATEMENT I saw and evaluated the patient. I reviewed the resident's note and discussed the case with the resident. I agree with the resident's findings and plan as documented. SUBJECTIVE: Patient seen and examined Continues with fever spikes and tachycardia S/P IR drainage of psoas abscess Last Vital Signs Temp Pulse Resp BP Pulse Ox 98.9 F 126 H 20 111/55 L 98 03/24/19 15:15 03/24/19 15:15 03/24/19 15:15 03/24/19 15:15 03/24/19 09:00 HEENT: [place], EOM Intact Cor: sinus tachycardia Lungs:diminished breath sounds bilaterally Abd: enlarged , mildly tender hepatomegaly Ext:No significant edema Skin: No rashes, Integument intact KELLY drainage CBC, BMP 03/23/19 06:00 03/23/19 06:00 Current Medications Generic Name Dose Route Start Last Admin Trade Name Freq PRN Reason Stop Dose Admin Acetaminophen 650 mg 03/23/19 16:54 03/24/19 16:58 Tylenol - PO 650 mg Q6H PRN Administration PAIN LEVEL 1-5 OR FEVER Carbamazepine 400 mg 03/23/19 07:00 03/24/19 06:38 Tegretol - PO 400 mg AM FLORIN Administration Carbamazepine 600 mg 03/22/19 22:00 03/23/19 21:28 Tegretol - PO 600 mg HS FLORIN Administration Dextrose/Sodium Chloride 1,000 mls @ 100 mls/hr 03/22/19 16:37 03/24/19 18:11 D5-Ns - IV 100 mls/hr ASDIR [facility]OR[facility] Administration Vancomycin HCl 500 mg/ 100 mls @ 100 mls/hr 03/22/19 22:00 03/24/19 09:41 Dextrose IVPB 100 mls/hr BID FLOR[facility] Administration Protocol Piperacillin Sod/Tazobactam 50 mls @ 100 mls/hr 03/22/19 18:00 03/24/19 18:12 Sod 3.375 gm/ Dextrose IVPB 100 mls/hr Q8H-IV [facility] Administration Protocol Lactulose 20 gm 03/22/19 22:00 03/24/19 14:42 Cephulac (Oral Use) PO 20 gm TID FLOR[facility] Administration Levothyroxine Sodium 75 mcg 03/23/19 07:00 03/24/19 06:38 Synthroid - PO 75 mcg DAILY@0700 [facility] Administration Pantoprazole Sodium 40 mg 03/23/19 10:00 03/24/19 09:41 Protonix - PO 40 mg DAILY [facility] Administration Impression: Metastatic colon ca S/P IR drainage of psoas abscess Fevers- await C & S Tachycardia- likely secondary to sepsis Plan: Current therapy OBJECTIVE: ASSESSMENT AND PLAN:
[2019-03-25] MEDS ORDERED: PIPERACILLIN/TAZOBACTAM 3.375 GM VIAL IVPB ONE ×3 (01:15→18:13)
[2019-03-25] MEDS ORDERED: DEXTROSE 5%-WATER - 50 ML IVPB ONE ×3 (01:15→18:13)
[2019-03-25] MEDS: PIPERACILLIN/TAZOB 3.375 GM 3.375 GM in DEXTROSE 5%-WATER - 50 ML IVPB SCH ×3 (02:21→18:19)
[2019-03-25] MEDS: carBAMazepine 200 MG TABLET PO SCH ×2 (06:26→22:30)
[2019-03-25] MEDS: ACETAMINOPHEN 325 MG TABLET (FP) PO PRN (06:26)
[2019-03-25] MEDS: LACTULOSE 20 GM/30 ML UDC (FOR ORAL USE ONLY) PO SCH ×3 (06:26→22:30)
[2019-03-25] MEDS: LEVOTHYROXINE NA 75 MCG TABLET (FP) PO SCH (06:27)
[2019-03-25 08:44] LABS: BASO % 0.1 % (0-2.0); EOS % 0.2 % (0-4.5); HEMOGLOBIN 7.8 GM/dL (10.7-15.3); LYMPH % 4.8 % (8-40); MCH 28.5 pg (25.7-33.7); MCHC 32.4 g/dl (32.0-36.0); MEAN CELL VOLUME 88.1 fl (80-96); MEAN PLT VOLUME 7.9 fl (7.5-11.1); MONO % 3.5 % (3.8-10.2); NEUT % 91.4 % (42.8-82.8); PLATELET COUNT 306 K/MM3 (134-434); RBC 2.72 M/mm3 (3.60-5.2); RDW 22.8 % (11.6-15.6); WHITE BLOOD COUNT 18.2 K/mm3 (4.0-10.0)
[2019-03-25 09:25] LABS: BILIRUBIN,TOTAL 0.5 mg/dL (0.2-1); BLOOD UREA NITROGEN 14.1 mg/dL (7-18); CALCIUM 7.9 mg/dL (8.5-10.1); CREATININE 0.6 mg/dL (0.55-1.3); POTASSIUM 3.1 mmol/L (3.5-5.1); TOT PROT 5.8 g/dl (6.4-8.2)
[2019-03-25] MEDS ORDERED: DEXTROSE 5%-WATER 100 ML IVPB ONE ×2 (09:35→22:21)
[2019-03-25] MEDS ORDERED: VANCOMYCIN 500 MG VIAL (RESTRICTED TO ID ONLY) ONE ×2 (09:35→22:20)
[2019-03-25] MEDS: PANTOPRAZOLE 40 MG TABLET (FP) PO SCH (10:12)
[2019-03-25] MEDS: VANCOMYCIN 500 MG in DEXTROSE 5%-WATER 100 ML IVPB SCH ×2 (10:50→22:29)
[2019-03-25 12:02] LABS: ANISOCYTOSIS 1+; MACROCYTOSIS 1+; OVALOCYTE 1+; PLATELET ESTIMATE NORMAL; TARGET CELLS 2+
[2019-03-25] MEDS: DEXTROSE 5%-NORMAL SALINE 1,000 ML IV SCH ×2 (14:22→18:18)
--- NOTE | 2019-03-25 20:23 | PN ---
Progress Note (short form) - Note Progress Note: Patient seen and examined Discussed with mother at bedside More alert Some p.o. intake. Still with KELLY drainage. Last Vital Signs Temp Pulse Resp BP Pulse Ox 97.9 F 114 H 18 121/57 L 98 03/25/19 18:00 03/25/19 18:00 03/25/19 18:00 03/25/19 18:00 03/25/19 09:00 HEENT: [place], EOM Intact Cor: RSR, No murmurs, No gallops Lungs: diminished breath sounds Abd: enlarged tender hepatomegaly, KELLY drainage Ext:No significant edema Skin: No rashes, Integument intact CBC, BMP 03/25/19 08:32 03/25/19 08:32 Current Medications Generic Name Dose Route Start Last Admin Trade Name Freq PRN Reason Stop Dose Admin Acetaminophen 650 mg 03/23/19 16:54 03/25/19 06:26 Tylenol - PO 650 mg Q6H PRN Administration PAIN LEVEL 1-5 OR FEVER Carbamazepine 400 mg 03/23/19 07:00 03/25/19 06:26 Tegretol - PO 400 mg AM [facility]IN Administration Carbamazepine 600 mg 03/22/19 22:00 03/24/19 22:29 Tegretol - PO 600 mg HS FLORIN Administration Dextrose/Sodium Chloride 1,000 mls @ 100 mls/hr 03/22/19 16:37 03/25/19 18:18 D5-Ns - IV Not Given ASDIR FLORIN Vancomycin HCl 500 mg/ 100 mls @ 100 mls/hr 03/22/19 22:00 03/25/19 10:50 Dextrose IVPB 100 mls/hr BID [facility] Administration Protocol Piperacillin Sod/Tazobactam 50 mls @ 100 mls/hr 03/22/19 18:00 03/25/19 18:19 Sod 3.375 gm/ Dextrose IVPB 100 mls/hr Q8H-IV [facility] Administration Protocol Lactulose 20 gm 03/22/19 22:00 03/25/19 14:16 Cephulac (Oral Use) PO 20 gm TID [facility] Administration Levothyroxine Sodium 75 mcg 03/23/19 07:00 03/25/19 06:27 Synthroid - PO 75 mcg DAILY@0700 [facility] Administration Pantoprazole Sodium 40 mg 03/23/19 10:00 03/25/19 10:12 Protonix - PO 40 mg DAILY [facility] Administration Impression Metastatic colon ca Liver/lung mets psoas abscess --s/p IR drainage Bone scan - negative Anemia- may need transfusion replete K+ Continue antibiotic therapy Discussed status with mother.
[2019-03-25] MEDS: D5-1/2NS+40 MEQ KCL - 40 MEQ/1,000 ML INFUS.BAG IV SCH (22:30)
[2019-03-25] MEDS: KCL 10 MEQ IVPB 10 MEQ/100 ML INFUS.BAG IVPB SCH (22:32)
[2019-03-26] MEDS ORDERED: DEXTROSE 5%-WATER - 50 ML IVPB ONE ×2 (02:05→09:00)
[2019-03-26] MEDS ORDERED: PIPERACILLIN/TAZOBACTAM 3.375 GM VIAL IVPB ONE ×2 (02:05→09:00)
[2019-03-26] MEDS: PIPERACILLIN/TAZOB 3.375 GM 3.375 GM in DEXTROSE 5%-WATER - 50 ML IVPB SCH ×2 (02:16→09:06)
[2019-03-26] MEDS: LACTULOSE 20 GM/30 ML UDC (FOR ORAL USE ONLY) PO SCH ×4 (05:45→21:32)
[2019-03-26] MEDS: LEVOTHYROXINE NA 75 MCG TABLET (FP) PO SCH (06:03)
[2019-03-26] MEDS: carBAMazepine 200 MG TABLET PO SCH ×2 (06:03→21:27)
[2019-03-26 06:28] LABS: BASO % 0.5 % (0-2.0); EOS % 0.7 % (0-4.5); HEMATOCRIT 23.6 % (32.4-45.2); HEMOGLOBIN 7.8 GM/dL (10.7-15.3); LYMPH % 5.7 % (8-40); MCH 29.1 pg (25.7-33.7); MCHC 33.1 g/dl (32.0-36.0); MEAN PLT VOLUME 8.2 fl (7.5-11.1); NEUT % 88.1 % (42.8-82.8); PLATELET COUNT 328 K/MM3 (134-434); RBC 2.68 M/mm3 (3.60-5.2); RDW 23.2 % (11.6-15.6); WHITE BLOOD COUNT 20.4 K/mm3 (4.0-10.0)
[2019-03-26 06:41] LABS: BILIRUBIN,TOTAL 0.4 mg/dL (0.2-1); BLOOD UREA NITROGEN 10.3 mg/dL (7-18); CALCIUM 7.7 mg/dL (8.5-10.1); CREATININE 0.5 mg/dL (0.55-1.3); MAGNESIUM 1.6 mg/dL (1.8-2.4); POTASSIUM 3.2 mmol/L (3.5-5.1); TOT PROT 5.8 g/dl (6.4-8.2)
[2019-03-26] MEDS ORDERED: PT OWN MED DRAWER 7, Y5N ONE (09:00)
[2019-03-26] MEDS: PANTOPRAZOLE 40 MG TABLET (FP) PO SCH (09:06)
[2019-03-26] MEDS ORDERED: DEXTROSE 5%-WATER 100 ML IVPB ONE ×2 (09:24→21:24)
[2019-03-26] MEDS ORDERED: VANCOMYCIN 500 MG VIAL (RESTRICTED TO ID ONLY) ONE ×2 (09:24→21:24)
[2019-03-26] MEDS: VANCOMYCIN 500 MG in DEXTROSE 5%-WATER 100 ML IVPB SCH ×2 (10:17→21:27)
[2019-03-26 12:39] LABS: ANISOCYTOSIS 2+; MACROCYTOSIS 1+; PLATELET ESTIMATE NORMAL; TARGET CELLS 1+; TEAR DROP CELLS 1+; TOXIC GRANULATION 2+
--- NOTE | 2019-03-26 12:45 | PATH ---
Cytology Non-Gynecological Report Patient Name: DASIA COMER [facility]. Rec. #: [id number] /Age/Gender: 1970 (Age: 48) / F Account: [id number] Location: [facility] PEDS/ADOL Taken: 03/23/2019 Received: 03/24/2019 Reported: 03/26/2019 Physicians: Dwayne Marcelo M.D. Specimen(s) Received PSOAS ABCESS FLUID Clinical History Psoas abscess Final Diagnosis PSOAS ABSCESS FOR CYTOLOGY: SATISFACTORY FOR EVALUATION. NO MALIGNANT CELLS IDENTIFIED. ACUTE INFLAMMATORY EXUDATE COMPRISED OF NUMEROUS NEUTROPHILS, LYMPHOCYTES, AND CELLULAR DEBRIS, CONSISTENT WITH ABSCESS. Comment: Suggest clinical and microbiology studies correlation. Electronically Signed Rula Gaspar M.D. Gross Description Approximately 50 cc of yellow fluid received fixed in 50% alcohol. One cytofunnel prepared and Pap stained. One cellblock prepared.
[2019-03-26] MEDS: ACETAMINOPHEN 325 MG TABLET (FP) PO PRN (14:05)
--- NOTE | 2019-03-26 15:28 | PN ---
Physical Exam: SUBJECTIVE: Patient seen and examined at bedside. Per nurse, patient is febrile to 102 and tachycardic to the 140s. Patient is more alert than yesterday and is able to voice that she is not in any pain or distress. OBJECTIVE: Vital Signs Period Temp Pulse Resp BP Sys/Martin Pulse Ox Last 24 Hr 97.9 F-102.2 F 114-138 18-20 107-121/54-67 99-100 GENERAL: The patient is awake, cachectic, no distress EYES: PERRL ENT: Dry mucus membranes membranes LUNGS: CTA HEART: Tachycardic, no murmurs appreciated ABDOMEN: thin, colostomy in place, R sided drain in place draining 20-30cc purulent yellow drainage SKIN: Warm, dry, normal turgor, no rashes or lesions noted Laboratory Results - last 24 hr 03/26/19 03/26/19 05:35 05:35 WBC 20.4 H RBC 2.68 L Hgb 7.8 L Hct 23.6 L MCV 88.0 MCH 29.1 MCHC 33.1 RDW 23.2 H Plt Count 328 MPV 8.2 Absolute Neuts (auto) 18.0 H Neutrophils % 88.1 H Neutrophils % (Manual) 64.0 Band Neutrophils % 19.0 Lymphocytes % 5.7 L Lymphocytes % (Manual) 8.0 Monocytes % 5.0 Monocytes % (Manual) 6 Eosinophils % 0.7 D Eosinophils % (Manual) 0.0 Basophils % 0.5 D Basophils % (Manual) 0.0 Myelocytes % (Man) 0 Promyelocytes % (Man) 0 Blast Cells % (Manual) 0 Nucleated RBC % 0 Metamyelocytes 2 D Hypochromia 2+ Toxic Granulation 2+ Platelet Estimate Normal Platelet Comment Present Polychromasia 0 Poikilocytosis 1+ Anisocytosis 2+ Microcytosis 0 Macrocytosis 1+ Target Cells 1+ Tear Drop Cells 1+ Carlos Enrique Cells 1+ Acanthocytes (Spur) 1+ Sodium 141 Potassium 3.2 L Chloride 110 H Carbon Dioxide 23 Anion Gap 8 BUN 10.3 Creatinine 0.5 L Est GFR (CKD-EPI)AfAm 132.65 Est GFR (CKD-EPI)NonAf 114.45 Random Glucose 94 Calcium 7.7 L Magnesium 1.6 L Total Bilirubin 0.4 AST 33 ALT 20 Alkaline Phosphatase 129 H Total Protein 5.8 L Albumin 1.0 L Active Medications Generic Name Dose Route Start Last Admin Trade Name Freq PRN Reason Stop Dose Admin Acetaminophen 650 mg 03/23/19 16:54 03/26/19 14:05 Tylenol - PO 650 mg Q6H PRN Administration PAIN LEVEL 1-5 OR FEVER Carbamazepine 400 mg 03/23/19 07:00 03/26/19 06:03 Tegretol - PO 400 mg AM FLORIN Administration Carbamazepine 600 mg 03/22/19 22:00 03/25/19 22:30 Tegretol - PO 600 mg HS FLORIN Administration Vancomycin HCl 500 mg/ 100 mls @ 100 mls/hr 03/22/19 22:00 03/26/19 10:17 Dextrose IVPB 100 mls/hr BID FLORIN Administration Protocol Piperacillin Sod/Tazobactam 50 mls @ 100 mls/hr 03/22/19 18:00 03/26/19 09:06 Sod 3.375 gm/ Dextrose IVPB 100 mls/hr Q8H-IV FLORIN Administration Protocol Dextrose/Sodium Chloride 40 meq in 1,000 mls @ 42 mls/hr 03/25/19 20:30 03/25 22:30 D5-1/2ns+40 Meq Kcl - IV 42 mls/hr ASDIR FLORIN Administration Lactulose 20 gm 03/22/19 22:00 03/26/19 14:05 Cephulac (Oral Use) PO 20 gm TID FLORIN Administration Levothyroxine Sodium 75 mcg 03/23/19 07:00 03/26/19 06:03 Synthroid - PO 75 mcg DAILY@0700 [facility] Administration Pantoprazole Sodium 40 mg 03/23/19 10:00 03/26/19 09:06 Protonix - PO 40 mg DAILY [facility] Administration ASSESSMENT/PLAN: 48 year old female with metastatic colon CA (dx 09/2018) most recently on Avastin 03/19, admitted for sepsis 2/2 R psoas abscess #Metastatic Colon CA #R Psoas Abscess -s/p IR drainage, continue to monitor output -cultures grew anaerobic organisms -still spiking fevers, discussed with Dr. Rain, will reculture and likely change in antibiotics -monitor BP for signs of hypotension -fluids -tylenol for pain/fever -on vancomycin/zosyn day 3 Shade Garcia, PGY3 Will Discuss with Dr. Quiroz ATTENDING PHYSICIAN STATEMENT I saw and evaluated the patient. I reviewed the resident's note and discussed the case with the resident. I agree with the resident's findings and plan as documented. SUBJECTIVE: OBJECTIVE: ASSESSMENT AND PLAN:
--- NOTE | 2019-03-26 16:40 | PN ---
Progress Note, Physician History of Present Illness: AWAKE, LETHARGIC S/P IR DRAIN PSOAS ABSCESS C/S-ANAEROBES BC (-) FEBRILE, TACHYCARDIC WBC 20K BC (-) - Current Medication List Current Medications: Active Medications Acetaminophen (Tylenol -) 650 mg PO Q6H PRN PRN Reason: PAIN LEVEL 1-5 OR FEVER Last Admin: 03/26/19 14:05 Dose: 650 mg Carbamazepine (Tegretol -) 400 mg PO AM [facility] Last Admin: 03/26/19 06:03 Dose: 400 mg Carbamazepine (Tegretol -) 600 mg PO HS [facility] Last Admin: 03/25/19 22:30 Dose: 600 mg Vancomycin HCl 500 mg/ (Dextrose) 100 mls @ 100 mls/hr IVPB BID [facility]; Protocol Last Admin: 03/26/19 10:17 Dose: 100 mls/hr Piperacillin Sod/Tazobactam (Sod 3.375 gm/ Dextrose) 50 mls @ 100 mls/hr IVPB Q8H-IV [facility]; Protocol Last Admin: 03/26/19 09:06 Dose: 100 mls/hr Dextrose/Sodium Chloride (D5-1/2ns+40 Meq Kcl -) 40 meq in 1,000 mls @ 42 mls/ hr IV ASDIR [facility] Last Admin: 03/25/19 22:30 Dose: 42 mls/hr Lactulose (Cephulac (Oral Use)) 20 gm PO TID [facility] Last Admin: 03/26/19 14:05 Dose: 20 gm Levothyroxine Sodium (Synthroid -) 75 mcg PO DAILY@0700 [facility] Last Admin: 03/26/19 06:03 Dose: 75 mcg Pantoprazole Sodium (Protonix -) 40 mg PO DAILY [facility] Last Admin: 03/26/19 09:06 Dose: 40 mg - Objective Vital Signs: Vital Signs Temperature 99.7 F H 03/26/19 16:14 Pulse Rate 138 H 03/26/19 13:59 Respiratory Rate 20 03/26/19 13:59 Blood Pressure 121/67 03/26/19 13:59 O2 Sat by Pulse Oximetry (%) 99 03/26/19 09:00 Constitutional: Yes: Cachectic Cardiovascular: Yes: Regular Rate and Rhythm, Tachycardia, S1, S2 Respiratory: Yes: Diminished Gastrointestinal: Yes: Normal Bowel Sounds, Soft, Other (+ OSTOMY) Genitourinary: Yes: Other (SL SWELLING R LABIA) Labs: CBC, BMP 03/26/19 05:35 03/26/19 05:35 INR, PTT INR 1.70 (0.83-1.09) H 03/23/19 06:00 Assessment/Plan S/P IR DRAINAGE PSOAS ABSCESS FEVER/ LEUKOCYTOSIS METASTATIC CA SUBSTITUTE MEROPENEM/ FLAGYL /VANCOMYCIN
[2019-03-26] MEDS ORDERED: MEROPENEM 500 MG in DEXTROSE 5%-WATER 100 ML IVPB SCH (18:00)
[2019-03-26] MEDS: MEROPENEM 500 MG in DEXTROSE 5%-WATER 100 ML IVPB SCH (18:07)
--- NOTE | 2019-03-26 20:45 | PN ---
Teaching Attending Note Name of Resident: Shade Garcia ATTENDING PHYSICIAN STATEMENT I saw and evaluated the patient. I reviewed the resident's note and discussed the case with the resident. I agree with the resident's findings and plan as documented. ASSESSMENT AND PLAN: 48 y/o patient with metastatic colon cancer, liver mets, now with iliopsoas abscess, s/p drainage on meropenem/flagyl/vanco ? tumor fever will follow
[2019-03-26] MEDS: D5-1/2NS+40 MEQ KCL - 40 MEQ/1,000 ML INFUS.BAG IV SCH (21:26)
[2019-03-27] MEDS ORDERED: PT OWN MED DRAWER 7, Y5N ONE ×6 (02:01→18:37)
[2019-03-27] MEDS: MEROPENEM 500 MG in DEXTROSE 5%-WATER 100 ML IVPB SCH ×3 (02:04→18:41)
[2019-03-27] MEDS ORDERED: PORTA CATH FLUSH 10 ML IVPUSH ONE (02:50)
[2019-03-27] MEDS: LEVOTHYROXINE NA 75 MCG TABLET (FP) PO SCH (06:20)
[2019-03-27] MEDS: LACTULOSE 20 GM/30 ML UDC (FOR ORAL USE ONLY) PO SCH ×3 (06:20→21:40)
[2019-03-27] MEDS: carBAMazepine 200 MG TABLET PO SCH ×2 (06:20→21:40)
[2019-03-27 07:23] LABS: BASO % 0.2 % (0-2.0); EOS % 0.2 % (0-4.5); HEMATOCRIT 24.5 % (32.4-45.2); HEMOGLOBIN 7.8 GM/dL (10.7-15.3); LYMPH % 4.7 % (8-40); MCH 27.9 pg (25.7-33.7); MCHC 31.8 g/dl (32.0-36.0); MEAN PLT VOLUME 8.2 fl (7.5-11.1); MONO % 4.2 % (3.8-10.2); NEUT % 90.7 % (42.8-82.8); PLATELET COUNT 392 K/MM3 (134-434); RBC 2.79 M/mm3 (3.60-5.2); RDW 23.1 % (11.6-15.6); WHITE BLOOD COUNT 21.7 K/mm3 (4.0-10.0)
[2019-03-27 07:48] LABS: BILIRUBIN,TOTAL 0.5 mg/dL (0.2-1); BLOOD UREA NITROGEN 10.7 mg/dL (7-18); CALCIUM 8.2 mg/dL (8.5-10.1); CREATININE 0.5 mg/dL (0.55-1.3); POTASSIUM 4.1 mmol/L (3.5-5.1); TOT PROT 6.2 g/dl (6.4-8.2)
[2019-03-27] MEDS: PANTOPRAZOLE 40 MG TABLET (FP) PO SCH (10:05)
[2019-03-27 11:16] LABS: ANISOCYTOSIS 1+; MACROCYTOSIS 1+; OVALOCYTE 1+; PLATELET ESTIMATE NORMAL; TARGET CELLS 1+; TOXIC GRANULATION 1+
--- NOTE | 2019-03-27 12:17 | PN ---
Progress Note, Physician History of Present Illness: AWAKE, LETHARGIC IN BED CACHECTIC S/P IR DRAIN PSOAS ABSCESS C/S-ANAEROBES BC (-) TEMPS DOWN WBC REMAINS ELEVATED BC (-) - Current Medication List Current Medications: Active Medications Acetaminophen (Tylenol -) 650 mg PO Q6H PRN PRN Reason: PAIN LEVEL 1-5 OR FEVER Last Admin: 03/26/19 14:05 Dose: 650 mg Carbamazepine (Tegretol -) 400 mg PO AM [facility] Last Admin: 03/27/19 06:20 Dose: 400 mg Carbamazepine (Tegretol -) 600 mg PO HS [facility] Last Admin: 03/26/19 21:27 Dose: 600 mg Vancomycin HCl 500 mg/ (Dextrose) 100 mls @ 100 mls/hr IVPB BID [facility]; Protocol Last Admin: 03/26/19 21:27 Dose: 100 mls/hr Dextrose/Sodium Chloride (D5-1/2ns+40 Meq Kcl -) 40 meq in 1,000 mls @ 42 mls/ hr IV ASDIR [facility] Last Admin: 03/26/19 21:26 Dose: 42 mls/hr Metronidazole (Flagyl 500mg Premixed Ivpb -) 500 mg in 100 mls @ 100 mls/hr IVPB Q8H-IV [facility] Last Admin: 03/27/19 10:03 Dose: 100 mls/hr Meropenem 500 mg/ Dextrose 100 mls @ 200 mls/hr IVPB Q8H-IV [facility] Last Admin: 03/27/19 11:22 Dose: 200 mls/hr Lactulose (Cephulac (Oral Use)) 20 gm PO TID [facility] Last Admin: 03/27/19 06:20 Dose: Not Given Levothyroxine Sodium (Synthroid -) 75 mcg PO DAILY@0700 [facility] Last Admin: 03/27/19 06:20 Dose: 75 mcg Pantoprazole Sodium (Protonix -) 40 mg PO DAILY [facility] Last Admin: 03/27/19 10:05 Dose: 40 mg - Objective Vital Signs: Vital Signs Temperature 99.3 F 03/27/19 09:59 Pulse Rate 120 H 03/27/19 09:59 Respiratory Rate 18 03/27/19 09:59 Blood Pressure 112/54 L 03/27/19 09:59 O2 Sat by Pulse Oximetry (%) 99 03/26/19 21:00 Constitutional: Yes: No Distress, Cachectic Cardiovascular: Yes: Regular Rate and Rhythm, S1, S2 Respiratory: Yes: Diminished Gastrointestinal: Yes: Normal Bowel Sounds, Soft. No: Tenderness Edema: No Labs: CBC, BMP 03/27/19 07:00 03/27/19 07:00 INR, PTT INR 1.70 (0.83-1.09) H 03/23/19 06:00 Assessment/Plan S/P IR DRAINAGE PSOAS ABSCESS C/S + ANAEROBES FEVER/ LEUKOCYTOSIS METASTATIC CA CONTINUE MEROPENEM/ FLAGYL /VANCOMYCIN PROGNOSIS POOR
[2019-03-27] MEDS: VANCOMYCIN 500 MG in DEXTROSE 5%-WATER 100 ML IVPB SCH ×2 (13:42→21:39)
[2019-03-27] MEDS: ACETAMINOPHEN 325 MG TABLET (FP) PO PRN ×2 (13:43→21:40)
--- NOTE | 2019-03-27 20:22 | PN ---
Progress Note (short form) - Note Progress Note: Patient seen and examined Weak, failure to thrive Last Vital Signs Temp Pulse Resp BP Pulse Ox 97.9 F 107 H 20 92/59 L 97 03/28/19 06:59 03/28/19 06:59 03/28/19 06:59 03/28/19 06:59 03/27/19 21:00 Cor: RSR, No murmurs, No gallops Lungs: Clear to P&A Abd: Soft, Normal bowel sounds, No organomegaly Ext:No significant edema Labs/Meds reviewed A/P 48 y/o patient with metastatic colon cancer , failure to thrive, s/p colostomy, iliopsoas abscess On antibiotics monitor lytes monitor hemoglobin tylenol for pain poor prognosis
[2019-03-27] MEDS ORDERED: VANCOMYCIN 500 MG VIAL (RESTRICTED TO ID ONLY) ONE (21:31)
[2019-03-27] MEDS ORDERED: DEXTROSE 5%-WATER 100 ML IVPB ONE (21:31)
[2019-03-27] MEDS: D5-1/2NS+40 MEQ KCL - 40 MEQ/1,000 ML INFUS.BAG IV SCH (21:39)
[2019-03-28] MEDS ORDERED: PT OWN MED DRAWER 7, Y5N ONE ×4 (01:29→21:26)
[2019-03-28] MEDS: MEROPENEM 500 MG in DEXTROSE 5%-WATER 100 ML IVPB SCH ×3 (02:37→17:43)
[2019-03-28] MEDS: LACTULOSE 20 GM/30 ML UDC (FOR ORAL USE ONLY) PO SCH ×3 (06:06→21:31)
[2019-03-28] MEDS: carBAMazepine 200 MG TABLET PO SCH ×2 (06:13→21:31)
[2019-03-28] MEDS: LEVOTHYROXINE NA 75 MCG TABLET (FP) PO SCH (06:13)
[2019-03-28] MEDS: PANTOPRAZOLE 40 MG TABLET (FP) PO SCH (09:24)
[2019-03-28 10:32] LABS: BASO % 0.1 % (0-2.0); HEMATOCRIT 24.1 % (32.4-45.2); HEMOGLOBIN 7.7 GM/dL (10.7-15.3); LYMPH % 3.6 % (8-40); MCH 28.1 pg (25.7-33.7); MCHC 32.1 g/dl (32.0-36.0); MEAN CELL VOLUME 87.5 fl (80-96); MEAN PLT VOLUME 7.9 fl (7.5-11.1); MONO % 2.5 % (3.8-10.2); NEUT % 93.8 % (42.8-82.8); PLATELET COUNT 449 K/MM3 (134-434); RBC 2.75 M/mm3 (3.60-5.2); RDW 24.9 % (11.6-15.6); WHITE BLOOD COUNT 23.8 K/mm3 (4.0-10.0)
[2019-03-28 11:00] LABS: BILIRUBIN,TOTAL 0.4 mg/dL (0.2-1); BLOOD UREA NITROGEN 8.4 mg/dL (7-18); CALCIUM 8.2 mg/dL (8.5-10.1); CREATININE 0.4 mg/dL (0.55-1.3); POTASSIUM 4.4 mmol/L (3.5-5.1); TOT PROT 5.9 g/dl (6.4-8.2)
[2019-03-28] MEDS ORDERED: VANCOMYCIN 500 MG VIAL (RESTRICTED TO ID ONLY) ONE (12:28)
[2019-03-28] MEDS ORDERED: DEXTROSE 5%-WATER 100 ML IVPB ONE (12:28)
[2019-03-28] MEDS: VANCOMYCIN 500 MG in DEXTROSE 5%-WATER 100 ML IVPB SCH ×2 (12:29→22:25)
[2019-03-28] MEDS: ACETAMINOPHEN 325 MG TABLET (FP) PO PRN ×2 (12:30→21:31)
[2019-03-28 14:12] LABS: ANISOCYTOSIS 1+; MACROCYTOSIS 1+; PLATELET ESTIMATE NORMAL; TARGET CELLS 1+; TOXIC GRANULATION 1+
--- NOTE | 2019-03-28 19:22 | PN ---
Progress Note (short form) - Note Progress Note: Patient seen and examined. Voices no complains. Mother reporting weakness in right hand when holding food Weak, failure to thrive Last Vital Signs Temp Pulse Resp BP Pulse Ox -99.1 F L 125 H 20 117/60 100 03/28/19 18:00 03/28/19 18:00 03/28/19 18:00 03/28/19 18:00 03/28/19 09:00 HEENT: MMM. Supple neck Cor: RSR, No murmurs, No gallops Lungs: Clear to P&A Abd: Soft, Normal bowel sounds, No organomegaly Ext:No significant edema Skin: no overt rash 03/28/19 09:46 03/28/19 09:46 Current Medications Acetaminophen (Tylenol -) 650 mg PO Q6H PRN PRN Reason: PAIN LEVEL 1-5 OR FEVER Last Admin: 03/28/19 12:30 Dose: 650 mg Carbamazepine (Tegretol -) 400 mg PO AM [facility] Last Admin: 03/28/19 06:13 Dose: 400 mg Carbamazepine (Tegretol -) 600 mg PO HS [facility] Last Admin: 03/27/19 21:40 Dose: 600 mg Vancomycin HCl 500 mg/ (Dextrose) 100 mls @ 100 mls/hr IVPB BID [facility]; Protocol Last Admin: 03/28/19 12:29 Dose: 100 mls/hr Dextrose/Sodium Chloride (D5-1/2ns+40 Meq Kcl -) 40 meq in 1,000 mls @ 42 mls/ hr IV ASDIR [facility] Last Admin: 03/27/19 21:39 Dose: 42 mls/hr Metronidazole (Flagyl 500mg Premixed Ivpb -) 500 mg in 100 mls @ 100 mls/hr IVPB Q8H-IV [facility] Last Admin: 03/28/19 17:42 Dose: 100 mls/hr Meropenem 500 mg/ Dextrose 100 mls @ 200 mls/hr IVPB Q8H-IV [facility] Last Admin: 03/28/19 17:43 Dose: 200 mls/hr Lactulose (Cephulac (Oral Use)) 20 gm PO TID [facility] Last Admin: 03/28/19 13:07 Dose: 20 gm Levothyroxine Sodium (Synthroid -) 75 mcg PO DAILY@0700 [facility] Last Admin: 03/28/19 06:13 Dose: 75 mcg Pantoprazole Sodium (Protonix -) 40 mg PO DAILY [facility] Last Admin: 03/28/19 09:24 Dose: 40 mg A/P 48 y/o patient with metastatic colon cancer , failure to thrive, s/p colostomy, iliopsoas abscess On antibiotics monitor lytes monitor hemoglobin tylenol for pain monitor for abnormal movements poor prognosis
[2019-03-28] MEDS: D5-1/2NS+40 MEQ KCL - 40 MEQ/1,000 ML INFUS.BAG IV SCH (21:25)
[2019-03-29] MEDS ORDERED: PT OWN MED DRAWER 7, Y5N ONE ×4 (00:40→16:21)
[2019-03-29] MEDS: MEROPENEM 500 MG in DEXTROSE 5%-WATER 100 ML IVPB SCH ×3 (01:00→17:14)
[2019-03-29] MEDS: LACTULOSE 20 GM/30 ML UDC (FOR ORAL USE ONLY) PO SCH ×3 (05:11→21:04)
[2019-03-29] MEDS: D5-1/2NS+40 MEQ KCL - 40 MEQ/1,000 ML INFUS.BAG IV SCH ×2 (05:19→21:04)
[2019-03-29] MEDS: carBAMazepine 200 MG TABLET PO SCH ×2 (06:06→21:04)
[2019-03-29] MEDS: LEVOTHYROXINE NA 75 MCG TABLET (FP) PO SCH (06:06)
[2019-03-29] MEDS ORDERED: VANCOMYCIN 500 MG VIAL (RESTRICTED TO ID ONLY) ONE ×2 (09:43→20:51)
[2019-03-29] MEDS ORDERED: DEXTROSE 5%-WATER 100 ML IVPB ONE ×2 (09:43→20:51)
[2019-03-29] MEDS: PANTOPRAZOLE 40 MG TABLET (FP) PO SCH (09:47)
[2019-03-29] MEDS: VANCOMYCIN 500 MG in DEXTROSE 5%-WATER 100 ML IVPB SCH ×2 (09:47→21:04)
[2019-03-29] MEDS ORDERED: PORTA CATH FLUSH 10 ML IVPUSH PRN (12:40)
[2019-03-29] MEDS: ACETAMINOPHEN 325 MG TABLET (FP) PO PRN ×2 (14:56→21:06)
--- NOTE | 2019-03-29 15:51 | PN ---
Progress Note (short form) - Note Progress Note: Patient seen and examined. No pain. Having tea and pie. Weak, failure to thrive Last Vital Signs Temp Pulse Resp BP Pulse Ox 99.1 F 128 H 18 117/62 100 03/29/19 13:15 03/29/19 13:15 03/29/19 13:15 03/29/19 13:15 03/28/19 20:44 HEENT: MMM. Supple neck Cor: RSR, No murmurs, No gallops Lungs: Clear to P&A Abd: Soft, Normal bowel sounds, No organomegaly Ext:No significant edema Skin: no overt rash 03/28/19 09:46 03/28/19 09:46 Microbiology 03/26/19 17:30 Blood - Peripheral Venous Blood Culture - Preliminary NO GROWTH OBTAINED AFTER 48 HOURS, INCUBATION TO CONTINUE FOR 3 DAYS. 03/26/19 17:40 Blood - Peripheral Venous Blood Culture - Preliminary NO GROWTH OBTAINED AFTER 48 HOURS, INCUBATION TO CONTINUE FOR 3 DAYS. 03/22/19 15:10 Blood - Peripheral Venous Blood Culture - Final NO GROWTH AFTER 5 DAYS INCUBATION 03/22/19 11:00 Blood - Peripheral Venous Blood Culture - Final NO GROWTH AFTER 5 DAYS INCUBATION 03/23/19 12:30 Abscess Gram Stain - Final 03/23/19 12:30 Abscess Body Fluid Culture - Final NO GROWTH OF AEROBIC ORGANISMS AFTER 48 HOURS INCUBATION 03/23/19 12:30 Abscess Anaerobic Culture - Final Prevotella Oralis Prevotella Denticola 03/21/19 00:00 Blood - Rose Marie Cath Blood Culture - Final NO GROWTH AFTER 5 DAYS INCUBATION 03/20/19 20:45 Blood - Peripheral Venous Blood Culture - Final NO GROWTH AFTER 5 DAYS INCUBATION 03/20/19 20:45 Blood - Peripheral Venous Blood Culture - Final NO GROWTH AFTER 5 DAYS INCUBATION 03/21/19 00:00 Urine - Urine Clean Catch Urine Culture - Final Gram Negative John Current Medications Acetaminophen (Tylenol -) 650 mg PO Q6H PRN PRN Reason: PAIN LEVEL 1-5 OR FEVER Last Admin: 03/29/19 14:56 Dose: 650 mg Carbamazepine (Tegretol -) 400 mg PO AM [facility] Last Admin: 03/29/19 06:06 Dose: 400 mg Carbamazepine (Tegretol -) 600 mg PO HS [facility] Last Admin: 03/28/19 21:31 Dose: 600 mg IV Flush (Rose Marie-Cath Flush) 10 ml IVPUSH PRN PRN PRN Reason: FLUSH Vancomycin HCl 500 mg/ (Dextrose) 100 mls @ 100 mls/hr IVPB BID [facility]; Protocol Last Admin: 03/29/19 09:47 Dose: 100 mls/hr Dextrose/Sodium Chloride (D5-1/2ns+40 Meq Kcl -) 40 meq in 1,000 mls @ 42 mls/ hr IV ASDIR [facility] Last Admin: 03/29/19 05:19 Dose: 42 mls/hr Metronidazole (Flagyl 500mg Premixed Ivpb -) 500 mg in 100 mls @ 100 mls/hr IVPB Q8H-IV [facility] Last Admin: 03/29/19 09:47 Dose: 100 mls/hr Meropenem 500 mg/ Dextrose 100 mls @ 200 mls/hr IVPB Q8H-IV [facility] Last Admin: 03/29/19 11:14 Dose: 200 mls/hr Lactulose (Cephulac (Oral Use)) 20 gm PO TID [facility] Last Admin: 03/29/19 14:55 Dose: 20 gm Levothyroxine Sodium (Synthroid -) 75 mcg PO DAILY@0700 [facility] Last Admin: 03/29/19 06:06 Dose: 75 mcg Pantoprazole Sodium (Protonix -) 40 mg PO DAILY [facility] Last Admin: 03/29/19 09:47 Dose: 40 mg A/P 48 y/o patient with metastatic colon cancer , failure to thrive, s/p colostomy, iliopsoas abscess On antibiotics. Meropenem, Metronidazole and Vancomycin (Prevotella oralis and Prevotella denticola growing in culture) monitor lytes monitor hemoglobin. Stable, slightly decreased monitor coags tylenol for pain monitor for abnormal movements poor prognosis
[2019-03-30] MEDS ORDERED: PT OWN MED DRAWER 7, Y5N ONE ×4 (01:43→16:50)
[2019-03-30] MEDS: MEROPENEM 500 MG in DEXTROSE 5%-WATER 100 ML IVPB SCH ×3 (01:53→17:02)
[2019-03-30] MEDS: carBAMazepine 200 MG TABLET PO SCH ×2 (06:01→21:57)
[2019-03-30] MEDS: LACTULOSE 20 GM/30 ML UDC (FOR ORAL USE ONLY) PO SCH ×3 (06:01→21:27)
[2019-03-30] MEDS: LEVOTHYROXINE NA 75 MCG TABLET (FP) PO SCH (06:01)
[2019-03-30] MEDS: PANTOPRAZOLE 40 MG TABLET (FP) PO SCH (10:28)
[2019-03-30] MEDS: VANCOMYCIN 500 MG in DEXTROSE 5%-WATER 100 ML IVPB SCH (12:34)
[2019-03-30 14:04] LABS: HEMATOCRIT 25.2 % (32.4-45.2); HEMOGLOBIN 8.2 GM/dL (10.7-15.3); MCH 28.3 pg (25.7-33.7); MCHC 32.4 g/dl (32.0-36.0); MEAN CELL VOLUME 87.5 fl (80-96); MEAN PLT VOLUME 7.2 fl (7.5-11.1); PLATELET COUNT 651 K/MM3 (134-434); RBC 2.88 M/mm3 (3.60-5.2); RDW 24.4 % (11.6-15.6); WHITE BLOOD COUNT 27.9 K/mm3 (4.0-10.0)
[2019-03-30] MEDS: ACETAMINOPHEN 325 MG TABLET (FP) PO PRN (14:41)
[2019-03-30 14:42] LABS: BILIRUBIN,TOTAL 0.2 mg/dL (0.2-1); CALCIUM 7.7 mg/dL (8.5-10.1); CREATININE 0.3 mg/dL (0.55-1.3); MAGNESIUM 1.8 mg/dL (1.8-2.4); POTASSIUM 3.9 mmol/L (3.5-5.1); TOT PROT 6.5 g/dl (6.4-8.2)
--- NOTE | 2019-03-30 15:09 | PN ---
Progress Note, Physician History of Present Illness: AWAKE, LETHARGIC IN BED CACHECTIC C/O BILATERAL LEG PAIN S/P IR DRAIN PSOAS ABSCESS C/S-ANAEROBES BC (-) AFEBRILE WBC REMAINS ELEVATED BC (-) - Current Medication List Current Medications: Active Medications Acetaminophen (Tylenol -) 650 mg PO Q6H PRN PRN Reason: PAIN LEVEL 1-5 OR FEVER Last Admin: 03/30/19 14:41 Dose: 650 mg Carbamazepine (Tegretol -) 400 mg PO AM [facility] Last Admin: 03/30/19 06:01 Dose: 400 mg Carbamazepine (Tegretol -) 600 mg PO HS [facility] Last Admin: 03/29/19 21:04 Dose: 600 mg IV Flush (Rose Marie-Cath Flush) 10 ml IVPUSH PRN PRN PRN Reason: FLUSH Vancomycin HCl 500 mg/ (Dextrose) 100 mls @ 100 mls/hr IVPB BID [facility]; Protocol Last Admin: 03/30/19 12:34 Dose: 100 mls/hr Dextrose/Sodium Chloride (D5-1/2ns+40 Meq Kcl -) 40 meq in 1,000 mls @ 42 mls/ hr IV ASDIR [facility] Last Admin: 03/29/19 21:04 Dose: Not Given Metronidazole (Flagyl 500mg Premixed Ivpb -) 500 mg in 100 mls @ 100 mls/hr IVPB Q8H-IV [facility] Last Admin: 03/30/19 11:14 Dose: 100 mls/hr Meropenem 500 mg/ Dextrose 100 mls @ 200 mls/hr IVPB Q8H-IV [facility] Last Admin: 03/30/19 10:28 Dose: 200 mls/hr Lactulose (Cephulac (Oral Use)) 20 gm PO TID [facility] Last Admin: 03/30/19 13:34 Dose: 20 gm Levothyroxine Sodium (Synthroid -) 75 mcg PO DAILY@0700 [facility] Last Admin: 03/30/19 06:01 Dose: 75 mcg Pantoprazole Sodium (Protonix -) 40 mg PO DAILY [facility] Last Admin: 03/30/19 10:28 Dose: 40 mg - Objective Vital Signs: Vital Signs Temperature 98.8 F 03/30/19 13:40 Pulse Rate 116 H 03/30/19 13:40 Respiratory Rate 16 03/30/19 13:40 Blood Pressure 107/59 L 09/23/19 13:40 O2 Sat by Pulse Oximetry (%) 96 03/30/19 09:00 Constitutional: Yes: No Distress, Cachectic Eyes: Yes: Conjunctiva Clear Cardiovascular: Yes: Regular Rate and Rhythm, S1, S2 Respiratory: Yes: Diminished Gastrointestinal: Yes: Normal Bowel Sounds, Soft, Other (+ OSTOMY). No: Tenderness Edema: Yes Edema: RLE: 2+ Integumentary: Yes: Other (KELLY DRAIN IN PLACE SMALL AMT GREEN FLUID IN DRAIN) Labs: CBC, BMP 03/30/19 13:51 03/30/19 13:51 INR, PTT INR 1.70 (0.83-1.09) H 03/23/19 06:00 Assessment/Plan S/P IR DRAINAGE PSOAS ABSCESS C/S + ANAEROBES FEVER/ LEUKOCYTOSIS METASTATIC CA CONTINUE MEROPENEM/ FLAGYL #5 D/C VANCOMYCIN DRAIN REMOVAL PER IR PROGNOSIS POOR
--- NOTE | 2019-03-30 15:52 | PN ---
Progress Note (short form) - Note Progress Note: Subjective: Patient seen lying in bed in NAD. Patient c/o LE pain and swelling. Objective: Vital Signs Temperature 98.8 F 03/30/19 13:40 Pulse Rate 116 H 03/30/19 13:40 Respiratory Rate 16 03/30/19 13:40 Blood Pressure 107/59 L 03/30/19 13:40 O2 Sat by Pulse Oximetry (%) 96 03/30/19 09:00 PE: Gen: Patient lying in bed. Upper extremities appear deconditioned. Pulmonary: Lungs CTA b/l down to the bases. cardio: regular rate and rhythm, s1, s2 heard. no murmurs, gallops or rubs. Abdomen: soft, nontender, nondistended. Bowel sounds heard. Extremities: 2+ pitting edema bl in the lower extremities. Neuro: cn 2-10 intact b/l. Patient moving all 4 limbs spontaneously. Assessment & plan: The patient is a 48 y/o f w/ PMH metastatic colon cancer s/p colostomy, and failure to thrive admitted for iliopsoas abscess. -Pt s/p IR drainage w/ KELLY drain in place draining purulent material. -On antibiotics. Meropenem, Metronidazole and Vancomycin -Cx growing Prevotella oralis and Prevotella denticola -ID following -Patient afebrile -Monitor BMs -monitor lytes -monitor Hb; was downtrending over the past few days, better today at 8.2
[2019-03-30] MEDS: D5-1/2NS+40 MEQ KCL - 40 MEQ/1,000 ML INFUS.BAG IV SCH (20:48)
--- NOTE | 2019-03-30 21:50 | PN ---
Progress Note (short form) - Note Progress Note: Patient seen and examined Weak, failure to thrive AFVSS cacehectic Cor: RSR, No murmurs, No gallops Lungs: decreased at bases Abd: Soft, Normal bowel sounds, No organomegaly Ext:No significant edema Labs/Meds reviewed A/P 48 y/o patient with metastatic colon cancer , failure to thrive, s/p colostomy, iliopsoas abscess On antibiotics monitor lytes monitor hemoglobin tylenol for pain poor prognosis palliative care consult
[2019-03-31] MEDS ORDERED: PT OWN MED DRAWER 7, Y5N ONE ×3 (02:50→18:51)
[2019-03-31] MEDS: MEROPENEM 500 MG in DEXTROSE 5%-WATER 100 ML IVPB SCH ×3 (02:51→18:53)
[2019-03-31] MEDS: carBAMazepine 200 MG TABLET PO SCH ×2 (06:03→21:01)
[2019-03-31] MEDS: LEVOTHYROXINE NA 75 MCG TABLET (FP) PO SCH (06:03)
[2019-03-31] MEDS: PANTOPRAZOLE 40 MG TABLET (FP) PO SCH (09:57)
--- NOTE | 2019-03-31 12:40 | PN ---
Progress Note (short form) - Note Progress Note: Subjective: The patient was seen and examined at bedside. Patient continues to endorse LE pain and swelling. The pain has gotten better today, but the swelling remains the same. Objective: Vital Signs Temperature 98.5 F 03/31/19 06:21 Pulse Rate 105 H 03/31/19 06:21 Respiratory Rate 16 03/31/19 06:21 Blood Pressure 103/56 L 03/31/19 06:21 O2 Sat by Pulse Oximetry (%) 97 03/30/19 20:49 PE: Gen: Patient lying in bed, alert and eating lunch with minimal verbal responses to questions. Upper extremities appear deconditioned. Pulmonary: Lungs clear to auscultation bilaterally down to the bases. cardio: regular rate and rhythm, s1, s2 heard. no murmurs, gallops or rubs. Abdomen: soft, nondistended. Bowel sounds heard. Mild voluntary guarding and tenderness to palpation. The KELLY drain was found in place on the right draining green fluid. Extremities: 2+ pitting edema observed bilaterally in the lower extremities. Assessment & plan: The patient is a 48 y/o f w/ PMH metastatic colon cancer s/p colostomy, and failure to thrive admitted for iliopsoas abscess. -The patient underwent IR drainage of her illiopsoas abscess. The KELLY drain remains in place draining purulent material. -ID recommends that the patient remain on Meropenem and Metronidazole. Vancomycin has been discontinued by the ID team. -The culture taken from the abscess aspirate grew Prevotella oralis and Prevotella denticola. -The patient has been afebrile for more than 24 hrs. -There was a concern that the patient's hemoglobin trending down. He heomoglobin was found to be stable at 8.2 yesterday.
--- NOTE | 2019-03-31 19:35 | PN ---
Teaching Attending Note Name of Resident: Edwardo Garcia ATTENDING PHYSICIAN STATEMENT I saw and evaluated the patient. I reviewed the resident's note and discussed the case with the resident. I agree with the resident's findings and plan as documented. SUBJECTIVE: Patient seen and examined Nurses have offered patient pain meds and patient declines . Eating has been sporadic . Afebrile Last Vital Signs Temp Pulse Resp BP Pulse Ox 99.2 F 124 H 18 109/56 L 97 03/31/19 17:00 03/31/19 17:00 03/31/19 17:00 03/31/19 17:00 03/31/19 10:00 Lungs - diminished breath sounds bilaterally Cor-RSR Abd soft - hepatomegaly J-P drainage CBC, BMP 03/30/19 13:51 03/30/19 13:51 Current Medications Generic Name Dose Route Start Last Admin Trade Name Freq PRN Reason Stop Dose Admin Acetaminophen 650 mg 03/23/19 16:54 03/30/19 14:41 Tylenol - PO 650 mg Q6H PRN Administration PAIN LEVEL 1-5 OR FEVER Carbamazepine 400 mg 03/23/19 07:00 03/31/19 06:03 Tegretol - PO 400 mg AM [facility] Administration Carbamazepine 600 mg 03/22/19 22:00 03/30/19 21:57 Tegretol - PO 600 mg HS [facility] Administration IV Flush 10 ml 03/29/19 12:40 Rose Marie-Cath Flush IVPUSH PRN PRN FLUSH Dextrose/Sodium Chloride 40 meq in 1,000 mls @ 42 mls/hr 03/25/19 20:30 03/30 20:48 D5-1/2ns+40 Meq Kcl - IV Not Given ASDIR [facility] Metronidazole 500 mg in 100 mls @ 100 mls/hr 03/26/19 18:00 03/31/19 17:15 Flagyl 500mg Premixed Ivpb - IVPB 100 mls/hr Q8H-IV [facility] Administration Meropenem 500 mg/ Dextrose 100 mls @ 200 mls/hr 03/26/19 18:00 03/31/19 18:53 IVPB 200 mls/hr Q8H-IV [facility] Administration Levothyroxine Sodium 75 mcg 03/23/19 07:00 03/31/19 06:03 Synthroid - PO 75 mcg DAILY@0700 [facility] Administration Pantoprazole Sodium 40 mg 03/23/19 10:00 03/31/19 09:57 Protonix - PO 40 mg DAILY [facility] Administration Colon ca Psoas abscess Failure to thrive Sacral decubitus Current treatment. OBJECTIVE: ASSESSMENT AND PLAN:
[2019-03-31] MEDS: D5-1/2NS+40 MEQ KCL - 40 MEQ/1,000 ML INFUS.BAG IV SCH (21:01)
[2019-04-01] MEDS ORDERED: PT OWN MED DRAWER 7, Y5N ONE ×3 (01:52→17:16)
[2019-04-01] MEDS: MEROPENEM 500 MG in DEXTROSE 5%-WATER 100 ML IVPB SCH ×3 (01:56→17:20)
[2019-04-01] MEDS: carBAMazepine 200 MG TABLET PO SCH ×2 (06:01→21:21)
[2019-04-01] MEDS: LEVOTHYROXINE NA 75 MCG TABLET (FP) PO SCH (06:01)
[2019-04-01 06:15] LABS: BASO % 0.5 % (0-2.0); EOS % 0.2 % (0-4.5); HEMATOCRIT 25.5 % (32.4-45.2); HEMOGLOBIN 8.4 GM/dL (10.7-15.3); LYMPH % 3.8 % (8-40); MCH 28.9 pg (25.7-33.7); MCHC 32.9 g/dl (32.0-36.0); MEAN CELL VOLUME 87.7 fl (80-96); MEAN PLT VOLUME 7.3 fl (7.5-11.1); MONO % 8.4 % (3.8-10.2); NEUT % 87.1 % (42.8-82.8); PLATELET COUNT 710 K/MM3 (134-434); RDW 25.9 % (11.6-15.6); WHITE BLOOD COUNT 29.5 K/mm3 (4.0-10.0)
[2019-04-01 06:43] LABS: ALBUMIN 1.1 g/dl (3.4-5.0); BILIRUBIN,TOTAL 0.3 mg/dL (0.2-1); BLOOD UREA NITROGEN 4.2 mg/dL (7-18); CALCIUM 8.1 mg/dL (8.5-10.1); CREATININE 0.4 mg/dL (0.55-1.3); POTASSIUM 4.4 mmol/L (3.5-5.1); TOT PROT 6.4 g/dl (6.4-8.2)
[2019-04-01] MEDS: PANTOPRAZOLE 40 MG TABLET (FP) PO SCH (09:23)
[2019-04-01 11:17] LABS: ANISOCYTOSIS 2+; MACROCYTOSIS 1+; PLATELET ESTIMATE INCREASED; TARGET CELLS 2+
[2019-04-01] MEDS: ACETAMINOPHEN 325 MG TABLET (FP) PO PRN (15:05)
--- NOTE | 2019-04-01 19:08 | PN ---
Progress Note (short form) - Note Progress Note: Patient seen and examined Mother at bedside More alert Spiked temp Last Vital Signs Temp Pulse Resp BP Pulse Ox 100.9 F H 118 H 16 109/61 97 04/01/19 15:33 04/01/19 14:07 04/01/19 14:07 04/01/19 14:07 04/01/19 10:00 Lungs with poor inspiratory effort Cor_RSR Abd- soft Little if any J-P drainag LE edema CBC, BMP 04/01/19 05:35 04/01/19 05:35 Current Medications Generic Name Dose Route Start Last Admin Trade Name Freq PRN Reason Stop Dose Admin Acetaminophen 650 mg 03/23/19 16:54 04/01/19 15:05 Tylenol - PO 650 mg Q6H PRN Administration PAIN LEVEL 1-5 OR FEVER Carbamazepine 400 mg 03/23/19 07:00 04/01/19 06:01 Tegretol - PO 400 mg AM [facility] Administration Carbamazepine 600 mg 03/22/19 22:00 03/31/19 21:01 Tegretol - PO 600 mg HS [facility] Administration IV Flush 10 ml 03/29/19 12:40 Rose Marie-Cath Flush IVPUSH PRN PRN FLUSH Dextrose/Sodium Chloride 40 meq in 1,000 mls @ 42 mls/hr 03/25/19 20:30 03/31 21:01 D5-1/2ns+40 Meq Kcl - IV 42 mls/hr ASDIR [facility] Administration Metronidazole 500 mg in 100 mls @ 100 mls/hr 03/26/19 18:00 04/01/19 18:04 Flagyl 500mg Premixed Ivpb - IVPB 100 mls/hr Q8H-IV [facility] Administration Meropenem 500 mg/ Dextrose 100 mls @ 200 mls/hr 03/26/19 18:00 04/01/19 17:20 IVPB 200 mls/hr Q8H-IV [facility] Administration Levothyroxine Sodium 75 mcg 03/23/19 07:00 04/01/19 06:01 Synthroid - PO 75 mcg DAILY@0700 [facility] Administration Pantoprazole Sodium 40 mg 03/23/19 10:00 04/01/19 09:23 Protonix - PO 40 mg DAILY [facility] Administration Impr-Colon ca Psoas abscess Fever spike Suggest - repeat CT abdomen
[2019-04-01] MEDS: D5-1/2NS+40 MEQ KCL - 40 MEQ/1,000 ML INFUS.BAG IV SCH (21:17)
[2019-04-02] MEDS ORDERED: PT OWN MED DRAWER 7, Y5N ONE ×4 (00:09→21:22)
[2019-04-02] MEDS: ACETAMINOPHEN 325 MG TABLET (FP) PO PRN ×3 (00:45→20:07)
[2019-04-02] MEDS: D5-1/2NS+40 MEQ KCL - 40 MEQ/1,000 ML INFUS.BAG IV SCH ×2 (00:45→20:00)
[2019-04-02] MEDS: MEROPENEM 500 MG in DEXTROSE 5%-WATER 100 ML IVPB SCH ×3 (00:59→20:07)
[2019-04-02] MEDS: carBAMazepine 200 MG TABLET PO SCH ×2 (05:59→21:03)
[2019-04-02] MEDS: LEVOTHYROXINE NA 75 MCG TABLET (FP) PO SCH (05:59)
[2019-04-02] MEDS ORDERED: FUROSEMIDE 20 MG TABLET (FP) PO ONE (08:00)
[2019-04-02] MEDS: PANTOPRAZOLE 40 MG TABLET (FP) PO SCH (09:14)
--- NOTE | 2019-04-02 12:56 | PN ---
Progress Note (short form) - Note Progress Note: Subjective: The patient was seen and examined at bedside. Patient better today, still c/o LE swelling. Objective: Vital Signs Temperature 98.5 F 03/31/19 06:21 Pulse Rate 105 H 03/31/19 06:21 Respiratory Rate 16 03/31/19 06:21 Blood Pressure 103/56 L 03/31/19 06:21 O2 Sat by Pulse Oximetry (%) 97 03/30/19 20:49 PE: Gen: Patient lying in bed, alert and eating lunch with minimal verbal responses to questions. Upper extremities appear deconditioned. Pulmonary: Lungs clear to auscultation bilaterally down to the bases. cardio: regular rate and rhythm, s1, s2 heard. no murmurs, gallops or rubs. Abdomen: soft, nondistended. Bowel sounds heard. Mild voluntary guarding and tenderness to palpation. The KELLY drain was found in place on the right draining green fluid. Drainage is decreased today compared to the past few days Extremities: 2+ pitting edema observed bilaterally in the lower extremities. Assessment & plan: The patient is a 48 y/o f w/ PMH metastatic colon cancer s/p colostomy, and failure to thrive admitted for iliopsoas abscess. -The patient underwent IR drainage of her illiopsoas abscess. The KELLY drain remains in place draining purulent material. -c/w abx per ID -The patient spiked a fever yesterday; recommend rpt imaging
--- NOTE | 2019-04-02 21:55 | PN ---
Progress Note (short form) - Note Progress Note: Patient seen and examined Weak, failure to thrive AFVSS cacehectic Cor: RSR, No murmurs, No gallops Lungs: decreased at bases Abd: Soft, Normal bowel sounds, No organomegaly Ext:No significant edema Labs/Meds reviewed A/P 48 y/o patient with metastatic colon cancer , failure to thrive, s/p colostomy, iliopsoas abscess On antibiotics monitor lytes monitor hemoglobin tylenol for pain add oxycodone as needed for pain poor prognosis palliative care consult
[2019-04-03] MEDS ORDERED: PT OWN MED DRAWER 7, Y5N ONE ×2 (01:06→17:11)
[2019-04-03] MEDS: MEROPENEM 500 MG in DEXTROSE 5%-WATER 100 ML IVPB SCH ×3 (01:31→18:18)
[2019-04-03] MEDS: D5-1/2NS+40 MEQ KCL - 40 MEQ/1,000 ML INFUS.BAG IV SCH ×2 (01:31→21:53)
[2019-04-03] MEDS ORDERED: MEROPENEM 500 MG in DEXTROSE 5%-WATER 100 ML IVPB SCH (02:00)
[2019-04-03] MEDS: carBAMazepine 200 MG TABLET PO SCH ×2 (06:03→21:54)
[2019-04-03] MEDS: LEVOTHYROXINE NA 75 MCG TABLET (FP) PO SCH (06:04)
[2019-04-03] MEDS ORDERED: oxyCODONE HCL 5 MG TABLET PO PRN (07:35)
[2019-04-03] MEDS: PANTOPRAZOLE 40 MG TABLET (FP) PO SCH (09:44)
--- NOTE | 2019-04-03 13:23 | PN ---
Progress Note (short form) - Note Progress Note: Patient seen and examined More verbal Last Vital Signs Temp Pulse Resp BP Pulse Ox 97.9 F 108 H 18 119/63 98 04/03/19 08:52 04/03/19 08:52 04/03/19 08:52 04/03/19 08:52 04/02/19 21:00 HEENT: [place], EOM Intact Cor: RSR, No murmurs, No gallops Lungs: decreased breath sounds bilaterally Abd: Soft, Normal bowel sounds,hepatomegaaly Ext:LE edema edema Skin: No rashes, Integument intact CBC, BMP 04/01/19 05:35 04/01/19 05:35 Current Medications Generic Name Dose Route Start Last Admin Trade Name Freq PRN Reason Stop Dose Admin Acetaminophen 650 mg 03/23/19 16:54 04/02/19 20:07 Tylenol - PO 650 mg Q6H PRN Administration PAIN LEVEL 1-5 OR FEVER Carbamazepine 400 mg 03/23/19 07:00 04/03/19 06:03 Tegretol - PO 400 mg AM [facility] Administration Carbamazepine 600 mg 03/22/19 22:00 04/02/19 21:03 Tegretol - PO 600 mg HS [facility] Administration IV Flush 10 ml 03/29/19 12:40 Rose Marie-Cath Flush IVPUSH PRN PRN FLUSH Dextrose/Sodium Chloride 40 meq in 1,000 mls @ 42 mls/hr 03/25/19 20:30 04/03 01:31 D5-1/2ns+40 Meq Kcl - IV 42 mls/hr ASDIR [facility] Administration Meropenem 500 mg/ Dextrose 100 mls @ 200 mls/hr 04/02/19 18:45 04/03/19 09:40 IVPB 200 mls/hr Q8H-IV [facility] Administration Metronidazole 500 mg in 100 mls @ 100 mls/hr 04/02/19 18:45 04/03/19 10:40 Flagyl 500mg Premixed Ivpb - IVPB 100 mls/hr Q8H-IV [facility] Administration Levothyroxine Sodium 75 mcg 03/23/19 07:00 04/03/19 06:04 Synthroid - PO 75 mcg DAILY@0700 [facility] Administration Oxycodone HCl 5 mg 04/03/19 07:35 Roxicodone - PO Q8H PRN PAIN LEVEL 7 - 10 Pantoprazole Sodium 40 mg 03/23/19 10:00 04/03/19 09:44 Protonix - PO 40 mg DAILY [facility] Administration Impression: Metastatic colon ca -lung, liver , adrenal mets Liver abscesses- s/p pigtail catheter drainage Bilateral pleural effusions Lower lobe consolidation Anemia Plan: ID follow up in view of persistence and development of multiple liver abscesses ? drainage of pleural effusions Chemotherapy on hold in view of liver abscesses.
[2019-04-03] MEDS: ACETAMINOPHEN 325 MG TABLET (FP) PO PRN (13:58)
[2019-04-03] MEDS: FUROSEMIDE 20 MG TABLET (FP) PO SCH (13:58)
[2019-04-04] MEDS: MEROPENEM 500 MG in DEXTROSE 5%-WATER 100 ML IVPB SCH ×3 (01:41→20:30)
[2019-04-04] MEDS: carBAMazepine 200 MG TABLET PO SCH ×2 (07:01→22:06)
[2019-04-04] MEDS: LEVOTHYROXINE NA 75 MCG TABLET (FP) PO SCH (07:01)
[2019-04-04] MEDS: FUROSEMIDE 20 MG TABLET (FP) PO SCH (09:39)
[2019-04-04] MEDS: PANTOPRAZOLE 40 MG TABLET (FP) PO SCH (09:39)
[2019-04-04 10:07] LABS: BASO % 0.7 % (0-2.0); EOS % 0.1 % (0-4.5); HEMATOCRIT 17.1 % (32.4-45.2); LYMPH % 3.5 % (8-40); MCH 28.7 pg (25.7-33.7); MCHC 31.6 g/dl (32.0-36.0); MEAN CELL VOLUME 90.7 fl (80-96); MEAN PLT VOLUME 7.3 fl (7.5-11.1); MONO % 5.9 % (3.8-10.2); NEUT % 89.8 % (42.8-82.8); PLATELET COUNT 922 K/MM3 (134-434); RBC 1.89 M/mm3 (3.60-5.2); RDW 27.9 % (11.6-15.6)
[2019-04-04 10:11] LABS: ALBUMIN 1.2 g/dl (3.4-5.0); BILIRUBIN,TOTAL 0.3 mg/dL (0.2-1); BLOOD UREA NITROGEN 4.4 mg/dL (7-18); CALCIUM 8.1 mg/dL (8.5-10.1); CREATININE 0.3 mg/dL (0.55-1.3); POTASSIUM 4.1 mmol/L (3.5-5.1); TOT PROT 6.7 g/dl (6.4-8.2)
[2019-04-04 10:37] LABS: HEMOGLOBIN 5.4 GM/dL (10.7-15.3); WHITE BLOOD COUNT 43.8 K/mm3 (4.0-10.0)
[2019-04-04] MEDS: D5-1/2NS+40 MEQ KCL - 40 MEQ/1,000 ML INFUS.BAG IV SCH ×2 (11:00→21:17)
[2019-04-04 14:31] LABS: ANISOCYTOSIS 2+; TARGET CELLS 1+; TOXIC GRANULATION 1+
[2019-04-04 15:28] LABS: BASO % 0.6 % (0-2.0); EOS % 0.2 % (0-4.5); HEMATOCRIT 24.2 % (32.4-45.2); HEMOGLOBIN 7.8 GM/dL (10.7-15.3); LYMPH % 3.8 % (8-40); MCH 29.1 pg (25.7-33.7); MCHC 32.5 g/dl (32.0-36.0); MEAN CELL VOLUME 89.7 fl (80-96); MEAN PLT VOLUME 6.9 fl (7.5-11.1); MONO % 6.1 % (3.8-10.2); NEUT % 89.3 % (42.8-82.8); PLATELET COUNT 726 K/MM3 (134-434); RDW 28.6 % (11.6-15.6); RETICULOCYTES 3.14 % (0.5-1.5)
[2019-04-04 15:35] LABS: WHITE BLOOD COUNT 33.8 K/mm3 (4.0-10.0)
[2019-04-04 15:50] LABS: INR 1.29 (0.83-1.09); PROTHROMBIN TIME (PATIENT) 15.3 SEC (9.7-13.0)
[2019-04-04 15:52] LABS: ACTIVATED PTT 40.2 SECONDS (25.2-36.5)
[2019-04-04 16:27] LABS: ANISOCYTOSIS 2+; SMUDGE CELLS FEW
[2019-04-04 16:28] LABS: PLATELET ESTIMATE INCREASED
--- NOTE | 2019-04-04 19:26 | PN ---
Progress Note, Physician History of Present Illness: No acute events. Hgb came back 5.4 this am. Repeat came back 7.8. Pt getting one unit of blood. - Current Medication List Current Medications: Active Medications Acetaminophen (Tylenol -) 650 mg PO Q6H PRN PRN Reason: PAIN LEVEL 1-5 OR FEVER Last Admin: 04/03/19 13:58 Dose: 650 mg Carbamazepine (Tegretol -) 400 mg PO AM [facility] Last Admin: 04/04/19 07:01 Dose: 400 mg Carbamazepine (Tegretol -) 600 mg PO HS [facility] Last Admin: 04/03/19 21:54 Dose: 600 mg Furosemide (Lasix -) 20 mg PO DAILY [facility] Last Admin: 04/04/19 09:39 Dose: 20 mg IV Flush (Rose Marie-Cath Flush) 10 ml IVPUSH PRN PRN PRN Reason: FLUSH Dextrose/Sodium Chloride (D5-1/2ns+40 Meq Kcl -) 40 meq in 1,000 mls @ 42 mls/ hr IV ASDIR [facility] Last Admin: 04/04/19 11:00 Dose: 42 mls/hr Meropenem 500 mg/ Dextrose 100 mls @ 200 mls/hr IVPB Q8H-IV [facility] Last Admin: 04/04/19 09:39 Dose: 200 mls/hr Metronidazole (Flagyl 500mg Premixed Ivpb -) 500 mg in 100 mls @ 100 mls/hr IVPB Q8H-IV [facility] Last Admin: 04/04/19 12:40 Dose: 100 mls/hr Levothyroxine Sodium (Synthroid -) 75 mcg PO DAILY@0700 [facility] Last Admin: 04/04/19 07:01 Dose: 75 mcg Oxycodone HCl (Roxicodone -) 5 mg PO Q8H PRN PRN Reason: PAIN LEVEL 7 - 10 Pantoprazole Sodium (Protonix -) 40 mg PO DAILY [facility] Last Admin: 04/04/19 09:39 Dose: 40 mg - Objective Vital Signs: Vital Signs Temperature 99.5 F 04/04/19 18:00 Pulse Rate 126 H 04/04/19 18:00 Respiratory Rate 18 04/04/19 18:00 Blood Pressure 107/58 L 04/04/19 18:00 O2 Sat by Pulse Oximetry (%) 97 04/04/19 09:00 Constitutional: Yes: No Distress, Calm Cardiovascular: Yes: Regular Rate and Rhythm Respiratory: Yes: Regular, CTA Bilaterally Gastrointestinal: Yes: Soft. No: Tenderness Edema: No Labs: CBC, BMP 04/04/19 15:10 04/04/19 06:00 INR, PTT INR 1.29 (0.83-1.09) H 04/04/19 15:10 Fibrinogen 493.0 mg/dL (238-498) 04/04/19 15:10 Assessment/Plan 48F with epilepsy, anemia, congenital 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, s/p SECOND BALLER shunt and met colon cancer (involving lungs, adrenals and liver) s/p diverting ileostomy for near obstructing primary, initially treated with Xelox, with POD, then on 5FU/LV and Avastin (most recently 03/19) admitted with leg pain, and found to have extensive psoas abscess s/p drainage and on abx. 04/02 CT with new moderate left and mild to moderate right pleural effusion as well as consolidation in dependent portion of both lobes, ?PNA. Also with ?liver abscesses vs. metastases. ID following. Chemo on hold. No obvious bleeding. Likely incorrect CBC result this am.
[2019-04-04] MEDS ORDERED: PT OWN MED DRAWER 7, Y5N ONE (21:12)
[2019-04-04 21:38] LABS: EOS % 0.2 % (0-4.5); HEMATOCRIT 31.9 % (32.4-45.2); HEMOGLOBIN 10.4 GM/dL (10.7-15.3); MCH 28.7 pg (25.7-33.7); MCHC 32.6 g/dl (32.0-36.0); NEUT % 88.8 % (42.8-82.8); PLATELET COUNT 628 K/MM3 (134-434); RBC 3.62 M/mm3 (3.60-5.2); RDW 23.3 % (11.6-15.6)
[2019-04-04 21:40] LABS: WHITE BLOOD COUNT 34.5 K/mm3 (4.0-10.0)
[2019-04-04 22:04] LABS: ANISOCYTOSIS 3+
[2019-04-04 22:05] LABS: PLATELET ESTIMATE INCREASED
[2019-04-05] MEDS: MEROPENEM 500 MG in DEXTROSE 5%-WATER 100 ML IVPB SCH ×3 (03:08→17:32)
[2019-04-05] MEDS: LEVOTHYROXINE NA 75 MCG TABLET (FP) PO SCH (06:10)
[2019-04-05] MEDS: carBAMazepine 200 MG TABLET PO SCH ×2 (06:10→21:27)
[2019-04-05] MEDS: FUROSEMIDE 20 MG TABLET (FP) PO SCH (10:27)
[2019-04-05] MEDS: PANTOPRAZOLE 40 MG TABLET (FP) PO SCH (10:28)
[2019-04-05] MEDS: ACETAMINOPHEN 325 MG TABLET (FP) PO PRN (14:32)
--- NOTE | 2019-04-05 19:09 | PN ---
Progress Note, Physician History of Present Illness: No acute events. - Current Medication List Current Medications: Active Medications Acetaminophen (Tylenol -) 650 mg PO Q6H PRN PRN Reason: PAIN LEVEL 1-5 OR FEVER Last Admin: 04/05/19 14:32 Dose: 650 mg Carbamazepine (Tegretol -) 400 mg PO AM [facility] Last Admin: 04/05/19 06:10 Dose: 400 mg Carbamazepine (Tegretol -) 600 mg PO HS [facility] Last Admin: 04/04/19 22:06 Dose: 600 mg Furosemide (Lasix -) 20 mg PO DAILY [facility] Last Admin: 04/05/19 10:27 Dose: 20 mg IV Flush (Rose Marie-Cath Flush) 10 ml IVPUSH PRN PRN PRN Reason: FLUSH Dextrose/Sodium Chloride (D5-1/2ns+40 Meq Kcl -) 40 meq in 1,000 mls @ 42 mls/ hr IV ASDIR [facility] Last Admin: 04/04/19 21:17 Dose: 42 mls/hr Meropenem 500 mg/ Dextrose 100 mls @ 200 mls/hr IVPB Q8H-IV [facility] Last Admin: 04/05/19 17:32 Dose: 200 mls/hr Metronidazole (Flagyl 500mg Premixed Ivpb -) 500 mg in 100 mls @ 100 mls/hr IVPB Q8H-IV [facility] Last Admin: 04/05/19 18:09 Dose: 100 mls/hr Levothyroxine Sodium (Synthroid -) 75 mcg PO DAILY@0700 [facility] Last Admin: 04/05/19 06:10 Dose: 75 mcg Oxycodone HCl (Roxicodone -) 5 mg PO Q8H PRN PRN Reason: PAIN LEVEL 7 - 10 Pantoprazole Sodium (Protonix -) 40 mg PO DAILY [facility] Last Admin: 04/05/19 10:28 Dose: 40 mg - Objective Vital Signs: Vital Signs Temperature 97.9 F 04/05/19 14:01 Pulse Rate 118 H 04/05/19 17:36 Respiratory Rate 18 04/05/19 17:36 Blood Pressure 120/59 L 04/05/19 17:36 O2 Sat by Pulse Oximetry (%) 95 04/05/19 09:00 Constitutional: Yes: No Distress Eyes: Yes: Conjunctiva Clear Respiratory: Yes: Regular, CTA Bilaterally Gastrointestinal: No: Distention, Tenderness Edema: No Labs: CBC, BMP 04/04/19 21:25 04/04/19 06:00 INR, PTT INR 1.29 (0.83-1.09) H 04/04/19 15:10 Fibrinogen 493.0 mg/dL (238-498) 04/04/19 15:10 Assessment/Plan 48F with epilepsy, anemia, congenital 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, s/p [employer] A[employer]LY[employer] shunt and met colon cancer (involving lungs, adrenals and liver) s/p diverting ileostomy for near obstructing primary, initially treated with Xelox, with POD, then on 5FU/LV and Avastin (most recently 03/19) admitted with leg pain, and found to have extensive psoas abscess s/p drainage and on abx. 04/02 CT with new moderate left and mild to moderate right pleural effusion as well as consolidation in dependent portion of both lobes, ?PNA. Also with ?liver abscesses vs. metastases. ID following. Chemo on hold. Hgb stable today.
[2019-04-05] MEDS: D5-1/2NS+40 MEQ KCL - 40 MEQ/1,000 ML INFUS.BAG IV SCH (21:27)
[2019-04-06] MEDS ORDERED: PT OWN MED DRAWER 7, Y5N ONE (01:22)
[2019-04-06] MEDS: D5-1/2NS+40 MEQ KCL - 40 MEQ/1,000 ML INFUS.BAG IV SCH ×2 (01:26→21:05)
[2019-04-06] MEDS: MEROPENEM 500 MG in DEXTROSE 5%-WATER 100 ML IVPB SCH ×3 (01:26→17:11)
[2019-04-06] MEDS: carBAMazepine 200 MG TABLET PO SCH ×2 (06:08→21:06)
[2019-04-06] MEDS: LEVOTHYROXINE NA 75 MCG TABLET (FP) PO SCH (06:08)
[2019-04-06 08:25] LABS: HEMATOCRIT 30.6 % (32.4-45.2); HEMOGLOBIN 10.1 GM/dL (10.7-15.3); MCH 29.3 pg (25.7-33.7); MEAN CELL VOLUME 88.8 fl (80-96); MEAN PLT VOLUME 7.4 fl (7.5-11.1); PLATELET COUNT 587 K/MM3 (134-434); RBC 3.45 M/mm3 (3.60-5.2); RDW 23.2 % (11.6-15.6)
[2019-04-06 08:39] LABS: WHITE BLOOD COUNT 33.5 K/mm3 (4.0-10.0)
[2019-04-06 08:58] LABS: CALCIUM 8.1 mg/dL (8.5-10.1); CREATININE 0.3 mg/dL (0.55-1.3); POTASSIUM 4.6 mmol/L (3.5-5.1)
[2019-04-06] MEDS: FUROSEMIDE 20 MG TABLET (FP) PO SCH (10:05)
[2019-04-06] MEDS: PANTOPRAZOLE 40 MG TABLET (FP) PO SCH (10:57)
--- NOTE | 2019-04-06 11:15 | PN ---
Progress Note (short form) - Note Progress Note: Subjective: The patient was seen and examined at bedside. no events overnight Objective: Vital Signs Temperature 98.5 F 04/06/19 05:56 Pulse Rate 116 H 04/06/19 05:56 Respiratory Rate 18 04/06/19 05:56 Blood Pressure 132/65 04/06/19 05:56 O2 Sat by Pulse Oximetry (%) 96 04/05/19 21:00 PE: Gen: Patient lying in bed, alert. Pulmonary: Lungs clear to auscultation bilaterally down to the bases. cardio: regular rate and rhythm, s1, s2 heard. no murmurs, gallops or rubs. Abdomen: soft, nondistended. Bowel sounds heard. Mild voluntary guarding and tenderness to palpation. Extremities: 2+ pitting edema observed bilaterally in the lower extremities. CBC, BMP 04/06/19 06:00 04/06/19 06:00 Assessment & plan: The patient is a 48 y/o f w/ PMH metastatic colon cancer s/p colostomy, and failure to thrive admitted for iliopsoas abscess. #illiopsoas abscess -Pt s/p IR drainage -on meropenem per ID -WBC count spiked over the weekend into 40's. 33.5 today -patient remains afebrile -RPT imaging shows new PNA #metastatic colon ca -rpt contrast CT shows progression of disease -Chemo on hold while patient ill -prognosis poor.
[2019-04-06] MEDS: ACETAMINOPHEN 325 MG TABLET (FP) PO PRN (21:06)
[2019-04-07] MEDS: MEROPENEM 500 MG in DEXTROSE 5%-WATER 100 ML IVPB SCH ×3 (02:55→17:04)
[2019-04-07] MEDS: LEVOTHYROXINE NA 75 MCG TABLET (FP) PO SCH (06:21)
[2019-04-07] MEDS: carBAMazepine 200 MG TABLET PO SCH ×2 (06:21→22:10)
[2019-04-07] MEDS ORDERED: PT OWN MED DRAWER 7, Y5N ONE ×3 (08:33→17:02)
[2019-04-07] MEDS: PANTOPRAZOLE 40 MG TABLET (FP) PO SCH (09:02)
[2019-04-07] MEDS: FUROSEMIDE 20 MG TABLET (FP) PO SCH (09:02)
[2019-04-07] MEDS: D5-1/2NS+40 MEQ KCL - 40 MEQ/1,000 ML INFUS.BAG IV SCH ×2 (09:57→22:09)
[2019-04-07] MEDS: ACETAMINOPHEN 325 MG TABLET (FP) PO PRN (15:49)
[2019-04-08] MEDS ORDERED: PT OWN MED DRAWER 7, Y5N ONE ×4 (01:09→16:09)
[2019-04-08] MEDS: MEROPENEM 500 MG in DEXTROSE 5%-WATER 100 ML IVPB SCH ×3 (01:13→17:27)
[2019-04-08] MEDS: LEVOTHYROXINE NA 75 MCG TABLET (FP) PO SCH (07:03)
[2019-04-08] MEDS: carBAMazepine 200 MG TABLET PO SCH ×2 (07:03→22:53)
[2019-04-08] MEDS: FUROSEMIDE 20 MG TABLET (FP) PO SCH (10:16)
[2019-04-08] MEDS: PANTOPRAZOLE 40 MG TABLET (FP) PO SCH (10:16)
[2019-04-08] MEDS: ACETAMINOPHEN 325 MG TABLET (FP) PO PRN ×3 (10:16→23:07)
--- NOTE | 2019-04-08 17:03 | PN ---
Progress Note (short form) - Note Progress Note: patient seen and examined Complains of right hip pains Right hip /gluteus warm, edematous with pitting edema extending down from right hip towards knee J.P. drainage site purulent Last Vital Signs Temp Pulse Resp BP Pulse Ox 98.4 F 120 H 18 114/58 L 95 04/08/19 14:00 04/08/19 14:00 04/08/19 14:00 04/08/19 14:00 04/08/19 09:00 Lungs- poor inspiratory effort Cor -RSR abd- KELLY site - of exit- purulent Right hip-warm edematous CBC, BMP 04/06/19 06:00 04/06/19 06:00 Current Medications Generic Name Dose Route Start Last Admin Trade Name Freq PRN Reason Stop Dose Admin Acetaminophen 650 mg 03/23/19 16:54 04/08/19 10:16 Tylenol - PO 650 mg Q6H PRN Administration PAIN LEVEL 1-5 OR FEVER Carbamazepine 400 mg 03/23/19 07:00 04/08/19 07:03 Tegretol - PO 400 mg AM [facility] Administration Carbamazepine 600 mg 03/22/19 22:00 04/07/19 22:10 Tegretol - PO 600 mg HS [facility] Administration Furosemide 20 mg 04/03/19 13:45 04/08/19 10:16 Lasix - PO 20 mg DAILY [facility] Administration IV Flush 10 ml 03/29/19 12:40 Rose Marie-Cath Flush IVPUSH PRN PRN FLUSH Dextrose/Sodium Chloride 40 meq in 1,000 mls @ 42 mls/hr 03/25/19 20:30 04/07 22:09 D5-1/2ns+40 Meq Kcl - IV Not Given ASDIR [facility] Meropenem 500 mg/ Dextrose 100 mls @ 200 mls/hr 04/02/19 18:45 04/08/19 10:17 IVPB 200 mls/hr Q8H-IV [facility] Administration Metronidazole 500 mg in 100 mls @ 100 mls/hr 04/02/19 18:45 04/08/19 10:16 Flagyl 500mg Premixed Ivpb - IVPB 100 mls/hr Q8H-IV [facility] Administration Levothyroxine Sodium 75 mcg 03/23/19 07:00 04/08/19 07:03 Synthroid - PO 75 mcg DAILY@0700 [facility] Administration Pantoprazole Sodium 40 mg 03/23/19 10:00 04/08/19 10:16 Protonix - PO 40 mg DAILY [facility] Administration Impression: Colon ca Liver mets Psoas abscess Right hip swelling Leucocytosis /thrombocytosis Plan CT right hip
[2019-04-08] MEDS: D5-1/2NS+40 MEQ KCL - 40 MEQ/1,000 ML INFUS.BAG IV SCH ×2 (17:46→22:23)
[2019-04-08] MEDS: BACITRACIN 15 GM TUBE TOPICAL OINTMENT TP SCH (22:53)
[2019-04-09] MEDS ORDERED: PT OWN MED DRAWER 7, Y5N ONE ×4 (01:38→18:50)
[2019-04-09] MEDS: MEROPENEM 500 MG in DEXTROSE 5%-WATER 100 ML IVPB SCH ×3 (01:40→18:51)
[2019-04-09] MEDS: LEVOTHYROXINE NA 75 MCG TABLET (FP) PO SCH (06:42)
[2019-04-09] MEDS: carBAMazepine 200 MG TABLET PO SCH ×2 (06:42→22:06)
[2019-04-09] MEDS: FUROSEMIDE 20 MG TABLET (FP) PO SCH (09:08)
[2019-04-09] MEDS: PANTOPRAZOLE 40 MG TABLET (FP) PO SCH (09:08)
[2019-04-09] MEDS: BACITRACIN 15 GM TUBE TOPICAL OINTMENT TP SCH ×2 (10:30→22:05)
[2019-04-09] MEDS: oxyCODONE HCL 5 MG TABLET PO PRN (10:54)
--- NOTE | 2019-04-09 11:21 | PN ---
Progress Note (short form) - Note Progress Note: Subjective: The patient was seen and examined at bedside. no events overnight. Patient complaining of right hip pain this AM. Objective: Vital Signs Temperature 98.5 F 04/06/19 05:56 Pulse Rate 116 H 04/06/19 05:56 Respiratory Rate 18 04/06/19 05:56 Blood Pressure 132/65 04/06/19 05:56 O2 Sat by Pulse Oximetry (%) 96 04/05/19 21:00 PE: Gen: Patient lying in bed, alert. She appears uncomfortable. Pulmonary: Lungs clear to auscultation bilaterally down to the bases. cardio: regular rhythm, Tachycardic, s1, s2 heard. no murmurs, gallops or rubs. Abdomen: soft, nondistended. Bowel sounds heard. no tenderness to palpation. IR placed drain observed in place at right him. Mild tenderness to palpation around the insertion site. No overt signs of infection. drain has purulent, gelatinous material in it. Extremities: 2+ pitting edema observed bilaterally in the lower extremities. Assessment & plan: The patient is a 48 y/o f w/ PMH metastatic colon cancer s/p colostomy, and failure to thrive admitted for iliopsoas abscess. #illiopsoas abscess -Pt s/p IR drainage -on meropenem per ID -patient remains afebrile -CT pelvis shows worsening abscess -patient in pain; will write for oxy 5mg q4h prn pain -c/w tylenol 650 q6h prn pain or fever #metastatic colon ca -rpt contrast CT shows progression of disease -Chemo on hold while patient ill -prognosis poor. -palliative care consult #Severe protein calorie malnutrition -Patient cachectic appearing on exam -BMI 16 -patient w/ h/o metastatic colon cancer
[2019-04-09] MEDS: ACETAMINOPHEN 325 MG TABLET (FP) PO PRN ×2 (13:43→22:06)
[2019-04-09] MEDS: D5-1/2NS+40 MEQ KCL - 40 MEQ/1,000 ML INFUS.BAG IV SCH (18:56)
--- NOTE | 2019-04-09 20:25 | PN ---
Progress Note, Physician History of Present Illness: AWAKE, LETHARGIC IN BED CACHECTIC DRAIN PSOAS ABSCESS IN PLACE C/S-ANAEROBES BC (-) AFEBRILE WBC REMAINS ELEVATED BC (-) - Current Medication List Current Medications: Active Medications Acetaminophen (Tylenol -) 650 mg PO Q6H PRN PRN Reason: PAIN LEVEL 1-5 OR FEVER Last Admin: 04/09/19 13:43 Dose: 650 mg Bacitracin (Bacitracin -) 1 applic TP BID [facility] Last Admin: 04/09/19 10:30 Dose: 1 applic Carbamazepine (Tegretol -) 400 mg PO AM [facility] Last Admin: 04/09/19 06:42 Dose: 400 mg Carbamazepine (Tegretol -) 600 mg PO HS [facility] Last Admin: 04/08/19 22:53 Dose: 600 mg Furosemide (Lasix -) 20 mg PO DAILY [facility] Last Admin: 04/09/19 09:08 Dose: 20 mg IV Flush (Rose Marie-Cath Flush) 10 ml IVPUSH PRN PRN PRN Reason: FLUSH Dextrose/Sodium Chloride (D5-1/2ns+40 Meq Kcl -) 40 meq in 1,000 mls @ 42 mls/ hr IV ASDIR [facility] Last Admin: 04/09/19 18:56 Dose: 42 mls/hr Meropenem 500 mg/ Dextrose 100 mls @ 200 mls/hr IVPB Q8H-IV [facility] Metronidazole (Flagyl 500mg Premixed Ivpb -) 500 mg in 100 mls @ 100 mls/hr IVPB Q8H-IV [facility] Levothyroxine Sodium (Synthroid -) 75 mcg PO DAILY@0700 [facility] Last Admin: 04/09/19 06:42 Dose: 75 mcg Oxycodone HCl (Roxicodone -) 5 mg PO Q4H PRN PRN Reason: PAIN LEVEL 7 - 10 Last Admin: 04/09/19 10:54 Dose: 5 mg Pantoprazole Sodium (Protonix -) 40 mg PO DAILY [facility] Last Admin: 04/09/19 09:08 Dose: 40 mg - Objective Vital Signs: Vital Signs Temperature 99.2 F 04/09/19 14:00 Pulse Rate 133 H 04/09/19 14:00 Respiratory Rate 18 04/09/19 14:00 Blood Pressure 120/68 04/09/19 14:00 O2 Sat by Pulse Oximetry (%) 98 04/09/19 20:21 Constitutional: Yes: Cachectic Cardiovascular: Yes: Regular Rate and Rhythm, S1, S2 Respiratory: Yes: CTA Bilaterally Gastrointestinal: Yes: Normal Bowel Sounds, Soft Edema: Yes Edema: LLE: 2+, RLE: 2+ Labs: CBC, BMP 04/06/19 06:00 04/06/19 06:00 INR, PTT INR 1.29 (0.83-1.09) H 04/04/19 15:10 Fibrinogen 493.0 mg/dL (238-498) 04/04/19 15:10 Assessment/Plan S/P IR DRAINAGE PSOAS ABSCESS C/S + ANAEROBES FEVER/ LEUKOCYTOSIS METASTATIC CA CONTINUE MEROPENEM/ FLAGYL PROGNOSIS POOR
[2019-04-10] MEDS: MEROPENEM 500 MG in DEXTROSE 5%-WATER 100 ML IVPB SCH ×2 (01:12→09:52)
[2019-04-10] MEDS: oxyCODONE HCL 5 MG TABLET PO PRN ×4 (01:15→22:14)
[2019-04-10] MEDS: D5-1/2NS+40 MEQ KCL - 40 MEQ/1,000 ML INFUS.BAG IV SCH ×3 (01:22→22:25)
[2019-04-10] MEDS: LEVOTHYROXINE NA 75 MCG TABLET (FP) PO SCH (06:01)
[2019-04-10] MEDS: carBAMazepine 200 MG TABLET PO SCH ×2 (06:01→22:15)
[2019-04-10] MEDS: ACETAMINOPHEN 325 MG TABLET (FP) PO PRN ×2 (08:46→18:42)
[2019-04-10] MEDS: BACITRACIN 15 GM TUBE TOPICAL OINTMENT TP SCH ×2 (09:02→22:18)
[2019-04-10] MEDS: FUROSEMIDE 20 MG TABLET (FP) PO SCH (09:02)
[2019-04-10] MEDS: PANTOPRAZOLE 40 MG TABLET (FP) PO SCH (09:02)
--- NOTE | 2019-04-10 16:40 | PN ---
Progress Note, Physician History of Present Illness: AWAKE, LETHARGIC IN BED CACHECTIC DRAIN IN PLACE C/S-ANAEROBES BC (-) AFEBRILE WBC REMAINS ELEVATED BUT IMPROVED BC (-) - Current Medication List Current Medications: Active Medications Acetaminophen (Tylenol -) 650 mg PO Q6H PRN PRN Reason: PAIN LEVEL 1-5 OR FEVER Last Admin: 04/10/19 08:46 Dose: 650 mg Bacitracin (Bacitracin -) 1 applic TP BID [facility] Last Admin: 04/10/19 09:02 Dose: 1 applic Carbamazepine (Tegretol -) 400 mg PO AM [facility] Last Admin: 04/10/19 06:01 Dose: 400 mg Carbamazepine (Tegretol -) 600 mg PO HS [facility] Last Admin: 04/09/19 22:06 Dose: 600 mg Furosemide (Lasix -) 20 mg PO DAILY [facility] Last Admin: 04/10/19 09:02 Dose: 20 mg IV Flush (Rose Marie-Cath Flush) 10 ml IVPUSH PRN PRN PRN Reason: FLUSH Dextrose/Sodium Chloride (D5-1/2ns+40 Meq Kcl -) 40 meq in 1,000 mls @ 42 mls/ hr IV ASDIR [facility] Last Admin: 04/10/19 01:22 Dose: Not Given Meropenem 500 mg/ Dextrose 100 mls @ 200 mls/hr IVPB Q8H-IV [facility] Last Admin: 04/10/19 09:52 Dose: 200 mls/hr Metronidazole (Flagyl 500mg Premixed Ivpb -) 500 mg in 100 mls @ 100 mls/hr IVPB Q8H-IV [facility] Last Admin: 04/10/19 09:02 Dose: 100 mls/hr Levothyroxine Sodium (Synthroid -) 75 mcg PO DAILY@0700 [facility] Last Admin: 04/10/19 06:01 Dose: 75 mcg Oxycodone HCl (Roxicodone -) 5 mg PO Q4H PRN PRN Reason: PAIN LEVEL 7 - 10 Last Admin: 04/10/19 12:54 Dose: 5 mg Pantoprazole Sodium (Protonix -) 40 mg PO DAILY [facility] Last Admin: 04/10/19 09:02 Dose: 40 mg - Objective Vital Signs: Vital Signs Temperature 98.9 F 04/10/19 14:00 Pulse Rate 120 H 04/10/19 14:00 Respiratory Rate 18 04/10/19 14:00 Blood Pressure 111/64 04/10/19 14:00 O2 Sat by Pulse Oximetry (%) 98 04/10/19 09:00 Constitutional: Yes: No Distress, Cachectic Cardiovascular: Yes: Regular Rate and Rhythm, S1, S2 Respiratory: Yes: Diminished Gastrointestinal: Yes: Soft. No: Tenderness Edema: Yes Integumentary: Yes: Other (KELLY DRAIN IN PLACE) Labs: CBC, BMP 04/06/19 06:00 04/06/19 06:00 INR, PTT INR 1.29 (0.83-1.09) H 04/04/19 15:10 Fibrinogen 493.0 mg/dL (238-498) 04/04/19 15:10 Assessment/Plan S/P IR DRAINAGE PSOAS ABSCESS C/S + ANAEROBES FEVER/ LEUKOCYTOSIS IMPROVED METASTATIC CA SUBSTITUTE PO FLAGYL X 7D PROGNOSIS POOR
[2019-04-10] MEDS ORDERED: PT OWN MED DRAWER 7, Y5N ONE ×2 (17:58→21:20)
[2019-04-10] MEDS: metroNIDAZOLE 500 MG TABLET PO SCH (22:14)
[2019-04-11] MEDS ORDERED: PT OWN MED DRAWER 7, Y5N ONE ×3 (06:07→22:08)
[2019-04-11] MEDS: metroNIDAZOLE 500 MG TABLET PO SCH ×3 (06:24→22:13)
[2019-04-11] MEDS: carBAMazepine 200 MG TABLET PO SCH ×2 (06:24→22:13)
[2019-04-11] MEDS: LEVOTHYROXINE NA 75 MCG TABLET (FP) PO SCH (06:24)
[2019-04-11] MEDS: FUROSEMIDE 20 MG TABLET (FP) PO SCH (09:14)
[2019-04-11] MEDS: PANTOPRAZOLE 40 MG TABLET (FP) PO SCH (09:14)
[2019-04-11] MEDS: BACITRACIN 15 GM TUBE TOPICAL OINTMENT TP SCH ×2 (10:27→22:15)
[2019-04-11] MEDS: oxyCODONE HCL 5 MG TABLET PO PRN ×3 (14:24→22:13)
--- NOTE | 2019-04-11 16:39 | PN ---
Progress Note (short form) - Note Progress Note: Patient seen and examined Weak, failure to thrive AFVSS cacehectic Cor: RSR, No murmurs, No gallops Lungs: decreased at bases Abd: Soft, Normal bowel sounds, No organomegaly Ext:No significant edema Labs/Meds reviewed A/P 48 y/o patient with metastatic colon cancer , failure to thrive, s/p colostomy, iliopsoas abscess On antibiotics monitor lytes monitor hemoglobin tylenol for pain oxycodone as needed for pain poor prognosis
[2019-04-11] MEDS: ACETAMINOPHEN 325 MG TABLET (FP) PO PRN (17:47)
--- NOTE | 2019-04-11 20:15 | PN ---
Progress Note (short form) - Note Progress Note: Patient seen and examined Weak, failure to thrive. C/o pain in R flank AFVSS cachectic Cor: RSR, No murmurs, No gallops Lungs: decreased at bases Abd: Soft, Normal bowel sounds, No organomegaly Ext:No significant edema Labs/Meds reviewed A/P 48 y/o patient with metastatic colon cancer , failure to thrive, s/p colostomy, iliopsoas abscess On antibiotics monitor lytes monitor hemoglobin tylenol for pain oxycodone as needed for pain poor prognosis
[2019-04-11] MEDS: D5-1/2NS+40 MEQ KCL - 40 MEQ/1,000 ML INFUS.BAG IV SCH (22:14)
[2019-04-12] MEDS: LEVOTHYROXINE NA 75 MCG TABLET (FP) PO SCH (06:00)
[2019-04-12] MEDS: oxyCODONE HCL 5 MG TABLET PO PRN (06:00)
[2019-04-12] MEDS: carBAMazepine 200 MG TABLET PO SCH ×2 (06:00→21:54)
[2019-04-12] MEDS: metroNIDAZOLE 500 MG TABLET PO SCH ×3 (06:01→21:54)
[2019-04-12] MEDS: FUROSEMIDE 20 MG TABLET (FP) PO SCH (11:06)
[2019-04-12] MEDS: PANTOPRAZOLE 40 MG TABLET (FP) PO SCH (11:06)
[2019-04-12] MEDS: BACITRACIN 15 GM TUBE TOPICAL OINTMENT TP SCH ×2 (11:06→21:53)
[2019-04-12] MEDS ORDERED: PT OWN MED DRAWER 7, Y5N ONE ×2 (15:06→21:35)
--- NOTE | 2019-04-12 20:04 | PN ---
Progress Note (short form) - Note Progress Note: Patient seen and examined Weak, failure to thrive. C/o pain in legs Last Vital Signs Temp Pulse Resp BP Pulse Ox 98.4 F 108 H 18 108/64 99 04/12/19 16:26 04/12/19 16:26 04/12/19 16:26 04/12/19 16:26 04/12/19 09:00 AFVSS cachectic Cor: RSR, No murmurs, No gallops Lungs: decreased at bases Abd: Soft, Normal bowel sounds, No organomegaly Ext:No significant edema Labs/Meds reviewed 04/06/19 06:00 04/06/19 06:00 Current Medications Acetaminophen (Tylenol -) 650 mg PO Q6H PRN PRN Reason: PAIN LEVEL 1-5 OR FEVER Last Admin: 04/11/19 17:47 Dose: 650 mg Bacitracin (Bacitracin -) 1 applic TP BID [facility] Last Admin: 04/12/19 11:06 Dose: 1 applic Carbamazepine (Tegretol -) 400 mg PO AM [facility] Last Admin: 04/12/19 06:00 Dose: 400 mg Carbamazepine (Tegretol -) 600 mg PO HS [facility] Last Admin: 04/11/19 22:13 Dose: 600 mg Furosemide (Lasix -) 20 mg PO DAILY [facility] Last Admin: 04/12/19 11:06 Dose: 20 mg IV Flush (Rose Marie-Cath Flush) 10 ml IVPUSH PRN PRN PRN Reason: FLUSH Dextrose/Sodium Chloride (D5-1/2ns+40 Meq Kcl -) 40 meq in 1,000 mls @ 42 mls/ hr IV ASDIR [facility] Last Admin: 04/11/19 22:14 Dose: 42 mls/hr Levothyroxine Sodium (Synthroid -) 75 mcg PO DAILY@0700 [facility] Last Admin: 04/12/19 06:00 Dose: 75 mcg Metronidazole (Flagyl -) 500 mg PO TID [facility] Last Admin: 04/12/19 15:09 Dose: 500 mg Oxycodone HCl (Roxicodone -) 5 mg PO Q4H PRN PRN Reason: PAIN LEVEL 7 - 10 Last Admin: 04/12/19 06:00 Dose: 5 mg Pantoprazole Sodium (Protonix -) 40 mg PO DAILY [facility] Last Admin: 04/12/19 11:06 Dose: 40 mg A/P 48 y/o patient with metastatic colon cancer , failure to thrive, s/p colostomy, iliopsoas abscess On antibiotics monitor lytes monitor hemoglobin tylenol for pain oxycodone as needed for pain Leukocytosis/Thrombocytosis Surgery to monitor drain poor prognosis
[2019-04-12] MEDS: D5-1/2NS+40 MEQ KCL - 40 MEQ/1,000 ML INFUS.BAG IV SCH (21:55)
[2019-04-13] MEDS: LEVOTHYROXINE NA 75 MCG TABLET (FP) PO SCH (06:48)
[2019-04-13] MEDS: metroNIDAZOLE 500 MG TABLET PO SCH ×3 (06:48→21:19)
[2019-04-13] MEDS: carBAMazepine 200 MG TABLET PO SCH ×2 (06:48→21:19)
[2019-04-13] MEDS: FUROSEMIDE 20 MG TABLET (FP) PO SCH (09:24)
[2019-04-13] MEDS: BACITRACIN 15 GM TUBE TOPICAL OINTMENT TP SCH ×2 (09:24→21:19)
[2019-04-13] MEDS: ACETAMINOPHEN 325 MG TABLET (FP) PO PRN (09:24)
[2019-04-13] MEDS: PANTOPRAZOLE 40 MG TABLET (FP) PO SCH (09:25)
[2019-04-13] MEDS ORDERED: PT OWN MED DRAWER 7, Y5N ONE ×2 (13:32→21:00)
[2019-04-13] MEDS: oxyCODONE HCL 5 MG TABLET PO PRN (14:53)
[2019-04-13] MEDS: D5-1/2NS+40 MEQ KCL - 40 MEQ/1,000 ML INFUS.BAG IV SCH (21:18)
[2019-04-14] MEDS: LEVOTHYROXINE NA 75 MCG TABLET (FP) PO SCH (06:46)
[2019-04-14] MEDS: metroNIDAZOLE 500 MG TABLET PO SCH ×3 (06:46→21:39)
[2019-04-14] MEDS: carBAMazepine 200 MG TABLET PO SCH ×2 (06:46→21:39)
[2019-04-14] MEDS: FUROSEMIDE 20 MG TABLET (FP) PO SCH (11:07)
[2019-04-14] MEDS: BACITRACIN 15 GM TUBE TOPICAL OINTMENT TP SCH ×2 (11:07→21:39)
[2019-04-14] MEDS: PANTOPRAZOLE 40 MG TABLET (FP) PO SCH (11:07)
[2019-04-14] MEDS ORDERED: PT OWN MED DRAWER 7, Y5N ONE ×3 (13:08→21:38)
[2019-04-14] MEDS: oxyCODONE HCL 5 MG TABLET PO PRN (15:12)
[2019-04-14] MEDS: ACETAMINOPHEN 325 MG TABLET (FP) PO PRN (18:05)
--- NOTE | 2019-04-14 19:07 | PN ---
Progress Note (short form) - Note Progress Note: Patient seen and examined Weak, failure to thrive. C/o pain in Right leg. Last Vital Signs Temp Pulse Resp BP Pulse Ox 98.2 F 122 H 19 131/68 98 04/14/19 18:00 04/14/19 18:00 04/14/19 18:00 04/14/19 18:00 04/14/19 09:00 AFVSS cachectic Cor: RSR, No murmurs, No gallops Lungs: decreased at bases Abd: Soft, Normal bowel sounds, No organomegaly Ext:No significant edema 04/06/19 06:00 04/06/19 06:00 Current Medications Current Medications Acetaminophen (Tylenol -) 650 mg PO Q6H PRN PRN Reason: PAIN LEVEL 1-5 OR FEVER Last Admin: 04/14/19 18:05 Dose: 650 mg Bacitracin (Bacitracin -) 1 applic TP BID [facility] Last Admin: 04/14/19 11:07 Dose: 1 applic Carbamazepine (Tegretol -) 400 mg PO AM [facility] Last Admin: 04/14/19 06:46 Dose: 400 mg Carbamazepine (Tegretol -) 600 mg PO HS [facility] Last Admin: 04/13/19 21:19 Dose: 600 mg Furosemide (Lasix -) 20 mg PO DAILY [facility] Last Admin: 04/14/19 11:07 Dose: 20 mg IV Flush (Rose Marie-Cath Flush) 10 ml IVPUSH PRN PRN PRN Reason: FLUSH Dextrose/Sodium Chloride (D5-1/2ns+40 Meq Kcl -) 40 meq in 1,000 mls @ 42 mls/ hr IV ASDIR [facility] Last Admin: 04/13/19 21:18 Dose: 42 mls/hr Levothyroxine Sodium (Synthroid -) 75 mcg PO DAILY@0700 [facility] Last Admin: 04/14/19 06:46 Dose: 75 mcg Metronidazole (Flagyl -) 500 mg PO TID [facility] Last Admin: 04/14/19 13:39 Dose: 500 mg Oxycodone HCl (Roxicodone -) 5 mg PO Q4H PRN PRN Reason: PAIN LEVEL 7 - 10 Last Admin: 04/14/19 15:12 Dose: 5 mg Pantoprazole Sodium (Protonix -) 40 mg PO DAILY [facility] Last Admin: 04/14/19 11:07 Dose: 40 mg A/P 48 y/o patient with metastatic colon cancer , failure to thrive, s/p colostomy, iliopsoas abscess On antibiotics monitor lytes monitor hemoglobin tylenol for pain oxycodone as needed for pain. Leukocytosis/Thrombocytosis Surgery to monitor drain poor prognosis
[2019-04-14] MEDS: D5-1/2NS+40 MEQ KCL - 40 MEQ/1,000 ML INFUS.BAG IV SCH (21:40)
[2019-04-15] MEDS ORDERED: PT OWN MED DRAWER 7, Y5N ONE ×4 (05:57→21:11)
[2019-04-15] MEDS: LEVOTHYROXINE NA 75 MCG TABLET (FP) PO SCH (06:17)
[2019-04-15] MEDS: metroNIDAZOLE 500 MG TABLET PO SCH ×3 (06:17→21:15)
[2019-04-15] MEDS: carBAMazepine 200 MG TABLET PO SCH ×2 (06:17→21:15)
[2019-04-15] MEDS: PANTOPRAZOLE 40 MG TABLET (FP) PO SCH (09:58)
[2019-04-15] MEDS: FUROSEMIDE 20 MG TABLET (FP) PO SCH (09:58)
[2019-04-15] MEDS: BACITRACIN 15 GM TUBE TOPICAL OINTMENT TP SCH ×2 (09:58→21:16)
[2019-04-15] MEDS: oxyCODONE HCL 5 MG TABLET PO PRN (18:26)
--- NOTE | 2019-04-15 20:21 | PN ---
Progress Note (short form) - Note Progress Note: Patient seen and examined Doing better today. Smiling and watching TV Last Vital Signs Temp Pulse Resp BP Pulse Ox 99.3 F 130 H 19 122/68 99 04/15/19 17:40 04/15/19 17:40 04/15/19 17:40 04/15/19 17:40 04/15/19 09:00 AFVSS cachectic Cor: RSR, No murmurs, No gallops Lungs: decreased at bases Abd: Soft, Normal bowel sounds, No organomegaly Ext:No significant edema 04/06/19 06:00 04/06/19 06:00 Current Medications Acetaminophen (Tylenol -) 650 mg PO Q6H PRN PRN Reason: PAIN LEVEL 1-5 OR FEVER Last Admin: 04/14/19 18:05 Dose: 650 mg Bacitracin (Bacitracin -) 1 applic TP BID [facility] Last Admin: 04/15/19 09:58 Dose: 1 applic Carbamazepine (Tegretol -) 400 mg PO AM [facility] Last Admin: 04/15/19 06:17 Dose: 400 mg Carbamazepine (Tegretol -) 600 mg PO HS [facility] Last Admin: 04/14/19 21:39 Dose: 600 mg Furosemide (Lasix -) 20 mg PO DAILY [facility] Last Admin: 04/15/19 09:58 Dose: 20 mg IV Flush (Rose Marie-Cath Flush) 10 ml IVPUSH PRN PRN PRN Reason: FLUSH Dextrose/Sodium Chloride (D5-1/2ns+40 Meq Kcl -) 40 meq in 1,000 mls @ 42 mls/ hr IV ASDIR [facility] Last Admin: 04/14/19 21:40 Dose: 42 mls/hr Levothyroxine Sodium (Synthroid -) 75 mcg PO DAILY@0700 [facility] Last Admin: 04/15/19 06:17 Dose: 75 mcg Metronidazole (Flagyl -) 500 mg PO TID [facility] Last Admin: 04/15/19 14:35 Dose: 500 mg Oxycodone HCl (Roxicodone -) 5 mg PO Q4H PRN PRN Reason: PAIN LEVEL 7 - 10 Last Admin: 04/15/19 18:26 Dose: 5 mg Pantoprazole Sodium (Protonix -) 40 mg PO DAILY [facility] Last Admin: 04/15/19 09:58 Dose: 40 mg A/P 48 y/o patient with metastatic colon cancer , failure to thrive, s/p colostomy, iliopsoas abscess On antibiotics tylenol for pain oxycodone as needed for pain. Leukocytosis/Thrombocytosis Surgery to monitor drain poor prognosis
[2019-04-15] MEDS: D5-1/2NS+40 MEQ KCL - 40 MEQ/1,000 ML INFUS.BAG IV SCH (21:16)
[2019-04-16] MEDS ORDERED: PT OWN MED DRAWER 7, Y5N ONE ×3 (05:54→22:06)
[2019-04-16] MEDS: LEVOTHYROXINE NA 75 MCG TABLET (FP) PO SCH (06:09)
[2019-04-16] MEDS: metroNIDAZOLE 500 MG TABLET PO SCH ×3 (06:09→22:16)
[2019-04-16] MEDS: carBAMazepine 200 MG TABLET PO SCH ×2 (06:09→22:16)
[2019-04-16 06:26] LABS: BASO % 0.7 % (0-2.0); EOS % 0.1 % (0-4.5); HEMATOCRIT 26.7 % (32.4-45.2); HEMOGLOBIN 8.8 GM/dL (10.7-15.3); LYMPH % 4.5 % (8-40); MCH 29.9 pg (25.7-33.7); MEAN CELL VOLUME 90.8 fl (80-96); MEAN PLT VOLUME 7.7 fl (7.5-11.1); MONO % 8.5 % (3.8-10.2); NEUT % 86.2 % (42.8-82.8); PLATELET COUNT 565 K/MM3 (134-434); RBC 2.94 M/mm3 (3.60-5.2); RDW 22.3 % (11.6-15.6)
[2019-04-16 06:41] LABS: WHITE BLOOD COUNT 36.7 K/mm3 (4.0-10.0)
[2019-04-16] MEDS: oxyCODONE HCL 5 MG TABLET PO PRN ×2 (06:55→12:55)
[2019-04-16 09:08] LABS: ANISOCYTOSIS 1+; MACROCYTOSIS 1+; PLATELET ESTIMATE INCREASED; TARGET CELLS 1+
[2019-04-16] MEDS: BACITRACIN 15 GM TUBE TOPICAL OINTMENT TP SCH ×2 (10:29→22:16)
[2019-04-16] MEDS: PANTOPRAZOLE 40 MG TABLET (FP) PO SCH (10:29)
[2019-04-16] MEDS: FUROSEMIDE 20 MG TABLET (FP) PO SCH (10:29)
[2019-04-16 13:21] LABS: ALBUMIN 1.6 g/dl (3.4-5.0); BILIRUBIN,TOTAL 0.3 mg/dL (0.2-1); CALCIUM 8.8 mg/dL (8.5-10.1); CREATININE 0.3 mg/dL (0.55-1.3); POTASSIUM 4.6 mmol/L (3.5-5.1); TOT PROT 7.4 g/dl (6.4-8.2)
[2019-04-16] MEDS: D5-1/2NS+40 MEQ KCL - 40 MEQ/1,000 ML INFUS.BAG IV SCH (22:16)
[2019-04-16] MEDS: ACETAMINOPHEN 325 MG TABLET (FP) PO PRN (22:16)
[2019-04-17] MEDS ORDERED: PT OWN MED DRAWER 7, Y5N ONE ×2 (05:45→12:53)
[2019-04-17] MEDS: LEVOTHYROXINE NA 75 MCG TABLET (FP) PO SCH (06:18)
[2019-04-17] MEDS: metroNIDAZOLE 500 MG TABLET PO SCH ×2 (06:18→13:16)
[2019-04-17] MEDS: carBAMazepine 200 MG TABLET PO SCH ×2 (06:18→21:32)
[2019-04-17 07:19] LABS: BASO % 0.5 % (0-2.0); EOS % 0.2 % (0-4.5); HEMATOCRIT 26.8 % (32.4-45.2); HEMOGLOBIN 8.7 GM/dL (10.7-15.3); LYMPH % 5.1 % (8-40); MCH 29.8 pg (25.7-33.7); MCHC 32.5 g/dl (32.0-36.0); MEAN CELL VOLUME 91.7 fl (80-96); MEAN PLT VOLUME 7.3 fl (7.5-11.1); MONO % 7.8 % (3.8-10.2); NEUT % 86.4 % (42.8-82.8); PLATELET COUNT 624 K/MM3 (134-434); RBC 2.93 M/mm3 (3.60-5.2); RDW 21.7 % (11.6-15.6)
[2019-04-17 07:45] LABS: ALBUMIN 1.5 g/dl (3.4-5.0); BILIRUBIN,TOTAL 0.4 mg/dL (0.2-1); BLOOD UREA NITROGEN 6.5 mg/dL (7-18); CALCIUM 8.6 mg/dL (8.5-10.1); CREATININE 0.2 mg/dL (0.55-1.3); POTASSIUM 4.4 mmol/L (3.5-5.1); TOT PROT 7.3 g/dl (6.4-8.2)
[2019-04-17 08:19] LABS: WHITE BLOOD COUNT 36.4 K/mm3 (4.0-10.0)
--- NOTE | 2019-04-17 09:11 | PN ---
Progress Note (short form) - Note Progress Note: Patient seen and examined Somewhat of a holding pattern Seems to be eating - reportedly 75%-100% Pain seems adequate with tylenol and oxycodone Last Vital Signs Temp Pulse Resp BP Pulse Ox 99.2 F 113 H 18 114/63 98 04/17/19 06:00 04/17/19 06:00 04/17/19 06:00 04/17/19 06:00 04/16/19 21:00 Cor: RSR, No murmur Lungs: Clear to P&A, poor inspiratory Abd: Soft, Normal bowel sounds, No organomegaly Ext:No significant edema Skin: No rashes, Integument intact Swelling right thigh seems to have diminished KELLY drain- minimal drainage CBC, BMP 04/17/19 06:25 04/17/19 06:25 Current Medications Generic Name Dose Route Start Last Admin Trade Name Freq PRN Reason Stop Dose Admin Acetaminophen 650 mg 03/23/19 16:54 04/16/19 22:16 Tylenol - PO 650 mg Q6H PRN Administration PAIN LEVEL 1-5 OR FEVER Bacitracin 1 applic 04/08/19 22:00 04/16/19 22:16 Bacitracin - TP 1 applic BID [facility] Administration Carbamazepine 400 mg 03/23/19 07:00 04/17/19 06:18 Tegretol - PO 400 mg AM [facility] Administration Carbamazepine 600 mg 03/22/19 22:00 04/16/19 22:16 Tegretol - PO 600 mg HS [facility] Administration Furosemide 20 mg 04/03/19 13:45 04/16/19 10:29 Lasix - PO 20 mg DAILY [facility] Administration IV Flush 10 ml 03/29/19 12:40 Rose Marie-Cath Flush IVPUSH PRN PRN FLUSH Dextrose/Sodium Chloride 40 meq in 1,000 mls @ 42 mls/hr 03/25/19 20:30 04/16 22:16 D5-1/2ns+40 Meq Kcl - IV 42 mls/hr ASD[facility] Administration Levothyroxine Sodium 75 mcg 03/23/19 07:00 04/17/19 06:18 Synthroid - PO 75 mcg DAILY@0700 [facility] Administration Metronidazole 500 mg 04/10/19 22:00 04/17/19 06:18 Flagyl - PO 500 mg TID [facility] Administration Pantoprazole Sodium 40 mg 03/23/19 10:00 04/16/19 10:29 Protonix - PO 40 mg DAILY [facility] Administration Impression: Metastatic colon ca Pelvic /psoas abscesses Anemia Thrombocytosis Failure to thrive Plan Current antibiotics Last CT- 04/08 Will re-image
[2019-04-17] MEDS: FUROSEMIDE 20 MG TABLET (FP) PO SCH (10:05)
[2019-04-17] MEDS: PANTOPRAZOLE 40 MG TABLET (FP) PO SCH (10:05)
[2019-04-17] MEDS: BACITRACIN 15 GM TUBE TOPICAL OINTMENT TP SCH ×2 (10:06→21:32)
[2019-04-17 11:04] LABS: ANISOCYTOSIS 2+; MACROCYTOSIS 2+; PLATELET ESTIMATE INCREASED; TARGET CELLS 1+; TOXIC GRANULATION 1+
[2019-04-17] MEDS: oxyCODONE HCL 5 MG TABLET PO PRN (12:21)
[2019-04-17] MEDS: ACETAMINOPHEN 325 MG TABLET (FP) PO PRN ×2 (13:16→21:32)
[2019-04-17] MEDS: D5-1/2NS+40 MEQ KCL - 40 MEQ/1,000 ML INFUS.BAG IV SCH (21:32)
[2019-04-18] MEDS: carBAMazepine 200 MG TABLET PO SCH ×2 (06:18→22:11)
[2019-04-18] MEDS: LEVOTHYROXINE NA 75 MCG TABLET (FP) PO SCH (06:18)
[2019-04-18] MEDS: ACETAMINOPHEN 325 MG TABLET (FP) PO PRN ×2 (09:25→15:46)
[2019-04-18] MEDS: BACITRACIN 15 GM TUBE TOPICAL OINTMENT TP SCH ×2 (10:35→22:11)
[2019-04-18] MEDS: PANTOPRAZOLE 40 MG TABLET (FP) PO SCH (10:36)
[2019-04-18] MEDS: FUROSEMIDE 20 MG TABLET (FP) PO SCH (10:36)
[2019-04-18] MEDS: oxyCODONE HCL 5 MG TABLET PO PRN ×2 (16:57→22:11)
[2019-04-18] MEDS: D5-1/2NS+40 MEQ KCL - 40 MEQ/1,000 ML INFUS.BAG IV SCH ×2 (17:07→22:10)
--- NOTE | 2019-04-18 19:09 | PN ---
Progress Note, Physician History of Present Illness: C/o pain at decub site. No other complaints - Current Medication List Current Medications: Active Medications Acetaminophen (Tylenol -) 650 mg PO Q6H PRN PRN Reason: PAIN LEVEL 1-5 OR FEVER Last Admin: 04/18/19 15:46 Dose: 650 mg Bacitracin (Bacitracin -) 1 applic TP BID [facility] Last Admin: 04/18/19 10:35 Dose: 1 applic Carbamazepine (Tegretol -) 400 mg PO AM [facility] Last Admin: 04/18/19 06:18 Dose: 400 mg Carbamazepine (Tegretol -) 600 mg PO HS [facility] Last Admin: 04/17/19 21:32 Dose: 600 mg Furosemide (Lasix -) 20 mg PO DAILY [facility] Last Admin: 04/18/19 10:36 Dose: 20 mg IV Flush (Rose Marie-Cath Flush) 10 ml IVPUSH PRN PRN PRN Reason: FLUSH Dextrose/Sodium Chloride (D5-1/2ns+40 Meq Kcl -) 40 meq in 1,000 mls @ 42 mls/ hr IV ASDIR [facility] Last Admin: 04/18/19 17:07 Dose: 42 mls/hr Levothyroxine Sodium (Synthroid -) 75 mcg PO DAILY@0700 [facility] Last Admin: 04/18/19 06:18 Dose: 75 mcg Oxycodone HCl (Roxicodone -) 5 mg PO Q4H PRN PRN Reason: PAIN LEVEL 4 - 6 Last Admin: 04/18/19 16:57 Dose: 5 mg Pantoprazole Sodium (Protonix -) 40 mg PO DAILY [facility] Last Admin: 04/18/19 10:36 Dose: 40 mg - Objective Vital Signs: Vital Signs Temperature 98.4 F 04/18/19 18:26 Pulse Rate 119 H 04/18/19 18:26 Respiratory Rate 18 04/18/19 18:26 Blood Pressure 119/68 04/18/19 18:26 O2 Sat by Pulse Oximetry (%) 99 04/18/19 09:00 Constitutional: Yes: No Distress Eyes: Yes: Conjunctiva Clear Cardiovascular: Yes: Regular Rate and Rhythm Respiratory: Yes: Regular, CTA Bilaterally Gastrointestinal: Yes: Soft Labs: CBC, BMP 04/17/19 06:25 04/17/19 06:25 INR, PTT INR 1.29 (0.83-1.09) H 04/04/19 15:10 Fibrinogen 493.0 mg/dL (238-498) 04/04/19 15:10 Assessment/Plan 48F with epilepsy, anemia, congenital 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, s/p [employer] shunt and met colon cancer (involving lungs, adrenals and liver) s/p diverting ileostomy for near obstructing primary, initially treated with Xelox, with POD, then on 5FU/LV and Avastin (most recently 03/19) admitted with leg pain, and found to have extensive psoas abscess s/p drainage with catheter in place. CT yesterday showed decreased size of abscesses in right pelvis and right thigh compared to 04/08. Continues on antibiotics. Awaiting wound care eval. Pain control.
[2019-04-19] MEDS: LEVOTHYROXINE NA 75 MCG TABLET (FP) PO SCH (06:42)
[2019-04-19] MEDS: carBAMazepine 200 MG TABLET PO SCH ×2 (06:42→21:53)
[2019-04-19 06:45] LABS: BASO % 0.8 % (0-2.0); EOS % 0.2 % (0-4.5); HEMATOCRIT 26.8 % (32.4-45.2); HEMOGLOBIN 8.9 GM/dL (10.7-15.3); MCH 30.1 pg (25.7-33.7); MCHC 33.1 g/dl (32.0-36.0); MEAN CELL VOLUME 91.1 fl (80-96); MEAN PLT VOLUME 7.1 fl (7.5-11.1); MONO % 6.2 % (3.8-10.2); NEUT % 88.8 % (42.8-82.8); PLATELET COUNT 675 K/MM3 (134-434); RBC 2.94 M/mm3 (3.60-5.2); RDW 22.9 % (11.6-15.6)
[2019-04-19 07:24] LABS: BLOOD UREA NITROGEN 5.6 mg/dL (7-18); CREATININE 0.3 mg/dL (0.55-1.3); POTASSIUM 4.7 mmol/L (3.5-5.1)
[2019-04-19 07:38] LABS: WHITE BLOOD COUNT 37.6 K/mm3 (4.0-10.0)
[2019-04-19] MEDS ORDERED: PT OWN MED DRAWER 7, Y5N ONE (09:44)
[2019-04-19] MEDS: PANTOPRAZOLE 40 MG TABLET (FP) PO SCH (09:52)
[2019-04-19] MEDS: BACITRACIN 15 GM TUBE TOPICAL OINTMENT TP SCH ×2 (09:52→22:17)
[2019-04-19] MEDS: FUROSEMIDE 20 MG TABLET (FP) PO SCH (09:52)
[2019-04-19 10:41] LABS: ANISOCYTOSIS 1+; MACROCYTOSIS 0; PLATELET ESTIMATE INCREASED; TARGET CELLS 1+
[2019-04-19] MEDS: oxyCODONE HCL 5 MG TABLET PO PRN ×2 (15:07→21:53)
[2019-04-19] MEDS: D5-1/2NS+40 MEQ KCL - 40 MEQ/1,000 ML INFUS.BAG IV SCH ×2 (17:33→21:52)
--- NOTE | 2019-04-19 19:17 | PN ---
Progress Note, Physician History of Present Illness: No new events. - Current Medication List Current Medications: Active Medications Acetaminophen (Tylenol -) 650 mg PO Q6H PRN PRN Reason: PAIN LEVEL 1-5 OR FEVER Last Admin: 04/18/19 15:46 Dose: 650 mg Bacitracin (Bacitracin -) 1 applic TP BID [facility] Last Admin: 04/19/19 09:52 Dose: 1 applic Carbamazepine (Tegretol -) 400 mg PO AM [facility] Last Admin: 04/19/19 06:42 Dose: 400 mg Carbamazepine (Tegretol -) 600 mg PO HS [facility] Last Admin: 04/18/19 22:11 Dose: 600 mg Furosemide (Lasix -) 20 mg PO DAILY [facility] Last Admin: 04/19/19 09:52 Dose: 20 mg IV Flush (Rose Marie-Cath Flush) 10 ml IVPUSH PRN PRN PRN Reason: FLUSH Dextrose/Sodium Chloride (D5-1/2ns+40 Meq Kcl -) 40 meq in 1,000 mls @ 42 mls/ hr IV ASDIR [facility] Last Admin: 04/19/19 17:33 Dose: 42 mls/hr Levothyroxine Sodium (Synthroid -) 75 mcg PO DAILY@0700 [facility] Last Admin: 04/19/19 06:42 Dose: 75 mcg Oxycodone HCl (Roxicodone -) 5 mg PO Q4H PRN PRN Reason: PAIN LEVEL 4 - 6 Last Admin: 04/19/19 15:07 Dose: 5 mg Pantoprazole Sodium (Protonix -) 40 mg PO DAILY [facility] Last Admin: 04/19/19 09:52 Dose: 40 mg - Objective Vital Signs: Vital Signs Temperature 98.5 F 04/19/19 18:15 Pulse Rate 129 H 04/19/19 18:15 Respiratory Rate 18 04/19/19 18:15 Blood Pressure 114/60 04/19/19 18:15 O2 Sat by Pulse Oximetry (%) 98 04/19/19 09:00 Constitutional: Yes: No Distress Eyes: Yes: Conjunctiva Clear Cardiovascular: Yes: Regular Rate and Rhythm Respiratory: Yes: Regular, CTA Bilaterally Gastrointestinal: Yes: Soft. No: Tenderness Edema: No Labs: CBC, BMP 04/19/19 06:00 04/19/19 06:00 INR, PTT INR 1.29 (0.83-1.09) H 04/04/19 15:10 Fibrinogen 493.0 mg/dL (238-498) 04/04/19 15:10 Assessment/Plan 48F with epilepsy, anemia, congenital 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, s/p [employer] shunt and met colon cancer (involving lungs, adrenals and liver) s/p diverting ileostomy for near obstructing primary, initially treated with Xelox, with POD, then on 5FU/LV and Avastin (most recently 03/19) admitted with leg pain, and found to have extensive psoas abscess s/p drainage with catheter in place. CT yesterday showed decreased size of abscesses in right pelvis and right thigh compared to 04/08. Continues on antibiotics. Awaiting wound care eval. Pain control.
[2019-04-20] MEDS: LEVOTHYROXINE NA 75 MCG TABLET (FP) PO SCH (06:21)
[2019-04-20] MEDS: oxyCODONE HCL 5 MG TABLET PO PRN ×3 (06:21→19:26)
[2019-04-20] MEDS: carBAMazepine 200 MG TABLET PO SCH ×2 (06:22→21:40)
[2019-04-20] MEDS: PANTOPRAZOLE 40 MG TABLET (FP) PO SCH (09:24)
[2019-04-20] MEDS: FUROSEMIDE 20 MG TABLET (FP) PO SCH (09:24)
[2019-04-20] MEDS: BACITRACIN 15 GM TUBE TOPICAL OINTMENT TP SCH ×2 (09:25→21:41)
[2019-04-20] MEDS: ACETAMINOPHEN 325 MG TABLET (FP) PO PRN ×2 (10:09→19:26)
[2019-04-20] MEDS ORDERED: PORTA CATH FLUSH 10 ML IVPUSH ONE (18:57)
--- NOTE | 2019-04-20 20:44 | PN ---
Progress Note (short form) - Note Progress Note: Patient seen and examined Weak, failure to thrive Last Vital Signs Temp Pulse Resp BP Pulse Ox 98.2 F 120 H 16 115/58 L 98 04/20/19 21:49 04/20/19 21:49 04/20/19 21:49 04/20/19 21:49 04/20/19 09:00 cacehectic Cor: RSR, No murmurs, No gallops Lungs: decreased at bases Abd: Soft, Normal bowel sounds, No organomegaly Ext:No significant edema Labs/Meds reviewed A/P 48 y/o patient with metastatic colon cancer , failure to thrive, s/p colostomy, iliopsoas abscess On antibiotics monitor lytes monitor hemoglobin oxycodone as needed for pain decreased abscess size with drainage poor prognosis
[2019-04-20] MEDS: D5-1/2NS+40 MEQ KCL - 40 MEQ/1,000 ML INFUS.BAG IV SCH (21:39)
[2019-04-21] MEDS: carBAMazepine 200 MG TABLET PO SCH ×2 (06:36→21:16)
[2019-04-21] MEDS: LEVOTHYROXINE NA 75 MCG TABLET (FP) PO SCH (06:36)
[2019-04-21] MEDS: FUROSEMIDE 20 MG TABLET (FP) PO SCH (09:35)
[2019-04-21] MEDS: PANTOPRAZOLE 40 MG TABLET (FP) PO SCH (09:35)
[2019-04-21] MEDS: BACITRACIN 15 GM TUBE TOPICAL OINTMENT TP SCH ×2 (09:36→21:16)
--- NOTE | 2019-04-21 16:36 | PN ---
Progress Note (short form) - Note Progress Note: Patient seen and examined Ling in bed. Awake. Interactive but minimally Last Vital Signs Temp Pulse Resp BP Pulse Ox 99.5 F 122 H 18 117/69 98 04/21/19 14:05 04/21/19 14:05 04/21/19 14:05 04/21/19 14:05 04/21/19 09:00 AFVSS cachectic Cor: Tachycardia, No murmurs, No gallops. Lungs: decreased at bases Abd: Soft, Normal bowel sounds, No organomegaly Ext: No significant edema 04/19/19 06:00 04/19/19 06:00 Current Medications Acetaminophen (Tylenol -) 650 mg PO Q6H PRN PRN Reason: PAIN LEVEL 1-5 OR FEVER Last Admin: 04/20/19 19:26 Dose: 650 mg Bacitracin (Bacitracin -) 1 applic TP BID [facility] Last Admin: 04/21/19 09:36 Dose: 1 applic Carbamazepine (Tegretol -) 400 mg PO AM [facility] Last Admin: 04/21/19 06:36 Dose: 400 mg Carbamazepine (Tegretol -) 600 mg PO HS [facility] Last Admin: 04/20/19 21:40 Dose: 600 mg Furosemide (Lasix -) 20 mg PO DAILY [facility] Last Admin: 04/21/19 09:35 Dose: 20 mg IV Flush (Rose Marie-Cath Flush) 10 ml IVPUSH PRN PRN PRN Reason: FLUSH Dextrose/Sodium Chloride (D5-1/2ns+40 Meq Kcl -) 40 meq in 1,000 mls @ 42 mls/ hr IV ASDIR [facility] Last Admin: 04/20/19 21:39 Dose: 42 mls/hr Levothyroxine Sodium (Synthroid -) 75 mcg PO DAILY@0700 [facility] Last Admin: 04/21/19 06:36 Dose: 75 mcg Oxycodone HCl (Roxicodone -) 5 mg PO Q4H PRN PRN Reason: PAIN LEVEL 5-10 Last Admin: 04/20/19 19:26 Dose: 5 mg Pantoprazole Sodium (Protonix -) 40 mg PO DAILY [facility] Last Admin: 04/21/19 09:35 Dose: 40 mg A/P 48 y/o patient with metastatic colon cancer , failure to thrive, s/p colostomy, iliopsoas abscess On antibiotics--> Will have ID follow-up for antibiotic review. She also has pressure ulcers tylenol for pain oxycodone as needed for pain. Leukocytosis/Thrombocytosis Surgery to monitor drain. Wound care to evaluate decubitus ulcers. poor prognosis
[2019-04-21] MEDS: ACETAMINOPHEN 325 MG TABLET (FP) PO PRN (20:15)
[2019-04-21] MEDS: oxyCODONE HCL 5 MG TABLET PO PRN (20:16)
[2019-04-21] MEDS: D5-1/2NS+40 MEQ KCL - 40 MEQ/1,000 ML INFUS.BAG IV SCH (21:15)
[2019-04-22] MEDS: LEVOTHYROXINE NA 75 MCG TABLET (FP) PO SCH (06:05)
[2019-04-22] MEDS: carBAMazepine 200 MG TABLET PO SCH ×2 (06:06→22:32)
[2019-04-22] MEDS: BACITRACIN 15 GM TUBE TOPICAL OINTMENT TP SCH ×2 (10:03→22:32)
[2019-04-22] MEDS: PANTOPRAZOLE 40 MG TABLET (FP) PO SCH (10:03)
[2019-04-22] MEDS: FUROSEMIDE 20 MG TABLET (FP) PO SCH (10:03)
--- NOTE | 2019-04-22 11:22 | CONSULT ---
- Consultation REQUESTING PROVIDER: CONSULT REQUEST: We have been asked to surgically evaluate this patient for sacral decub. PCP:Paul Kumar HISTORY OF PRESENT ILLNESS: 48 yo F w/ PMHx congenital 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/CVA is s/p multiple PRO[employer] RE[employer] shunts since age 5 months, metastatic colon cancer s/p colostomy, failure to thrive, a/w sepsis found to have iliopsoas abscess, s/p IR drainage. Wound care consulted for sacral ulcers. Pt unable to answer any questions regarding sacral wound. Per RN has been present since admission, unsure what prior wound care was. Currently applying Bacitracin and Allevyn padding. PMHx: as above PSHx: as above Home Medications Medication Instructions Recorded Calcium Carbonate [Super Calcium] 600 mg PO BID 09/17/18 Carbamazepine Xr [Tegretol XR -] 400 mg PO AM 09/17/18 Carbamazepine Xr [Tegretol XR -] 600 mg PO HS 09/17/18 Levothyroxine [Synthroid -] 75 mcg PO DAILY 09/17/18 Cholecalciferol (Vitamin D3) 2,000 units PO DAILY 09/18/18 [Vitamin D3] Docusate Sodium [Colace -] 100 mg PO BID 09/18/18 Pantoprazole Sodium [Protonix -] 40 mg PO DAILY #30 tablet.ec 10/01/18 Ferrous Sulfate [Feosol] 325 mg PO BID 01/01/19 Allergies Allergy/AdvReac Type Severity Reaction Status Date / Time No Known Allergies Allergy Verified 03/16/19 10:44 REVIEW OF SYSTEMS: Unable to obtain due to pts medical history PHYSICAL EXAM: GENERAL: Awake, alert, and fully oriented, in no acute distress. HEAD: Normal with no signs of trauma. Sacrum: Approx 4.5x5.5cm sacral ulcer with moderate fibrinous exudate and serous drainage. Minimal undermining at proximal end of wound. No surrounding erythema, lateral portion of wound with dti. Vital Signs Temperature 98.4 F 04/22/19 05:25 Pulse Rate 119 H 04/22/19 05:25 Respiratory Rate 18 04/22/19 05:25 Blood Pressure 120/69 04/22/19 05:25 O2 Sat by Pulse Oximetry (%) 98 04/21/19 21:00 Lab Results WBC 37.6 K/mm3 (4.0-10.0) H* 04/19/19 06:00 RBC 2.94 M/mm3 (3.60-5.2) L 04/19/19 06:00 Hgb 8.9 GM/dL (10.7-15.3) L 04/19/19 06:00 Hct 26.8 % (32.4-45.2) L 04/19/19 06:00 MCV 91.1 fl (80-96) 04/19/19 06:00 MCHC 33.1 g/dl (32.0-36.0) 04/19/19 06:00 RDW 22.9 % (11.6-15.6) H 04/19/19 06:00 Plt Count 675 K/MM3 (134-434) H 04/19/19 06:00 Sodium 135 mmol/L (136-145) L 04/19/19 06:00 Potassium 4.7 mmol/L (3.5-5.1) 04/19/19 06:00 Chloride 101 mmol/L (98-107) 04/19/19 06:00 Carbon Dioxide 26 mmol/L (21-32) 04/19/19 06:00 Anion Gap 8 MMOL/L (8-16) 04/19/19 06:00 BUN 5.6 mg/dL (7-18) L 04/19/19 06:00 Creatinine 0.3 mg/dL (0.55-1.3) L 04/19/19 06:00 Random Glucose 85 mg/dL (74-106) 04/19/19 06:00 Calcium 9.0 mg/dL (8.5-10.1) 04/19/19 06:00 Blood Type A POSITIVE 04/04/19 13:58 Antibody Screen Negative 04/04/19 13:58 INR 1.29 (0.83-1.09) H 04/04/19 15:10 A/P: 48 yo F w/ PMHx congenital 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/CVA is s/p multiple PROGRAM REP shunts since age 5 months, metastatic colon cancer s/p colostomy, failure to thrive, a/ w sepsis found to have iliopsoas abscess, s/p IR drainage. Wound care consulted for sacral ulcers. Pt unable to answer any questions regarding sacral wound. Unstageable sacral wound with moderate fibrinous exudate. -Reposition every two hours while in bed -Air mattress recommended -Use drawsheets and Trendelenburg when repositioning to reduce friction and shear -Manageincontinence via timely cleansing, use of appropriate incontinence disposables and use of barrier ointment to intact skin -Ensure adequate hydration/nutrition, supplementation per primary team -Ensure off-loading to all bony areas (heels, ankles, hips and tailbone) with Allevyn/Optifoam -Clean open wounds with normal saline and apply Santyl and Allevyn, change daily d/w attending Dr Ramirez
[2019-04-22] MEDS: COLLAGENASE CLOSTRIDIUM HIST. 30 GRAMS TUBE TP SCH (13:05)
--- NOTE | 2019-04-22 20:56 | PN ---
Progress Note (short form) - Note Progress Note: Patient seen and examined Weak, failure to thrive AFVSS cacehectic,moaning Cor: RSR, No murmurs, No gallops Lungs: decreased at bases Abd: Soft, Normal bowel sounds, No organomegaly Ext:No significant edema Labs/Meds reviewed A/P 48 y/o patient with metastatic colon cancer , failure to thrive, s/p colostomy, iliopsoas abscess On antibiotics decreased abscess size with drainage poor prognosis add morphine prn transfer to hospice
[2019-04-22] MEDS ORDERED: MORPHINE SULFATE 2 MG/ML VIAL IVPUSH PRN ×2 (21:59→22:00)
[2019-04-22] MEDS: D5-1/2NS+40 MEQ KCL - 40 MEQ/1,000 ML INFUS.BAG IV SCH (22:31)
[2019-04-23] MEDS: carBAMazepine 200 MG TABLET PO SCH ×2 (06:17→21:39)
[2019-04-23] MEDS: LEVOTHYROXINE NA 75 MCG TABLET (FP) PO SCH (06:17)
[2019-04-23] MEDS ORDERED: MORPHINE SULFATE 2 MG/ML VIAL IVPUSH PRN (07:23)
[2019-04-23] MEDS: PANTOPRAZOLE 40 MG TABLET (FP) PO SCH (09:23)
[2019-04-23] MEDS: FUROSEMIDE 20 MG TABLET (FP) PO SCH (09:24)
[2019-04-23] MEDS: COLLAGENASE CLOSTRIDIUM HIST. 30 GRAMS TUBE TP SCH (09:24)
[2019-04-23] MEDS: BACITRACIN 15 GM TUBE TOPICAL OINTMENT TP SCH ×2 (09:24→21:39)
--- NOTE | 2019-04-23 13:39 | PN ---
Progress Note (short form) - Note Progress Note: Subjective: The patient was seen and examined at bedside. no events overnight. Patient mildly restless Objective: Vital Signs Temperature 97.8 F 04/23/19 09:00 Pulse Rate 119 H 04/23/19 09:00 Respiratory Rate 18 04/23/19 09:00 Blood Pressure 117/66 04/23/19 09:00 O2 Sat by Pulse Oximetry (%) 96 04/23/19 09:00 Gen: Patient lying in bed, alert. She appears uncomfortable. Pulmonary: Lungs clear to auscultation bilaterally down to the bases. cardio: regular rate and rhythm, s1, s2 heard. no murmurs, gallops or rubs. Abdomen: soft, nondistended. Bowel sounds heard. no tenderness to palpation. Extremities: 2+ pitting edema observed bilaterally in the lower extremities. Assessment & plan: The patient is a 48 y/o f w/ PMH metastatic colon cancer s/p colostomy, and failure to thrive admitted for iliopsoas abscess. #illiopsoas abscess -Pt s/p IR drainage -Drain in place -not improving despite drainage and abx -drain will likely remain in place on discharge for palliative reasons. IR in agreement. Will discuss w/ family. -draininstructions to be place by IR staff #metastatic colon ca -prognosis poor. -palliative care consult -Patient to be transferred to home hospice tomorrow. #Severe protein calorie malnutrition -Patient cachectic appearing on exam -BMI 16 -patient w/ h/o metastatic colon cancer
[2019-04-23] MEDS: MORPHINE SULFATE 2 MG/ML VIAL IVPUSH SCH ×3 (14:24→21:39)
[2019-04-23] MEDS: D5-1/2NS+40 MEQ KCL - 40 MEQ/1,000 ML INFUS.BAG IV SCH (21:38)
[2019-04-24] MEDS: MORPHINE SULFATE 2 MG/ML VIAL IVPUSH SCH ×3 (01:08→09:49)
[2019-04-24] MEDS: LEVOTHYROXINE NA 75 MCG TABLET (FP) PO SCH (06:37)
[2019-04-24] MEDS: carBAMazepine 200 MG TABLET PO SCH (06:38)
[2019-04-24 08:23] VITALS: BP 102/65; PULSE 126; TEMP 98.9
--- NOTE | 2019-04-24 09:58 | DS ---
Physical Exam: SUBJECTIVE: Patient seen and examined at bedside. no events overnight, no new complaints. OBJECTIVE: Vital Signs Period Temp Pulse Resp BP Sys/Martin Pulse Ox Last 24 Hr 97.4 F-98.9 F 109-130 18-18 102-114/56-73 95-95 PHYSICAL EXAM GENERAL: The patient is awake, alert, and fully oriented, in no acute distress. LUNGS: Breath sounds equal, clear to auscultation bilaterally, no wheezes, no crackles, no accessory muscle use. HEART: Regular rate and rhythm, S1, S2 without murmur, rub or gallop. ABDOMEN: Soft, nontender, nondistended, normoactive bowel sounds, no guarding, no rebound, no hepatosplenomegaly, no masses. EXTREMITIES: 2+ pulses, warm, well-perfused, no edema. LABS HOSPITAL COURSE: Date of Admission:03/19/19 The patient is a 48 yo f w/ PMH of epilepsy, chronic 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 with subsequent brain damage requiring 3 [employer] shunts last one being in 1990), hypothyroidism as welll as stage 4 colon Ca who was admitted after chemotherapy for elevated ammonia. The patient was treated with lactulose and the uremia resolved. Her admission was complicated by the development of fevers. A CT of the abdomen and pelvis showed a pelvic abscess. It also noted progression of her metastatic disease. Infectious disease was consulted. The patient was treated with Zosyn, Flagyl, Vancomycin and Meropenem. The abscess was accessed and drained under CT guidance and a KELLY drain was left in place. Despite these interventions, repeat scans showed that this abscess continued to grow. At this point in time, the decision was made by family to bring the patient home with home hospice and focus on her comfort. The patient was discharged home with home hospice and prescriptions for santyl and bacitracin for her sacral decubitus ulcer as well as oral morphine for pain control. Date of Discharge: 04/24/19 Minutes to complete discharge: 40 Discharge Summary Problems reviewed: Yes Reason For Visit: COLON CANCER Condition: Good - Instructions Diet, Activity, Other Instructions: You were admitted after chemotherapy for the treatment of your high ammonia. While you were admitted, we also found an abscess in your pelvis which we have drained and treated with antibiotics. We have left the drain in place as it is still helping to drain the infection. We are sending you home with some medication to help control your pain. You should take 15mg of morphine sulphate every 8 hours as needed. When taking pain medication, there is also the risk of constipation. Please take the prescribed miralax to help with your bowel movements. We are also sending you home with some medications for the wound on your back. You should apply Collagenase (Santyl) to your sacral wound once per day. You should apply Bacitracin to your wound twice per day. You should continue to take the remainder of your home medications as prescribed. Referrals: Paul Kumar MD [Staff Physician] - Disposition: HOME - Home Medications Comprehensive Discharge Medication List: Ambulatory Orders Calcium Carbonate [Super Calcium] 600 mg PO BID 09/17/18 Carbamazepine Xr [Tegretol XR -] 400 mg PO AM 09/17/18 Carbamazepine Xr [Tegretol XR -] 600 mg PO HS 09/17/18 Levothyroxine [Synthroid -] 75 mcg PO DAILY 09/17/18 Cholecalciferol (Vitamin D3) [Vitamin D3] 2,000 units PO DAILY 09/18/18 Docusate Sodium [Colace -] 100 mg PO BID 09/18/18 Pantoprazole Sodium [Protonix -] 40 mg PO DAILY #30 tablet.ec 10/01/18 Ferrous Sulfate [Feosol] 325 mg PO BID 01/01/19 Bacitracin - [Bacitracin Topical Ointment -] 1 applic TP BID #1 tube 04/24/19 Collagenase Clostridium Hist. [Santyl -] 1 applic TP DAILY #1 tube 04/24/19 This patient is new to me today: No Emergency Visit: No Critical Care patient: No - Discharge Referral Referred to [facility] No ATTENDING PHYSICIAN STATEMENT I saw and evaluated the patient. I reviewed the resident's note and discussed the case with the resident. I agree with the resident's findings and plan as documented. SUBJECTIVE: OBJECTIVE: ASSESSMENT AND PLAN:
[2019-04-24] MEDS ORDERED: QUEtiapine FUMARATE 25 MG TABLET (FP) PO SCH ×2 (10:00)
[2019-04-24] MEDS: COLLAGENASE CLOSTRIDIUM HIST. 30 GRAMS TUBE TP SCH (10:39)
[2019-04-24] MEDS: PANTOPRAZOLE 40 MG TABLET (FP) PO SCH (10:39)
[2019-04-24] MEDS: FUROSEMIDE 20 MG TABLET (FP) PO SCH (10:39)
[2019-04-24] MEDS: BACITRACIN 15 GM TUBE TOPICAL OINTMENT TP SCH (10:39)
[2019-04-24] MEDS ORDERED: MORPHINE SULFATE 2 MG/ML VIAL SQ SCH (11:45)
--- NOTE | 2019-04-24 21:33 | PN ---
Progress Note (short form) - Note Progress Note: Patient seen and examined More communicative Told me she is going home AFVSS cacehectic,moaning Cor: RSR, No murmurs, No gallops Lungs: decreased at bases Abd: Soft, Normal bowel sounds, No organomegaly Ext:No significant edema Labs/Meds reviewed A/P 48 y/o patient with metastatic colon cancer , failure to thrive, s/p colostomy, iliopsoas abscess On antibiotics decreased abscess size with drainage poor prognosis add morphine prn transfer to hospice discussed with mother and went over discharge med list --morphine prn to be d/cd home with drain
--- NOTE | 2019-04-25 13:54 | PN ---
Progress Note (short form) - Note Progress Note: Patient seen and examined weak, failure to thrive AFVSS cacehectic,moaning Cor: RSR, No murmurs, No gallops Lungs: decreased at bases Abd: Soft, Normal bowel sounds, No organomegaly Labs/Meds reviewed A/P 48 y/o patient with metastatic colon cancer , failure to thrive, s/p colostomy, iliopsoas abscess On antibiotics decreased abscess size with drainage poor prognosis on morphine transferring to hospice
== END 2019-04-24 12:00 | disposition home or self-care (01) | DRG 371 ==
LOC: JONCCHEMO 05:30 → JONCBLOOD 05:30 → J7W 12:05 → JONCBLOOD 19:40 → J7W 19:40 → J4S 03-22 11:37
PROVIDERS: ADMIT Internal Medicine Hematology & Oncology; ATTEND Internal Medicine Hematology & Oncology
PROC: 30233N1 Transfusion of Nonautologous Red Blood Cells into Peripheral Vein, Percutaneous Approach (ICD-10-PCS; 2019-03-19)
PROC: 0W9J3ZX Drainage of Pelvic Cavity, Percutaneous Approach, Diagnostic (ICD-10-PCS; principal; 2019-03-23)
DX: K68.12 Psoas muscle abscess (principal); G93.41 Metabolic encephalopathy; E43 Unspecified severe protein-calorie malnutrition; C18.9 Malignant neoplasm of colon, unspecified; C78.7 Secondary malignant neoplasm of liver and intrahepatic bile duct; R64 Cachexia; Z68.1 Body mass index [BMI] 19.9 or less, adult; D72.829 Elevated white blood cell count, unspecified; D64.9 Anemia, unspecified; L89.151 Pressure ulcer of sacral region, stage 1; R62.7 Adult failure to thrive; E03.9 Hypothyroidism, unspecified; D47.3 Essential (hemorrhagic) thrombocythemia
CPT/HCPCS: 36415; 36430; 36511; 49406; 70450-TC; 71045-TC-FY; 72193-TC; 73700-TC-RT; 74176-TC; 74177-TC; 76098-TC-FY; 76380-TC; 78306-TC; 80048; 80053; 80076; 82140; 82272; 82607; 82962; 83540; 83550; 83735; 84439; 84443; 85025; 85027; 85044; 85384; 85610; 85730; 86850; 86900; 86901; 86922; 87040; 87070; 87075; 87076; 87086; 87205; 87899; 88108; 93005; 93010; 96375; 96409; 96413; 96415; 96417; 99281-25; A9503; C1729; C1769; G0480; J0131; J9035; P9038; P9058

== ENCOUNTER 2019-06-22 15:13 | Day surgery (SDC) | payer OTHER, BC ==
--- NOTE | 2019-06-22 20:40 | HP ---
History and Physical History and Physical: 48 y/o patient with metastatic colon cancer, with extensive liver mets, poor performance status. Treated in past with 5- FU based regimens/ avastin. Ad recent hospital course with iliopsoas abscess. Was discharged on hospice care AFVSS cacehectic,moaning Cor: RSR, No murmurs, No gallops Lungs: decreased at bases Abd: Soft, Normal bowel sounds, No organomegaly Ext:No significant edema Labs/Meds reviewed A/P 48 y/o patient with metastatic colon cancer , failure to thrive, s/p colostomy for obstruction, treated with 5- FU based regimens, recent iliopsoas abscess Was discharged on home ospice Now admitted with symptomatic anemia Transfuse PRBCS for hemoglobin of 6.7 pain control d/c planning
[2019-06-22] MEDS ORDERED: carBAMazepine XR 200 MG TAB.ER.12H PO SCH (21:00)
[2019-06-22] MEDS ORDERED: MORPHINE SULFATE 2 MG/ML VIAL IVPUSH PRN (21:30)
[2019-06-22] MEDS ORDERED: carBAMazepine 200 MG TABLET PO SCH (21:45)
[2019-06-22] MEDS: CALCIUM (OYSTER SHELL) 500 MG TABLET (FP) PO SCH (22:10)
[2019-06-23] MEDS ORDERED: LEVOTHYROXINE NA 75 MCG TABLET (FP) PO SCH (07:00)
[2019-06-23 08:57] LABS: EOS % 0.1 % (0-4.5); HEMATOCRIT 25.7 % (32.4-45.2); HEMOGLOBIN 8.7 GM/dL (10.7-15.3); LYMPH % 4.9 % (8-40); MCH 28.3 pg (25.7-33.7); MCHC 33.8 g/dl (32.0-36.0); MEAN CELL VOLUME 83.6 fl (80-96); MEAN PLT VOLUME 7.5 fl (7.5-11.1); MONO % 6.8 % (3.8-10.2); NEUT % 87.2 % (42.8-82.8); PLATELET COUNT 571 K/MM3 (134-434); RBC 3.07 M/mm3 (3.60-5.2); RDW 15.2 % (11.6-15.6); WHITE BLOOD COUNT 20.5 K/mm3 (4.0-10.0)
[2019-06-23 09:39] LABS: ALBUMIN 1.7 g/dl (3.4-5.0); BILIRUBIN,TOTAL 1.2 mg/dL (0.2-1); BLOOD UREA NITROGEN 15.6 mg/dL (7-18); CALCIUM 8.8 mg/dL (8.5-10.1); CREATININE 0.4 mg/dL (0.55-1.3); POTASSIUM 4.9 mmol/L (3.5-5.1); TOT PROT 7.4 g/dl (6.4-8.2)
[2019-06-23] MEDS ORDERED: COLLAGENASE CLOSTRIDIUM HIST. 30 GRAMS TUBE TP SCH (10:00)
[2019-06-23] MEDS ORDERED: carBAMazepine XR 400 MG TAB.ER.12H PO SCH (10:00)
[2019-06-23] MEDS ORDERED: PANTOPRAZOLE 40 MG TABLET (FP) PO SCH (10:00)
[2019-06-23] MEDS ORDERED: carBAMazepine 200 MG TABLET PO SCH (10:00)
[2019-06-23] MEDS ORDERED: CHOLECALCIFEROL (VIT D3) 1,000 UNIT (25 MCG) TABLET PO SCH (10:00)
[2019-06-23 10:20] LABS: ANISOCYTOSIS 1+; MACROCYTOSIS 0; PLATELET ESTIMATE INCREASED; TARGET CELLS 1+
[2019-06-23] MEDS: CALCIUM (OYSTER SHELL) 500 MG TABLET (FP) PO SCH (10:24)
[2019-06-23 15:54] VITALS: BP 133/65; PULSE 117; TEMP 99.5
--- NOTE | 2019-06-23 16:21 | PN ---
Progress Note (short form) - Note Progress Note: Patient seen and examined \S/P 2 units of packed cells Tolertated well. Susan for an evaluation at [facility] on 06/24. Last Vital Signs Temp Pulse Resp BP Pulse Ox 99.5 F 117 H 18 133/65 06/23/19 14:00 06/23/19 14:00 06/23/19 14:00 06/23/19 14:00 HEENT: [place], EOM Intact Oropharynx: No thrush, No mucositis Breasts: Without masses Cor: RSR, No murmurs, No gallops Lungs: Clear to P&A Abd: Soft, Normal bowel sounds, enlarged hepatomegaly Ext:No significant edema Skin: No rashes, Integument intact CBC, BMP 06/23/19 08:17 06/23/19 08:17 Current Medications Generic Name Dose Route Start Last Admin Trade Name Freq PRN Reason Stop Dose Admin Calcium Carbonate 500 mg 06/22/19 22:00 06/23/19 10:24 Os-Arturo 500mg - PO 500 mg BID [facility] Administration Carbamazepine 600 mg 06/22/19 21:45 06/22/19 22:06 Tegretol - PO 600 mg DAILY@2100 [facility] Administration Carbamazepine 400 mg 06/23/19 10:00 06/23/19 10:25 Tegretol - PO 400 mg DAILY [facility] Administration Cholecalciferol 2,000 unit 06/23/19 10:00 06/23/19 10:24 Vitamin D3 - PO 2,000 unit DAILY [facility] Administration Collagenase 1 applic 06/23/19 10:00 06/23/19 10:59 Santyl - TP 1 applic DAILY [facility] Administration Protocol Levothyroxine Sodium 75 mcg 06/23/19 07:00 06/23/19 06:47 Synthroid - PO 75 mcg DAILY@0700 [facility] Administration Morphine Sulfate 1 mg 06/22/19 21:30 06/22/19 21:56 Morphine Sulfate IVPUSH 1 mg Q4H PRN Administration PAIN LEVEL 7 - 10 Pantoprazole Sodium 40 mg 06/23/19 10:00 06/23/19 10:24 Protonix - PO 40 mg DAILY [facility] Administration Impression: Colon ca - metastatic to lung and liver S/P chemotherapy Anemia - s/p 2 units of packed cells Plan -- for discharge.
== END 2019-06-23 18:46 | disposition home or self-care (01) ==
LOC: JONCBLOOD 15:13 → J5S 15:13 → UNDOADMIN 15:13 → J5S 16:11 → EDSTATUS 16:28 → JONCBLOOD 06-23 18:46
PROVIDERS: ATTEND Internal Medicine Hematology & Oncology
PROC: 30233N1 Transfusion of Nonautologous Red Blood Cells into Peripheral Vein, Percutaneous Approach (ICD-10-PCS; principal; 2019-06-22)
PROC: 3E033GC Introduction of Other Therapeutic Substance into Peripheral Vein, Percutaneous Approach (ICD-10-PCS; 2019-06-22)
DX: D64.9 Anemia, unspecified (principal); C18.4 Malignant neoplasm of transverse colon; C78.7 Secondary malignant neoplasm of liver and intrahepatic bile duct
CPT/HCPCS: 36415; 36430; 36511; 80053; 85025; 86850; 86900; 86901; 86922; 96374; P9038; P9058